=== PATIENT | female | born 1940 | race Caucasian/White ===

== ENCOUNTER 2017-11-22 10:18 | Outpatient (RCR) | payer MEDICARE, OTHER, SELFPAY ==
--- NOTE | 2017-11-22 11:14 | WC ---
free eval completed. 2nd dig lt foot w/ small scab. flaked off with inspection. no underlying wound. encouraged pt to con't to monitor and con't w/ pcp follow ups.
== END 2017-12-04 23:59 ==
LOC: WC 10:18
PROVIDERS: Family Provider Family Medicine; PCP Family Medicine; Visit Provider Nurse Practitioner
DX: Z00.8 Encounter for other general examination (principal)

== ENCOUNTER → 2018-01-31 12:08 | Outpatient (CLI) | payer MEDICARE, OTHER, SELFPAY ==
--- NOTE | 2018-01-30 | BRBX_PTH ---
PATIENT: JEISON VALENZUELA LOC: [facility] U#:[id number] AGE/SX: 85/F ROOM: RE01/31/[address]: Dr. Dov Sheikh MD : 1940 BED: DIS: SPEC #: [id number] RECD: 01/31/18 11:55 STATUS: ABRAN ECHAVARRIA #: [id number] ALISON: 01/30/18 00:[address]: Dov Sheikh DEPT: SURGICAL PATHOLOGY RECD BY: Dov Whitney ENTERED: 01/31/18 12:18 SP TYPE: BREAST BX OTHR DR: Dr. Jaya Blackwell III, MD Tissues: Left breast, NOS Procedures: Surgery Specimen Level IV HEADER OPERATION: US guided left breast biopsy PRE-OP DIAGNOSIS: Abnormal mammogram TISSUE SUBMITTED: Left breast biopsy ISCHEMIC TIME: 1 minute MICROSCOPIC DIAGNOSIS Left breast, ultrasound-guided core biopsy: Fragments of benign breast tissue with extensive dense fibrosis, chronic inflammation and dystrophic calcifications. Negative for atypia or malignancy. NICOLE:hal 02/03/18 COMMENT Correlation with clinical, radiologic findings and appropriate follow up are necessary. MICROSCOPIC DESCRIPTION Slides are reviewed. GROSS DESCRIPTION Received in fixative is one container labeled with the patient's name and designated left breast biopsy. The specimen consists of multiple elongated fragments of alba-yellow fibroadipose tissue that in aggregate measure 1.5 x 1.5 x 0.1 cm. The entire specimen is submitted in one cassette. / NICOLE:hal 01/31/18 TC:5 CPT: 82409
== END ==
PROVIDERS: Family Provider Family Medicine; PCP Family Medicine; Visit Provider Surgery
DX: R92.8 Other abnormal and inconclusive findings on diagnostic imaging of breast (principal)
CPT/HCPCS: 88305

== ENCOUNTER 2018-02-21 09:36 | Outpatient (RCR) | payer MEDICARE, OTHER, SELFPAY ==
[2018-02-21 10:02] VITALS: BP 131/59; PULSE 73; RESP 18; TEMP 36.4; BMI 17.0
--- NOTE | 2018-02-21 11:03 | PCM.WC.HP ---
(1) Decubitus ulcer of foot, stage 3 Status: Acute Current Visit: Yes Qualifiers: Laterality: left Qualified Code(s): L89.893 - Pressure ulcer of other site, stage 3 Code(s): L89.893 - Pressure ulcer of other site, stage 3 (2) CREST syndrome Status: Chronic Current Visit: No Code(s): M34.1 - CR(E)ST syndrome History of Present Illness Date of Service: 02/21/18 History of Wound: Low up left lateral foot. Patient has been babying a left lateral foot for about 3 weeks with antibiotic ointment. Dr. Blackwell her regular doctor and he referred her to the wound center. 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 fib Allergies/Adverse Reactions: Allergies ampicillin Allergy (Verified 08/26/16 12:54) Rash cyclophosphamide [From Cytoxan] Allergy (Verified 04/01/17 19:59) Rash doxycycline Allergy (Verified 04/01/17 19:59) Rash morphine Allergy (Verified 04/01/17 19:59) mental status change sulfamethoxazole [From Bactrim] Allergy (Verified 04/01/17 19:59) Rash trimethoprim [From Bactrim] Allergy (Verified 04/01/17 19:59) Rash Home Medications: Ambulatory Orders Medication Instructions Recorded Aspirin E.C. [Ecotrin] 81 mg PO DAILY@0800 11/05/15 Atorvastatin Calcium [Lipitor] 10 mg PO QHS 11/05/15 Hydrochlorothiazide [Hctz] 12.5 mg PO DAILY 11/05/15 Lisinopril [Zestril] 20 mg PO DAILY 11/05/15 Multivitamins,Therapeutic 1 tablet PO DAILY 11/05/15 [Multivitamin] NIFEdipine [Procardia XL] 90 mg PO DAILY 11/05/15 Omeprazole [Prilosec] 20 mg PO DAILY 11/05/15 Warfarin [Coumadin] 5 mg PO MOWETHFRSA 11/05/15 Vit A/Vit C/Vit E/Zinc/Copper 1 each PO BID 03/09/16 [Preservision Areds Softgel] Warfarin [Coumadin] 2.5 mg PO SUTU 04/01/17 - Family History Maternal No pertinent history Paternal Stroke, No pertinent history Lives: Alone Smoking Status: Never smoker Tobacco Use: Non-smoker Alcohol: None Drugs: None Review of Systems Constitutional: Denies: Chills, Fever Eyes: Denies: Blurred vision, Drainage, Pain HEENT: Denies: Difficulty Hearing, Difficulty Swallowing, Sore Throat, Visual Changes Cardiovascular: Denies: Chest Pain, Palpitations, Syncope Respiratory: Denies: Cough, Shortness of Breath Gastrointestinal: Denies: Abdominal Pain, Nausea, Vomiting Genitourinary: Denies: Dysuria, Frequency Musculoskeletal: Denies: Joint Pain, Muscle pain Skin: Reports: - - Decubitus ulcer left lateral foot. Denies: Jaundice, Rash Neurological: Denies: Balance problems, Change in Speech, Difficulty swallowing, Focal weakness Psychiatric: Denies: Anxiety, Depression Endocrine: Denies: Change in Body Habitus Hematologic/ Lymphatic: Denies: Adenopathy - Physical Exam Vital Signs Temp Pulse Resp BP 97.5 F L 73 18 131/59 H 02/21/18 10:02 02/21/18 10:02 02/21/18 10:02 02/21/18 10:02 General: Oriented x3, Cooperative, Well developed HEENT: Atraumatic, PERRLA Oral: Moist Mucosa Neck: Supple, No JVD Lungs: Clear to auscultation, Normal air movement Cardiovascular: Regular rate, Regular Rhythm Abdomen: Bowel Sounds Present, Soft, Non Tender, No Hepato-splenomegaly Extremities: No clubbing, No edema Skin: Ulcer/ Wound - Ulcer left lateral foot Wound Measurements and Assessment WC - Nurse 1 - General Ulcer Measurement Start: 02/21/18 10:01 Freq: Status: Active Protocol: Activity Type Activity Date Activity User E-Sign Co-Sign Detail Recorded Client Recorded Date Recorded By Document 02/21/18 10:02 [id number] 02/21/18 10:31 02/21/18 10:02 Wound Center Nurse 1 [Ulcer Assessment] #1 Left lateral 5th metatarsal head -Combined with other wound No -Current Size (cm) - Length 0.2 -Current Size (cm) - Width 0.7 -Current Size (cm) - Depth 0.1 -Total Square Cm 0.14 -Date of Last Picture (Recall this 02/21/18 field) -Photo Taken Yes -Epithelialization Small 1-33% -Tunneling No -Undermining/Tunneling No -Circular Undermining No -Classification - Thickness Full Thickness without Exposed Support Structure -Exudate Amt Small (1-33%) -Exudate Type Serosanguineous -Wound Margin Distinct, Outline Attached -Granulation Amt Large (67-100%) -Granulation Quality [place] -Slough/Fibrin Yes -Necrosis Amt Small (1-33%) -Necrotic Tissue Type Adherent Slough -Structure Exposed Fascia Fat Layer Exposed -Texture (Nola-wound Skin Appearance) No Abnormality -Moisture (Nola-wound Skin Appearance No Abnormality ) -Color (Nola-wound Skin Appearance) Erythema -Temperature (Nola-wound Skin No Abnormality Appearance) (Pt Warm) -Tenderness on Palpation (Nola-wound No Skin Appearance) -Ulcer Cleansing Rinsed/ Irrigated with Saline -Foul Odor after Cleansing No -Anesthetic Used 4% Lidocaine Solution [Edema Assessment] -Lower Limb Edema Present Yes -Left Calf (cm) 33.4 -Left Ankle (cm) 21.4 WC - Nurse 2 - General Ulcer CM Notes Start: 02/21/18 10:01 Freq: Status: Active Protocol: Activity Type Activity Date Activity User E-Sign Co-Sign Detail Recorded Client Recorded Date Recorded By Document 02/21/18 10:42 MW [id number] 02/21/18 10:52 MW 02/21/18 10:42 Wound Center Nurse 2 [Procedure/Treatment] #1 Left lateral 5th metatarsal head -Time 10:42 -Correct Patient Yes -Correct Side, Site, Position Yes -Correct Procedure Yes -Procedure Performed Yes -Type of Procedure Debridement -Clinical Debridement Subcutaneous -Post Debridement Size (cm) - Length 0.3 -Post Debridement Size (cm) - Width 0.8 -Post Debridement Size (cm) - Depth 0.2 -Total Square Cm 0.24 -Wound/Ulcer Outcome Not Healed -Ulcer Cleansing Rinsed/ Irrigated with Saline -Foul Odor after Cleansing No -Bioengineered Tissue No -Bleeding Controlled with Pressure -Treatment Response Procedure Tolerated Well [See Physician Procedure note for Specifics] Pain Scale: 0-10 Numeric [Pain] -Is Patient Pain Free? Yes Musculoskeletal: No Tenderness to Palpation of Joints or Extremities Lymphatic: No Cervical, Supraclavicular, or Inguinal Adenopathy Neurological: Cranial nerves II-XII grossly intact, Neuro grossly intact Psych/Mental Status: Normal Affect, Appropriate, Alert and oriented to time, place, person, mood and affect Debridement Note Post-Debridement Measurements/Treatment WC - Nurse 2 - General Ulcer CM Notes Start: 02/21/18 10:01 Freq: Status: Active Protocol: Activity Type Activity Date Activity User E-Sign Co-Sign Detail Recorded Client Recorded Date Recorded By Document 02/21/18 10:42 MW [id number] 02/21/18 10:52 MW 02/21/18 10:42 Wound Center Nurse 2 #1 Left lateral 5th metatarsal head -Time 10:42 -Correct Patient Yes -Correct Side, Site, Position Yes -Correct Procedure Yes -Procedure Performed Yes -Type of Procedure Debridement -Clinical Debridement Subcutaneous -Post Debridement Size (cm) - Length 0.3 -Post Debridement Size (cm) - Width 0.8 -Post Debridement Size (cm) - Depth 0.2 -Total Square Cm 0.24 -Wound/Ulcer Outcome Not Healed -Ulcer Cleansing Rinsed/ Irrigated with Saline -Foul Odor after Cleansing No -Bioengineered Tissue No -Bleeding Controlled with Pressure -Treatment Response Procedure Tolerated Well Pain Scale: 0-10 Numeric Is Patient Pain Free? Yes Wound debrided: Left lateral foot Laterality: Left Wound Grade/Stage: Stage III Anesthesia Used: 5% Lidocaine Gel Depth: Down to and including healthy tissue, in the subcutaneous layer Instrument Used: 3mm curette Severity: Limited To Skin Breakdown Amount of bleeding with debridement: Mild Bleeding Controlled with: Pressure Patient tolerated procedure well Assessment/Plan CBC with differential pre-albumin cultures taken of the ulcer Active Problems Decubitus ulcer of foot, stage 3 (Acute) Assessment: Crest syndrome. Decubitus ulcer left lateral foot. A. fib. Blood thinners long-term Plan: Foot with Hibiclens apply Aquacel silver to the wound base cover moistened cover with Adaptic gauze and tape 3veryday may need a surgical shoe for bulk. Low up in 2 weeks
--- NOTE | 2018-02-21 11:11 | HP.PCM_ITS ---
(1) Decubitus ulcer of foot, stage 3 Status: Acute Current Visit: Yes Qualifiers: Laterality: left Qualified Code(s): L89.893 - Pressure ulcer of other site , stage 3 Code(s): L89.893 - Pressure ulcer of other site, stage 3 (2) CREST syndrome Status: Chronic Current Visit: No Code(s): M34.1 - CR(E)ST syndrome History of Present Illness Date of Service: 02/21/18 History of Wound: Low up left lateral foot. Patient has been babying a left lateral foot for about 3 weeks with antibiotic ointment. Dr. Blackwell her regular doctor and he referred her to the wound center. 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 fib Allergies/Adverse Reactions: Allergies ampicillin Allergy (Verified 08/26/16 12:54) Rash cyclophosphamide [From Cytoxan] Allergy (Verified 04/01/17 19:59) Rash doxycycline Allergy (Verified 04/01/17 19:59) Rash morphine Allergy (Verified 04/01/17 19:59) mental status change sulfamethoxazole [From Bactrim] Allergy (Verified 04/01/17 19:59) Rash trimethoprim [From Bactrim] Allergy (Verified 04/01/17 19:59) Rash Home Medications: Ambulatory Orders Medication Instructions Recorded Aspirin E.C. [Ecotrin] 81 mg PO DAILY@0800 11/05/15 Atorvastatin Calcium [Lipitor] 10 mg PO QHS 11/05/15 Hydrochlorothiazide [Hctz] 12.5 mg PO DAILY 11/05/15 Lisinopril [Zestril] 20 mg PO DAILY 11/05/15 Multivitamins,Therapeutic 1 tablet PO DAILY 11/05/15 [Multivitamin] NIFEdipine [Procardia XL] 90 mg PO DAILY 11/05/15 Omeprazole [Prilosec] 20 mg PO DAILY 11/05/15 Warfarin [Coumadin] 5 mg PO MOWETHFRSA 11/05/15 Vit A/Vit C/Vit E/Zinc/Copper 1 each PO BID 03/09/16 [Preservision Areds Softgel] Warfarin [Coumadin] 2.5 mg PO SUTU 04/01/17 - Family History Maternal No pertinent history Paternal Stroke, No pertinent history Lives: Alone Smoking Status: Never smoker Tobacco Use: Non-smoker Alcohol: None Drugs: None Review of Systems Constitutional: Denies: Chills, Fever Eyes: Denies: Blurred vision, Drainage, Pain HEENT: Denies: Difficulty Hearing, Difficulty Swallowing, Sore Throat, Visual Changes Cardiovascular: Denies: Chest Pain, Palpitations, Syncope Respiratory: Denies: Cough, Shortness of Breath Gastrointestinal: Denies: Abdominal Pain, Nausea, Vomiting Genitourinary: Denies: Dysuria, Frequency Musculoskeletal: Denies: Joint Pain, Muscle pain Skin: Reports: - - Decubitus ulcer left lateral foot. Denies: Jaundice, Rash Neurological: Denies: Balance problems, Change in Speech, Difficulty swallowing , Focal weakness Psychiatric: Denies: Anxiety, Depression Endocrine: Denies: Change in Body Habitus Hematologic/ Lymphatic: Denies: Adenopathy - Physical Exam Vital Signs Temp Pulse Resp BP 97.5 F L 73 18 131/59 H 02/21/18 10:02 02/21/18 10:02 02/21/18 10:02 02/21/18 10:02 General: Oriented x3, Cooperative, Well developed HEENT: Atraumatic, PERRLA Oral: Moist Mucosa Neck: Supple, No JVD Lungs: Clear to auscultation, Normal air movement Cardiovascular: Regular rate, Regular Rhythm Abdomen: Bowel Sounds Present, Soft, Non Tender, No Hepato-splenomegaly Extremities: No clubbing, No edema Skin: Ulcer/ Wound - Ulcer left lateral foot Wound Measurements and Assessment WC - Nurse 1 - General Ulcer Measurement Start: 02/21/18 10:01 Freq: Status: Active Protocol: Activity Type Activity Date Activity User E-Sign Co-Sign Detail Recorded Client Recorded Date Recorded By Document 02/21/18 10:02 [id number] 02/21/18 10:31 02/21/18 10:02 Wound Center Nurse 1 [Ulcer Assessment] #1 Left lateral 5th metatarsal head -Combined with other wound No -Current Size (cm) - Length 0.2 -Current Size (cm) - Width 0.7 -Current Size (cm) - Depth 0.1 -Total Square Cm 0.14 -Date of Last Picture (Recall this 02/21/18 field) -Photo Taken Yes -Epithelialization Small 1-33% -Tunneling No -Undermining/Tunneling No -Circular Undermining No -Classification - Thickness Full Thickness without Exposed Support Structure -Exudate Amt Small (1-33%) -Exudate Type Serosanguineous -Wound Margin Distinct, Outline Attached -Granulation Amt Large (67-100%) -Granulation Quality [place] -Slough/Fibrin Yes -Necrosis Amt Small (1-33%) -Necrotic Tissue Type Adherent Slough -Structure Exposed Fascia Fat Layer Exposed -Texture (Nola-wound Skin Appearance) No Abnormality -Moisture (Nola-wound Skin Appearance No Abnormality ) -Color (Nola-wound Skin Appearance) Erythema -Temperature (Nola-wound Skin No Abnormality Appearance) (Pt Warm) -Tenderness on Palpation (Nola-wound No Skin Appearance) -Ulcer Cleansing Rinsed/ Irrigated with Saline -Foul Odor after Cleansing No -Anesthetic Used 4% Lidocaine Solution [Edema Assessment] -Lower Limb Edema Present Yes -Left Calf (cm) 33.4 -Left Ankle (cm) 21.4 WC - Nurse 2 - General Ulcer CM Notes Start: 02/21/18 10:01 Freq: Status: Active Protocol: Activity Type Activity Date Activity User E-Sign Co-Sign Detail Recorded Client Recorded Date Recorded By Document 02/21/18 10:42 MW [id number] 02/21/18 10:52 MW 02/21/18 10:42 Wound Center Nurse 2 [Procedure/Treatment] #1 Left lateral 5th metatarsal head -Time 10:42 -Correct Patient Yes -Correct Side, Site, Position Yes -Correct Procedure Yes -Procedure Performed Yes -Type of Procedure Debridement -Clinical Debridement Subcutaneous -Post Debridement Size (cm) - Length 0.3 -Post Debridement Size (cm) - Width 0.8 -Post Debridement Size (cm) - Depth 0.2 -Total Square Cm 0.24 -Wound/Ulcer Outcome Not Healed -Ulcer Cleansing Rinsed/ Irrigated with Saline -Foul Odor after Cleansing No -Bioengineered Tissue No -Bleeding Controlled with Pressure -Treatment Response Procedure Tolerated Well [See Physician Procedure note for Specifics] Pain Scale: 0-10 Numeric [Pain] -Is Patient Pain Free? Yes Musculoskeletal: No Tenderness to Palpation of Joints or Extremities Lymphatic: No Cervical, Supraclavicular, or Inguinal Adenopathy Neurological: Cranial nerves II-XII grossly intact, Neuro grossly intact Psych/Mental Status: Normal Affect, Appropriate, Alert and oriented to time, place, person, mood and affect Debridement Note Post-Debridement Measurements/Treatment WC - Nurse 2 - General Ulcer CM Notes Start: 02/21/18 10:01 Freq: Status: Active Protocol: Activity Type Activity Date Activity User E-Sign Co-Sign Detail Recorded Client Recorded Date Recorded By Document 02/21/18 10:42 MW [id number] 02/21/18 10:52 MW 02/21/18 10:42 Wound Center Nurse 2 #1 Left lateral 5th metatarsal head -Time 10:42 -Correct Patient Yes -Correct Side, Site, Position Yes -Correct Procedure Yes -Procedure Performed Yes -Type of Procedure Debridement -Clinical Debridement Subcutaneous -Post Debridement Size (cm) - Length 0.3 -Post Debridement Size (cm) - Width 0.8 -Post Debridement Size (cm) - Depth 0.2 -Total Square Cm 0.24 -Wound/Ulcer Outcome Not Healed -Ulcer Cleansing Rinsed/ Irrigated with Saline -Foul Odor after Cleansing No -Bioengineered Tissue No -Bleeding Controlled with Pressure -Treatment Response Procedure Tolerated Well Pain Scale: 0-10 Numeric Is Patient Pain Free? Yes Wound debrided: Left lateral foot Laterality: Left Wound Grade/Stage: Stage III Anesthesia Used: 5% Lidocaine Gel Depth: Down to and including healthy tissue, in the subcutaneous layer Instrument Used: 3mm curette Severity: Limited To Skin Breakdown Amount of bleeding with debridement: Mild Bleeding Controlled with: Pressure Patient tolerated procedure well Assessment/Plan CBC with differential pre-albumin cultures taken of the ulcer Active Problems Decubitus ulcer of foot, stage 3 (Acute) Assessment: Crest syndrome. Decubitus ulcer left lateral foot. A. fib. Blood thinners long-term Plan: Foot with Hibiclens apply Aquacel silver to the wound base cover moistened cover with Adaptic gauze and tape 3veryday may need a surgical shoe for bulk. Low up in 2 weeks
== END 2018-03-03 23:59 ==
LOC: WC 09:36
PROVIDERS: Family Provider Family Medicine; PCP Family Medicine; Visit Provider Nurse Practitioner
DX: L89.893 Pressure ulcer of other site, stage 3 (principal); M34.1 CR(E)ST syndrome; I10 Essential (primary) hypertension; K52.9 Noninfective gastroenteritis and colitis, unspecified; Z89.511 Acquired absence of right leg below knee; I48.91 Unspecified atrial fibrillation; Z79.899 Other long term (current) drug therapy; Z79.01 Long term (current) use of anticoagulants
CPT/HCPCS: 11042; 87070; 87075; 87077; 87186; 87205; 99203; G0463

== ENCOUNTER → 2018-02-21 11:41 | Outpatient (CLI) | payer MEDICARE, OTHER, SELFPAY ==
[2018-02-21 13:06] LABS: Absolute Neutrophil Count 12.7 X10^3/uL (2.0-7.7); Basophil# 0.04 X10^3/uL; Basophil% 0.3 % (0-1); Eosinophil# 0.24 X10^3/uL; Eosinophils% 1.5 % (0-5); Hematocrit 37.9 % (37-47); Mean Corp Hgb Conc 31.7 g/gl (32-36); Mean Corpuscular Hgb 28.1 pg (27.0-32.0); Mean Corpuscular Volume 88.8 fL (81-99); Mean Platelet Vol. 10.7 fl (6.2-12.0); Monocyte# 1.17 X10^3/uL; Monocyte% 7.5 % (0-10); Neutrophil # 12.67 X10^3/uL (2.7-7.7); Neutrophil % 81.4 % (47-70); POSITIVE COUNT NO; POSITIVE DIFFERENTIAL NO; POSITIVE MORPHOLOGY NO; Platelet Count 721 K/mm3 (150-450); RBC Distribution Width CV 15.4 % (11.6-14.6); RBC Distribution Width SD 49.7 fl (35.1-43.9); Red Blood Count 4.27 M/mm3 (4.2-5.4); White Blood Count 15.6 K/mm3 (4.4-11.0)
[2018-02-21 13:23] LABS: ALB/GLOB Ratio 0.9 RATIO (0.9-2.4); AST(SGOT) 23 U/L (15-37); Alanine Aminotransfer ALT/SGPT 28 U/L (13-56); Albumin, Serum 3.6 g/dL (3.2-5.0); Alkaline Phosphatase 127 U/L (45-117); Anion Gap 8 (5-15); BUN 52 mg/dL (7-18); BUN/Creat Ratio 40.6 RATIO (10-20); Calcium,Total 9.6 mg/dL (8.5-10.1); Chloride 105 mmol/L (98-107); Creatinine, Serum 1.28 mg/dL (0.55-1.02); EST Glomerular Filtration Rate 43 mL/min (>60); Est Glom Filt Rate - Afr Amer 52 mL/min (>60); Globulin 3.9 g/dL (2.2-4.2); Glucose 80 mg/dL (74-106); Potassium 4.7 mmol/L (3.5-5.1); Prealbumin 25.4 mg/dL (20.0-40.0); Protein, Total 7.5 g/dL (6.4-8.2); Sodium Level 139 mmol/L (136-145)
== END ==
PROVIDERS: Family Provider Family Medicine; PCP Family Medicine; Visit Provider Nurse Practitioner
DX: L89.893 Pressure ulcer of other site, stage 3 (principal); L97.529 Non-pressure chronic ulcer of other part of left foot with unspecified severity; E46 Unspecified protein-calorie malnutrition
CPT/HCPCS: 11042; 36415; 80053; 84134; 85025; 87070; 87075; 87077; 87186; 87205; 99203; G0463

== ENCOUNTER → 2018-03-14 11:11 | Outpatient (CLI) | payer MEDICARE, OTHER, SELFPAY ==
[2018-03-14 11:46] LABS: Prothrombin Time (Protime)PT. 50.9 SECONDS (11.7-14.9)
[2018-03-14 12:07] LABS: International Normalized Ratio 5.6
== END ==
PROVIDERS: Family Provider Family Medicine; PCP Family Medicine; Visit Provider Family Medicine
DX: I63.9 Cerebral infarction, unspecified (principal); D47.3 Essential (hemorrhagic) thrombocythemia; Z79.01 Long term (current) use of anticoagulants
CPT/HCPCS: 85610

== ENCOUNTER 2018-03-21 11:00 | Outpatient (RCR) | payer MEDICARE, OTHER, SELFPAY ==
[2018-03-04 01:15] VITALS: PULSE 73; RESP 18; TEMP 36.4
[2018-03-07 10:32] VITALS: BP 162/72; PULSE 82; RESP 16; TEMP 36.4
--- NOTE | 2018-03-11 13:02 | PCM.WC.PN ---
(1) Nonhealing nonsurgical wound Status: Acute Current Visit: No Code(s): T14.8XXA - Other injury of unspecified body region, initial encounter (2) CREST syndrome Status: Chronic Current Visit: No Code(s): M34.1 - CR(E)ST syndrome Type of Wound Date of Service: 03/21/18 Chief Complaint: follow up L foot ulcer on the lateral foot History of Wound: follow up left lateral foot. Patient has been babying a left lateral foot for about 3 weeks with antibiotic ointment. Dr. Blackwell her regular doctor and he referred her to the wound center. Progress of Wound: the ulcer is very superficial now but still increased pain in the area. patient already missing her Great toe from amputation. suggested a post op shoe eith a very fluffy sock to help with the pressure area c/o - Physical Exam Vital Signs Temp Pulse Resp BP 97.5 F L 82 16 162/72 H 03/07/18 10:32 03/07/18 10:32 03/07/18 10:32 03/07/18 10:32 General: Oriented x3, Cooperative, Well developed HEENT: Atraumatic, PERRLA Oral: Moist Mucosa Neck: Supple, No JVD Lungs: Clear to auscultation, Normal air movement Cardiovascular: Regular rate, Regular Rhythm Abdomen: Bowel Sounds Present, Soft, Non Tender, No Hepato-splenomegaly Extremities: No clubbing, No edema, - - L lat foot ulcer Musculoskeletal: No Tenderness to Palpation of Joints or Extremities Lymphatic: No Cervical, Supraclavicular, or Inguinal Adenopathy Neurological: Cranial nerves II-XII grossly intact, Neuro grossly intact Psych/Mental Status: Normal Affect, Appropriate Debridement Note Post-Debridement Measurements/Treatment WC - Nurse 2 - General Ulcer CM Notes Start: 03/07/18 10:32 Freq: Status: Active Protocol: Activity Type Activity Date Activity User E-Sign Co-Sign Detail Recorded Client Recorded Date Recorded By Document 03/07/18 11:28 ESME [id number] 03/07/18 11:29 ESME 03/07/18 11:28 Wound Center Nurse 2 #1 Left lateral 5th metatarsal head -Time 11:28 -Correct Patient Yes -Correct Side, Site, Position Yes -Correct Procedure Yes -Procedure Performed Yes -Type of Procedure Debridement -Clinical Debridement Subcutaneous -Post Debridement Size (cm) - Length 0.2 -Post Debridement Size (cm) - Width 0.7 -Post Debridement Size (cm) - Depth 0.1 -Total Square Cm 0.14 -Wound/Ulcer Outcome Not Healed -Ulcer Cleansing Rinsed/ Irrigated with Saline -Foul Odor after Cleansing No -Bioengineered Tissue No -Topical Lidocaine (%) 4 -Lidocaine (ml) 5 -Bleeding Controlled with NA -Treatment Response Procedure Tolerated Well Pain Scale: 0-10 Numeric Is Patient Pain Free? Yes Wound debrided: L lat foot ulcer Type of Debridement: Excisional debridement Anesthesia Used: 5% Lidocaine Gel Depth: Down to and including healthy tissue, in the subcutaneous layer Percentage of wound debrided: 100 Instrument Used: 5mm curette Tissue Removed: fibrin Severity: Limited To Skin Breakdown Amount of bleeding with debridement: None Patient tolerated procedure well Assessment/Plan Assessment: Crest syndrome. Decubitus ulcer left lateral foot. A. fib. Blood thinners long-term Plan: Foot with Hibiclens apply Aquacel silver to the wound base cover moistened cover with Adaptic gauze and tape everyday may need a surgical shoe for bulk. follow up in 1 weeks
[2018-03-21 13:09] VITALS: BP 143/76; PULSE 72; RESP 18; TEMP 36.9
--- NOTE | 2018-03-24 09:40 | PCM.WC.PN ---
(1) Nonhealing nonsurgical wound Status: Acute Current Visit: Yes Code(s): T14.8XXA - Other injury of unspecified body region, initial encounter (2) CREST syndrome Status: Chronic Current Visit: Yes Code(s): M34.1 - CR(E)ST syndrome Type of Wound Date of Service: 03/24/18 Chief Complaint: follow up L foot ulcer on the lateral foot History of Wound: follow up left lateral foot. Patient has been babying a left lateral foot for about 3 weeks with antibiotic ointment. Dr. Blackwell her regular doctor and he referred her to the wound center. Progress of Wound: the ulcer is epithelialized now but still has pain in the area. Patient already missing her Great toe from amputation > Suggested padding tyrone area with a rabbit ears pad that she can buy OTC and cut to fit over the area when wearing shoes only . suggested a post op shoe eith a very fluffy sock to help with the pressure area c/o. Patient will be d/c from the wound center today - Physical Exam Vital Signs Temp Pulse Resp BP 98.4 F 72 18 143/76 H 03/21/18 13:09 03/21/18 13:09 03/21/18 13:09 03/21/18 13:09 General: Oriented x3, Cooperative, Well developed HEENT: Atraumatic, PERRLA Oral: Moist Mucosa Neck: Supple, No JVD Lungs: Clear to auscultation, Normal air movement Cardiovascular: Regular rate, Regular Rhythm Abdomen: Bowel Sounds Present, Soft, Non Tender, No Hepato-splenomegaly Extremities: No clubbing, No edema Skin: Ulcer/ Wound - L lat little toe and foot Wound Measurements and Assessment WC - Nurse 1 - General Ulcer Measurement Start: 03/07/18 10:32 Freq: Status: Active Protocol: Activity Type Activity Date Activity User E-Sign Co-Sign Detail Recorded Client Recorded Date Recorded By Document 03/21/18 13:09 ESME [id number] 03/21/18 13:26 ESME 03/21/18 13:09 Wound Center Nurse 1 [Ulcer Assessment] #1 Left lateral 5th metatarsal head -Combined with other wound No -Current Size (cm) - Length 0.3 -Current Size (cm) - Width 0.6 -Current Size (cm) - Depth 0.1 -Total Square Cm 0.18 -Date of Last Picture (Recall this 03/21/18 field) -Photo Taken Yes -Epithelialization None Present -Tunneling No -Undermining/Tunneling No -Circular Undermining No -Classification - Thickness Full Thickness without Exposed Support Structure -Exudate Amt None Present (0 %) -Wound Margin Distinct, Outline Attached -Granulation Amt None Present (0 %) -Granulation Quality N/A -Slough/Fibrin Yes -Necrosis Amt None Present (0 %) -Necrotic Tissue Type Eschar -Structure Exposed N/A -Texture (Nola-wound Skin Appearance) Callus -Moisture (Nola-wound Skin Appearance No Abnormality ) -Color (Nola-wound Skin Appearance) No Abnormality -Temperature (Nola-wound Skin No Abnormality Appearance) (Pt Warm) -Tenderness on Palpation (Nola-wound No Skin Appearance) -Ulcer Cleansing Rinsed/ Irrigated with Saline -Foul Odor after Cleansing No -Anesthetic Used 5% Lidocaine Gel WC - Nurse 2 - General Ulcer CM Notes Start: 03/07/18 10:32 Freq: Status: Active Protocol: Activity Type Activity Date Activity User E-Sign Co-Sign Detail Recorded Client Recorded Date Recorded By Document 03/21/18 13:50 DV [id number] 03/21/18 14:06 DV 03/21/18 13:50 Wound Center Nurse 2 [Procedure/Treatment] -Time 13:58 -Correct Patient Yes -Procedure Performed No -Post Debridement Size (cm) - Length 0 -Post Debridement Size (cm) - Width 0 -Post Debridement Size (cm) - Depth 0 -Total Square Cm 0 -Wound/Ulcer Outcome Healed- Epithelialized [See Physician Procedure note for Specifics] Pain Scale: 0-10 Numeric [Pain] -Is Patient Pain Free? Yes Musculoskeletal: No Tenderness to Palpation of Joints or Extremities Lymphatic: No Cervical, Supraclavicular, or Inguinal Adenopathy Neurological: Cranial nerves II-XII grossly intact, Neuro grossly intact Psych/Mental Status: Normal Affect, Appropriate Debridement Note Post-Debridement Measurements/Treatment WC - Nurse 2 - General Ulcer CM Notes Start: 03/07/18 10:32 Freq: Status: Active Protocol: Activity Type Activity Date Activity User E-Sign Co-Sign Detail Recorded Client Recorded Date Recorded By Document 03/07/18 11:28 JS [id number] 03/07/18 11:29 Document 03/21/18 13:50 DV [id number] 03/21/18 14:06 DV 03/07/18 03/21/18 11:28 13:50 Wound Center Nurse 2 #1 Left lateral 5th metatarsal head -Time 11:28 13:58 -Correct Patient Yes Yes -Correct Side, Site, Position Yes -Correct Procedure Yes -Procedure Performed Yes No -Type of Procedure Debridement -Clinical Debridement Subcutaneous -Post Debridement Size (cm) - Length 0.2 0 -Post Debridement Size (cm) - Width 0.7 0 -Post Debridement Size (cm) - Depth 0.1 0 -Total Square Cm 0.14 0 -Wound/Ulcer Outcome Not Healed Healed- Epithelialized -Ulcer Cleansing Rinsed/ Irrigated with Saline -Foul Odor after Cleansing No -Bioengineered Tissue No -Topical Lidocaine (%) 4 -Lidocaine (ml) 5 -Bleeding Controlled with NA -Treatment Response Procedure Tolerated Well Pain Scale: 0-10 Numeric Is Patient Pain Free? Yes Yes No debridement was completed today Assessment/Plan Active Problems Nonhealing nonsurgical wound (Acute) CREST syndrome (Chronic) Assessment: Crest syndrome. Decubitus ulcer left lateral foot. A. fib. Blood thinners long-term Plan: cover area with a protective covering like rabbits ears felt with adhesive on the back when wearing shoes only. Continue tyrone postop shoe as needed. D/C from the wound center. follow up as needed
--- NOTE | 2018-03-24 09:45 | PN.PCM_ITS ---
(1) Nonhealing nonsurgical wound Status: Acute Current Visit: Yes Code(s): T14.8XXA - Other injury of unspecified body region, initial encounter (2) CREST syndrome Status: Chronic Current Visit: Yes Code(s): M34.1 - CR(E)ST syndrome Type of Wound Date of Service: 03/24/18 Chief Complaint: follow up L foot ulcer on the lateral foot History of Wound: follow up left lateral foot. Patient has been babying a left lateral foot for about 3 weeks with antibiotic ointment. Dr. Blackwell her regular doctor and he referred her to the wound center. Progress of Wound: the ulcer is epithelialized now but still has pain in the area. Patient already missing her Great toe from amputation > Suggested padding tyrone area with a rabbit ears pad that she can buy OTC and cut to fit over the area when wearing shoes only . suggested a post op shoe eith a very fluffy sock to help with the pressure area c/o. Patient will be d/c from the wound center today - Physical Exam Vital Signs Temp Pulse Resp BP 98.4 F 72 18 143/76 H 03/21/18 13:09 03/21/18 13:09 03/21/18 13:09 03/21/18 13:09 General: Oriented x3, Cooperative, Well developed HEENT: Atraumatic, PERRLA Oral: Moist Mucosa Neck: Supple, No JVD Lungs: Clear to auscultation, Normal air movement Cardiovascular: Regular rate, Regular Rhythm Abdomen: Bowel Sounds Present, Soft, Non Tender, No Hepato-splenomegaly Extremities: No clubbing, No edema Skin: Ulcer/ Wound - L lat little toe and foot Wound Measurements and Assessment WC - Nurse 1 - General Ulcer Measurement Start: 03/07/18 10:32 Freq: Status: Active Protocol: Activity Type Activity Date Activity User E-Sign Co-Sign Detail Recorded Client Recorded Date Recorded By Document 03/21/18 13:09 ESME [id number] 03/21/18 13:26 ESME 03/21/18 13:09 Wound Center Nurse 1 [Ulcer Assessment] #1 Left lateral 5th metatarsal head -Combined with other wound No -Current Size (cm) - Length 0.3 -Current Size (cm) - Width 0.6 -Current Size (cm) - Depth 0.1 -Total Square Cm 0.18 -Date of Last Picture (Recall this 03/21/18 field) -Photo Taken Yes -Epithelialization None Present -Tunneling No -Undermining/Tunneling No -Circular Undermining No -Classification - Thickness Full Thickness without Exposed Support Structure -Exudate Amt None Present (0 %) -Wound Margin Distinct, Outline Attached -Granulation Amt None Present (0 %) -Granulation Quality N/A -Slough/Fibrin Yes -Necrosis Amt None Present (0 %) -Necrotic Tissue Type Eschar -Structure Exposed N/A -Texture (Nola-wound Skin Appearance) Callus -Moisture (Nola-wound Skin Appearance No Abnormality ) -Color (Nola-wound Skin Appearance) No Abnormality -Temperature (Nola-wound Skin No Abnormality Appearance) (Pt Warm) -Tenderness on Palpation (Nola-wound No Skin Appearance) -Ulcer Cleansing Rinsed/ Irrigated with Saline -Foul Odor after Cleansing No -Anesthetic Used 5% Lidocaine Gel WC - Nurse 2 - General Ulcer CM Notes Start: 03/07/18 10:32 Freq: Status: Active Protocol: Activity Type Activity Date Activity User E-Sign Co-Sign Detail Recorded Client Recorded Date Recorded By Document 03/21/18 13:50 DV [id number] 03/21/18 14:06 DV 03/21/18 13:50 Wound Center Nurse 2 [Procedure/Treatment] -Time 13:58 -Correct Patient Yes -Procedure Performed No -Post Debridement Size (cm) - Length 0 -Post Debridement Size (cm) - Width 0 -Post Debridement Size (cm) - Depth 0 -Total Square Cm 0 -Wound/Ulcer Outcome Healed- Epithelialized [See Physician Procedure note for Specifics] Pain Scale: 0-10 Numeric [Pain] -Is Patient Pain Free? Yes Musculoskeletal: No Tenderness to Palpation of Joints or Extremities Lymphatic: No Cervical, Supraclavicular, or Inguinal Adenopathy Neurological: Cranial nerves II-XII grossly intact, Neuro grossly intact Psych/Mental Status: Normal Affect, Appropriate Debridement Note Post-Debridement Measurements/Treatment WC - Nurse 2 - General Ulcer CM Notes Start: 03/07/18 10:32 Freq: Status: Active Protocol: Activity Type Activity Date Activity User E-Sign Co-Sign Detail Recorded Client Recorded Date Recorded By Document 03/07/18 11:28 JS [id number] 03/07/18 11:29 Document 03/21/18 13:50 DV [id number] 03/21/18 14:06 DV 03/07/18 03/21/18 11:28 13:50 Wound Center Nurse 2 #1 Left lateral 5th metatarsal head -Time 11:28 13:58 -Correct Patient Yes Yes -Correct Side, Site, Position Yes -Correct Procedure Yes -Procedure Performed Yes No -Type of Procedure Debridement -Clinical Debridement Subcutaneous -Post Debridement Size (cm) - Length 0.2 0 -Post Debridement Size (cm) - Width 0.7 0 -Post Debridement Size (cm) - Depth 0.1 0 -Total Square Cm 0.14 0 -Wound/Ulcer Outcome Not Healed Healed- Epithelialized -Ulcer Cleansing Rinsed/ Irrigated with Saline -Foul Odor after Cleansing No -Bioengineered Tissue No -Topical Lidocaine (%) 4 -Lidocaine (ml) 5 -Bleeding Controlled with NA -Treatment Response Procedure Tolerated Well Pain Scale: 0-10 Numeric Is Patient Pain Free? Yes Yes No debridement was completed today Assessment/Plan Active Problems Nonhealing nonsurgical wound (Acute) CREST syndrome (Chronic) Assessment: Crest syndrome. Decubitus ulcer left lateral foot. A. fib. Blood thinners long-term Plan: cover area with a protective covering like rabbits ears felt with adhesive on the back when wearing shoes only. Continue tyrone postop shoe as needed. D/C from the wound center. follow up as needed
== END 2018-04-03 23:59 ==
LOC: WC 11:00
PROVIDERS: Family Provider Family Medicine; PCP Family Medicine; Visit Provider Nurse Practitioner
DX: L89.892 Pressure ulcer of other site, stage 2 (principal); M34.1 CR(E)ST syndrome; I48.91 Unspecified atrial fibrillation
CPT/HCPCS: 11042; 99212; G0463

== ENCOUNTER → 2018-06-30 11:49 | Outpatient (CLI) | payer MEDICARE, OTHER, SELFPAY ==
[2018-06-30 12:07] LABS: International Normalized Ratio 2.2; Prothrombin Time (Protime)PT. 24.7 SECONDS (11.7-14.9)
== END ==
PROVIDERS: Family Provider Family Medicine; PCP Family Medicine; Visit Provider Family Medicine
DX: I63.9 Cerebral infarction, unspecified (principal); D47.3 Essential (hemorrhagic) thrombocythemia; Z79.01 Long term (current) use of anticoagulants
CPT/HCPCS: 85610

== ENCOUNTER 2019-03-31 09:30 | Outpatient (RCR) | payer MEDICARE, OTHER, SELFPAY ==
[2019-03-24 10:29] VITALS: BP 139/61; PULSE 74; RESP 20; TEMP 36.3; BMI 17.4
--- NOTE | 2019-03-24 11:41 | PCM.WC.HP ---
(1) History of gastrointestinal bleeding Status: Chronic Current Visit: No Code(s): Z87.19 - Personal history of other diseases of the digestive system (2) Ulcer of left lower extremity Status: Chronic Current Visit: Yes Qualifiers: Non-pressure ulcer stage: with fat layer exposed Qualified Code(s): L97.922 - Non-pressure chronic ulcer of unspecified part of left lower leg with fat layer exposed Code(s): L97.929 - Non-pressure chronic ulcer of unspecified part of left lower leg with unspecified severity (3) History of TIA (transient ischemic attack) Status: Chronic Current Visit: No Code(s): Z86.73 - Personal history of transient ischemic attack (TIA), and cerebral infarction without residual deficits (4) CAD (coronary artery disease) Status: Chronic Current Visit: No Code(s): I25.10 - Atherosclerotic heart disease of [place] coronary artery without angina pectoris (5) Renal insufficiency Status: Chronic Current Visit: No Code(s): N28.9 - Disorder of kidney and ureter, unspecified (6) PAD (peripheral artery disease) Status: Chronic Current Visit: Yes Code(s): I73.9 - Peripheral vascular disease, unspecified (7) History of CEA (carotid endarterectomy) Status: Chronic Current Visit: No Code(s): Z98.890 - Other specified postprocedural states (8) Leg swelling Status: Chronic Current Visit: Yes Code(s): M79.89 - Other specified soft tissue disorders (9) CREST syndrome Status: Chronic Current Visit: Yes Code(s): M34.1 - CR(E)ST syndrome (10) 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 It is been present for several weeks. The patient is unaware of any inciting events. It appears to have developed spontaneously, without any recent history of trauma. Patient states that it started as a blister. She indicates that her lower extremities have recently been swelling. She sleeps in a recumbent position at night. She is not very active. Her primary care physician has treated her with oral Cipro, which she is currently taking, and the use of bacitracin ointment topically. Patient has previously undergone a right below-knee amputation due to end-stage ischemia in the right lower extremity. She ambulates with the use of a prosthetic limb. She is taking Coumadin, and has done so long-term, presumably due to her severe peripheral arterial occlusive disease. She also suffers from CREST syndrome. Past Medical History Past Medical History: Chronic Problems History of gastrointestinal bleeding (Chronic) Ulcer of left lower extremity (Chronic) History of TIA (transient ischemic attack) (Chronic) CAD (coronary artery disease) (Chronic) Renal insufficiency (Chronic) PAD (peripheral artery disease) (Chronic) History of CEA (carotid endarterectomy) (Chronic) Leg swelling (Chronic) Diarrhea (Chronic) 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) Hypertension (Chronic) Past Medical History: The patient has a history of CREST syndrome. She has a history of hypertension, peripheral arterial occlusive disease, coronary artery disease, transient ischemic attack, and carotid artery stenosis. She indicates that she only has 1 functioning kidney. Her history is negative for myocardial infarction, congestive heart failure, cancer, diabetes mellitus, pulmonary disease, thyroid disease, and hyperlipidemia. Surgical History: - - Patient has a history of right carotid endarterectomy. Right below-knee amputation has been performed in the past. Patient has undergone left great toe amputation. She is a G2, P1 Ab1 (spontaneous) Allergies/Adverse Reactions: Allergies ampicillin Allergy (Verified 03/24/19 10:28) Rash cyclophosphamide [From Cytoxan] Allergy (Verified 03/24/19 10:28) Rash doxycycline Allergy (Verified 03/24/19 10:28) Rash morphine Allergy (Verified 03/24/19 10:28) mental status change sulfamethoxazole [From Bactrim] Allergy (Verified 03/24/19 10:28) Rash trimethoprim [From Bactrim] Allergy (Verified 03/24/19 10:28) Rash Home Medications: Ambulatory Orders Medication Instructions Recorded Aspirin E.C. [Ecotrin] 81 mg PO DAILY@0800 11/05/15 Atorvastatin Calcium [Lipitor] 10 mg PO QHS 11/05/15 Hydrochlorothiazide [Hctz] 12.5 mg PO DAILY 11/05/15 Lisinopril [Zestril] 20 mg PO DAILY 11/05/15 Multivitamins,Therapeutic 1 tablet PO DAILY 11/05/15 [Multivitamin] NIFEdipine [Procardia XL] 90 mg PO DAILY 11/05/15 Omeprazole [Prilosec] 20 mg PO DAILY 11/05/15 Warfarin [Coumadin] 5 mg PO MOWETHFRSA 11/05/15 Vit A/Vit C/Vit E/Zinc/Copper 1 each PO BID 03/09/16 [Preservision Areds Softgel] - Family History Maternal No pertinent history Paternal Stroke, No pertinent history, - - Patient's father suffered from Raynaud's disease Social History: Patient is a . She lives alone. She denies use of alcohol and tobacco products. 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 Smoking Status: Never smoker Review of Systems Constitutional: Denies: Chills, Fever, Weight Change Eyes: Denies: Pain, Vision Change HEENT: Denies: Difficulty Hearing, Difficulty Swallowing, Sinus Congestion Cardiovascular: Denies: Chest Pain, Palpitations Respiratory: Denies: Cough, Shortness of Breath Gastrointestinal: Denies: Diarrhea, Nausea, Vomiting Genitourinary: Denies: Dysuria, Hematuria Endocrine: Denies: Heat/ Cold Intolerance, Polydipsia, Polyuria Hematologic/ Lymphatic: Denies: Easy Bruising, Easy Bleeding - Physical Exam Vital Signs Temp Pulse Resp BP 97.3 F L 74 20 H 139/61 H 03/24/19 10:29 03/24/19 10:29 03/24/19 10:29 03/24/19 10:29 General: Alert, Oriented x3, Cooperative, No apparent distress, Well developed, Well nourished, - - Patient is thin HEENT: Atraumatic, PERRLA, EOMI, Normocephalic Oral: Moist Mucosa, No Gingival or Mucosal Lesions/ Ulcerations Neck: Supple, No JVD, Negative Carotid Bruits, No Nodes, No Nuchal Rigidity, Trachea Midline Lungs: Clear to auscultation, Normal air movement, No rhonchi, No wheeze, No rales Cardiovascular: Regular rate, Regular Rhythm, Normal S1, Normal S2, No murmurs Abdomen: Soft, Non Tender, Non-Distended Extremities: No clubbing, No cyanosis, No Calf Tenderness, - - The right lower extremity prosthesis is noted. There is slight swelling in the left lower extremity. Very small superficial ulceration is noted on the anterolateral aspect of the left calf. It is generally pink and healthy in appearance. There is no sign of infection or cellulitis. Dimensions are documented elsewhere. Sclerodactyly is noted to involve the digits of the hands. The distal right third finger is absent. Skin: No rashes Wound Measurements and Assessment WC - Nurse 1 - General Ulcer Measurement Start: 03/24/19 10:23 Freq: Status: Active Protocol: Activity Type Activity Date Activity User E-Sign Co-Sign Detail Recorded Client Recorded Date Recorded By Document 03/24/19 10:29 AN [id number] 03/24/19 10:51 AN 03/24/19 10:29 Wound Center Nurse 1 [Ulcer Assessment] #2 left lateral aleman -Current Size (cm) - Length 0.3 -Current Size (cm) - Width 0.5 -Current Size (cm) - Depth 0.1 -Total Square Cm 0.15 -Date of Last Picture (Recall this 03/24/19 field) -Photo Taken Yes -Classification - Thickness Full Thickness without Exposed Support Structure -Wound Margin Flat & Intact -Granulation Amt Small (1-33%) -Granulation Quality Red -Slough/Fibrin Yes -Necrosis Amt Large (67-100%) -Necrotic Tissue Type Adherent Slough -Structure Exposed None/Limited to Skin Breakdown -Texture (Nola-wound Skin Appearance) Assessed Localized Edema -Moisture (Nola-wound Skin Appearance Assessed ) -Color (Nola-wound Skin Appearance) Not Assessed Erythema -Temperature (Nola-wound Skin No Abnormality Appearance) (Pt Warm) -Tenderness on Palpation (Nola-wound Yes Skin Appearance) -Ulcer Cleansing Rinsed/ Irrigated with Saline -Foul Odor after Cleansing No -Anesthetic Used 4% Lidocaine Solution [Edema Assessment] -Left Calf (cm) 36 -Left Ankle (cm) 22 WC - Nurse 2 - General Ulcer CM Notes Start: 03/24/19 10:23 Freq: Status: Active Protocol: Activity Type Activity Date Activity User E-Sign Co-Sign Detail Recorded Client Recorded Date Recorded By Document 03/24/19 11:22 DV [id number] 03/24/19 11:34 DV 03/24/19 11:22 Wound Center Nurse 2 [Procedure/Treatment] #2 left lateral aleman -Time 11:32 -Correct Patient Yes -Correct Side, Site, Position Yes -Correct Procedure Yes -Procedure Performed Yes -Type of Procedure Debridement -Clinical Debridement Subcutaneous -Post Debridement Size (cm) - Length 0.2 -Post Debridement Size (cm) - Width 0.2 -Post Debridement Size (cm) - Depth 0.1 -Total Square Cm 0.04 -Wound/Ulcer Outcome Not Healed -Ulcer Cleansing Rinsed/ Irrigated with Saline -Foul Odor after Cleansing No -Bioengineered Tissue No -Bleeding Controlled with Pressure -Offloading No -Treatment Response Procedure Tolerated Well [See Physician Procedure note for Specifics] Pain Scale: 0-10 Numeric [Pain] -Is Patient Pain Free? Yes Neurological: Cranial nerves II-XII grossly intact, Neuro grossly intact Psych/Mental Status: Normal Affect, Appropriate, Alert and oriented to time, place, person, mood and affect Debridement Note Post-Debridement Measurements/Treatment WC - Nurse 2 - General Ulcer CM Notes Start: 03/24/19 10:23 Freq: Status: Active Protocol: Activity Type Activity Date Activity User E-Sign Co-Sign Detail Recorded Client Recorded Date Recorded By Document 03/24/19 11:22 DV [id number] 03/24/19 11:34 DV 03/24/19 11:22 Wound Center Nurse 2 #2 left lateral aleman -Time 11:32 -Correct Patient Yes -Correct Side, Site, Position Yes -Correct Procedure Yes -Procedure Performed Yes -Type of Procedure Debridement -Clinical Debridement Subcutaneous -Post Debridement Size (cm) - Length 0.2 -Post Debridement Size (cm) - Width 0.2 -Post Debridement Size (cm) - Depth 0.1 -Total Square Cm 0.04 -Wound/Ulcer Outcome Not Healed -Ulcer Cleansing Rinsed/ Irrigated with Saline -Foul Odor after Cleansing No -Bioengineered Tissue No -Bleeding Controlled with Pressure -Offloading No -Treatment Response Procedure Tolerated Well Pain Scale: 0-10 Numeric Is Patient Pain Free? Yes Laterality: Left - Anterolateral calf Anesthesia Used: 5% Lidocaine Gel Depth: Down to and including healthy tissue, in the subcutaneous layer Percentage of wound debrided: 100 Instrument Used: 5mm curette Tissue Removed: Bioburden Severity: Fat Layer Exposed Amount of bleeding with debridement: Mild Bleeding Controlled with: Compression and gauze Patient tolerated procedure well Assessment/Plan Active Problems Ulcer of left lower extremity (Chronic) PAD (peripheral artery disease) (Chronic) Leg swelling (Chronic) 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) Assessment: This is a 78-year-old female with multiple medical problems, as detailed above. Among these problems, the patient suffers from symptoms and manifestations of the CREST syndrome. She is under the care of a vascular surgeon, Dr. Mike Coppola. She presents with a small ulceration on the anterolateral aspect of the left calf, presumably the result of a blister which occurred due to swelling of the left lower extremity. She has previously undergone a right below-knee amputation for ischemia. Plan: We are to implement the use of Anna, which will be applied topically every other day. The patient is to be instructed in the appropriate means of application. Routine laboratory studies are to be obtained, including a CBC, comprehensive metabolic profile, and a serum prealbumin. The patient has been advised to optimize her nutritional intake. She has recently undergone a noninvasive lower extremity arterial study at the [facility], and efforts will be made to obtain the results of this study. For now, we are to avoid any form of compression, with the knowledge that the patient suffers from arterial occlusive disease in her left lower extremity. To minimize swelling, she has been advised to elevate her lower extremities as much as possible, to remain active, and to avoid prolonged idle sitting. Patient is to return in 1 week for reassessment. The patient is not a smoker. Influenza vaccine was not administered today. Patient stands 5 feet 8 inches tall. She weighs 115 pounds. Her BMI is 17.4, which places her in an underweight category.
[2019-03-26 12:50] LABS: Hematocrit 34.9 % (37-47); Hemoglobin 11.1 g/dl (12.0-15.0); Mean Corp Hgb Conc 31.8 g/gl (32-36); Mean Corpuscular Hgb 26.7 pg (27.0-32.0); Mean Corpuscular Volume 83.9 fL (81-99); Mean Platelet Vol. 10.7 fl (6.2-12.0); Platelet Count 684 K/mm3 (150-450); RBC Distribution Width CV 15.7 % (11.6-14.6); RBC Distribution Width SD 46.9 fl (35.1-43.9); Red Blood Count 4.16 M/mm3 (4.2-5.4); White Blood Count 15.1 K/mm3 (4.4-11.0)
[2019-03-26 13:03] LABS: Scan Indicated on CBC? Y/N NO
[2019-03-26 13:40] LABS: ALB/GLOB Ratio 0.9 RATIO (0.9-2.4); AST(SGOT) 19 U/L (15-37); Alanine Aminotransfer ALT/SGPT 23 U/L (13-56); Albumin, Serum 3.2 g/dL (3.2-5.0); Alkaline Phosphatase 100 U/L (45-117); Anion Gap 7 (5-15); BUN 47 mg/dL (7-18); BUN/Creat Ratio 33.6 RATIO (10-20); Chloride 109 mmol/L (98-107); EST Glomerular Filtration Rate 39 mL/min (>60); Est Glom Filt Rate - Afr Amer 47 mL/min (>60); Estimated Creatinine Clearance 26.83 ml/min; Globulin 3.7 g/dL (2.2-4.2); Glucose 88 mg/dL (74-106); Potassium 4.1 mmol/L (3.5-5.1); Protein, Total 6.9 g/dL (6.4-8.2); Sodium Level 137 mmol/L (136-145)
[2019-03-31 09:48] VITALS: BP 127/58; PULSE 76; RESP 16; TEMP 36.3; BMI 17.4
--- NOTE | 2019-03-31 10:25 | HP.PCM_ITS ---
(1) History of gastrointestinal bleeding Status: Chronic Current Visit: No Code(s): Z87.19 - Personal history of other diseases of the digestive system (2) Ulcer of left lower extremity Status: Chronic Current Visit: Yes Qualifiers: Non-pressure ulcer stage: with fat layer exposed Qualified Code(s): L97.922 - Non-pressure chronic ulcer of unspecified part of left lower leg with fat layer exposed Code(s): L97.929 - Non-pressure chronic ulcer of unspecified part of left lower leg with unspecified severity (3) History of TIA (transient ischemic attack) Status: Chronic Current Visit: No Code(s): Z86.73 - Personal history of transient ischemic attack (TIA), and cerebral infarction without residual deficits (4) CAD (coronary artery disease) Status: Chronic Current Visit: No Code(s): I25.10 - Atherosclerotic heart disease of [place] coronary artery without angina pectoris (5) Renal insufficiency Status: Chronic Current Visit: No Code(s): N28.9 - Disorder of kidney and ureter, unspecified (6) PAD (peripheral artery disease) Status: Chronic Current Visit: Yes Code(s): I73.9 - Peripheral vascular disease, unspecified (7) History of CEA (carotid endarterectomy) Status: Chronic Current Visit: No Code(s): Z98.890 - Other specified postprocedural states (8) Leg swelling Status: Chronic Current Visit: Yes Code(s): M79.89 - Other specified soft tissue disorders (9) CREST syndrome Status: Chronic Current Visit: Yes Code(s): M34.1 - CR(E)ST syndrome (10) 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 It is been present for several weeks. The patient is unaware of any inciting events. It appears to have developed spontaneously, without any recent history of trauma. Patient states that it started as a blister. She indicates that her lower extremities have recently been swelling. She sleeps in a recumbent position at night. She is not very active. Her primary care physician has treated her with oral Cipro, which she is currently taking, and the use of bacitracin ointment topically. Patient has previously undergone a right below-knee amputation due to end-stage ischemia in the right lower extremity. She ambulates with the use of a prosthetic limb. She is taking Coumadin, and has done so long-term, presumably due to her severe peripheral arterial occlusive disease. She also suffers from CREST syndrome. Past Medical History Past Medical History: Chronic Problems History of gastrointestinal bleeding (Chronic) Ulcer of left lower extremity (Chronic) History of TIA (transient ischemic attack) (Chronic) CAD (coronary artery disease) (Chronic) Renal insufficiency (Chronic) PAD (peripheral artery disease) (Chronic) History of CEA (carotid endarterectomy) (Chronic) Leg swelling (Chronic) Diarrhea (Chronic) 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) Hypertension (Chronic) Surgical History: - - Patient has a history of right carotid endarterectomy. Right below-knee amputation has been performed in the past. Patient has undergone left great toe amputation. She is a G2, P1 Ab1 (spontaneous) Allergies/Adverse Reactions: Allergies ampicillin Allergy (Verified 03/24/19 10:28) Rash cyclophosphamide [From Cytoxan] Allergy (Verified 03/24/19 10:28) Rash doxycycline Allergy (Verified 03/24/19 10:28) Rash morphine Allergy (Verified 03/24/19 10:28) mental status change sulfamethoxazole [From Bactrim] Allergy (Verified 03/24/19 10:28) Rash trimethoprim [From Bactrim] Allergy (Verified 03/24/19 10:28) Rash Home Medications: Ambulatory Orders Medication Instructions Recorded Aspirin E.C. [Ecotrin] 81 mg PO DAILY@0800 11/05/15 Atorvastatin Calcium [Lipitor] 10 mg PO QHS 11/05/15 Hydrochlorothiazide [Hctz] 12.5 mg PO DAILY 11/05/15 Lisinopril [Zestril] 20 mg PO DAILY 11/05/15 Multivitamins,Therapeutic 1 tablet PO DAILY 11/05/15 [Multivitamin] NIFEdipine [Procardia XL] 90 mg PO DAILY 11/05/15 Omeprazole [Prilosec] 20 mg PO DAILY 11/05/15 Warfarin [Coumadin] 5 mg PO MOWETHFRSA 11/05/15 Vit A/Vit C/Vit E/Zinc/Copper 1 each PO BID 03/09/16 [Preservision Areds Softgel] - Family History Maternal No pertinent history Paternal Stroke, No pertinent history, - - Patient's father suffered from Raynaud's disease Smoking Status: Never smoker Review of Systems Constitutional: Denies: Chills, Fever, Weight Change Eyes: Denies: Pain, Vision Change HEENT: Denies: Difficulty Hearing, Difficulty Swallowing, Sinus Congestion Cardiovascular: Denies: Chest Pain, Palpitations Respiratory: Denies: Cough, Shortness of Breath Gastrointestinal: Denies: Diarrhea, Nausea, Vomiting Genitourinary: Denies: Dysuria, Hematuria Endocrine: Denies: Heat/ Cold Intolerance, Polydipsia, Polyuria Hematologic/ Lymphatic: Denies: Easy Bruising, Easy Bleeding - Physical Exam Vital Signs Temp Pulse Resp BP 97.3 F L 76 16 127/58 H 03/31/19 09:48 03/31/19 09:48 03/31/19 09:48 03/31/19 09:48 General: Alert, Oriented x3, Cooperative, No apparent distress, Well developed, Well nourished HEENT: Atraumatic, PERRLA, EOMI, Normocephalic Oral: Moist Mucosa Neck: No JVD Lungs: Normal air movement Abdomen: Non-Distended Extremities: No clubbing, No cyanosis, No edema, No Calf Tenderness, - - Sclerodactyly is noted in the fingers. The ulceration on the left anterolateral calf is now completely healed and epithelialized. A prosthesis is noted on the right lower extremity. Skin: No rashes Wound Measurements and Assessment WC - Nurse 1 - General Ulcer Measurement Start: 03/24/19 10:23 Freq: Status: Active Protocol: Activity Type Activity Date Activity User E-Sign Co-Sign Detail Recorded Client Recorded Date Recorded By Document 03/31/19 09:48 DL [id number] 03/31/19 09:50 DL 03/31/19 09:48 Wound Center Nurse 1 [Ulcer Assessment] #3 left lateral aleman -Current Size (cm) - Length 0.1 -Current Size (cm) - Width 0.1 -Current Size (cm) - Depth 0.1 -Total Square Cm 0.01 -Photo Taken No -Exudate Amt None Present -Wound Margin Flat & Intact -Granulation Amt Large (67-100%) -Granulation Quality [place] -Necrosis Amt None Present (0 %) -Structure Exposed N/A -Texture (Nola-wound Skin Appearance) Scarring -Moisture (Nola-wound Skin Appearance Dry/Scaly ) -Color (Nola-wound Skin Appearance) No Abnormality -Ulcer Cleansing Rinsed/ Irrigated with Saline -Foul Odor after Cleansing No -Anesthetic Used 5% Lidocaine Gel [Edema Assessment] -Left Calf (cm) 35.4 -Left Ankle (cm) 21.1 Neurological: Cranial nerves II-XII grossly intact, Neuro grossly intact Psych/Mental Status: Normal Affect, Appropriate, Alert and oriented to time, place, person, mood and affect Debridement Note Post-Debridement Measurements/Treatment WC - Nurse 2 - General Ulcer CM Notes Start: 03/24/19 10:23 Freq: Status: Active Protocol: Activity Type Activity Date Activity User E-Sign Co-Sign Detail Recorded Client Recorded Date Recorded By Document 03/24/19 11:22 DV [id number] 03/24/19 11:34 DV 03/24/19 11:22 Wound Center Nurse 2 #3 left lateral aleman -Time 11:32 -Correct Patient Yes -Correct Side, Site, Position Yes -Correct Procedure Yes -Procedure Performed Yes -Type of Procedure Debridement -Clinical Debridement Subcutaneous -Post Debridement Size (cm) - Length 0.2 -Post Debridement Size (cm) - Width 0.2 -Post Debridement Size (cm) - Depth 0.1 -Total Square Cm 0.04 -Wound/Ulcer Outcome Not Healed -Ulcer Cleansing Rinsed/ Irrigated with Saline -Foul Odor after Cleansing No -Bioengineered Tissue No -Bleeding Controlled with Pressure -Offloading No -Treatment Response Procedure Tolerated Well Pain Scale: 0-10 Numeric Is Patient Pain Free? Yes No debridement was completed today - The left lower extremity ulceration is completely healed. Assessment/Plan Active Problems Ulcer of left lower extremity (Chronic) PAD (peripheral artery disease) (Chronic) Leg swelling (Chronic) 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) Assessment: This is a 78-year-old female with multiple medical problems, as detailed above. Among these problems, the patient suffers from symptoms and man ifestations of the CREST syndrome. She is under the care of a vascular surgeon, Dr. Mike Coppola. She presented with a small ulceration on the anterolateral aspect of the left calf, presumably the result of a blister which occurred due to swelling of the left lower extremity. She has previously undergone a right below-knee amputation for ischemia. Plan: The left lower extremity ulceration is now completely healed and feel he lies. The patient is to be discharged today. She has been instructed to avoid swelling in the left lower extremity. She is to elevate her left lower extremity is much as possible. She is to avoid prolonged idle sitting. Activity has been encouraged. She is to continue using her graduated compression stocking, which she was previously tolerating well. Routine laboratory studies were obtained, including a CBC, comprehensive metabolic profile, and a serum prealbumin. These results have been reviewed. To minimize swelling, she has been advised to elevate her lower extremities as much as possible, to remain active, and to avoid prolonged idle sitting. Patient is to be discharged. The patient is not a smoker. Influenza vaccine was not administered today. Patient stands 5 feet 8 inches tall. She weighs 115 pounds. Her BMI is 17.4, which places her in an underweight category.
== END 2019-04-03 23:59 ==
LOC: WC 09:30
PROVIDERS: Family Provider Family Medicine; PCP Family Medicine; Visit Provider Surgery
DX: I73.9 Peripheral vascular disease, unspecified (principal); M34.1 CR(E)ST syndrome; I25.10 Atherosclerotic heart disease of native coronary artery without angina pectoris; L97.822 Non-pressure chronic ulcer of other part of left lower leg with fat layer exposed; Z89.511 Acquired absence of right leg below knee; Z86.73 Personal history of transient ischemic attack (TIA), and cerebral infarction without residual deficits; I12.9 Hypertensive chronic kidney disease with stage 1 through stage 4 chronic kidney disease, or unspecified chronic kidney disease; N18.9 Chronic kidney disease, unspecified; R60.0 Localized edema; Z79.899 Other long term (current) drug therapy; Z79.01 Long term (current) use of anticoagulants
CPT/HCPCS: 11042; 36415; 80053; 84134; 85027; 99212; 99213; G0463

== ENCOUNTER → 2019-04-08 | Outpatient (CLI) | payer MEDICARE, OTHER, SELFPAY ==
[2019-03-31 09:48] VITALS: BMI 17.4
[2019-04-08 11:22] LABS: Prothrombin Time (Protime)PT. 22.3 SECONDS (11.7-14.9)
== END | disposition home or self-care (01) ==
LOC: LABSPEC 10:22
PROVIDERS: Family Provider Family Medicine; PCP Family Medicine; Referring Provider Family Medicine; Visit Provider Family Medicine
DX: I70.92 Chronic total occlusion of artery of the extremities (principal)
CPT/HCPCS: 85610

== ENCOUNTER 2019-06-11 12:11 | Inpatient (IN) | payer MEDICARE, OTHER, SELFPAY ==
[2019-06-11] VITALS (7 sets, daily range): BP systolic 145–190; BP diastolic 49–84; PULSE 55–84; RESP 16–18; TEMP 36.4–36.9; O2SAT 97–100; BMI 18.0; BMI 16.2
--- NOTE | 2019-06-11 12:34 | EKG12_ITS ---
Test Reason : WEAKNESS Blood Pressure : / mmHG Vent. Rate : 066 BPM Atrial Rate : 066 BPM P-R Int : 162 ms QRS Dur : 082 ms QT Int : 402 ms P-R-T Axes : 075 017 078 degrees QTc Int : 421 ms Normal sinus rhythm Low voltage QRS Cannot rule out Anteroseptal infarct (cited on or before 22-MAY-2007), age undetermined Abnormal ECG Confirmed by DAPHNIE GARDNER ([id number]), newspaper editor managing ALMA FUENTES ([id number]) on 06/15/2019 1:20:25 PM Referred By: Kalee Alvarez Confirmed By:DAPHNIE GARDNER
--- NOTE | 2019-06-11 12:34 | RAD_ITS ---
STUDY: X-RAY CHEST REASON FOR EXAM: Female, 78 years old. Chest pain and weakness. TECHNIQUE: Single AP portable view of the chest. COMPARISON: None. FINDINGS: EKG electrodes are seen. Surgical clips are seen in the cervical region. There is a small left pleural effusion with underlying infiltration and/or atelectasis. Normal size heart. Normal mediastinum and dinesh. Normal visualized pulmonary arteries. There is atherosclerotic calcification of the aortic arch with tortuosity. Normal visualized thoracic spine. Normal visualized ribs, clavicles, and shoulders. There is no demonstrated abnormality of the visualized soft tissue structures of the upper abdomen. RAD/Chest 1 View (Portable) IMPRESSION: Small left pleural effusion with underlying infiltration and/or atelectasis. Electronically Signed: Cipriano Brandon, at 13:09 EDT , Service support ,
--- NOTE | 2019-06-11 12:44 | CT_ITS ---
STUDY: CT BRAIN WITHOUT CONTRAST REASON FOR EXAM: Female, 78 years old. Left arm weakness. RADIATION DOSAGE (If Supplied By Facility): CTDIvol = ( 44.99 ) mGy, DLP = ( 832.67 ) mGycm TECHNIQUE: Transaxial CT imaging of the brain was performed without administration of intravenous contrast material. Individualized dose optimization techniques were used for this CT. COMPARISON: Comparison is made with prior study dated April 01, 2017. FINDINGS: Normal soft tissue structures. There is hyperostosis frontalis internus. There is mild cerebral atrophy with widening of the extra-axial spaces and ventricular dilatation. Stable encephalomalacia of the left medial occipital lobe including with prior infarction. Normal basal ganglia and thalami. Normal brainstem. Normal cerebellum. There is no intracranial hemorrhage. There are no findings of an acute ischemic infarction. Atherosclerotic calcification of the vertebral arteries and cavernous portions of the internal carotid arteries bilaterally. Normal visualized paranasal sinuses. CT/Brain/Head without Contrast IMPRESSION: Stable encephalomalacia in the medial aspect of the left occipital lobe. Electronically Signed: Cipriano Brandon, at 14:02 EDT , Service support ,
--- NOTE | 2019-06-11 12:45 | ED.VIS.GEN ---
History of Present Illness Chief Complaint: Weakness Onset: Today Current Severity: Mild Narrative: History of right below the knee amputation 2005, history of TIA at that time causing peripheral right eye visual field deficit, history of other nonspecific medical problems, patient reports was in her usual state of health until about an hour or 2 ago when she developed sudden onset of left upper extremity numbness and weakness, this lasted for about 5 minutes resolved during that time she had no trouble with her vision no changes, no headache no other numbness weakness paresthesias no chest pain or abdominal pain she is back to her baseline now reporting that her extremities are all the same motion no numbness weakness or paresthesias, she is had no fever no cough she denies history of [place] PE or DVT indicates she has one kidney because 1 of her [place] kidneys simply atrophied Past Medical History - Allergies and Home Meds Allergies/Adverse Reactions: Allergies ampicillin Allergy (Verified 06/11/19 12:13) Rash cyclophosphamide [From Cytoxan] Allergy (Verified 06/11/19 12:13) Rash doxycycline Allergy (Verified 06/11/19 12:13) Rash morphine Allergy (Verified 06/11/19 12:13) mental status change sulfamethoxazole [From Bactrim] Allergy (Verified 06/11/19 12:13) Rash trimethoprim [From Bactrim] Allergy (Verified 06/11/19 12:13) Rash Primary Care Physician: Jaya Blackwell III, MD [Primary Care Provider] - Past Medical History: - - Right lower extremity amputation prior TIA solitary kidney Surgical History: - - Patient has a history of right carotid endarterectomy. Right below-knee amputation has been performed in the past. Patient has undergone left great toe amputation. She is a G2, P1 Ab1 (spontaneous) Smoking Status: Never smoker - Family History Maternal Family History: Reports: No pertinent history Paternal Family History: Reports: Stroke, No pertinent history, - - Patient's father suffered from Raynaud's disease Review of Systems General: Denies: Chills, Fever, Sweats Eyes: Denies: Visual changes - bilaterally, Diplopia ENT: Denies: Rhinorrhea, Sore throat Cardiovascular: Denies: Chest pain, Palpitations Respiratory: Denies: Dyspnea, Cough, Dyspnea on exertion Gastrointestinal: Denies: Abdominal pain, Nausea, Vomiting, Diarrhea, Melena, Hematochezia Genitourinary: Denies: Dysuria, Hematuria, Frequency Musculoskeletal: Denies: Back pain, Extremity Pain Skin: Denies: Rash, Wounds Neurological: Reports: Weakness, Numbness. Denies: Headache Physical Exam Vital Signs/Narrative: Vital Signs Temp Pulse Resp BP Pulse Ox 06/11/19 12:13 97.8 F 69 17 145/49 H 97 General: Well nourished, Well developed, No Acute Distress Head: Normocephalic, Atraumatic Eyes: Perrl, EOMI ENT: Moist mucous membranes, No rhinorrhea Neck: Supple, Nontender Cardiovascular: Regular rate, Regular rhythm, No murmurs Respiratory: No distress, CTA bilaterally, Chest nontender Abdomen: Soft, Nontender, Nondistended, Normal bowel sounds Back: Nontender, Normal Inspection Extremities: Nontender, No edema Skin: Normal color, No rash Neurological: Alert, Oriented x3, Cranial nerves II-XII grossly intact, Normal Strength, Normal Sensation, - - She has a right lower extremity amputation as above, she has full range of motion of her extremities otherwise her NIH scale is 0 her speech cranial nerves are normal and her visual function is normal with no changes from her chronic state her left upper extremity has full range of motion good pulses good sensation no signs of trauma or vascular problems Psychological: Normal affect, Normal Mood Diagnostic/Tx/Re-eval - Medical Decision Making Given her age and her complaints and all the above CT screening labs Patient screening labs are generally unremarkable, see those reports she has a baseline anemia, the EKG shows a sinus rhythm nothing acute rate 70, head CT per radiology shows extensive encephalomalacia in left no acute abnormality otherwise Patient reports she had a prior TIA in 2005 related to her postop status but never describe a stroke given all the above and her symptoms I spoke with the hospitalist will arrange for admission for further management Admit stable Final impression Stroke versus TIA causing left arm weakness, history of prior stroke, history of right lower extremity below the knee amputation ED Disposition - Plan for ED Patient: Diagnosis: Stroke, Left arm weakness Referrals: Jaya Blackwell III, MD [Primary Care Provider] -
[2019-06-11 13:26] LABS: Absolute Lymphocyte Count 1.57 X10^3/uL (0.83-4.51); Absolute Neutrophil Count 10.7 X10^3/uL (2.0-7.7); Basophil# 0.06 X10^3/uL; Basophil% 0.4 % (0-1); Eosinophil# 0.15 X10^3/uL; Eosinophils% 1.1 % (0-5); Hematocrit 32.4 % (37-47); Hemoglobin 10.6 g/dL (12.0-15.0); Lymphocyte # 1.57 X10^3/ul (4.0); Lymphocyte % 11.5 % (19-41); Mean Corp Hgb Conc 32.7 g/dL (32-36); Mean Corpuscular Hgb 28.1 pg (27.0-32.0); Mean Corpuscular Volume 85.9 fL (81-99); Mean Platelet Vol. 10.8 fl (6.2-12.0); Monocyte# 1.03 X10^3/uL; Monocyte% 7.5 % (0-10); NRBC Flagged by Analyzer 0 % (0-5); Neutrophil # 10.74 X10^3/uL (2.7-7.7); Neutrophil % 78.8 % (47-70); Platelet Count 515 K/mm3 (150-450); RBC Distribution Width CV 16.4 % (11.6-14.6); RBC Distribution Width SD 50.8 fl (35.1-43.9); Red Blood Count 3.77 M/mm3 (4.2-5.4); White Blood Count 13.7 K/mm3 (4.4-11.0)
[2019-06-11 13:42] LABS: AST(SGOT) 22 U/L (15-37); Alanine Aminotransfer ALT/SGPT 26 U/L (13-56); Albumin, Serum 2.9 g/dL (3.2-5.0); Alkaline Phosphatase 109 U/L (45-117); Bilirubin, Direct 0.07 mg/dL (0.00-0.30); Globulin 3.7 g/dL (2.2-4.2); Protein, Total 6.6 g/dL (6.4-8.2)
[2019-06-11 13:52] LABS: Anion Gap 10 (5-15); BUN 48 mg/dL (7-18); BUN/Creat Ratio 36.6 RATIO (10-20); Calcium,Total 8.6 mg/dL (8.5-10.1); Chloride 108 mmol/L (98-107); Creatinine, Serum 1.31 mg/dL (0.55-1.02); EST Glomerular Filtration Rate 42 mL/min (>60); Est Glom Filt Rate - Afr Amer 50 mL/min (>60); Estimated Creatinine Clearance 29.58 ml/min; Glucose 82 mg/dL (74-106); Lipase 167 U/L (73-393); Potassium 4.3 mmol/L (3.5-5.1); Sodium Level 140 mmol/L (136-145)
[2019-06-11 14:21] LABS: Bacteria 0 SEEN /hpf (None Seen); Mucous, Urine 0 SEEN /hpf (<or=2+); Red Blood Cells-Urine 0 SEEN /hpf (0-5); Squamous Epithelial Cells - UA 0 SEEN /hpf (5-10); White Blood Cells 0 SEEN /hpf (0-5)
[2019-06-11 14:33] LABS: Color, Urine Yellow (Yellow); Glucose, Dipstick Normal (Normal); Ketone-Dipstick Negative (Negative); Leukocyte Esterase-Dipstick Negative /ul (Negative); Nitrite-Dipstick Negative (Negative); Occult Blood-Urine Negative /ul (Negative); Protein-Dipstick 100 mg/dl (Negative); Urine Bilirubin Dipstick Negative (Negative); Urine Clarity Clear (Clear); Urine Urobilinogen Normal (Normal)
--- NOTE | 2019-06-11 15:04 | HP.PCM_ITS ---
History of Present Illness Date of Admission: 06/11/19 Chief Complaint: Left upper extremity numbness and tingling. The patient is a 78 year old F with an extensive past medical history as listed which includes a previous stroke. She was admitted through the ED on 06/11/2019 with a complaint of left upper extremity numbness and tingling which started around 10:30 AM this morning. She had no assisted weakness of her left upper extremity. She just had assisted heaviness and also noted that she was having heaviness of her right upper extremity. She did not have any slurred speech and has chronic blurred vision in her right eye from previous stroke. She also did not notice any mouth droop or weakness in any upper extremity or her lower extremity. Review of systems otherwise negative. In the ED, blood pressure was mildly elevated at 152/53 and pulse rate was 55. CBC was remarkable only for mildly elevated white cell count of 13.7 and hemoglobin was 7.6. Chemistry was remarkable for creatinine of 1.[address] of the brain was remarkable for stable encephalomalacia in the medial aspect of the left occipital lobe and was negative for any acute intracranial pathology and chest x-ray was unremarkable. EKG showed no acute ST changes. She has been admitted to be managed for TIA. 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 [Ecotrin] 81 mg PO DAILY@0800 11/05/15 Atorvastatin Calcium [Lipitor] 10 mg PO QHS 11/05/15 Lisinopril [Zestril] 20 mg PO DAILY 11/05/15 Multivitamins,Therapeutic 1 tablet PO DAILY 11/05/15 [Multivitamin] NIFEdipine [Procardia XL] 90 mg PO DAILY 11/05/15 Omeprazole [Prilosec] 20 mg PO DAILY 11/05/15 Warfarin [Coumadin] 5 mg PO MOWEFR 11/05/15 Vit A/Vit C/Vit E/Zinc/Copper 1 each PO BID 03/09/16 [Preservision Areds Softgel] Hydrochlorothiazide 12.5 mg PO DAILY 06/11/19 Hydroxychloroquine [Plaquenil] 200 mg PO DAILYCM 06/11/19 Nitroglycerin [Nitro-Bid] 1 applic TP DAILY 06/11/19 Warfarin Sodium 2.5 mg PO SUTUTHSA 06/11/19 Surgical History: - - Patient has a history of right carotid endarterectomy. Right below-knee amputation has been performed in the past. Patient has undergone left great toe amputation. 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 Lives: With Family Smoking Status: Never smoker Alcohol: None Drugs: None - *Family History Maternal History Items: No pertinent history Paternal History Items: Stroke, No pertinent history, - - Patient's father suffered from Raynaud's disease Review of Systems Constitutional: Denies: Chills, Fever, Malaise, Weakness, Weight Change Eyes: Reports: Blurred vision - chronic in right eye HEENT: Denies: Head Aches, Sinus Congestion, Sinus Drainage Cardiovascular: Denies: Chest Pain, Palpitations Respiratory: Denies: Cough, Shortness of Breath, Shortness of breath at rest, Shortness of breath upon exertion, Sputum production Gastrointestinal: Denies: Abdominal Pain, Nausea, Vomiting Genitourinary: Denies: Dysuria Musculoskeletal: Denies: Joint Pain, Joint Tenderness Skin: Denies: Rash, Wounds Neurological: Reports: Numbness, Tingling. Denies: Focal weakness Psychiatric: Denies: Anxiety, Depression, Homicidal Ideations, Suicidal Ideations Hematologic/ Lymphatic: Denies: Easy Bruising, Easy Bleeding VTE Information - Inpt Only VTE Present on Admission: No VTE Pharm Prophylaxis ordered?: Yes Patient Problems: Active and Suspected Problems Stroke (Acute) Left arm weakness (Acute) - Physical Exam General: Alert, Oriented x3, Cooperative, No apparent distress HEENT: Atraumatic, PERRLA, EOMI, Normocephalic Oral: Moist Mucosa Neck: Supple, No JVD, Negative Carotid Bruits Lungs: Clear to auscultation, Normal air movement, No rhonchi, No wheeze, No rales Cardiovascular: Regular rate, Regular Rhythm, Normal S1, Normal S2, No murmurs Abdomen: Bowel Sounds Present, Soft, Non Tender, Non-Distended, No Hepato- splenomegaly Extremities: No clubbing, No cyanosis, No edema, Capillary Refill Less than 3 Seconds Skin: No rashes, No breakdown Musculoskeletal: No Tenderness to Palpation of Joints or Extremities, - - RLE AKA BKA. Neurological: Cranial nerves II-XII grossly intact, Neuro grossly intact, - - NIHSS-0 Psych/Mental Status: Normal Affect, Appropriate, Alert and oriented to time, place, person, mood and affect Vital Signs Temp Pulse Resp BP Pulse Ox 97.8 F 55 L 16 152/53 H 97 06/11/19 12:13 06/11/19 13:07 06/11/19 13:07 06/11/19 13:07 06/11/19 12:13 Oxygen Delivery Method Room Air Weight: 118 lb 9.739 oz Body Mass Index (BMI) 18.0 Laboratory Tests Past 24 Hrs 06/11/19 06/11/19 06/11/19 13:20 13:20 13:20 WBC 13.7 H RBC 3.77 L Hgb 10.6 L Hct 32.4 L MCV 85.9 MCH 28.1 MCHC 32.7 RDW Std Deviation 50.8 H RDW Coeff of Aba 16.4 H Plt Count 515 H MPV 10.8 Immature Gran % (Auto) 0.700 Neut % (Auto) 78.8 H Lymph % (Auto) 11.5 L [place] % (Auto) 7.5 Eos % (Auto) 1.1 Baso % (Auto) 0.4 Absolute Neuts (auto) 10.7 H Absolute Lymphs (auto) 1.57 Nucleated RBC % 0 Sodium 140 Potassium 4.3 Chloride 108 H Carbon Dioxide 22.0 Anion Gap 10 BUN 48 H Creatinine 1.31 H Estim Creat Clear Calc 29.58 Est GFR (MDRD) Af Amer 50 L Est GFR (MDRD) Non-Af 42 L BUN/Creatinine Ratio 36.6 H Glucose 82 Calcium 8.6 Total Bilirubin 0.20 Direct Bilirubin 0.07 AST 22 ALT 26 Alkaline Phosphatase 109 Troponin I 0.018 Total Protein 6.6 Albumin 2.9 L Globulin 3.7 Lipase 167 Urine Color Urine Clarity Urine pH Ur Specific Fowler Urine Protein Urine Glucose (UA) Urine Ketones Urine Occult Blood Urine Nitrite Urine Bilirubin Urine Urobilinogen Ur Leukocyte Esterase Urine RBC Urine WBC Ur Squamous Epith Cells Urine Bacteria Urine Mucus 06/11/19 14:00 WBC RBC Hgb Hct MCV MCH MCHC RDW Std Deviation RDW Coeff of Aba Plt Count MPV Immature Gran % (Auto) Neut % (Auto) Lymph % (Auto) [place] % (Auto) Eos % (Auto) Baso % (Auto) Absolute Neuts (auto) Absolute Lymphs (auto) Nucleated RBC % Sodium Potassium Chloride Carbon Dioxide Anion Gap BUN Creatinine Estim Creat Clear Calc Est GFR (MDRD) Af Amer Est GFR (MDRD) Non-Af BUN/Creatinine Ratio Glucose Calcium Total Bilirubin Direct Bilirubin AST ALT Alkaline Phosphatase Troponin I Total Protein Albumin Globulin Lipase Urine Color Yellow Urine Clarity Clear Urine pH 6.0 Ur Specific Fowler 1.010 Urine Protein 100 H Urine Glucose (UA) Normal Urine Ketones Negative Urine Occult Blood Negative Urine Nitrite Negative Urine Bilirubin Negative Urine Urobilinogen Normal Ur Leukocyte Esterase Negative Urine RBC 0 SEEN Urine WBC 0 SEEN Ur Squamous Epith Cells 0 SEEN Urine Bacteria 0 SEEN Urine Mucus 0 SEEN Diagnostic Data Chest X-Ray 06/11/19 12:34 IMPRESSION: Small left pleural effusion with underlying infiltration and/or atelectasis. Electronically Signed: Cipriano Brandon, at 13:09 EDT , Service support , Brain CT 06/11/19 12:44 IMPRESSION: Stable encephalomalacia in the medial aspect of the left occipital lobe. Electronically Signed: Cipriano Brandon, at 14:02 EDT , Service support , Assessment/Plan All Active Problems Decubitus ulcer of foot, stage 3 (Acute) Nonhealing nonsurgical wound (Acute) Stroke (Acute) Left arm weakness (Acute) Abdominal pain (Acute) Gastrointestinal bleeding (Acute) Melena (Acute) Ileus (Acute) Ischemic colitis (Acute) 78 y/o female admitted with a complaint of LUE numbness and tingling 1. TIA * Admit to PCU with telemetry * Continue aspirin and statin. * CT of the brain was negative for any acute changes and showed chronic stable occipital encephalomalacia * PT.OT consult * Fall precautions * For MRI of the brain tomorrow. * Has no echo in the records. Will obtain 2D echo. * 2. History of scleroderma and Raynaud's phenomenon: Unaffected pain. Also on Coumadin. 3. Hyperlipidemia: On statin. 4. Hypertension: On lisinopril and nifedipine. 5. GERD: Prilosec 6. CKD 3: Creatinine is 1.31 which is around her baseline. Will monitor. DVT prophylaxis: On Coumadin. Will check INR CODE STATUS: Full code Patient counseled extensively about different types of CODE STATUS including full code, DNR CCA and DNR CCA. Patient elects to be full code. Daughter is POA. Total [id number] time 16 minutes. Code Visit OBSV E&M: 63552 Initial observation care L3
--- NOTE | 2019-06-11 15:09 | NURSING ---
PCU TIA STROKE, LEFT ARM WEAKNESS
--- NOTE | 2019-06-11 15:56 | MRI_ITS ---
STUDY: MRI BRAIN WITHOUT CONTRAST REASON FOR EXAM: Female, 78 years old. Numbness and tingling in left arm today and TECHNIQUE: Standardized multiplanar fat and water weighted pulse sequences were obtained. COMPARISON: CT same day FINDINGS: Normal size of the ventricles and extra-axial spaces for the patient's age. There are a limited number of small white matter hyperintensities, distributed throughout the deep white matter tracts of the cerebral hemispheres, consistent with mild chronic white matter ischemic changes. Bilateral occipital encephalomalacia. Normal bilateral basal ganglia. Normal thalami. There is no extra-axial fluid accumulation. Normal flow voids within the major intracranial circulation suggesting patency by spin echo criteria. Empty sella. Normal tectal plate and pineal gland. Normal midbrain, vani and medulla. Normal cerebellum. Normal basal cisterns. Normal bilateral temporal bones. Normal bilateral internal auditory canals. There are bilateral ocular lens implants with otherwise normal intraorbital contents. Normal visualized paranasal sinuses. Hyperostosis frontalis interna Normal visualized soft tissue structures. Normal visualized upper cervical spine. MRI/Brain without Contrast IMPRESSION: No evidence of acute infarct or hemorrhage. Bilateral occipital encephalomalacia. Electronically Signed: Jonathan Villar MD at 19:55 EDT Tel , Service support ,
--- NOTE | 2019-06-11 15:56 | MRI_ITS ---
STUDY: MRA NECK WITHOUT CONTRAST REASON FOR EXAM: Female, 78 years old. Left-sided numbness and tingling TECHNIQUE: Source images were obtained, MIPs were performed. The study was performed unenhanced. COMPARISON: None. FINDINGS: RIGHT CAROTID ARTERIES: Normal right common carotid artery (CCA). Normal right common carotid bulb. Normal origin of the right internal carotid (ICA) artery without a hemodynamically significant stenosis. Normal visualized cervical portion of the right internal carotid artery. Normal origin of the right external carotid artery (ECA). LEFT CAROTID ARTERIES: Normal left common carotid artery (CCA). Normal left common carotid bulb. Normal origin of the left internal carotid (ICA) artery without a hemodynamically significant stenosis. Normal visualized cervical portion of the left internal carotid artery. Normal origin of the left external carotid artery (ECA). VERTEBRAL ARTERIES: Normal antegrade flow within the bilateral vertebral artery without a hemodynamically significant stenosis. MRI/MRA Neck without Contrast IMPRESSION: Normal bilateral cervical carotid and vertebral arteries. Electronically Signed: Jonathan Villar MD at 20:26 EDT Tel , Service support ,
--- NOTE | 2019-06-11 15:56 | ECHOD_ITS ---
Reason For Study: TIA Procedure This was a 2D Doppler, Color Flow transthoracic echocardiogram. Exam performed portable in patient room. Left Ventricle Normal LV size. The estimated ejection fraction is 55 %. Stage 1 diastolic dysfunction. No regional wall motion abnormalities noted. Right Ventricle Normal size and thickness. Normal systolic function. Atria Normal left atrium. Normal right atrium. Normal atrial septum. Bubble contrast study negative for right to left interatrial shunt. Mitral Valve The mitral valve is structurally normal. No prolapse or stenosis seen. Trivial mitral valve insufficiency. Tricuspid Valve Normal tricuspid valve. Trivial tricuspid valve insufficiency. Right ventricular systolic pressure estimated to be 28 mmHg. Aortic Valve Normal aortic valve. Trisinus/trileaflet aortic valve. Pulmonic Valve Normal pulmonic valve. Great Vessels Normal aortic root. Normal arch. Normal inferior vena cava. Inferior vena cava collapse with sniff. Pericardium/Pleural Moderate pericardial effusion. Circumferential effusion. There are no echocardiographic indications of cardiac tamponade. Small left pleural effusion. Medication Performed a rapid injection of agitated mix of 9 cc saline and 1cc air to assess for atrial septal defect. MMode/2D Measurements & Calculations LVIDd: 4.3 cm IVSd: 1.1 cm Ao root diam: 3.2 cm LVIDs: 3.2 cm LVPWd: 1.0 cm RVDd: 3.2 cm FS: 25.2 % LAV(MOD-bp): 59.8 ml LA A4 area: 19.6 cm2 LA dimension(2D): 3.1 cm LAV(MOD-bp) Indexed: 36.6 ml/m2 LAV(MOD-sp2): 56.5 ml LAV(MOD-sp4): 54.4 ml RA A4 area: 15.8 cm2 Time Measurements MV dec time: 0.25 sec Doppler Measurements & Calculations MV E max bryson: 58.6 cm/sec Lat Peak E' Bryson: 4.4 cm/sec Med Peak E' Bryson: 4.2 cm/sec MV A max bryson: 102.0 cm/sec E/E' lat: 13.2 E/E' med: 14.0 MV E/A: 0.57 Ao V2 max: 119.2 cm/sec LV V1 max: 82.7 cm/sec PA V2 max: 98.6 cm/sec Ao max P.7 mmHg LV V1 max P.7 mmHg TR max bryson: 229.4 cm/sec TR max P.1 mmHg Interpretation Summary The estimated ejection fraction is 55 %. Stage 1 diastolic dysfunction. Bubble contrast study negative for right to left interatrial shunt. Trivial mitral valve insufficiency. Trivial tricuspid valve insufficiency. Right ventricular systolic pressure estimated to be 28 mmHg. Moderate pericardial effusion. Circumferential effusion. There are no echocardiographic indications of cardiac tamponade. Small left pleural effusion. Pt states that she has had known old pericardial effusion as evaluated by echoes with previous strategy specialist Dr Umana. Would recommend obtaining old echo report or film for comparison. There is no comparison study available. Ordering Physician: Kalee Alvarez Referring Physician: RE ARENAS III Performed By: Danae Man, CECY, RVT
--- NOTE | 2019-06-11 15:56 | MRI_ITS ---
STUDY: MRA OF THE HEAD WITHOUT CONTRAST REASON FOR EXAM: Female, 78 years old. Numbness and tingling in the left arm today TECHNIQUE: 3-D [id number] (TOF) imaging was performed with MIPs. The study was performed unenhanced. COMPARISON: MRI same day FINDINGS: Normal bilateral petrous carotid arteries. Normal right cavernous carotid artery with a normal supraclinoid bifurcation. Normal left cavernous carotid artery with a normal supraclinoid bifurcation. Normal right A1 segments of the anterior cerebral artery. There is hypoplastic development of the left A1 segment of the anterior cerebral arteries with an atretic but intact artery. Normal intact anterior communicating artery (ACOM). Normal bilateral A2 segments of the anterior cerebral arteries. Normal right M1 and M2 segments of the middle cerebral arteries, with a normal M1 bifurcation. Normal left M1 and M2 segments of the middle cerebral arteries, with a normal M1 bifurcation. Normal right posterior communicating artery (PCOM). Normal left posterior communicating artery (PCOM). The right vertebral artery terminates as the posterior inferior cerebellar artery. Normal basilar artery with a normal basilar bifurcation. The visualized bilateral superior cerebellar (SCA) arteries are normal. 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 Occlusion of the P3 segment of the right KENNEL SUPERVISOR. This could be chronic given the MRI finding of right occipital encephalomalacia. There is no demonstrated aneurysm of the elim ira of [place]. There is no major vessel occlusion or hemodynamically significant stenosis. There is no demonstrated abnormality of the visualized brain. 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 Occlusion of the P3 segment of the right KENNEL SUPERVISOR. This could be chronic given the MRI finding of right occipital encephalomalacia. No high grade stenoses or occlusions of the middle cerebral arteries. Electronically Signed: Jonathan Villar MD at 20:14 EDT Tel , Service support ,
--- NOTE | 2019-06-11 16:25 | ED.RN ---
THIS RN WENT TO PCU TO INITIATE IV. UNSUCCESSFUL WITH PLACEMENT. SITE HEAD NOTIFIED.
[2019-06-11] MEDS: Atorvastatin Calcium 10 MG Tablet PO (21:28)
[2019-06-11] MEDS: Multivitamin (Healthy Eyes) Capsule 1 CAP PO (21:28)
[2019-06-11] MEDS: Acetaminophen 325 MG Tablet 650 MG PO (21:29)
[2019-06-12] VITALS (11 sets, daily range): BP systolic 149–178; BP diastolic 65–85; PULSE 70–97; RESP 16–18; TEMP 36.7–37; O2SAT 94–98
[2019-06-12 05:51] LABS: Absolute Lymphocyte Count 2.05 X10^3/uL (0.83-4.51); Basophil# 0.06 X10^3/uL; Basophil% 0.5 % (0-1); Eosinophil# 0.24 X10^3/uL; Eosinophils% 1.9 % (0-5); Hematocrit 31.2 % (37-47); Hemoglobin 9.9 g/dL (12.0-15.0); Lymphocyte # 2.05 X10^3/ul (4.0); Lymphocyte % 16.4 % (19-41); Mean Corp Hgb Conc 31.7 g/dL (32-36); Mean Corpuscular Hgb 27.3 pg (27.0-32.0); Mean Corpuscular Volume 86.2 fL (81-99); Mean Platelet Vol. 10.9 fl (6.2-12.0); Monocyte# 1.07 X10^3/uL; Monocyte% 8.5 % (0-10); NRBC Flagged by Analyzer 0 % (0-5); Neutrophil # 9.02 X10^3/uL (2.7-7.7); Platelet Count 513 K/mm3 (150-450); RBC Distribution Width CV 16.7 % (11.6-14.6); RBC Distribution Width SD 51.6 fl (35.1-43.9); Red Blood Count 3.62 M/mm3 (4.2-5.4); White Blood Count 12.5 K/mm3 (4.4-11.0)
[2019-06-12 06:09] LABS: Anion Gap 7 (5-15); BUN 45 mg/dL (7-18); BUN/Creat Ratio 29.2 RATIO (10-20); Calcium,Total 8.6 mg/dL (8.5-10.1); Chloride 113 mmol/L (98-107); Creatinine, Serum 1.54 mg/dL (0.55-1.02); EST Glomerular Filtration Rate 35 mL/min (>60); Est Glom Filt Rate - Afr Amer 42 mL/min (>60); Estimated Creatinine Clearance 22.63 ml/min; Glucose 74 mg/dL (74-106); Potassium 4.4 mmol/L (3.5-5.1); Sodium Level 143 mmol/L (136-145)
[2019-06-12] MEDS: Aspirin E.C. 81 MG Tablet PO (08:36)
[2019-06-12] MEDS: Multivitamins,Therapeutic Tablet 1 TABLET PO (08:36)
[2019-06-12] MEDS: Hydroxychloroquine 200 MG Tablet PO (08:36)
[2019-06-12] MEDS: Pantoprazole Sodium 20 MG Tablet PO (08:37)
[2019-06-12] MEDS: Nitroglycerin Oint 1 INCH PACKET TRANSDERM. (08:37)
[2019-06-12] MEDS: NIFEdipine 90 MG Tablet PO (08:37)
[2019-06-12] MEDS: Multivitamin (Healthy Eyes) Capsule 1 CAP PO ×2 (08:37→22:10)
[2019-06-12] MEDS: hydroCHLOROthiazide 12.5mg 12.5 MG PO (08:37)
[2019-06-12] MEDS: Lisinopril 20 MG Tablet PO (08:37)
--- NOTE | 2019-06-12 11:40 | CASEMGMT ---
Addendum entered by Kwan Peralta 06/12/19 16:24: PT/OT evals completed and RU/further therapy recommended. DENA GAUTAM to room to talk with pt. Pt states she is agreeable to going to SNF or RU and states no preference. Gabi DAVILA, notified. Original Note: RN CM AUTOMATION DEVELOPER CM to room to meet with patient for initial transition planning/care coordination assessment. RN CM introduced self and role at [facility]. Pt voices understanding and consents to assessment at this time. Pt resting in bed in no distress at this time. Pt is A/O at this time and answers all questions appropriately. Care providers, pharmacy, and demographics verified/updated at this time. PCP: Jaya Blackwell Specialists: Dr Williamson--Cardiology [place], Agricultural Economics Teacher--pt does not remember her name. Preferred Pharmacy: [facility] Insurance: [employer] Prescription Benefit: [employer] Living Will/HPOA: is not sure if she has a LW, but does have a HCPOA who is her daughter, Jazzmine. LNOK: 2 daughters. Living Arrangements: Lives alone in one-story home. No steps to enter. Pt states she was independent prior to hospitalization. Transportation: Has many friends that assist with transportation. DME: has the following DME: shower chair, raised toilet seat, cane, walker, rails/grab bars, hand held shower, medical alert button, and prosthetic leg d/t Rt BKA. Has a W/C but does not use. Pt states no need for further DME at this time. HHC/SNF: Has been to [facility] in the past and has had [facility]. has had aides thru [place] in the past that she paid for private pay. She states has been interested getting aides to assist in the home but [facility] has told her recently that they do not have staffing at this time. Pt given list of agencies who provide Private Duty Aides. PT/OT results pending. Discussed discharge plan with pt. Pt states she would like to go home but states she has not been out of bed yet and does not know how well she will do. States she would be agreeable to [facility] if therapy recommends further therapy. Pt states does not have a preference of agency and is agreeable to [facility]. CM to follow for any further discharge planning/needs. Pt voices no further concerns/needs at this time. Advised pt to ask for CM if any further questions/concerns/needs arise. Voices understanding. PLAN: TBD PT/OT evals pending. Juan BAN RN CM
--- NOTE | 2019-06-12 13:32 | PN_ITS ---
<Shayan Gaytan - Last Filed: 06/12/19 13:32> Patient Problems: Active and Suspected Problems Stroke (Acute) Left arm weakness (Acute) Subjective: Pt resting comfortably in bed NAD. Pt feels that her initial symptoms are completely resolved. She experienced transient left sided upper extremity weakness. No numbness/tingling, no speech change, no facial droop, LLE not affected. She had a prior stroke after she had a RLE amputation (2/2 severe PAD) that left her with permanent right eye vision loss. This is unchanged. She has chronic intermittent headaches. She has had right sided carotid endarterectomy. - Physical Exam General: Alert, Oriented x3, Cooperative HEENT: Atraumatic, PERRLA, EOMI, Normocephalic Neck: Supple, No JVD, Negative Carotid Bruits Lungs: Clear to auscultation, Normal air movement Cardiovascular: Regular rate, No murmurs Abdomen: Bowel Sounds Present, Soft, Non Tender Extremities: No edema, Capillary Refill Less than 3 Seconds Skin: No rashes, No breakdown Musculoskeletal: No Tenderness to Palpation of Joints or Extremities, - - RLE amputation Neurological: Cranial nerves II-XII grossly intact Psych/Mental Status: Normal Affect, Appropriate, Alert and oriented to time, place, person, mood and affect Vital Signs Temp Pulse Resp BP Pulse Ox 98.5 F 97 16 161/68 H 97 06/12/19 09:00 06/12/19 09:00 06/12/19 09:00 06/12/19 09:00 06/12/19 09:00 Oxygen Delivery Method Room Air Weight: 106 lb 11.26 oz Body Mass Index (BMI) 16.2 Intake and Output for Last 24 Hours 06/10/19 06/11/19 06/12/19 23:59 23:59 23:59 Intake Total 120 / 120 720 / 720 Output Total 250 / 250 400 / 400 Balance -130 / -130 320 / 320 Laboratory Tests Past 24 Hrs 06/11/19 06/11/19 06/11/19 13:20 13:20 13:20 WBC RBC Hgb Hct MCV MCH MCHC RDW Std Deviation RDW Coeff of Aba Plt Count MPV Immature Gran % (Auto) Neut % (Auto) Lymph % (Auto) [place] % (Auto) Eos % (Auto) Baso % (Auto) Absolute Neuts (auto) Absolute Lymphs (auto) Nucleated RBC % PT 23.0 H INR 2.0 Sodium 140 Potassium 4.3 Chloride 108 H Carbon Dioxide 22.0 Anion Gap 10 BUN 48 H Creatinine 1.31 H Estim Creat Clear Calc 29.58 Est GFR (MDRD) Af Amer 50 L Est GFR (MDRD) Non-Af 42 L BUN/Creatinine Ratio 36.6 H Glucose 82 Calcium 8.6 Total Bilirubin 0.20 Direct Bilirubin 0.07 AST 22 ALT 26 Alkaline Phosphatase 109 Troponin I 0.018 Total Protein 6.6 Albumin 2.9 L Globulin 3.7 Lipase 167 Urine Color Urine Clarity Urine pH Ur Specific [place] Urine Protein Urine Glucose (UA) Urine Ketones Urine Occult Blood Urine Nitrite Urine Bilirubin Urine Urobilinogen Ur Leukocyte Esterase Urine RBC Urine WBC Ur Squamous Epith Cells Urine Bacteria Urine Mucus 06/11/19 06/12/19 06/12/19 14:00 05:28 05:28 WBC 12.5 H RBC 3.62 L Hgb 9.9 L Hct 31.2 L MCV 86.2 MCH 27.3 MCHC 31.7 L RDW Std Deviation 51.6 H RDW Coeff of Aba 16.7 H Plt Count 513 H MPV 10.9 Immature Gran % (Auto) 0.700 Neut % (Auto) 72.0 H Lymph % (Auto) 16.4 L [place] % (Auto) 8.5 Eos % (Auto) 1.9 Baso % (Auto) 0.5 Absolute Neuts (auto) 9.0 H Absolute Lymphs (auto) 2.05 Nucleated RBC % 0 PT INR Sodium 143 Potassium 4.4 Chloride 113 H Carbon Dioxide 23.0 Anion Gap 7 BUN 45 H Creatinine 1.54 H Estim Creat Clear Calc 22.63 Est GFR (MDRD) Af Amer 42 L Est GFR (MDRD) Non-Af 35 L BUN/Creatinine Ratio 29.2 H Glucose 74 Calcium 8.6 Total Bilirubin Direct Bilirubin AST ALT Alkaline Phosphatase Troponin I Total Protein Albumin Globulin Lipase Urine Color Yellow Urine Clarity Clear Urine pH 6.0 Ur Specific [place] 1.010 Urine Protein 100 H Urine Glucose (UA) Normal Urine Ketones Negative Urine Occult Blood Negative Urine Nitrite Negative Urine Bilirubin Negative Urine Urobilinogen Normal Ur Leukocyte Esterase Negative Urine RBC 0 SEEN Urine WBC 0 SEEN Ur Squamous Epith Cells 0 SEEN Urine Bacteria 0 SEEN Urine Mucus 0 SEEN Medical Necessity - Tobacco Use Smoking Status: Never smoker Assessment/Plan All Active Problems Decubitus ulcer of foot, stage 3 (Acute) Nonhealing nonsurgical wound (Acute) Stroke (Acute) Left arm weakness (Acute) Abdominal pain (Acute) Gastrointestinal bleeding (Acute) Melena (Acute) Ileus (Acute) Ischemic colitis (Acute) 1. Left sided transient upper extremity weakness - resolved. concerning for TIA. MRI brain negative for acute stroke. MRA head showing high grade stenosis in the L FUND CONTROLLER, occluded right FUND CONTROLLER. Consult neuro. Echo negative for shunt, + for pericardial effusion that the patient says is not new - obtain records of last echo to verify. -continue asa/statin/warfarin 2. Hx Carotid stenosis - R carotid s/p CEA. + bruit. 3. Hx CVA - after amputations. chronic right eye vision loss 4. Hx PAD, Reynaud's, Scleroderma - on plaquenil 5. HTN - elevated. trend. 6. GERD - ppi 7. CKDIII - stable, Cr bump. DVT ppx: warfarin This patient was seen by Shayan Gaytan PA-C under the supervision of Dr. Navarro. <Markus Navarro - Last Filed: 06/12/19 15:20> Subjective: Patient was admitted with left upper extremity numbness. She also felt heaviness in the right upper extremity. She denies any change in his speech or blurry vision. When I asked that she felt weakness in left upper extremity or dropping objects, she denied - Physical Exam General: Alert, Oriented x3, Cooperative HEENT: Atraumatic, PERRLA, EOMI, Normocephalic Neck: Supple, No JVD, Negative Carotid Bruits Lungs: Clear to auscultation, Normal air movement, No rhonchi, No wheeze, No rales Cardiovascular: Regular rate, Regular Rhythm, Normal S1, Normal S2, No murmurs Abdomen: Bowel Sounds Present, Soft, Non Tender, No Hepato-splenomegaly Extremities: No edema, Capillary Refill Less than 3 Seconds Skin: No rashes, No breakdown Musculoskeletal: No Tenderness to Palpation of Joints or Extremities, - - RLE amputation She had a gangrene probably is secondary to her diabetes and had amputation Neurological: Cranial nerves II-XII grossly intact, Deep Tendon Reflexes 2+/4 and Symmetrical, Neuro grossly intact Psych/Mental Status: Normal Affect, Appropriate Vital Signs Temp Pulse Resp BP Pulse Ox 98.5 F 97 16 161/68 H 97 06/12/19 09:00 06/12/19 09:00 06/12/19 09:00 06/12/19 09:00 06/12/19 09:00 Oxygen Delivery Method Room Air Weight: 106 lb 11.26 oz Body Mass Index (BMI) 16.2 Intake and Output for Last 24 Hours 06/10/19 06/11/19 06/12/19 23:59 23:59 23:59 Intake Total 120 / 120 720 / 720 Output Total 250 / 250 400 / 400 Balance -130 / -130 320 / 320 Laboratory Tests Past 24 Hrs 06/11/19 06/12/19 06/12/19 13:20 05:28 05:28 WBC 12.5 H RBC 3.62 L Hgb 9.9 L Hct 31.2 L MCV 86.2 MCH 27.3 MCHC 31.7 L RDW Std Deviation 51.6 H RDW Coeff of Aba 16.7 H Plt Count 513 H MPV 10.9 Immature Gran % (Auto) 0.700 Neut % (Auto) 72.0 H Lymph % (Auto) 16.4 L [place] % (Auto) 8.5 Eos % (Auto) 1.9 Baso % (Auto) 0.5 Absolute Neuts (auto) 9.0 H Absolute Lymphs (auto) 2.05 Nucleated RBC % 0 PT 23.0 H INR 2.0 Sodium 143 Potassium 4.4 Chloride 113 H Carbon Dioxide 23.0 Anion Gap 7 BUN 45 H Creatinine 1.54 H Estim Creat Clear Calc 22.63 Est GFR (MDRD) Af Amer 42 L Est GFR (MDRD) Non-Af 35 L BUN/Creatinine Ratio 29.2 H Glucose 74 Calcium 8.6 Assessment/Plan This patient was seen in conjunction with Shayan LARKIN. I have independently interviewed and examined the patient and reviewed pertinent history, examination findings, laboratory and plan of management. I have reviewed the note and agree with the documented findings with the few additional points. In brief, patient is admitted for This 78-year-old female with multiple comorbidities admitted with left-sided transient upper extremity numbness and tingling. She has chronic bilateral upper arm weakness. She also has a history of peripheral right eye visual deficit from previous stroke. Patient was admitted for concern of TIA. MRI brain negative for acute district. MRA head shows high-grade stenosis left FUND CONTROLLER, occluded right FUND CONTROLLER. Neurologist has been consulted. Echo reported as no interatrial shunt. Stage I diastolic dysfunction, EF 55%. Moderate pericardial effusion, circumferential in nature. No evidence of cardiac tamponade. Small left pleural effusion she has known or pericardial effusion previous echo with transplant registered nurse Dr. Guadarrama. Fasting lipid profile tomorrow a.m. Patient has history of CVA, carotid stenosis status post right CEA, peripheral arterial disease with Raynaud's phenomena and scleroderma. In the meantime, continue aspirin, statin and warfarin I have discussed my assessment with Shayan LARKIN and orders have been reviewed. Code Visit Inpatient E&M: 37659 Subs Hosp L3
--- NOTE | 2019-06-12 15:00 | CASEMGMT ---
Social Work Met with pt and completed PHQ-9. Pt indicates no issues with mood. Spoke with pt about previous abilities and social activities. She is involved in her sabianism, friends assist with transportation and socialization. She cooks for herself and her daughter helps with laundry - although her dtr has a mental illness that causes some worry for the pt. Pt was not interested in following up with counseling resources in the community. Discussed [facility] as pt indicates she tries to stay busy and likes to read and socialize. Explained the services - pt was interested. Provided information on [facility] for pt to f/u on at discharge. Pt states she has insurance through the [facility] from her late that assists with all bills in the community. No other issues noted or resources needed. ARACELY FloresW
[2019-06-12] MEDS: Acetaminophen 325 MG Tablet 650 MG PO (16:02)
--- NOTE | 2019-06-12 16:32 | PCM.CONS.GEN ---
Reason for Consult Date of Consultation: 06/12/19 Reason for Consultation: TIA History of Present Illness: The patient is a 78 year old F with PMH of HTN, HLD, CKD III, GERD, PAD, CAD, Macular degeneration, HX of stroke in 2005 after RLE amputation, TIA, Carotid stenosis (right carotid CEA) 2005, Raynaud phenomena admitted for left upper arm weakness and numbness that lasted less than [address] showed Stable encephalomalacia in the medial aspect of the left occipital lobe.MRI of brain showed No evidence of acute infarct or hemorrhage.Bilateral occipital encephalomalacia. Echocardiogram showed an ejection fraction of 55%, Bubble contrast study negative for right to left interatrial shunt. MRA of head showed A high-grade stenosis of the P1 segment of the left posterior cerebral artery is noted. Occlusion of the P3 segment of the right LOADER OPERATOR SUPERVISOR. This could be chronic given the MRI finding of right occipital encephalomalacia. No high grade stenoses or occlusions of the middle cerebral arteries. MRA of neck showed Normal bilateral cervical carotid and vertebral arteries. Patient currently on statin, asa and aniti-hypertensives. On admission Blood pressure was 145/49. PT/INR 23.0/2.0 on Coumadin. UA was negative. Symptoms have resolved. Patient lives alone in a one level house, with 1 step to enter and is independent with ADLs and mobility, does not drive. 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 [Ecotrin] 81 mg PO DAILY@0800 11/05/15 Atorvastatin Calcium [Lipitor] 10 mg PO QHS 11/05/15 Lisinopril [Zestril] 20 mg PO DAILY 11/05/15 Multivitamins,Therapeutic 1 tablet PO DAILY 11/05/15 [Multivitamin] NIFEdipine [Procardia XL] 90 mg PO DAILY 11/05/15 Omeprazole [Prilosec] 20 mg PO DAILY 11/05/15 Warfarin [Coumadin] 5 mg PO MOWEFR 11/05/15 Vit A/Vit C/Vit E/Zinc/Copper 1 each PO BID 03/09/16 [Preservision Areds Softgel] Hydrochlorothiazide 12.5 mg PO DAILY 06/11/19 Hydroxychloroquine [Plaquenil] 200 mg PO DAILYCM 06/11/19 Nitroglycerin [Nitro-Bid] 1 applic TP DAILY 06/11/19 Warfarin Sodium 2.5 mg PO SUTUTHSA 06/11/19 Surgical History: - - Patient has a history of right carotid endarterectomy. Right below-knee amputation has been performed in the past. Patient has undergone left great toe amputation. 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 Denies: Double vision HEENT: Denies: Head Aches, Sinus Congestion, Sinus Drainage Cardiovascular: Denies: Chest Pain, Palpitations Respiratory: Denies: Cough, Shortness of breath at rest, Sputum production Gastrointestinal: Denies: Abdominal Pain, Nausea, Vomiting Genitourinary: Denies: Dysuria Musculoskeletal: Denies: Joint Pain, Joint Tenderness Skin: Denies: Rash, Wounds Neurological: Denies: Numbness, Tingling, Focal weakness Psychiatric: Denies: Anxiety, Depression, Homicidal Ideations, Suicidal Ideations Patient Problems: Active and Suspected Problems Stroke (Acute) Left arm weakness (Acute) Subjective: Has occasional chronic headaches, describes as mild ache to frontal area.. Per patient, after stroke in 2006 right eye is blind and is unable to see objects to left side and unable to laterally rotate left eye. Denies new vision changes, CINTRON, dizziness, lightheadedness or new onset of weakness. - Physical Exam General: Alert, Oriented x3, Cooperative HEENT: - - right eye is blind, unable to rotate left eye laterally, left visual field cut deficit -chronic Oral: Moist Mucosa Neck: Supple, No JVD Lungs: Clear to auscultation, Normal air movement Cardiovascular: Regular rate, Regular Rhythm Abdomen: Bowel Sounds Present, Soft, Non Tender Extremities: No clubbing, No cyanosis, No edema Neurological: Cranial nerves II-XII grossly intact, Deep Tendon Reflexes 2+/4 and Symmetrical, Motor Exam 5/5 strength throughout - except RLE prosthetic Psych/Mental Status: Normal Affect, Appropriate, Alert and oriented to time, place, person, mood and affect Vital Signs Temp Pulse Resp BP Pulse Ox 98.1 F 77 18 167/78 H 98 06/12/19 13:00 06/12/19 13:00 06/12/19 13:00 06/12/19 13:00 06/12/19 13:00 Oxygen Delivery Method Room Air Weight: 48.4 kg Body Mass Index (BMI) 16.2 Intake and Output for Last 24 Hours 06/10/19 06/11/19 06/12/19 23:59 23:59 23:59 Intake Total 120 / 120 720 / 720 Output Total 250 / 250 400 / 400 Balance -130 / -130 320 / 320 Laboratory Tests Past 24 Hrs 06/12/19 06/12/19 05:28 05:28 WBC 12.5 H RBC 3.62 L Hgb 9.9 L Hct 31.2 L MCV 86.2 MCH 27.3 MCHC 31.7 L RDW Std Deviation 51.6 H RDW Coeff of Aba 16.7 H Plt Count 513 H MPV 10.9 Immature Gran % (Auto) 0.700 Neut % (Auto) 72.0 H Lymph % (Auto) 16.4 L [place] % (Auto) 8.5 Eos % (Auto) 1.9 Baso % (Auto) 0.5 Absolute Neuts (auto) 9.0 H Absolute Lymphs (auto) 2.05 Nucleated RBC % 0 Sodium 143 Potassium 4.4 Chloride 113 H Carbon Dioxide 23.0 Anion Gap 7 BUN 45 H Creatinine 1.54 H Estim Creat Clear Calc 22.63 Est GFR (MDRD) Af Amer 42 L Est GFR (MDRD) Non-Af 35 L BUN/Creatinine Ratio 29.2 H Glucose 74 Calcium 8.6 Assessment/Plan All Active Problems Decubitus ulcer of foot, stage 3 (Acute) Nonhealing nonsurgical wound (Acute) Stroke (Acute) Left arm weakness (Acute) Abdominal pain (Acute) Gastrointestinal bleeding (Acute) Melena (Acute) Ileus (Acute) Ischemic colitis (Acute) The patient is a 78 year old F with PMH of HTN, HLD, CKD III, GERD, PAD, CAD, Macular degeneration, HX of stroke in 2005 after RLE amputation, TIA, Carotid stenosis (right carotid CEA) 2005, Raynaud phenomena admitted for left upper arm weakness and numbness that lasted less than [address] showed Stable encephalomalacia in the medial aspect of the left occipital lobe.MRI of brain showed No evidence of acute infarct or hemorrhage.Bilateral occipital encephalomalacia. Echocardiogram showed an ejection fraction of 55%, Bubble contrast study negative for right to left interatrial shunt. MRA of head showed A high-grade stenosis of the P1 segment of the left posterior cerebral artery is noted. Occlusion of the P3 segment of the right LOADER OPERATOR SUPERVISOR. This could be chronic given the MRI finding of right occipital encephalomalacia. No high grade stenoses or occlusions of the middle cerebral arteries. MRA of neck showed Normal bilateral cervical carotid and vertebral arteries. Patient currently on statin, asa and aniti-hypertensives. On admission Blood pressure was 145/49. PT/INR 23.0/2.0 on Coumadin. UA was negative. Symptoms have resolved. Patient lives alone in a one level house, with 1 step to enter and is independent with ADLs and mobility, does not drive. Plan Possible low flow phenomena- resolved Blood pressure goal for SBP <120-145 PT/OT as directed O.K to D/C from neurology standpoint Discussed findings with Dr. Johnathan Pena. Thank you for the consult.
[2019-06-12] MEDS: Atorvastatin Calcium 40 MG Tablet PO (22:14)
[2019-06-13] VITALS (17 sets, daily range): BP systolic 141–191; BP diastolic 55–81; PULSE 73–92; RESP 16–18; TEMP 36.6–37.4; O2SAT 93–100
[2019-06-13 07:36] LABS: Cholesterol 99 mg/dL (200); High Density Lipoprotein 38 mg/dL; Triglycerides 116 mg/dL; Very Low Density Lipoprotein 23 mg/dL (5-40)
[2019-06-13] MEDS: Pantoprazole Sodium 20 MG Tablet PO (08:28)
[2019-06-13] MEDS: Hydroxychloroquine 200 MG Tablet PO (08:28)
[2019-06-13] MEDS: Lisinopril 20 MG Tablet PO (08:29)
[2019-06-13] MEDS: Multivitamin (Healthy Eyes) Capsule 1 CAP PO ×2 (08:29→21:07)
[2019-06-13] MEDS: Multivitamins,Therapeutic Tablet 1 TABLET PO (08:30)
[2019-06-13] MEDS: Aspirin E.C. 81 MG Tablet PO (08:30)
[2019-06-13] MEDS: NIFEdipine 90 MG Tablet PO (08:30)
[2019-06-13] MEDS: hydroCHLOROthiazide 12.5mg 12.5 MG PO (08:31)
[2019-06-13] MEDS: Nitroglycerin Oint 1 INCH PACKET TRANSDERM. (08:31)
--- NOTE | 2019-06-13 13:20 | PCM.PROGNOTE ---
<Shayan Gaytan - Last Filed: 06/13/19 13:20> Patient Problems: Active and Suspected Problems Stroke (Acute) Left arm weakness (Acute) Subjective: No new issues. Ambulating with PT and with prosthesis in place. No further weakness in LUE. Agreeable to placement. - Physical Exam General: Alert, Oriented x3, Cooperative HEENT: Atraumatic, PERRLA, EOMI, Normocephalic Neck: Supple, No JVD, Negative Carotid Bruits Lungs: Clear to auscultation, Normal air movement Cardiovascular: Regular rate, No murmurs Abdomen: Bowel Sounds Present, Soft, Non Tender Extremities: No edema, Capillary Refill Less than 3 Seconds Skin: No rashes, No breakdown Musculoskeletal: No Tenderness to Palpation of Joints or Extremities, - - s/p R BKA Neurological: Cranial nerves II-XII grossly intact Psych/Mental Status: Normal Affect, Appropriate, Alert and oriented to time, place, person, mood and affect Vital Signs Temp Pulse Resp BP Pulse Ox 99.3 F H 77 16 190/79 H 97 06/13/19 09:40 06/13/19 09:40 06/13/19 09:40 06/13/19 09:40 06/13/19 09:40 Oxygen Delivery Method Room Air Weight: 106 lb 11.26 oz Body Mass Index (BMI) 16.2 Intake and Output for Last 24 Hours 06/11/19 06/12/19 06/13/19 23:59 23:59 23:59 Intake Total 120 / 120 1400 / 1400 100 / 100 Output Total 250 / 250 400 / 400 Balance -130 / -130 1000 / 1000 100 / 100 Laboratory Tests Past 24 Hrs 06/13/19 06:17 Triglycerides 116 Cholesterol 99 LDL Cholesterol 38 VLDL Cholesterol 23 HDL Cholesterol 38 L Medical Necessity - Tobacco Use Smoking Status: Never smoker Assessment/Plan All Active Problems Decubitus ulcer of foot, stage 3 (Acute) Nonhealing nonsurgical wound (Acute) Stroke (Acute) Left arm weakness (Acute) Abdominal pain (Acute) Gastrointestinal bleeding (Acute) Melena (Acute) Ileus (Acute) Ischemic colitis (Acute) 1. Left sided transient upper extremity weakness - resolved. concerning for TIA. MRI brain negative for acute stroke. MRA head showing high grade stenosis in the L COMMUNITY ENGAGEMENT REPRESENTATIVE, occluded right COMMUNITY ENGAGEMENT REPRESENTATIVE. Consult neuro. Echo negative for shunt, + for pericardial effusion that the patient says is not new - obtain records of last echo to verify. -continue asa/statin/warfarin -Neuro following, clear for DC. -O/p neuro follow up. -Control BP 2. Hx Carotid stenosis - R carotid s/p CEA. + bruit. 3. Hx CVA - occurred after amputations. chronic right eye vision loss 4. Hx PAD, Reynaud's, Scleroderma - on plaquenil. 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 5. HTN - significantly elevated. Continuing home meds, adding hydralazine, defer increasing lisinopril with Cr trending up. 6. GERD - ppi 7. CKDIII - stable, Cr bump. DVT ppx: warfarin DC planning: SNF vs Acute Rehab. Continue PTOT. This patient was seen by Shayan Gaytan PA-C under the supervision of Dr. Navarro. <Markus Navarro - Last Filed: 06/13/19 15:26> Subjective: Patient seen and examined. Patient is being evaluated management by PT. Patient has prosthesis. Spittle course and plan of management discussed with the patient's daughter present in the room. - Physical Exam General: Alert, Oriented x3, Cooperative HEENT: Atraumatic, PERRLA, EOMI, Normocephalic Neck: Supple, No JVD, Negative Carotid Bruits Lungs: Clear to auscultation, Normal air movement, No rhonchi, No wheeze, No rales Cardiovascular: Regular rate, Regular Rhythm, Normal S1, Normal S2, No murmurs Abdomen: Bowel Sounds Present, Soft, Non Tender Extremities: No edema, Capillary Refill Less than 3 Seconds Skin: No rashes, No breakdown Musculoskeletal: No Tenderness to Palpation of Joints or Extremities, Arthritic Changes, - Neurological: Cranial nerves II-XII grossly intact, Deep Tendon Reflexes 2+/4 and Symmetrical, Neuro grossly intact, - - Mild weakness of both upper extremity, 4/5; probably chronic Psych/Mental Status: Normal Affect, Appropriate Vital Signs Temp Pulse Resp BP Pulse Ox 98 F 76 16 141/59 H 100 06/13/19 15:13 06/13/19 15:13 06/13/19 15:13 06/13/19 15:13 06/13/19 15:13 Oxygen Delivery Method Room Air Weight: 106 lb 11.26 oz Body Mass Index (BMI) 16.2 Intake and Output for Last 24 Hours 06/11/19 06/12/19 06/13/19 23:59 23:59 23:59 Intake Total 120 / 120 1400 / 1400 400 / 400 Output Total 250 / 250 400 / 400 Balance -130 / -130 1000 / 1000 400 / 400 Laboratory Tests Past 24 Hrs 06/13/19 06:17 Triglycerides 116 Cholesterol 99 LDL Cholesterol 38 VLDL Cholesterol 23 HDL Cholesterol 38 L Assessment/Plan This patient was seen in conjunction with Shayan LARKIN. I have independently interviewed and examined the patient and reviewed pertinent history, examination findings, laboratory and plan of management. I have reviewed the note and agree with the documented findings with the few additional points. In brief, patient is admitted for This 78-year-old female with multiple comorbidities admitted with left-sided transient upper extremity numbness and tingling. She has chronic bilateral upper arm weakness. She also has a history of peripheral right eye visual deficit from previous stroke. Patient was admitted for concern of TIA. MRI brain negative for acute district. MRA head shows high-grade stenosis left COMMUNITY ENGAGEMENT REPRESENTATIVE, occluded right COMMUNITY ENGAGEMENT REPRESENTATIVE. Neurologist has been consulted. Echo reported as no interatrial shunt. Stage I diastolic dysfunction, EF 55%. Moderate pericardial effusion, circumferential in nature. No evidence of cardiac tamponade. Small left pleural effusion she has known or pericardial effusion previous echo with coal handling supervisor Dr. Guadarrama. Fasting lipid profile shows LDL 38, HDL 38, triglyceride 116, total cholesterol 99. Patient was seen by neurologist and impression is possible low-flow phenomena. It is resolved. Patient has history of CVA in 2005, carotid stenosis status post right CEA 2005, peripheral arterial disease with Raynaud's phenomena and scleroderma and macular degeneration. In the meantime, continue aspirin, statin and warfarin Patient will stay until Saturday for possible SNF placement. I have discussed my assessment with Shayan LARKIN and orders have been reviewed. Code Visit Inpatient E&M: 12128 Subs Hosp L2
[2019-06-13] MEDS: hydrALAZINE 25 MG Tablet PO ×2 (14:59→21:06)
[2019-06-13] MEDS: Atorvastatin Calcium 40 MG Tablet PO (21:07)
[2019-06-13] MEDS: Acetaminophen 325 MG Tablet 650 MG PO (22:07)
[2019-06-14] VITALS (18 sets, daily range): BP systolic 112–167; BP diastolic 55–79; PULSE 72–88; RESP 16–18; TEMP 36.7–36.9; O2SAT 94–98
[2019-06-14] MEDS: hydrALAZINE 20 MG/ML Vial 5 MG IV (00:01)
[2019-06-14] MEDS: 0.9% NaCl Peripheral Flush Adult/Peds IV (00:11)
[2019-06-14] MEDS: hydrALAZINE 25 MG Tablet PO ×2 (05:38→21:00)
[2019-06-14 06:42] LABS: Anion Gap 7 (5-15); BUN 51 mg/dL (7-18); BUN/Creat Ratio 40.5 RATIO (10-20); Calcium,Total 8.5 mg/dL (8.5-10.1); Chloride 110 mmol/L (98-107); Creatinine, Serum 1.26 mg/dL (0.55-1.02); EST Glomerular Filtration Rate 43 mL/min (>60); Est Glom Filt Rate - Afr Amer 53 mL/min (>60); Estimated Creatinine Clearance 27.66 ml/min; Glucose 77 mg/dL (74-106); Potassium 4.2 mmol/L (3.5-5.1); Sodium Level 141 mmol/L (136-145)
[2019-06-14] MEDS: Hydroxychloroquine 200 MG Tablet PO (09:31)
[2019-06-14] MEDS: Aspirin E.C. 81 MG Tablet PO (09:31)
[2019-06-14] MEDS: hydroCHLOROthiazide 12.5mg 12.5 MG PO (09:31)
[2019-06-14] MEDS: Nitroglycerin Oint 1 INCH PACKET TRANSDERM. (09:31)
[2019-06-14] MEDS: Multivitamin (Healthy Eyes) Capsule 1 CAP PO ×2 (09:31→21:01)
[2019-06-14] MEDS: Pantoprazole Sodium 20 MG Tablet PO (09:32)
[2019-06-14] MEDS: Lisinopril 20 MG Tablet PO (09:32)
[2019-06-14] MEDS: NIFEdipine 90 MG Tablet PO (09:32)
[2019-06-14] MEDS: Acetaminophen 325 MG Tablet 650 MG PO (11:34)
[2019-06-14] MEDS: Multivitamins,Therapeutic Tablet 1 TABLET PO (11:34)
--- NOTE | 2019-06-14 14:00 | PN_ITS ---
<Shayan Gaytan - Last Filed: 06/14/19 14:00> Patient Problems: Active and Suspected Problems Stroke (Acute) Left arm weakness (Acute) Subjective: No complaints. Awaiting SNF placement. No new changes in vision, numbness, tingling, weakness. She does complain of left thigh pain, uses aspercreme for this at home, will order lidocaine. - Physical Exam General: Alert, Oriented x3, Cooperative HEENT: Atraumatic, PERRLA, EOMI, Normocephalic Neck: Supple, No JVD, Negative Carotid Bruits Lungs: Clear to auscultation, Normal air movement Cardiovascular: Regular rate, No murmurs Abdomen: Bowel Sounds Present, Soft, Non Tender Extremities: No edema, Capillary Refill Less than 3 Seconds Skin: No rashes, No breakdown Musculoskeletal: No Tenderness to Palpation of Joints or Extremities, - - right BKA Neurological: Cranial nerves II-XII grossly intact Psych/Mental Status: Normal Affect, Appropriate, Alert and oriented to time, place, person, mood and affect Vital Signs Temp Pulse Resp BP Pulse Ox 98.0 F 82 16 112/55 L 97 06/14/19 09:27 06/14/19 11:00 06/14/19 09:27 06/14/19 13:07 06/14/19 09:27 Oxygen Flow Rate (L/min) 1 Oxygen Delivery Method Room Air Weight: 106 lb 11.26 oz Body Mass Index (BMI) 16.2 Intake and Output for Last 24 Hours 06/12/19 06/13/19 06/14/19 23:59 23:59 23:59 Intake Total 1400 / 1400 920 / 920 720 / 720 Output Total 400 / 400 200 / 200 350 / 350 Balance 1000 / 1000 720 / 720 370 / 370 Laboratory Tests Past 24 Hrs 06/14/19 05:35 Sodium 141 Potassium 4.2 Chloride 110 H Carbon Dioxide 24.0 Anion Gap 7 BUN 51 H Creatinine 1.26 H Estim Creat Clear Calc 27.66 Est GFR (MDRD) Af Amer 53 L Est GFR (MDRD) Non-Af 43 L BUN/Creatinine Ratio 40.5 H Glucose 77 Calcium 8.5 Medical Necessity - Tobacco Use Smoking Status: Never smoker Assessment/Plan All Active Problems Decubitus ulcer of foot, stage 3 (Acute) Nonhealing nonsurgical wound (Acute) Stroke (Acute) Left arm weakness (Acute) Abdominal pain (Acute) Gastrointestinal bleeding (Acute) Melena (Acute) Ileus (Acute) Ischemic colitis (Acute) 1. Left sided transient upper extremity weakness - resolved. concerning for TIA. MRI brain negative for acute stroke. MRA head showing high grade stenosis in the L [employer] PRESS OPERATOR, occluded right [employer] PRESS OPERATOR. Consult neuro. Echo negative for shunt, + for pericardial effusion that the patient says is not new - obtain records of last echo to verify. -continue asa/statin/warfarin -Neuro following, clear for DC. -O/p neuro follow up. -Control BP 2. Hx Carotid stenosis - R carotid s/p CEA. + bruit. 3. Hx CVA - occurred after amputations. chronic right eye vision loss 4. Hx PAD, Reynaud's, Scleroderma - on plaquenil. 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 5. HTN - adjusted hydralazine. 6. GERD - ppi 7. CKDIII - stable, Cr bump. DVT ppx: warfarin DC planning: SNF vs Acute Rehab. Continue PTOT. This patient was seen by Shayan Gaytan PA-C under the supervision of Dr. Navarro. <Markus Navarro - Last Filed: 06/14/19 14:23> Subjective: Patient complained of pain over the anterior lateral aspect of left leg, peroneal muscle region. No calf or thigh pain. It is a chronic problem for more than 6 months intermittently on walking. - Physical Exam General: Alert, Oriented x3, Cooperative HEENT: Atraumatic, PERRLA, EOMI, Normocephalic Neck: Supple, No JVD, Negative Carotid Bruits Lungs: Clear to auscultation, Normal air movement, No rhonchi, No wheeze, No rales Cardiovascular: Regular rate, Regular Rhythm, Normal S1, Normal S2, No murmurs Abdomen: Bowel Sounds Present, Soft, Non Tender, Non-Distended Extremities: No edema, Capillary Refill Less than 3 Seconds Skin: No rashes, No breakdown Musculoskeletal: Arthritic Changes, Tenderness - Mild tenderness of left peroneal muscle. No calf or thigh muscle tenderness., - Neurological: Cranial nerves II-XII grossly intact, Deep Tendon Reflexes 2+/4 and Symmetrical, Neuro grossly intact Psych/Mental Status: Normal Affect, Appropriate Vital Signs Temp Pulse Resp BP Pulse Ox 98.0 F 82 16 112/55 L 97 06/14/19 09:27 06/14/19 11:00 06/14/19 09:27 06/14/19 13:07 06/14/19 09:27 Oxygen Flow Rate (L/min) 1 Oxygen Delivery Method Room Air Weight: 106 lb 11.26 oz Body Mass Index (BMI) 16.2 Intake and Output for Last 24 Hours 06/12/19 06/13/19 06/14/19 23:59 23:59 23:59 Intake Total 1400 / 1400 920 / 920 720 / 720 Output Total 400 / 400 200 / 200 350 / 350 Balance 1000 / 1000 720 / 720 370 / 370 Laboratory Tests Past 24 Hrs 06/14/19 05:35 Sodium 141 Potassium 4.2 Chloride 110 H Carbon Dioxide 24.0 Anion Gap 7 BUN 51 H Creatinine 1.26 H Estim Creat Clear Calc 27.66 Est GFR (MDRD) Af Amer 53 L Est GFR (MDRD) Non-Af 43 L BUN/Creatinine Ratio 40.5 H Glucose 77 Calcium 8.5 Assessment/Plan This patient was seen in conjunction with Shayan LARKIN. I have independently interviewed and examined the patient and reviewed pertinent history, examination findings, laboratory and plan of management. I have reviewed the note and agree with the documented findings with the few additional points. In brief, patient is admitted for This 78-year-old female with multiple comorbidities admitted with left-sided transient upper extremity numbness and tingling. She has chronic bilateral upper arm weakness. She also has a history of peripheral right eye visual deficit from previous stroke. Patient was admitted for concern of TIA. MRI brain negative for acute district. 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 Neurologist has been consulted. Echo reported as no interatrial shunt. Stage I diastolic dysfunction, EF 55%. Moderate pericardial effusion, circumferential in nature. No evidence of cardiac tamponade. Small left pleural effusion she has known or pericardial effusion previous echo with angiographer Dr. Guadarrama. Fasting lipid profile shows LDL 38, HDL 38, triglyceride 116, total cholesterol 99. Patient was seen by neurologist and impression is possible low-flow phenomena. It is resolved. Patient has history of CVA in 2005, carotid stenosis status post right CEA 2005, peripheral arterial disease with Raynaud's phenomena and scleroderma and macular degeneration. Patient complain of anterior lateral muscle component of left leg, intermittently sometimes on walking for more than 6 months. With history of peripheral arterial disease, will need CHRISTOPHER/PVR as an outpatient. Patient does not have a history of DVT and tenderness is not along veins. No redness or erythema. The patient is on warfarin and baby aspirin. In the meantime, continue aspirin, statin and warfarin Patient will stay until Saturday for possible SNF placement. I have discussed my assessment with Shayan LARKIN and orders have been reviewed. Code Visit Inpatient E&M: 61918 Subs Hosp L2
[2019-06-14] MEDS: Atorvastatin Calcium 40 MG Tablet PO (21:01)
[2019-06-15] VITALS (9 sets, daily range): BP systolic 128–179; BP diastolic 56–79; PULSE 85–93; RESP 14–16; TEMP 36.7–37.6; O2SAT 94–95
[2019-06-15] MEDS: hydrALAZINE 25 MG Tablet PO ×3 (05:34→13:48)
[2019-06-15 06:55] LABS: International Normalized Ratio 2.4; Prothrombin Time (Protime)PT. 26.3 SECONDS (11.7-14.9)
[2019-06-15] MEDS: Nitroglycerin Oint 1 INCH PACKET TRANSDERM. (09:38)
[2019-06-15] MEDS: NIFEdipine 90 MG Tablet PO (09:39)
[2019-06-15] MEDS: Pantoprazole Sodium 20 MG Tablet PO (09:39)
[2019-06-15] MEDS: Lidocaine 5% Patch 1 PATCH TOPICAL (09:40)
[2019-06-15] MEDS: hydroCHLOROthiazide 12.5mg 12.5 MG PO (09:42)
[2019-06-15] MEDS: Lisinopril 20 MG Tablet PO (09:42)
[2019-06-15] MEDS: Multivitamin (Healthy Eyes) Capsule 1 CAP PO (09:42)
[2019-06-15] MEDS: Hydroxychloroquine 200 MG Tablet PO (09:42)
[2019-06-15] MEDS: Aspirin E.C. 81 MG Tablet PO (09:42)
--- NOTE | 2019-06-15 11:13 | CASEMGMT ---
Social Work Call to [facility] in Re[facility] and explained that pt is ready for d/c today and would be appropriate for RU. [facility] stating she will notify Dr. Kelly who will make decision on admission to . SW will await determination. Plan: Possible in Rehab, pending acceptance [facility]
[2019-06-15] MEDS: Acetaminophen 325 MG Tablet 650 MG PO (11:34)
[2019-06-15] MEDS: Multivitamins,Therapeutic Tablet 1 TABLET PO (11:35)
--- NOTE | 2019-06-15 12:00 | PCM.EXTCARCO ---
- Diet 06/11/19 15:57 Diet: Cardiac/Low Cholesterol Food consistency:: Regular Liquid Consistency:: Regular/Thin - Routine Orders/Code Status Suppository Type: Dulcolax 10mg Suppository Frequency: Daily PRN Routine Lab Work: CBC - 1 week, BMP - 1 week Code Status: Full Code - Therapies Physical Therapy: Eval and Treat Occupational Therapy: Eval and Treat - Problem/Diagnosis (1) TIA (transient ischemic attack) Status: Acute Current Visit: Yes (2) History of TIA (transient ischemic attack) Status: Chronic Current Visit: No (3) CAD (coronary artery disease) Status: Chronic Current Visit: No (4) PAD (peripheral artery disease) Status: Chronic Current Visit: No (5) History of CEA (carotid endarterectomy) Status: Chronic Current Visit: No (6) CREST syndrome Status: Chronic Current Visit: No (7) Hypertension Status: Chronic Current Visit: No - Allergies/Procedures Done in Hospital Allergies/Adverse Reactions: Allergies ampicillin Allergy (Verified 06/11/19 12:13) Rash cyclophosphamide [From Cytoxan] Allergy (Verified 06/11/19 12:13) Rash doxycycline Allergy (Verified 06/11/19 12:13) Rash morphine Allergy (Verified 06/11/19 12:13) mental status change sulfamethoxazole [From Bactrim] Allergy (Verified 06/11/19 12:13) Rash trimethoprim [From Bactrim] Allergy (Verified 06/11/19 12:13) Rash Procedures: 2-D Echocardiogram - Type of Care/Length of Stay Estimated LOS: Convalescent Care Less Than 30 days Type of Care Needed: Skilled Rehab Potential: Fair Prognosis: Fair - Additional Orders/Day of Discharge Day of Discharge: 06/15/19 - Dietary and Speech Recommendations Dietitian Recommendations/Changes: Recommend regular, no added salt diet. - Follow Up Care Primary Care Physician: Jaya Blackwell III, MD [Primary Care Provider] - Please follow up with your Primary Care Physician in: 2 weeks Please Follow Up With: Esteban Pena MD When: 3-4 weeks
--- NOTE | 2019-06-15 12:31 | PHA.DC.MR ---
Pharmacy Service has performed discharge medication reconciliation for this patient upon transfer to [facility]. The patient's discharge medication list was reviewed for discrepancies and discrepancies were resolved. Home Medications Aspirin E.C. [Ecotrin] 81 mg PO DAILY@0800 11/05/15 Atorvastatin Calcium [Lipitor] 10 mg PO QHS 11/05/15 Lisinopril [Zestril] 20 mg PO DAILY 11/05/15 Multivitamins,Therapeutic [Multivitamin] 1 tablet PO DAILY 11/05/15 NIFEdipine [Procardia XL] 90 mg PO DAILY 11/05/15 Omeprazole [Prilosec] 20 mg PO DAILY 11/05/15 Warfarin [Coumadin] 5 mg PO MOWEFR 11/05/15 Vit A/Vit C/Vit E/Zinc/Copper [Preservision Areds Softgel] 1 each PO BID 03/09/16 Hydrochlorothiazide 12.5 mg PO DAILY 06/11/19 Hydroxychloroquine [Plaquenil] 200 mg PO DAILYCM 06/11/19 Nitroglycerin [Nitro-Bid] 1 applic TP DAILY 06/11/19 Warfarin Sodium 2.5 mg PO SUTUTHSA 06/11/19 Acetaminophen [Tylenol Tablet] 650 mg PO Q6H PRN PRN tab 06/15/19 Lidocaine [Lidoderm Patch] 1 patch TOPICAL DAILY patch 06/15/19 Oxycodone [Oxyir] 5 mg PO Q4H PRN PRN 3 Days #18 tab 06/15/19 cycloBENZAPRine HCl [Flexeril] 5 mg PO TID PRN PRN tab 06/15/19 hydrALAZINE [Apresoline] 25 mg PO 4X/DAY tab 06/15/19
--- NOTE | 2019-06-15 12:51 | PCM.PN.NEU ---
Patient Problems: Active and Suspected Problems Stroke (Acute) Left arm weakness (Acute) TIA (transient ischemic attack) (Acute) Subjective: No issues overnight. 78-year-old female with PMH HTN, HLD, history of stroke in 2006 after right BKA, TIA with a history of right eye peripheral visual deficit, carotid stenosis with history of right carotid CEA, PVD, CREST/Raynaud's phenomenon, CAD, CKD, macular degeneration admitted with left arm numbness and heaviness lasting for about 5 minutes. Per patient her symptoms are completely resolved, denies any left lower extremity weakness, falls, lives alone, is cane or walker to ambulate, and does not drive. He is on aspirin and Coumadin at baseline. Patient not sure why she is on Coumadin but per patient she has been on it for many years and probably it was given for Raynaud's phenomenon/PAD. She denies any chronic neck pain or low back pain. 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 - Physical Exam General: Alert HEENT: Normocephalic Neck: Supple Lungs: Normal air movement Cardiovascular: Normal S1, Normal S2 Abdomen: Bowel Sounds Present Extremities: No cyanosis Neurological: - - Conscious, alert, CN II through XII grossly intact except for chronic peripheral vision loss/chronic homonymous hemianopia, power about 5 x 5 both upper extremities and left lower extremity, right BKA, no sensory loss, no cerebellar signs, reflexes + B/L B/S/T/K/A, gait deferred, NIHSS 2 but due to chronic homonymous hemianopia, mRS 2 at baseline Psych/Mental Status: Normal Affect Vital Signs Temp Pulse Resp BP Pulse Ox 99.7 F H 93 14 179/79 H 95 06/15/19 09:32 06/15/19 10:13 06/15/19 09:32 06/15/19 09:32 06/15/19 09:32 Oxygen Flow Rate (L/min) 1 Oxygen Delivery Method Room Air Weight: 48.4 kg Body Mass Index (BMI) 16.2 Intake and Output for Last 24 Hours 06/13/19 06/14/19 06/15/19 23:59 23:59 23:59 Intake Total 920 / 920 1320 / 1320 120 / 120 Output Total 200 / 200 350 / 350 250 / 250 Balance 720 / 720 970 / 970 -130 / -130 Laboratory Tests Past 24 Hrs 06/15/19 06:25 PT 26.3 H INR 2.4 Medical Necessity - Tobacco Use Smoking Status: Never smoker Assessment/Plan All Active Problems Decubitus ulcer of foot, stage 3 (Acute) Nonhealing nonsurgical wound (Acute) Stroke (Acute) Left arm weakness (Acute) TIA (transient ischemic attack) (Acute) Abdominal pain (Acute) Gastrointestinal bleeding (Acute) Melena (Acute) Ileus (Acute) Ischemic colitis (Acute) 78-year-old female with PMH HTN, HLD, history of stroke in 2005 after right BKA, TIA with a history of right eye peripheral visual deficit, carotid stenosis with history of right carotid CEA, PVD, CREST/Raynaud's phenomenon, CAD, CKD, macular degeneration admitted with left arm numbness and heaviness lasting for about 5 minutes. Per patient her symptoms are completely resolved, denies any left lower extremity weakness, falls, lives alone, is cane or walker to ambulate, and does not drive. He is on aspirin and Coumadin at baseline. Patient not sure why she is on Coumadin but per patient she has been on it for many years and probably it was given for Raynaud's phenomenon/PAD. She denies any chronic neck pain or low back pain. 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 Impression Possible TIA History of stroke, carotid stenosis and right CEA Plan ?On aspirin and Coumadin at baseline. Bleeding risk discussed in detail. INR 2.4 ?On statins ?MRI brain reviewed and MRA head/neck reviewed ?TTE?EF 55%, normal left atrial size, PFO negative ?LDL 38, HbA1c?pending ?Stroke risk factors discussed in detail and stroke education provided ?Goal blood pressure less than 130/80 mmHg and goal HbA1c less than 7% ?PT/OT ?GI/DVT prophylaxis ?Fall precautions ?Further medical management per hospitalist team ?Follow-up with neurology as outpatient in 3 to 4 weeks ?Please call with questions if any ?Thank you for allowing us to participate in patient's care and management This note has been generated using [employer] dictation software. It may contain incorrect words, spellings and punctuation's that was not noted in the review of the note prior to signing.
--- NOTE | 2019-06-15 12:53 | DCINST_ITS ---
- Discharge Diagnoses Current Active Problems: Current Active and Chronic Problems Stroke (Acute) Left arm weakness (Acute) TIA (transient ischemic attack) (Acute) You will use the following diet at home:: Cardiac Your food should be the consistency of: Regular Your liquids should be the consistency of: Regular/Thin Discharge Activity: Return to Normal Activity Weight Bearing Status: Weight bearing as tolerated Additional Instructions: Further care as directed by Acute Rehab. Will need INR monitored. Allergies/Adverse Reactions: Allergies ampicillin Allergy (Verified 06/11/19 12:13) Rash cyclophosphamide [From Cytoxan] Allergy (Verified 06/11/19 12:13) Rash doxycycline Allergy (Verified 06/11/19 12:13) Rash morphine Allergy (Verified 06/11/19 12:13) mental status change sulfamethoxazole [From Bactrim] Allergy (Verified 06/11/19 12:13) Rash trimethoprim [From Bactrim] Allergy (Verified 06/11/19 12:13) Rash Medications to take at Discharge Aspirin E.C. [Ecotrin] 81 mg PO DAILY@0800 11/05/15 Atorvastatin Calcium [Lipitor] 10 mg PO QHS 11/05/15 Lisinopril [Zestril] 20 mg PO DAILY 11/05/15 Multivitamins,Therapeutic [Multivitamin] 1 tablet PO DAILY 11/05/15 NIFEdipine [Procardia XL] 90 mg PO DAILY 11/05/15 Omeprazole [Prilosec] 20 mg PO DAILY 11/05/15 Warfarin [Coumadin] 5 mg PO MOWEFR 11/05/15 Vit A/Vit C/Vit E/Zinc/Copper [Preservision Areds Softgel] 1 each PO BID 03/09/16 Hydrochlorothiazide 12.5 mg PO DAILY 06/11/19 Hydroxychloroquine [Plaquenil] 200 mg PO DAILYCM 06/11/19 Nitroglycerin [Nitro-Bid] 1 applic TP DAILY 06/11/19 Warfarin Sodium 2.5 mg PO SUTUTHSA 06/11/19 Acetaminophen [Tylenol Tablet] 650 mg PO Q6H PRN PRN tab 06/15/19 Lidocaine [Lidoderm Patch] 1 patch TOPICAL DAILY patch 06/15/19 Oxycodone [Oxyir] 5 mg PO Q4H PRN PRN 3 Days #18 tab 06/15/19 cycloBENZAPRine HCl [Flexeril] 5 mg PO TID PRN PRN tab 06/15/19 hydrALAZINE [Apresoline] 25 mg PO 4X/DAY tab 06/15/19 The following prescriptions were given: Oxycodone [Oxyir] 5 mg PO Q4H PRN PRN 3 Days #18 tab PRN Reason: Moderate Pain (pain scale 4-5) Prescription Printed Primary Care Physician: Jaya Blackwell III, MD [Primary Care Provider] - Please follow up with your Primary Care Physician in: 2 weeks Test Results: Test results from this visit will be discussed in further detail at your follow- up appointment, if applicable. Please Follow Up With: Esteban Pena MD When: 3-4 weeks Proposed Discharge Date: 06/15/19
--- NOTE | 2019-06-15 13:07 | CASEMGMT ---
Social Work SW spoke with [facility] in [facility] and she states they can accept pt today. SW met with pt and three family members and they are agreeable to d/c to [facility] today. Rehab program explained to pt and family. Nursing notified and will arrange d/c time. Plan: Inpatient Rehab today [facility]
[2019-06-15 14:17] LABS: Hemoglobin A1c 4.5 % (4.2-6.3)
--- NOTE | 2019-06-15 15:07 | DS.PCM_ITS ---
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 Hx carotid stenosis s/p R CEA Severe PAD, reynauds, Scleroderma with resultant right BKA HTN GERD CKDIII - Secondary Discharge Diagnosis Chronic Problems History of gastrointestinal bleeding (Chronic) Ulcer of left lower extremity (Chronic) History of TIA (transient ischemic attack) (Chronic) CAD (coronary artery disease) (Chronic) Renal insufficiency (Chronic) PAD (peripheral artery disease) (Chronic) History of CEA (carotid endarterectomy) (Chronic) Leg swelling (Chronic) Diarrhea (Chronic) 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 CT/Brain/Head without Contrast IMPRESSION: Stable encephalomalacia in the medial aspect of the left occipital lobe. MRI/Brain without Contrast IMPRESSION: No evidence of acute infarct or hemorrhage. Bilateral occipital encephalomalacia. Echo: Interpretation Summary The estimated ejection fraction is 55 %. Stage 1 diastolic dysfunction. Bubble contrast study negative for right to left interatrial shunt. Trivial mitral valve insufficiency. Trivial tricuspid valve insufficiency. Right ventricular systolic pressure estimated to be 28 mmHg. Moderate pericardial effusion. Circumferential effusion. There are no echocardiographic indications of cardiac tamponade. Small left pleural effusion. Pt states that she has had known old pericardial effusion as evaluated by echoes with previous early morning babysitter Dr Umana. Would recommend obtaining old echo report or film for comparison. There is no comparison study available. 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 Occlusion of the P3 segment of the right DIRECTOR OF ASSESSING. This could be chronic given the MRI finding of right occipital encephalomalacia. No high grade stenoses or occlusions of the middle cerebral arteries. MRI/MRA Neck without Contrast IMPRESSION: Normal bilateral cervical carotid and vertebral arteries. Consults: Leticia - neuro Operations: None Procedures: 2-D Echocardiogram Summary of Care Provided: Hospital Course: The patient is a 78 year old F with past medical history of severe PAD, Raynaud's disease, scleroderma, prior stroke with chronic right eye vision loss, who presented to the emergency room with complaints of sudden left arm weakness, numbness, tingling that began the morning of presentation. Her symptoms completely resolved. In the emergency room she had a CT of the brain which demonstrated stable encephalomalacia from prior stroke. She was admitted for stroke work-up. She is placed on telemetry in the PCU. She had no events on the monitor. She underwent an MRI of the brain which was negative for acute stroke. She had an MRA of the head and neck. The MRA of the head demonstrated stenosis of the left DIRECTOR OF ASSESSING, occlusion of the right DIRECTOR OF ASSESSING unclear if this is chronic. Neurology was consulted. Echo was obtained with results as above. She is already on aspirin, statin, Coumadin. No changes to her medications were made at this time. She did not have any recurrence of her symptoms throughout her stay. It was recommended that with ongoing debility she should have acute rehab at our rehab unit. She was discharged in stable condition. She was felt to have had a TIA. She will need to follow-up with her PCP in 1 to 2 weeks, follow-up with neurology in 3 to 4 weeks. This patient was seen by Shayan Gaytan PA-C under the supervision of Doctor Perkins. [] - Physical Exam General: Alert, Oriented x3, Cooperative HEENT: Atraumatic, PERRLA, EOMI, Normocephalic Neck: Supple, No JVD, Negative Carotid Bruits Lungs: Clear to auscultation, Normal air movement Cardiovascular: Regular rate, No murmurs Abdomen: Bowel Sounds Present, Soft, Non Tender Extremities: No edema, Capillary Refill Less than 3 Seconds Skin: No rashes, No breakdown Musculoskeletal: No Tenderness to Palpation of Joints or Extremities, - - Right BKA Neurological: Cranial nerves II-XII grossly intact Psych/Mental Status: Normal Affect, Appropriate, Alert and oriented to time, place, person, mood and affect Vital Signs Temp Pulse Resp BP Pulse Ox 98.6 F 86 16 128/58 H 95 06/15/19 13:46 06/15/19 13:48 06/15/19 13:46 06/15/19 13:46 06/15/19 13:46 Oxygen Flow Rate (L/min) 1 Oxygen Delivery Method Room Air Weight: 106 lb 11.26 oz Body Mass Index (BMI) 16.2 Intake and Output for Last 24 Hours 06/13/19 06/14/19 06/15/19 23:59 23:59 23:59 Intake Total 920 / 920 1320 / 1320 120 / 120 Output Total 200 / 200 350 / 350 250 / 250 Balance 720 / 720 970 / 970 -130 / -130 Laboratory Tests Past 24 Hrs 06/15/19 06/15/19 05:28 06:25 PT 26.3 H INR 2.4 Hemoglobin A1c 4.5 Discharge Diet: Low fat/ Low Cholesterol, 2000 mg Sodium Diet Discharge Activity: Return to Normal Activity Weight Bearing Status: Weight bearing as tolerated Home Medications: Medications to take at Discharge Aspirin E.C. [Ecotrin] 81 mg PO DAILY@0800 11/05/15 Atorvastatin Calcium [Lipitor] 10 mg PO QHS 11/05/15 Lisinopril [Zestril] 20 mg PO DAILY 11/05/15 Multivitamins,Therapeutic [Multivitamin] 1 tablet PO DAILY 11/05/15 NIFEdipine [Procardia XL] 90 mg PO DAILY 11/05/15 Omeprazole [Prilosec] 20 mg PO DAILY 11/05/15 Warfarin [Coumadin] 5 mg PO MOWEFR 11/05/15 Vit A/Vit C/Vit E/Zinc/Copper [Preservision Areds Softgel] 1 each PO BID 03/09/16 Hydrochlorothiazide 12.5 mg PO DAILY 06/11/19 Hydroxychloroquine [Plaquenil] 200 mg PO DAILYCM 06/11/19 Nitroglycerin [Nitro-Bid] 1 applic TP DAILY 06/11/19 Warfarin Sodium 2.5 mg PO SUTUTHSA 06/11/19 Acetaminophen [Tylenol Tablet] 650 mg PO Q6H PRN PRN tab 06/15/19 Lidocaine [Lidoderm Patch] 1 patch TOPICAL DAILY patch 06/15/19 Oxycodone [Oxyir] 5 mg PO Q4H PRN PRN 3 Days #18 tab 06/15/19 cycloBENZAPRine HCl [Flexeril] 5 mg PO TID PRN PRN tab 06/15/19 hydrALAZINE [Apresoline] 25 mg PO 4X/DAY tab 06/15/19 Following Prescrptions Were Given to Patient: Oxycodone [Oxyir] 5 mg PO Q4H PRN PRN 3 Days #18 tab PRN Reason: Moderate Pain (pain scale 4-5) Prescription Printed Primary Care Physician: Jaya Blackwell III, MD [Primary Care Provider] - Please follow up with your Primary Care Physician in: 2 weeks Please Follow Up With: Esteban Pena MD When: 3-4 weeks Disposition: Inpt Rehab Unit/Facility Minutes spent on discharge:: 35 Patient Condition:: Stable Medical Necessity - Tobacco Use Smoking Status: Never smoker Meaningful Use Info Meaningful Use Diagnoses (Choose all that apply): None applicable <Brian Perkins - Last Filed: 06/15/19 15:27> Discharge Date and Diagnosis - Secondary Discharge Diagnosis Chronic Problems History of gastrointestinal bleeding (Chronic) Ulcer of left lower extremity (Chronic) History of TIA (transient ischemic attack) (Chronic) CAD (coronary artery disease) (Chronic) Renal insufficiency (Chronic) PAD (peripheral artery disease) (Chronic) History of CEA (carotid endarterectomy) (Chronic) Leg swelling (Chronic) Diarrhea (Chronic) 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 I have independently interviewed and examined the patient and reviewed pertinent historical, laboratory, and other data. Please refer to Shayan Gaytan PA-C note for details of this patient's presentation, findings, and recommendations. I have reviewed Shayan Gaytan PA-C note and concur with documented findings. In brief, patient is a 78-year-old lady with multiple comorbidities admitted with left upper extremity weakness and numbness. Admitted to a monitored bed where acute CVA was ruled out. A presumptive diagnosis of transient ischemic attack was made. Patient was also found to be severely deconditioned requested for PT OT recommended for patient to be discharged to acute rehab to continue with therapy Hospital course as documented above by Shayan Gaytan - Physical Exam Vital Signs Temp Pulse Resp BP Pulse Ox 98.6 F 86 16 128/58 H 95 06/15/19 13:46 06/15/19 13:48 06/15/19 13:46 06/15/19 13:46 06/15/19 13:46 Oxygen Flow Rate (L/min) 1 Oxygen Delivery Method Room Air Weight: 48.4 kg Body Mass Index (BMI) 16.2 Intake and Output for Last 24 Hours 06/13/19 06/14/19 06/15/19 23:59 23:59 23:59 Intake Total 920 / 920 1320 / 1320 120 / 120 Output Total 200 / 200 350 / 350 250 / 250 Balance 720 / 720 970 / 970 -130 / -130 Laboratory Tests Past 24 Hrs 06/15/19 06/15/19 05:28 06:25 PT 26.3 H INR 2.4 Hemoglobin A1c 4.5 Code Visit Inpatient E&M: 52597 Disch Hosp
== END 2019-06-15 14:51 | DRG 69 ==
LOC: ED 12:51 → PCU 15:24
PROVIDERS: Internal Medicine; Physician Assistant; Psychiatry & Neurology Neurology; Admitting Provider Student in an Organized Health Care Education/Training Program; Emergency Provider Emergency Medicine; Family Provider Family Medicine; PCP Family Medicine; Referring Provider Student in an Organized Health Care Education/Training Program; Visit Provider Internal Medicine
DX: G45.9 Transient cerebral ischemic attack, unspecified (principal); I12.9 Hypertensive chronic kidney disease with stage 1 through stage 4 chronic kidney disease, or unspecified chronic kidney disease; N18.3 Chronic kidney disease, stage 3 (moderate); E78.5 Hyperlipidemia, unspecified; Z79.01 Long term (current) use of anticoagulants; Z89.511 Acquired absence of right leg below knee; I69.398 Other sequelae of cerebral infarction; H53.8 Other visual disturbances; K21.9 Gastro-esophageal reflux disease without esophagitis; I66.22 Occlusion and stenosis of left posterior cerebral artery; I66.21 Occlusion and stenosis of right posterior cerebral artery; M34.1 CR(E)ST syndrome; G93.89 Other specified disorders of brain
CPT/HCPCS: 36415; 70450; 70544; 70547; 70551; 71045; 80048; 80061; 80076; 81001; 83036; 83690; 84484; 85025; 85610; 93005; 93306; 97110; 97116; 97163; 97166; 97530; 97535; 99285; A4216

== ENCOUNTER 2019-06-15 14:55 | Inpatient (IN) | payer MEDICARE, OTHER, SELFPAY ==
[2019-06-11 16:13] VITALS: BMI 16.2
[2019-06-15 15:30] VITALS: BP 124/57; PULSE 88; RESP 18; TEMP 36.6; O2SAT 95; BMI 16.0
[2019-06-15 18:13] VITALS: BP 139/59; PULSE 88
[2019-06-15] MEDS: hydrALAZINE 25 MG Tablet PO ×2 (18:13→20:47)
[2019-06-15 19:23] VITALS: BP 135/59; PULSE 88; RESP 18; TEMP 36.6; O2SAT 96
[2019-06-15] MEDS: Atorvastatin Calcium 10 MG Tablet PO (20:46)
[2019-06-15 20:47] VITALS: PULSE 88
[2019-06-15] MEDS: Multivitamin (Healthy Eyes) Capsule 1 CAP PO (20:47)
[2019-06-15 22:00] VITALS: PULSE 88; RESP 18; O2SAT 96
[2019-06-16] VITALS (9 sets, daily range): BP systolic 121–146; BP diastolic 54–68; PULSE 66–88; RESP 16–17; TEMP 36.8–36.9; O2SAT 90–97
[2019-06-16 06:10] LABS: Absolute Lymphocyte Count 2.17 X10^3/uL (0.83-4.51); Absolute Neutrophil Count 14.1 X10^3/uL (2.0-7.7); Basophil# 0.07 X10^3/uL; Basophil% 0.4 % (0-1); Eosinophil# 0.08 X10^3/uL; Eosinophils% 0.4 % (0-5); Hematocrit 29.8 % (37-47); Hemoglobin 9.6 g/dL (12.0-15.0); Lymphocyte # 2.17 X10^3/ul (4.0); Lymphocyte % 11.6 % (19-41); Mean Corp Hgb Conc 32.2 g/dL (32-36); Mean Corpuscular Hgb 27.8 pg (27.0-32.0); Mean Corpuscular Volume 86.4 fL (81-99); Mean Platelet Vol. 10.8 fl (6.2-12.0); Monocyte# 2.11 X10^3/uL; Monocyte% 11.3 % (0-10); NRBC Flagged by Analyzer 0 % (0-5); Neutrophil # 14.11 X10^3/uL (2.7-7.7); Neutrophil % 75.5 % (47-70); POSITIVE DIFFERENTIAL YES; Platelet Count 509 K/mm3 (150-450); RBC Distribution Width CV 16.2 % (11.6-14.6); RBC Distribution Width SD 50.8 fl (35.1-43.9); Red Blood Count 3.45 M/mm3 (4.2-5.4); White Blood Count 18.7 K/mm3 (4.4-11.0)
[2019-06-16 06:18] LABS: Differential Indicated SCAN CRITERIA MET
[2019-06-16 06:19] LABS: International Normalized Ratio 2.6; Prothrombin Time (Protime)PT. 28.2 SECONDS (11.7-14.9)
[2019-06-16 06:33] LABS: Anion Gap 8 (5-15); BUN 47 mg/dL (7-18); BUN/Creat Ratio 33.3 RATIO (10-20); Calcium,Total 8.1 mg/dL (8.5-10.1); Chloride 107 mmol/L (98-107); Cholesterol 80 mg/dL (200); Creatinine, Serum 1.41 mg/dL (0.55-1.02); EST Glomerular Filtration Rate 38 mL/min (>60); Est Glom Filt Rate - Afr Amer 46 mL/min (>60); Estimated Creatinine Clearance 24.41 ml/min; Glucose 79 mg/dL (74-106); High Density Lipoprotein 43 mg/dL; Potassium 4.1 mmol/L (3.5-5.1); Sodium Level 137 mmol/L (136-145); Triglycerides 68 mg/dL; Very Low Density Lipoprotein 14 mg/dL (5-40)
[2019-06-16] MEDS: Acetaminophen 325 MG Tablet 650 MG PO (06:40)
[2019-06-16] MEDS: Multivitamins,Therapeutic Tablet 1 TABLET PO (08:46)
[2019-06-16] MEDS: Hydroxychloroquine 200 MG Tablet PO (08:46)
[2019-06-16] MEDS: Aspirin E.C. 81 MG Tablet PO (08:46)
[2019-06-16] MEDS: Pantoprazole Sodium 20 MG Tablet PO (08:47)
[2019-06-16] MEDS: Multivitamin (Healthy Eyes) Capsule 1 CAP PO ×2 (08:49→20:42)
[2019-06-16] MEDS: Nitroglycerin Oint 1 INCH PACKET TRANSDERM. (09:03)
[2019-06-16] MEDS: hydroCHLOROthiazide 12.5mg 12.5 MG PO (09:04)
[2019-06-16] MEDS: Lidocaine 5% Patch 1 PATCH TOPICAL (09:16)
[2019-06-16] MEDS: NIFEdipine 90 MG Tablet PO (09:28)
[2019-06-16] MEDS: hydrALAZINE 25 MG Tablet PO ×4 (09:28→20:42)
[2019-06-16] MEDS: Lisinopril 20 MG Tablet PO (09:28)
--- NOTE | 2019-06-16 13:06 | PCM.PROGNOTE ---
<Shayan Gaytan - Last Filed: 06/16/19 13:06> Subjective: Pt DCd from PCU yesterday to rehab unit. She was treated for TIA. She has prior stroke with ongoing right sided vision loss. This time she presented with sudden left arm weakness which completely recovered. She is frail, and has a prior right BKA and prosthesis. She has just completed physical therapy for the day and is tired. Otherwise she is feeling well with no complaints. - Physical Exam General: Alert, Oriented x3, Cooperative HEENT: Atraumatic, PERRLA, EOMI, Normocephalic Neck: Supple, No JVD, Negative Carotid Bruits Lungs: Clear to auscultation, Normal air movement Cardiovascular: Regular rate, No murmurs Abdomen: Bowel Sounds Present, Soft, Non Tender Extremities: No edema, Capillary Refill Less than 3 Seconds Skin: No rashes, No breakdown Musculoskeletal: No Tenderness to Palpation of Joints or Extremities, - - right bka Neurological: Cranial nerves II-XII grossly intact Psych/Mental Status: Normal Affect, Appropriate, Alert and oriented to time, place, person, mood and affect Vital Signs Temp Pulse Resp BP Pulse Ox 98.4 F 88 17 146/68 H 96 06/16/19 08:50 06/16/19 09:28 06/16/19 08:50 06/16/19 09:03 06/16/19 08:50 Oxygen Delivery Method Room Air Weight: 105 lb 6.095 oz Body Mass Index (BMI) 16.0 Intake and Output for Last 24 Hours 06/14/19 06/15/19 06/16/19 23:59 23:59 23:59 Output Total 200 / 200 700 / 700 Balance -200 / -200 -700 / -700 Laboratory Tests Past 24 Hrs 06/16/19 06/16/19 06/16/19 05:54 05:54 05:54 WBC 18.7 H RBC 3.45 L Hgb 9.6 L Hct 29.8 L MCV 86.4 MCH 27.8 MCHC 32.2 RDW Std Deviation 50.8 H RDW Coeff of Aba 16.2 H Plt Count 509 H MPV 10.8 Immature Gran % (Auto) 0.800 Neut % (Auto) 75.5 H Lymph % (Auto) 11.[address] [place] % (Auto) 11.3 H Eos % (Auto) 0.4 Baso % (Auto) 0.4 Absolute Neuts (auto) 14.1 H Absolute Lymphs (auto) 2.17 Nucleated RBC % 0 Diff Path Review May foll PT 28.2 H INR 2.6 Sodium 137 Potassium 4.1 Chloride 107 Carbon Dioxide 22.0 Anion Gap 8 BUN 47 H Creatinine 1.41 H Estim Creat Clear Calc 24.41 Est GFR (MDRD) Af Amer 46 L Est GFR (MDRD) Non-Af 38 L BUN/Creatinine Ratio 33.3 H Glucose 79 Calcium 8.1 L Triglycerides 68 Cholesterol 80 LDL Cholesterol 23 VLDL Cholesterol 14 HDL Cholesterol 43 Medical Necessity - Tobacco Use Smoking Status: Never smoker Tobacco Use: Non-smoker Assessment/Plan All Active Problems Decubitus ulcer of foot, stage 3 (Acute) Nonhealing nonsurgical wound (Acute) Stroke (Acute) Left arm weakness (Acute) TIA (transient ischemic attack) (Acute) Abdominal pain (Acute) Gastrointestinal bleeding (Acute) Melena (Acute) Ileus (Acute) Ischemic colitis (Acute) 1. 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 Had high grade stenosis of the L TECH [employer] TE[employer]ER and occluded R TECH ED/[employer] TE[employer]ER. 2. Hx Carotid stenosis - R carotid s/p CEA. + bruit right side. 3. Hx PAD, Reynaud's, Scleroderma - on plaquenil. 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 This is likely the reason she is on warfarin. 4. HTN - hydralazine recently adjusted, appears to be working well. 5. GERD - ppi 6. CKDIII - stable, Cr bump. 7. Fluctuant leukocytosis - she is chronically elevated. She is somewhat high today, however she has no symptoms of any acute infectious process. She has no SOB/cough/fever/chills/dysuria/or abdominal complaints. Will repeat in 3 days. DVT ppx: warfarin Thank you for the opportunity to participate in the care of this patient. This patient was seen by Shayan Gaytan PA-C under the supervision of Dr. Perkins <Brian Perkins - Last Filed: 06/16/19 15:13> - Physical Exam Vital Signs Temp Pulse Resp BP Pulse Ox 98.4 F 88 17 146/68 H 96 06/16/19 08:50 06/16/19 09:28 06/16/19 08:50 06/16/19 09:03 06/16/19 08:50 Oxygen Delivery Method Room Air Weight: 47.8 kg Body Mass Index (BMI) 16.0 Intake and Output for Last 24 Hours 06/14/19 06/15/19 06/16/19 23:59 23:59 23:59 Output Total 200 / 200 700 / 700 Balance -200 / -200 -700 / -700 Laboratory Tests Past 24 Hrs 06/16/19 06/16/19 06/16/19 05:54 05:54 05:54 WBC 18.7 H RBC 3.45 L Hgb 9.6 L Hct 29.8 L MCV 86.4 MCH 27.8 MCHC 32.2 RDW Std Deviation 50.8 H RDW Coeff of Aba 16.2 H Plt Count 509 H MPV 10.8 Immature Gran % (Auto) 0.800 Neut % (Auto) 75.5 H Lymph % (Auto) 11.[address] [place] % (Auto) 11.3 H Eos % (Auto) 0.4 Baso % (Auto) 0.4 Absolute Neuts (auto) 14.1 H Absolute Lymphs (auto) 2.17 Nucleated RBC % 0 [address] Path Review March foll PT 28.2 H INR 2.6 Sodium 137 Potassium 4.1 Chloride 107 Carbon Dioxide 22.0 Anion Gap 8 BUN 47 H Creatinine 1.41 H Estim Creat Clear Calc 24.41 Est GFR (MDRD) Af Amer 46 L Est GFR (MDRD) Non-Af 38 L BUN/Creatinine Ratio 33.3 H Glucose 79 Calcium 8.1 L Triglycerides 68 Cholesterol 80 LDL Cholesterol 23 VLDL Cholesterol 14 HDL Cholesterol 43 Assessment/Plan This patient was seen in conjunction with Shayan Gaytan PA-C . I have independently interviewed and examined the patient and reviewed pertinent historical, laboratory, and other data. Please refer to Shayan Gaytan PA-C note for details of this patient's presentation, findings, and recommendations. I have reviewed Shayan Gaytan PA-C note and concur with documented findings. In brief, patient is-year-old lady transferred from the progressive care unit to the inpatient rehab unit following hospitalization for progressive generalized weakness as well as TIA. Physical Examination: GENERAL: cooperative HEENT: Atraumatic; moist oral mucosa EYES; Anicteric, Normal Conjunctiva NECK; supple, normal thyroid, . RESPIRATORY: Diminished to auscultation CARDIOVASCULAR: Regular S1 S2, GI: soft, non-tender, : No Renal angle tenderness; EXTREMITIES: Right BKA with subsequent prosthesis NEURO: Awake; no lateralizing signs. SKIN: No Rash PSYCH; Normal affect Assessment: 1. Transient ischemic attack 2. Previous CVA with right visual loss 3. Carotid artery stenosis status post right carotid endarterectomy 4. Crest syndrome (Raynaud's disease with scleroderma)patient is on Plaquenil 5. GERD 6. Essential hypertension 7. Peripheral arterial disease 8. Chronic kidney disease stage III Recommendations: 1. I have discussed the results of my overview and impressions with the patient 2. Options for management were reviewed n Code Visit Inpatient E&M: 69727 Subs Hosp L2
--- NOTE | 2019-06-16 14:40 | PCM.RU.PYE ---
Admission Information Status Changes from Prescreening?: No changes Identified Actual Problem List:: Mobility Impaired, Self Care Deficit Potential Problem List:: DVT, Bleeding, Infection, UTI, Aspiration, Falls, Skin Integrity, Depression Risk of Complications DVT: LMWH, CAROLE Hose, Sequential Compression Device Bleeding: Monitor Lab Values, Nursing to Teach Precautions for anti-coagulation therapy., Wound, if applicable, to be assessed every shift., Stroke patients assessed for lethargy or change in status. Infection: Clinical Staff to Monitor for S/S of infection:, S/S of infection include fever, redness, warmth, etc. Urinary Tract Infection: Monitor for frequency, burning, discomfort, or incontinence., Nursing will obtain urine sample for urinalysis and C&S when ordered. Aspiration: Clinical staff will monitor for coughing, drooling, congestion., Speech will evaluate swallowing and dsyphasia., Nursing will monitor patient swallowing during meals. Falls: Patient will be evaluated for Fall Precautions, Patient will be placed on Fall Precautions as indicated per protocol. Skin Breakdown: Nursing will assess skin daily using assessment tool., Nursing will place on Skin Breakdown Precautions as indicated. Pain: Clinical staff will assess patient's pain level per protocol., Medications will be given, if needed, and the pain level reassessed., Other methods: Massage, distraction, decrease stimulus, etc. used PRN. Goals Patient will remain: free from falls, or injury at time of discharge. Patient will perform bed mobility at: MOD I level of assist. Patient will complete transfers from bed to chair at: MOD I level of assist. Patient will ambulate: 100 feet, with MOD I assist, with LRD Patient will complete upper body dressing at: MOD I level of assist. Patient will complete lower body dressing at: MOD I level of assist. Patient will complete toileting at: MOD I level of assist. Patient will perform bathing at: MOD I level of assist. Patient will complete grooming at: MOD I level of assist. Patient will complete home management skills at: MOD I level of assist. Patient will achieve: 12 stairs, at MOD I assist Patient will have pain level of: of 3 or less Patient's skin will: remain intact, free from infection. Patient will receive: adequate nutrition. Discharge Planning Pt Prognosis for Sig. Practical Improv. w/in Reasonable Time: Good Estimated Length of stay (days): 16 Anticipated D/C Destination: Home Was Preadmission Assessment Accurate?: Yes
--- NOTE | 2019-06-16 14:43 | HP.PCM.COS_ITS ---
History of Present Illness Date of Admission: 06/15/19 The patient is a 78 year old F with PMH of HTN, HLD, CKD III, GERD, PAD, CAD, Macular degeneration, HX of stroke in 2005 after RLE amputation, TIA, Carotid stenosis (right carotid CEA) 2005, Raynaud phenomena, admitted to [facility] on 06/15/2019 for debility, with a goal of returning home at or near her level of indepency. On 06/11/2019, patient was admitted for left upper arm weakness and numbness that lasted less than [address] showed Stable encephalomalacia in the medial aspect of the left occipital lobe.MRI of brain showed No evidence of acute infarct or hemorrhage.Bilateral occipital encephalomalacia. Echocardiogram showed an ejection fraction of 55%, Bubble contrast study negative for right to left interatrial shunt. MRA of head showed A high-grade stenosis of the P1 segment of the left posterior cerebral artery is noted. Occlusion of the P3 segment of the right STOCK MIXER. This could be chronic given the MRI finding of right occipital encephalomalacia. No high grade stenoses or occlusions of the middle cerebral arteries. MRA of neck showed Normal bilateral cervical carotid and vertebral arteries. Patient currently on statin, asa and anti-hypertensives. On admission Blood pressure was 145/49. PT/INR 23.0/2.0 on Coumadin. UA was negative. Symptoms have resolved. HGBA1c 4.5%, LDL 23. Patient lives alone in a one level house, with 1 step to enter and is independent with ADLs and mobility, does not drive. 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 [Ecotrin] 81 mg PO DAILY@0800 11/05/15 Atorvastatin Calcium [Lipitor] 10 mg PO QHS 11/05/15 Lisinopril [Zestril] 20 mg PO DAILY 11/05/15 Multivitamins,Therapeutic 1 tablet PO DAILY 11/05/15 [Multivitamin] NIFEdipine [Procardia XL] 90 mg PO DAILY 11/05/15 Omeprazole [Prilosec] 20 mg PO DAILY 11/05/15 Warfarin [Coumadin] 5 mg PO MOWEFR 11/05/15 Vit A/Vit C/Vit E/Zinc/Copper 1 each PO BID 03/09/16 [Preservision Areds Softgel] Hydrochlorothiazide 12.5 mg PO DAILY 06/11/19 Hydroxychloroquine [Plaquenil] 200 mg PO DAILYCM 06/11/19 Nitroglycerin [Nitro-Bid] 1 applic TP DAILY 06/11/19 Warfarin Sodium 2.5 mg PO SUTUTHSA 06/11/19 Acetaminophen [Tylenol Tablet] 650 mg PO Q6H PRN PRN tab 06/15/19 Lidocaine [Lidoderm Patch] 1 patch TOPICAL DAILY 06/15/19 Tizanidine HCl [Zanaflex] 2 mg PO Q8H PRN 06/15/19 hydrALAZINE [Apresoline] 25 mg PO 4X/DAY 06/15/19 Surgical History: cataract, - - Right carotid endarterectomy. Right BKA, left great toe amputation. 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 HEENT: Denies: Head Aches, Sinus Congestion, Sinus Drainage Cardiovascular: Denies: Chest Pain, Chest Pressure, Chest Tightness, Palpitati ons Respiratory: Denies: Cough, Shortness of breath at rest, Sputum production Gastrointestinal: Denies: Abdominal Pain, Nausea, Vomiting Genitourinary: Denies: Dysuria Musculoskeletal: Denies: Joint Pain, Joint Tenderness Skin: Denies: Rash, Wounds Neurological: Denies: Numbness, Tingling, Focal weakness Psychiatric: Denies: Anxiety, Depression, Homicidal Ideations, Suicidal Ideations Hematologic/ Lymphatic: Denies: Easy Bruising, Easy Bleeding VTE Information - Inpt Only VTE Present on Admission: No VTE Mechan Device Prophylaxis: None VTE Pharm Prophylaxis ordered?: Yes Subjective: Per nursing no issues overnight. Per patient, tolerating therapies well and denies CINTRON, new onset of weakness, N/T or blurred/double vision, dizziness or lightheadedness. Denies further questions or concerns. - Physical Exam General: Alert, Oriented x3, Cooperative HEENT: PERRLA, - - Left eye does not rotate laterally and is medially rotated in- not knew per patient. Left hemianopia. Oral: Moist Mucosa Neck: Supple, No JVD Lungs: Clear to auscultation, Normal air movement Cardiovascular: Regular rate, Regular Rhythm Abdomen: Bowel Sounds Present, Soft, Non Tender Extremities: No clubbing, No cyanosis, No edema Skin: Ulcer/ Wound - Stage I to right leg anterior stump Neurological: Cranial nerves II-XII grossly intact, Deep Tendon Reflexes 2+/4 and Symmetrical, Motor Exam 5/5 strength throughout - Except below the knee d/t Right BKA Psych/Mental Status: Normal Affect, Appropriate, Alert and oriented to time, place, person, mood and affect Vital Signs Temp Pulse Resp BP Pulse Ox 98.4 F 88 17 146/68 H 96 06/16/19 08:50 06/16/19 09:28 06/16/19 08:50 06/16/19 09:03 06/16/19 08:50 Oxygen Delivery Method Room Air Weight: 47.8 kg Body Mass Index (BMI) 16.0 Intake and Output for Last 24 Hours 06/14/19 06/15/19 06/16/19 23:59 23:59 23:59 Output Total 200 / 200 700 / 700 Balance -200 / -200 -700 / -700 Laboratory Tests Past 24 Hrs 08/13/19 08/13/19 08/13/19 05:54 05:54 05:54 WBC 18.7 H RBC 3.45 L Hgb 9.6 L Hct 29.8 L MCV 86.4 MCH 27.8 MCHC 32.2 RDW Std Deviation 50.8 H RDW Coeff of Aba 16.2 H Plt Count 509 H MPV 10.8 Immature Gran % (Auto) 0.800 Neut % (Auto) 75.5 H Lymph % (Auto) 11.6 L Cla[place]orne % (Auto) 11.3 H Eos % (Auto) 0.4 Baso % (Auto) 0.4 Absolute Neuts (auto) 14.1 H Absolute Lymphs (auto) 2.17 Nucleated RBC % 0 Diff Path Review March foll PT 28.2 H INR 2.6 Sodium 137 Potassium 4.1 Chloride 107 Carbon Dioxide 22.0 Anion Gap 8 BUN 47 H Creatinine 1.41 H Estim Creat Clear Calc 24.41 Est GFR (MDRD) Af Amer 46 L Est GFR (MDRD) Non-Af 38 L BUN/Creatinine Ratio 33.3 H Glucose 79 Calcium 8.1 L Triglycerides 68 Cholesterol 80 LDL Cholesterol 23 VLDL Cholesterol 14 HDL Cholesterol 43 Assessment/Plan All Active Problems Decubitus ulcer of foot, stage 3 (Acute) Nonhealing nonsurgical wound (Acute) Stroke (Acute) Left arm weakness (Acute) TIA (transient ischemic attack) (Acute) Abdominal pain (Acute) Gastrointestinal bleeding (Acute) Melena (Acute) Ileus (Acute) Ischemic colitis (Acute) The patient is a 78 year old F with PMH of HTN, HLD, CKD III, GERD, PAD, CAD, Macular degeneration, HX of stroke in 2005 after RLE amputation, TIA, Carotid stenosis (right carotid CEA) 2005, Raynaud phenomena, admitted to [facility] on 06/15/2019 for debility, with a goal of returning home at or near her level of independency. On 06/11/2019, patient was admitted for left upper arm weakness and numbness that lasted less than [address] showed Stable enc ephalomalacia in the medial aspect of the left occipital lobe.MRI of brain showed No evidence of acute infarct or hemorrhage.Bilateral occipital encephalomalacia. Echocardiogram showed an ejection fraction of 55%, Bubble contrast study negative for right to left interatrial shunt. MRA of head showed A high-grade stenosis of the P1 segment of the left posterior cerebral artery is noted. Occlusion of the P3 segment of the right STOCK MIXER. This could be chronic given the MRI finding of right occipital encephalomalacia. No high grade stenoses or occlusions of the middle cerebral arteries. MRA of neck showed Normal bilateral cervical carotid and vertebral arteries. Patient currently on statin, asa and anti-hypertensives. On admission Blood pressure was 145/49. PT/INR 23.0/2.0 on Coumadin. UA was negative. Symptoms have resolved. HGBA1c 4.5%, LDL 23. Patient lives alone in a one level house, with 1 step to enter and is independent with ADLs and mobility, does not drive. Plan - PT for mobility - OT for ADLs - Analagesic as needed - HTN on hydrazalazine, hctz, zestril, procardia XL Hold if SBP <100 BP goal < 130/80 - HLD on liptor LDL 23 - GERD on protonix - CKD III - PAD s/p Right BKA: on plaquenil, nitrobid, possibly why on coumadin started after per patient. - Raynaud on procardia XL - Stage I pressure injury to right lower anterior stump- wound consult and [employer] notified - GI/DVT prophylaxis on protonix/coumadin - HX of stroke, TIA and right CEA on statin, antihypertensives, ASA - Medical management per hospitalist- consult - FAll precautions - Bowel protocol - F/U with PCP and Neurology
--- NOTE | 2019-06-16 15:00 | NURSING ---
Shayan Gaytan aware of labs, patient asymptomatic for any signs or symptoms of infection. New order to recheck CBC Saturday.
[2019-06-16 15:42] LABS: Pathologist Review Reviewed
--- NOTE | 2019-06-16 18:36 | NURSING ---
wound photo right stump
[2019-06-16] MEDS: Atorvastatin Calcium 10 MG Tablet PO (20:42)
[2019-06-17] VITALS (7 sets, daily range): BP systolic 110–144; BP diastolic 49–65; PULSE 80–84; RESP 16; TEMP 36.9; O2SAT 95–96; BMI 16.0
--- NOTE | 2019-06-17 02:04 | NURSING ---
Reviewed and agree with [employer] documentation and FIMs charting.
[2019-06-17] MEDS: Hydroxychloroquine 200 MG Tablet PO (08:33)
[2019-06-17] MEDS: Multivitamins,Therapeutic Tablet 1 TABLET PO (08:33)
[2019-06-17] MEDS: Aspirin E.C. 81 MG Tablet PO (08:33)
[2019-06-17] MEDS: NIFEdipine 90 MG Tablet PO (08:33)
[2019-06-17] MEDS: Multivitamin (Healthy Eyes) Capsule 1 CAP PO ×2 (08:33→20:34)
[2019-06-17] MEDS: Nitroglycerin Oint 1 INCH PACKET TRANSDERM. (08:34)
[2019-06-17] MEDS: hydrALAZINE 25 MG Tablet PO ×4 (08:34→20:33)
[2019-06-17] MEDS: Pantoprazole Sodium 20 MG Tablet PO (08:34)
[2019-06-17] MEDS: Lisinopril 20 MG Tablet PO (08:34)
[2019-06-17] MEDS: hydroCHLOROthiazide 12.5mg 12.5 MG PO (08:34)
[2019-06-17] MEDS: Lidocaine 5% Patch 1 PATCH TOPICAL (08:35)
--- NOTE | 2019-06-17 11:15 | PN.NEURO_ITS ---
Subjective: Per nursing, no issues overnight. WBC 18.7, no other symptoms, felt to be baseline per hospitalist, repeat CBC with diff on 06/19/19. Patient denies new onset of CINTRON, blurred/double vision, weakness, dizziness/lightheadedness or N/T. Per patient, tolerating therapies. - Physical Exam General: Alert, Oriented x3, Cooperative, - - can be forgetful at times HEENT: PERRLA, - - right and left hemianopia,Left eye does not rotate laterally and is medially rotated in-chronic Oral: Moist Mucosa Neck: Supple, No JVD Lungs: Clear to auscultation, Normal air movement Cardiovascular: Regular rate, Regular Rhythm Abdomen: Bowel Sounds Present, Soft, Non Tender Extremities: No clubbing, No cyanosis, No edema Skin: Ulcer/ Wound - Stage I to right leg anterior stump Neurological: Cranial nerves II-XII grossly intact, Deep Tendon Reflexes 2+/4 and Symmetrical, Motor Exam 5/5 strength throughout - Except below the knee d/t Right BKA Psych/Mental Status: Normal Affect, Appropriate, Alert and oriented to time, place, person, mood and affect - can be forgetful at times, redirects easily, coooperative and pleasant Vital Signs Temp Pulse Resp BP Pulse Ox 98.4 F 80 16 144/63 H 95 06/17/19 07:51 06/17/19 08:34 06/17/19 07:51 06/17/19 08:34 06/17/19 07:51 Oxygen Delivery Method Room Air Weight: 46.9 kg Body Mass Index (BMI) 16.0 Intake and Output for Last 24 Hours 06/15/19 06/16/19 06/17/19 23:59 23:59 23:59 Intake Total 240 / 240 180 / 180 Output Total 200 / 200 700 / 700 Balance -200 / -200 -460 / -460 180 / 180 Laboratory Tests Past 24 Hrs 06/16/19 05:54 Diff Path Review Reviewed Medical Necessity - Tobacco Use Smoking Status: Never smoker Tobacco Use: Non-smoker Assessment/Plan All Active Problems Decubitus ulcer of foot, stage 3 (Acute) Nonhealing nonsurgical wound (Acute) Stroke (Acute) Left arm weakness (Acute) TIA (transient ischemic attack) (Acute) Abdominal pain (Acute) Gastrointestinal bleeding (Acute) Melena (Acute) Ileus (Acute) Ischemic colitis (Acute) The patient is a 78 year old F with PMH of HTN, HLD, CKD III, GERD, PAD, CAD, Macular degeneration, HX of stroke in 2005 after RLE amputation, TIA, Carotid stenosis (right carotid CEA) 2005, Raynaud phenomena, admitted to [facility] on 06/15/2019 for debility, with a goal of returning home at or near her level of independency. On 06/11/2019, patient was admitted for left upper arm weakness and numbness that lasted less than [address] showed Stable en cephalomalacia in the medial aspect of the left occipital lobe.MRI of brain showed No evidence of acute infarct or hemorrhage.Bilateral occipital encephalomalacia. Echocardiogram showed an ejection fraction of 55%, Bubble contrast study negative for right to left interatrial shunt. MRA of head showed A high-grade stenosis of the P1 segment of the left posterior cerebral artery is noted. Occlusion of the P3 segment of the right [employer]ERSON[employer]. This could be chronic given the MRI finding of right occipital encephalomalacia. No high grade stenoses or occlusions of the middle cerebral arteries. MRA of neck showed Normal bilateral cervical carotid and vertebral arteries. Patient currently on statin, asa and anti-hypertensives. On admission Blood pressure was 145/49. PT/INR 23.0/2.0 on Coumadin. UA was negative. Symptoms have resolved. HGBA1c 4.5%, LDL 23. Patient lives alone in a one level house, with 1 step to enter and is independent with ADLs and mobility, does not drive. Plan - PT for mobility - OT for ADLs - Analgesic as needed - HTN on hydrazalazine, hctz, zestril, procardia XL Hold if SBP <100 BP goal < 130/80 - HLD on liptor LDL 23 - GERD on protonix - CKD III - PAD s/p Right BKA: on plaquenil, nitrobid, possibly why on coumadin started after per patient. - Raynaud on procardia XL - Stage I pressure injury to right lower anterior stump- wound consult and [employer] notified - GI/DVT prophylaxis on protonix/coumadin - HX of stroke, TIA and right CEA on statin, antihypertensives, ASA - Medical management per hospitalist- consult - FAll precautions - Bowel protocol - F/U with PCP and Neurology
--- NOTE | 2019-06-17 14:47 | PCM.PN.HOSP ---
Subjective: In brief, patient is-year-old lady transferred from the progressive care unit to the inpatient rehab unit following hospitalization for progressive generalized weakness as well as TIA. Objective: GENERAL: cooperative HEENT: Atraumatic; moist oral mucosa EYES; Anicteric, Normal Conjunctiva NECK; supple, normal thyroid, . RESPIRATORY: Diminished to auscultation CARDIOVASCULAR: Regular S1 S2, GI: soft, non-tender, : No Renal angle tenderness; EXTREMITIES: Right BKA with subsequent prosthesis NEURO: Awake; no lateralizing signs. SKIN: No Rash PSYCH; Normal affect Vitals/I&O's: Vital Signs Temp Pulse Resp BP Pulse Ox 98.4 F 84 16 110/49 L 96 06/17/19 07:51 06/17/19 14:27 06/17/19 07:51 06/17/19 14:27 06/17/19 08:00 Oxygen Delivery Method Room Air Weight: 46.9 kg Body Mass Index (BMI) 16.0 Intake and Output for Last 24 Hours 06/15/19 06/16/19 06/17/19 23:59 23:59 23:59 Intake Total 240 / 240 180 / 180 Output Total 200 / 200 700 / 700 Balance -200 / -200 -460 / -460 180 / 180 Laboratory Results 06/16/19 05:54: Diff Path Review Reviewed Current Medications Acetaminophen (Tylenol) 650 mg PO Q6H PRN PRN PRN Reason: PAIN Last Admin: 06/16/19 06:40 Dose: 650 mg Documented by: Aspirin (Ecotrin) 81 mg PO DAILY@0800 [facility] Last Admin: 06/17/19 08:33 Dose: 81 mg Documented by: Atorvastatin Calcium (Lipitor) 10 mg PO QHS [facility] Last Admin: 06/16/19 20:42 Dose: 10 mg Documented by: Bisacodyl (Dulcolax) 10 mg RECTAL .PRN X 1 PRN PRN Reason: Constipation Hydralazine HCl (Apresoline) 25 mg PO 4X/DAY [facility] Last Admin: 06/17/19 14:27 Dose: 25 mg Documented by: Hydrochlorothiazide () 12.5 mg PO DAILY [facility] Last Admin: 06/17/19 08:34 Dose: 12.5 mg Documented by: Hydroxychloroquine Sulfate (Plaquenil) 200 mg PO DAILYCM [facility] Last Admin: 06/17/19 08:33 Dose: 200 mg Documented by: Lidocaine (Lidoderm Patch) 1 patch TOPICAL DAILY [facility]; Protocol Last Admin: 06/17/19 08:35 Dose: 1 patch Documented by: Lisinopril (Zestril) 20 mg PO DAILY [facility] Last Admin: 06/17/19 08:34 Dose: 20 mg Documented by: Magnesium Hydroxide (Milk Of Magnesia) 30 ml PO .PRN X 1 PRN PRN Reason: Constipation Multivitamins (Multivitamin) 1 tablet PO DAILYCM [facility] Last Admin: 06/17/19 08:33 Dose: 1 tablet Documented by: Multivitamins/Minerals (Healthy Eyes) 1 capsule PO BID [facility] Last Admin: 06/17/19 08:33 Dose: 1 capsule Documented by: Nifedipine (Procardia Xl) 90 mg PO DAILY [facility] Last Admin: 06/17/19 08:33 Dose: 90 mg Documented by: Nitroglycerin (Nitrobid) 1 inch TRANSDERM. DAILY [facility] Last Admin: 06/17/19 08:34 Dose: 1 inch Documented by: Nutritional Formula (Lactose Free) (Ensure Clear) 120 ml PO 4X/DAY [facility] Last Admin: 06/17/19 14:25 Dose: Not Given Documented by: Pantoprazole Sodium (Protonix) 20 mg PO DAILY [facility] Last Admin: 06/17/19 08:34 Dose: 20 mg Documented by: Senna/Docusate Sodium (Senokot-S, Nola-Colace) 2 tablet PO BID PRN PRN Reason: Constipation Tizanidine HCl (Zanaflex) 2 mg PO Q8H PRN PRN Reason: SPASMS Warfarin Sodium (Coumadin (Pbkc)) 5 mg PO MoWeFr@1700 [facility] Last Admin: 06/15/19 18:12 Dose: 5 mg Documented by: Warfarin Sodium (Coumadin (Pbkc)) 2.5 mg PO SuTuThSa@1700 [facility] Last Admin: 06/16/19 18:38 Dose: 2.5 mg Documented by: Medical Necessity - Tobacco Use Smoking Status: Never smoker Tobacco Use: Non-smoker Assessment/Plan All Active Problems Decubitus ulcer of foot, stage 3 (Acute) Nonhealing nonsurgical wound (Acute) Stroke (Acute) Left arm weakness (Acute) TIA (transient ischemic attack) (Acute) Abdominal pain (Acute) Gastrointestinal bleeding (Acute) Melena (Acute) Ileus (Acute) Ischemic colitis (Acute) In brief, patient is-year-old lady transferred from the progressive care unit to the inpatient rehab unit following hospitalization for progressive generalized weakness as well as TIA. 1. Physical debility patient has been admitted to the inpatient rehab unit where she is currently undergoing therapy 2. Previous CVA with right visual loss in the recent admission for TIA patient is on antiplatelet therapy with aspirin 3. Crest syndrome (Raynaud's disease with scleroderma)patient is on Plaquenil 4. Hypertension-blood pressure controlled, home medications continued with dose adjustment as needed 5. GERD: Patient is on PPI 6. Peripheral arterial disease with previous right BKA 7. Chronic kidney disease stage III next 8. Carotid artery stenosis status post right carotid endarterectomy 9. Systemic use of anticoagulation as a result of patient significant vasculopathy.. INR is therapeutic 10. DVT prophylaxis patient is on Coumadin with therapeutic INR no need for further measures Active Medications Acetaminophen (Tylenol) 650 mg PO Q6H PRN PRN PRN Reason: PAIN Last Admin: 06/16/19 06:40 Dose: 650 mg Documented by: Aspirin (Ecotrin) 81 mg PO DAILY@0800 [facility] Last Admin: 06/17/19 08:33 Dose: 81 mg Documented by: Atorvastatin Calcium (Lipitor) 10 mg PO QHS [facility] Last Admin: 06/16/19 20:42 Dose: 10 mg Documented by: Bisacodyl (Dulcolax) 10 mg RECTAL .PRN X 1 PRN PRN Reason: Constipation Hydralazine HCl (Apresoline) 25 mg PO 4X/DAY [facility] Last Admin: 06/17/19 14:27 Dose: 25 mg Documented by: Hydrochlorothiazide () 12.5 mg PO DAILY [facility] Last Admin: 06/17/19 08:34 Dose: 12.5 mg Documented by: [facility] Admin: 06/17/19 08:33 Dose: 200 mg Documented by: Lidocaine (Lidoderm Patch) 1 patch TOPICAL DAILY [facility]; Protocol Last Admin: 06/17/19 08:35 Dose: 1 patch Documented by: Lisinopril (Zestril) 20 mg PO DAILY [facility] Last Admin: 06/17/19 08:34 Dose: 20 mg Documented by: Magnesium Hydroxide (Milk Of Magnesia) 30 ml PO .PRN X 1 PRN PRN Reason: Constipation Multivitamins (Multivitamin) 1 tablet PO DAILYCM [facility] Last Admin: 06/17/19 08:33 Dose: 1 tablet Documented by: Multivitamins/Minerals (Healthy Eyes) 1 capsule PO BID [facility] Last Admin: 06/17/19 08:33 Dose: 1 capsule Documented by: Nifedipine (Procardia Xl) 90 mg PO DAILY [facility] Last Admin: 06/17/19 08:33 Dose: 90 mg Documented by: Nitroglycerin (Nitrobid) 1 inch TRANSDERM. DAILY [facility] Last Admin: 06/17/19 08:34 Dose: 1 inch Documented by: Nutritional Formula (Lactose Free) (Ensure Clear) 120 ml PO 4X/DAY [facility] Last Admin: 06/17/19 14:25 Dose: Not Given Documented by: Pantoprazole Sodium (Protonix) 20 mg PO DAILY [facility] Last Admin: 06/17/19 08:34 Dose: 20 mg Documented by: Senna/Docusate Sodium (Senokot-S, Nola-Colace) 2 tablet PO BID PRN PRN Reason: Constipation Tizanidine HCl (Zanaflex) 2 mg PO Q8H PRN PRN Reason: SPASMS Warfarin Sodium (Coumadin (Pbkc)) 5 mg PO MoWeFr@1700 [facility] Last Admin: 06/15/19 18:12 Dose: 5 mg Documented by: Warfarin Sodium (Coumadin (Pbkc)) 2.5 mg PO SuTuThSa@1700 [facility] Last Admin: 06/16/19 18:38 Dose: 2.5 mg Documented by: Code Visit Inpatient E&M: [id number] [facility] Hosp L2
[2019-06-17] MEDS: Acetaminophen 325 MG Tablet 650 MG PO ×2 (15:17→21:29)
--- NOTE | 2019-06-17 15:23 | NURSING ---
Pt currently has prosthesis in place. DENA Tang states she looked at the stump and there is no further redness noted. DENA Childs had assessed yesterday for this nurse and states that the area was blanching. DUNCAN & Toddjermaine virocyt is coming to assess prosthesis tomorrow. will monitor.
[2019-06-17] MEDS: Atorvastatin Calcium 10 MG Tablet PO (20:34)
[2019-06-18] VITALS (8 sets, daily range): BP systolic 114–142; BP diastolic 51–72; PULSE 81–89; RESP 18; TEMP 36.7–36.8; O2SAT 96–97; BMI 16.0
--- NOTE | 2019-06-18 01:53 | NURSING ---
Reviewed and agree with [employer] documentation and [employer]IMs charting.
[2019-06-18] MEDS: Aspirin E.C. 81 MG Tablet PO (09:13)
[2019-06-18] MEDS: Hydroxychloroquine 200 MG Tablet PO (09:13)
[2019-06-18] MEDS: Multivitamins,Therapeutic Tablet 1 TABLET PO (09:13)
[2019-06-18] MEDS: hydrALAZINE 25 MG Tablet PO ×4 (09:17→22:00)
[2019-06-18] MEDS: Nitroglycerin Oint 1 INCH PACKET TRANSDERM. (09:18)
[2019-06-18] MEDS: Multivitamin (Healthy Eyes) Capsule 1 CAP PO ×2 (09:18→22:00)
[2019-06-18] MEDS: Lidocaine 5% Patch 1 PATCH TOPICAL (09:18)
[2019-06-18] MEDS: hydroCHLOROthiazide 12.5mg 12.5 MG PO (09:18)
[2019-06-18] MEDS: Lisinopril 20 MG Tablet PO (09:19)
[2019-06-18] MEDS: NIFEdipine 90 MG Tablet PO (09:19)
[2019-06-18] MEDS: Pantoprazole Sodium 20 MG Tablet PO (09:19)
--- NOTE | 2019-06-18 10:22 | PCM.PN.NEU ---
Subjective: Per nursing, no issues overnight. [employer] here today and took prosthetic and will return around noon. Patient tolerating therapies, denies futher questions or concerns. - Physical Exam General: Alert, Oriented x3, Cooperative HEENT: PERRLA, - - right and left hemianopia, Left eye does not rotate laterally and is medially rotated in-chronic Oral: Moist Mucosa Neck: Supple, No JVD Lungs: Clear to auscultation, Normal air movement Cardiovascular: Regular rate, Regular Rhythm Abdomen: Bowel Sounds Present, Soft, Non Tender Extremities: No clubbing, No cyanosis, No edema Skin: Ulcer/ Wound - Stage I to right leg anterior stump Neurological: Cranial nerves II-XII grossly intact - except right and left hemianopia, Left eye does not rotate laterally and is medially rotated in-chronic, Deep Tendon Reflexes 2+/4 and Symmetrical, Motor Exam 5/5 strength throughout - Unable to assess right achiles and patellar d/t right BKA Psych/Mental Status: Normal Affect, Appropriate, Alert and oriented to time, place, person, mood and affect Vital Signs Temp Pulse Resp BP Pulse Ox 98.1 F 82 18 142/72 H 97 06/18/19 09:14 06/18/19 09:18 06/18/19 09:14 06/18/19 09:18 06/18/19 09:14 Oxygen Delivery Method Room Air Weight: 46.9 kg Body Mass Index (BMI) 16.0 Intake and Output for Last 24 Hours 06/16/19 06/17/19 06/18/19 23:59 23:59 23:59 Intake Total 240 / 240 180 / 180 Output Total 700 / 700 Balance -460 / -460 180 / 180 Medical Necessity - Tobacco Use Smoking Status: Never smoker Tobacco Use: Non-smoker Assessment/Plan All Active Problems Decubitus ulcer of foot, stage 3 (Acute) Nonhealing nonsurgical wound (Acute) Stroke (Acute) Left arm weakness (Acute) TIA (transient ischemic attack) (Acute) Abdominal pain (Acute) Gastrointestinal bleeding (Acute) Melena (Acute) Ileus (Acute) Ischemic colitis (Acute) The patient is a 78 year old F with PMH of HTN, HLD, CKD III, GERD, PAD, CAD, Macular degeneration, HX of stroke in 2005 after RLE amputation, TIA, Carotid stenosis (right carotid CEA) 2005, Raynaud phenomena, admitted to [facility] on 06/15/2019 for debility, with a goal of returning home at or near her level of independency. On 06/11/2019, patient was admitted for left upper arm weakness and numbness that lasted less than [address] showed Stable encephalomalacia in the medial aspect of the left occipital lobe.MRI of brain showed No evidence of acute infarct or hemorrhage.Bilateral occipital encephalomalacia. Echocardiogram showed an ejection fraction of 55%, Bubble contrast study negative for right to left interatrial shunt. MRA of head showed A high-grade stenosis of the P1 segment of the left posterior cerebral artery is noted. Occlusion of the P3 segment of the right FILAMENT TESTER. This could be chronic given the MRI finding of right occipital encephalomalacia. No high grade stenoses or occlusions of the middle cerebral arteries. MRA of neck showed Normal bilateral cervical carotid and vertebral arteries. Patient currently on statin, asa and anti-hypertensives. On admission Blood pressure was 145/49. PT/INR 23.0/2.0 on Coumadin. UA was negative. Symptoms have resolved. HGBA1c 4.5%, LDL 23. Patient lives alone in a one level house, with 1 step to enter and is independent with ADLs and mobility, does not drive. Plan - PT for mobility - OT for ADLs - Analgesic as needed - HTN on hydrazalazine, hctz, zestril, procardia XL Hold if SBP <100 BP goal < 130/80 - HLD on liptor LDL 23 - GERD on protonix - CKD III - PAD s/p Right BKA: on plaquenil, nitrobid, possibly why on coumadin started after per patient. - Raynaud on procardia XL - Stage I pressure injury to right lower anterior stump- wound consult and [employer] notified - GI/DVT prophylaxis on protonix/coumadin - HX of stroke, TIA and right CEA on statin, antihypertensives, ASA - Medical management per hospitalist- consult - FAll precautions - Bowel protocol - F/U with PCP and Neurology
[2019-06-18] MEDS: Acetaminophen 325 MG Tablet 650 MG PO ×2 (13:35→22:00)
[2019-06-18] MEDS: Atorvastatin Calcium 10 MG Tablet PO (22:00)
[2019-06-19] VITALS (8 sets, daily range): BP systolic 107–142; BP diastolic 51–76; PULSE 82–89; RESP 15–18; TEMP 36.6–36.8; O2SAT 96–97; BMI 16.0
--- NOTE | 2019-06-19 02:00 | NURSING ---
REVIEWED AND AGREE WITH DATA SECURITY COORDINATOR'S FIM AND HANDOFF CHARTING.
[2019-06-19 05:52] LABS: Absolute Neutrophil Count 12.5 X10^3/uL (2.0-7.7); Basophil# 0.06 X10^3/uL; Basophil% 0.4 % (0-1); Eosinophil# 0.26 X10^3/uL; Eosinophils% 1.6 % (0-5); Hematocrit 28.6 % (37-47); Hemoglobin 9.5 g/dL (12.0-15.0); Lymphocyte % 10.8 % (19-41); Mean Corp Hgb Conc 33.2 g/dL (32-36); Mean Corpuscular Hgb 28.2 pg (27.0-32.0); Mean Corpuscular Volume 84.9 fL (81-99); Mean Platelet Vol. 10.8 fl (6.2-12.0); Monocyte# 1.87 X10^3/uL; Monocyte% 11.2 % (0-10); NRBC Flagged by Analyzer 0 % (0-5); Neutrophil # 12.51 X10^3/uL (2.7-7.7); Neutrophil % 75.2 % (47-70); POSITIVE DIFFERENTIAL YES; Platelet Count 625 K/mm3 (150-450); RBC Distribution Width CV 15.8 % (11.6-14.6); RBC Distribution Width SD 48.3 fl (35.1-43.9); Red Blood Count 3.37 M/mm3 (4.2-5.4); White Blood Count 16.6 K/mm3 (4.4-11.0)
[2019-06-19 05:59] LABS: Differential Indicated SCAN CRITERIA MET; International Normalized Ratio 2.9; Prothrombin Time (Protime)PT. 30.3 SECONDS (11.7-14.9)
[2019-06-19 06:09] LABS: Anion Gap 9 (5-15); BUN 78 mg/dL (7-18); BUN/Creat Ratio 50.6 RATIO (10-20); Calcium,Total 8.2 mg/dL (8.5-10.1); Chloride 108 mmol/L (98-107); Creatinine, Serum 1.54 mg/dL (0.55-1.02); EST Glomerular Filtration Rate 35 mL/min (>60); Est Glom Filt Rate - Afr Amer 42 mL/min (>60); Estimated Creatinine Clearance 21.93 ml/min; Glucose 84 mg/dL (74-106); Potassium 3.8 mmol/L (3.5-5.1); Sodium Level 138 mmol/L (136-145)
[2019-06-19] MEDS: Aspirin E.C. 81 MG Tablet PO (08:47)
[2019-06-19] MEDS: Hydroxychloroquine 200 MG Tablet PO (08:47)
[2019-06-19] MEDS: Multivitamins,Therapeutic Tablet 1 TABLET PO (08:47)
[2019-06-19] MEDS: NIFEdipine 90 MG Tablet PO (09:32)
[2019-06-19] MEDS: Lisinopril 20 MG Tablet PO (09:32)
[2019-06-19] MEDS: Multivitamin (Healthy Eyes) Capsule 1 CAP PO ×2 (09:32→20:46)
[2019-06-19] MEDS: Pantoprazole Sodium 20 MG Tablet PO (09:32)
[2019-06-19] MEDS: Acetaminophen 325 MG Tablet 650 MG PO ×2 (09:33→20:52)
[2019-06-19] MEDS: hydrALAZINE 25 MG Tablet PO ×4 (09:33→20:46)
[2019-06-19] MEDS: hydroCHLOROthiazide 12.5mg 12.5 MG PO (09:33)
[2019-06-19] MEDS: Nitroglycerin Oint 1 INCH PACKET TRANSDERM. (09:34)
[2019-06-19] MEDS: Lidocaine 5% Patch 1 PATCH TOPICAL (09:35)
--- NOTE | 2019-06-19 10:32 | PN_ITS ---
Subjective: She has seen states she is happy with the progress of the inpatient rehab unit. Per nursing staff she had a relatively uneventful night. Objective: GENERAL: cooperative HEENT: Atraumatic; moist oral mucosa EYES; Anicteric, Normal Conjunctiva NECK; supple, normal thyroid, . RESPIRATORY: Diminished to auscultation CARDIOVASCULAR: Regular S1 S2, GI: soft, non-tender, : No Renal angle tenderness; EXTREMITIES: Right BKA with subsequent prosthesis NEURO: Awake; no lateralizing signs. SKIN: No Rash PSYCH; Normal affect Vitals/I&O's: Vital Signs Temp Pulse Resp BP Pulse Ox 98.3 F 82 16 142/76 H 96 06/19/19 08:56 06/19/19 09:34 06/19/19 08:56 06/19/19 09:34 06/19/19 08:56 Oxygen Delivery Method Room Air Weight: 46.9 kg Body Mass Index (BMI) 16.0 Intake and Output for Last 24 Hours 06/17/19 06/18/19 06/19/19 23:59 23:59 23:59 Intake Total 180 / 180 240 / 240 Balance 180 / 180 240 / 240 Laboratory Results 06/19/19 05:35: WBC 16.6 H, RBC 3.37 L, Hgb 9.5 L, Hct 28.6 L, MCV 84.9, MCH 28.2, MCHC 33.2, RDW Std Deviation 48.3 H, RDW Coeff of Aba 15.8 H, Plt Count 625 H, MPV 10.8, Immature Gran % (Auto) 0.800, Neut % (Auto) 75.2 H, Lymph % (Auto) 10.8 L, [place] % (Auto) 11.2 H, Eos % (Auto) 1.6, Baso % (Auto) 0.4, Absolute Neuts (auto) 12.5 H, Absolute Lymphs (auto) 1.80, Nucleated RBC % 0 06/19/19 05:35: Sodium 138, Potassium 3.8, Chloride 108 H, Carbon Dioxide 21.0, Anion Gap 9, BUN 78 H, Creatinine 1.54 H, Estim Creat Clear Calc 21.93, Est GFR (MDRD) Af Amer 42 L, Est GFR (MDRD) Non-Af 35 L, BUN/Creatinine Ratio 50.6 H, Glucose 84, Calcium 8.2 L 06/19/19 05:35: PT 30.3 H, INR 2.9 Current Medications Acetaminophen (Tylenol) 650 mg PO Q6H PRN PRN PRN Reason: PAIN Last Admin: 06/19/19 09:33 Dose: 650 mg Documented by: Aspirin (Ecotrin) 81 mg PO DAILY@0800 ON LICENSE OF [facility] Last Admin: 06/19/19 08:47 Dose: 81 mg Documented by: Atorvastatin Calcium (Lipitor) 10 mg PO QHS ON LICENSE OF [facility] Last Admin: 06/18/19 22:00 Dose: 10 mg Documented by: Bisacodyl (Dulcolax) 10 mg RECTAL .PRN X 1 PRN PRN Reason: Constipation Hydralazine HCl (Apresoline) 25 mg PO 4X/DAY ON LICENSE OF [facility] Last Admin: 06/19/19 09:33 Dose: 25 mg Documented by: Hydrochlorothiazide () 12.5 mg PO DAILY ON LICENSE OF [facility] Last Admin: 06/19/19 09:33 Dose: 12.5 mg Documented by: [facility]xychloroquine [facility]) [facility] Last Admin: 06/19/19 08:47 Dose: 200 mg Documented by: Lidocaine (Lidoderm Patch) 1 patch TOPICAL DAILY ON LICENSE OF [facility]; Protocol Last Admin: 06/19/19 09:35 Dose: 1 patch Documented by: Lisinopril (Zestril) 20 mg PO DAILY ON LICENSE OF [facility] Last Admin: 06/19/19 09:32 Dose: 20 mg Documented by: Magnesium Hydroxide (Milk Of Magnesia) 30 ml PO .PRN X 1 PRN PRN Reason: Constipation Menthol (Bengay Vanishing Scent) 1 applic TOPICAL 4X/DAY PRN PRN PRN Reason: PAIN Multivit[facility]amin) [facility] Last Admin: 06/19/19 08:47 Dose: 1 tablet Documented by: Multivitamins/Minerals (Healthy Eyes) 1 capsule PO BID ON LICENSE OF [facility] Last Admin: 06/19/19 09:32 Dose: 1 capsule Documented by: Nifedipine (Procardia Xl) 90 mg PO DAILY ON LICENSE OF [facility] Last Admin: 06/19/19 09:32 Dose: 90 mg Documented by: Nitroglycerin (Nitrobid) 1 inch TRANSDERM. DAILY ON LICENSE OF [facility] Last Admin: 06/19/19 09:34 Dose: 1 inch Documented by: Nutritional Formula (Lactose Free) (Ensure Clear) 120 ml PO 4X/DAY ON LICENSE OF [facility] Last Admin: 06/19/19 09:36 Dose: Not Given Documented by: Pantoprazole Sodium (Protonix) 20 mg PO DAILY ON LICENSE OF [facility] Last Admin: 06/19/19 09:32 Dose: 20 mg Documented by: Senna/Docusate Sodium (Senokot-S, Nola-Colace) 2 tablet PO BID PRN PRN Reason: Constipation Tizanidine HCl (Zanaflex) 2 mg PO Q8H PRN PRN Reason: SPASMS Warfarin Sodium (Coumadin (Pbkc)) 5 mg PO MoWeFr@1700 ON LICENSE OF [facility] Last Admin: 06/17/19 16:46 Dose: 5 mg Documented by: Warfarin Sodium (Coumadin (Pbkc)) 2.5 mg PO SuTuThSa@1700 ON LICENSE OF [facility] Last Admin: 06/18/19 17:00 Dose: 2.5 mg Documented by: Medical Necessity - Tobacco Use Smoking Status: Never smoker Tobacco Use: Non-smoker Assessment/Plan All Active Problems Decubitus ulcer of foot, stage 3 (Acute) Nonhealing nonsurgical wound (Acute) Stroke (Acute) Left arm weakness (Acute) TIA (transient ischemic attack) (Acute) Abdominal pain (Acute) Gastrointestinal bleeding (Acute) Melena (Acute) Ileus (Acute) Ischemic colitis (Acute) In brief, patient is-year-old lady transferred from the progressive care unit to the inpatient rehab unit following hospitalization for progressive generalized weakness as well as TIA. 1. Physical debility patient has been admitted to the inpatient rehab unit where she is currently undergoing therapy. Rehab proceeding as expected. 2. Previous CVA with right visual loss in the recent admission for TIA patient is on antiplatelet therapy with aspirin 3. Crest syndrome (Raynaud's disease with scleroderma)patient is on Plaquenil 4. Hypertension-blood pressure controlled, home medications continued with dose adjustment as needed 5. GERD: Patient is on PPI 6. Peripheral arterial disease with previous right BKA 7. Chronic kidney disease stage III next 8. Carotid artery stenosis status post right carotid endarterectomy 9. Systemic use of anticoagulation as a result of patient significant vasculopathy.. INR is therapeutic with INR on 06/19/2019 2.9. 10. DVT prophylaxis patient is on Coumadin with therapeutic INR no need for further measures Code Visit Inpatient E&M: 98548 Subs Hosp L2
--- NOTE | 2019-06-19 12:50 | NURSING ---
Dr Perkins aware of pt's lab results
--- NOTE | 2019-06-19 13:09 | PN.NEURO_ITS ---
Subjective: Per nursing, no issues overnight. Per patient, continues to tolerate therapies well. [employer] returned prosthetic device. Continue to monitor for skin breakdown. WBC decreased to 16.6 from 18.7, patient remains asymptomatic. Denies further questions or concerns. - Physical Exam General: Alert, Oriented x3, Cooperative HEENT: PERRLA, - - right and left hemianopia, Left eye does not rotate laterally and is medially rotated in-chronic Oral: Moist Mucosa Neck: Supple, No JVD Lungs: Clear to auscultation, Normal air movement Cardiovascular: Regular rate, Regular Rhythm, No Ectopic Activity Abdomen: Bowel Sounds Present, Soft, Non Tender Extremities: No clubbing, No cyanosis, No edema Skin: Ulcer/ Wound - Stage I to right leg anterior stump Neurological: Cranial nerves II-XII grossly intact - except right and left hemianopia, Left eye does not rotate laterally and is medially rotated in- chronic, Deep Tendon Reflexes 2+/4 and Symmetrical, Motor Exam 5/5 strength throughout Psych/Mental Status: Normal Affect, Appropriate, Alert and oriented to time, place, person, mood and affect Vital Signs Temp Pulse Resp BP Pulse Ox 98.3 F 82 16 142/76 H 96 06/19/19 08:56 06/19/19 09:34 06/19/19 08:56 06/19/19 09:34 06/19/19 08:56 Oxygen Delivery Method Room Air Weight: 46.9 kg Body Mass Index (BMI) 16.0 Intake and Output for Last 24 Hours 06/17/19 06/18/19 06/19/19 23:59 23:59 23:59 Intake Total 180 / 180 480 / 480 Balance 180 / 180 480 / 480 Laboratory Tests Past 24 Hrs 06/19/19 06/19/19 06/19/19 05:35 05:35 05:35 WBC 16.6 H RBC 3.37 L Hgb 9.5 L Hct 28.6 L MCV 84.9 MCH 28.2 MCHC 33.2 RDW Std Deviation 48.3 H RDW Coeff of Aba 15.8 H Plt Count 625 H MPV 10.8 Immature Gran % (Auto) 0.800 Neut % (Auto) 75.2 H Lymph % (Auto) 10.8 L [place] % (Auto) 11.2 H Eos % (Auto) 1.6 Baso % (Auto) 0.4 Absolute Neuts (auto) 12.5 H Absolute Lymphs (auto) 1.80 Nucleated RBC % 0 PT 30.3 H INR 2.9 Sodium 138 Potassium 3.8 Chloride 108 H Carbon Dioxide 21.0 Anion Gap 9 BUN 78 H Creatinine 1.54 H Estim Creat Clear Calc 21.93 Est GFR (MDRD) Af Amer 42 L Est GFR (MDRD) Non-Af 35 L BUN/Creatinine Ratio 50.6 H Glucose 84 Calcium 8.2 L Medical Necessity - Tobacco Use Smoking Status: Never smoker Tobacco Use: Non-smoker Assessment/Plan All Active Problems Decubitus ulcer of foot, stage 3 (Acute) Nonhealing nonsurgical wound (Acute) Stroke (Acute) Left arm weakness (Acute) TIA (transient ischemic attack) (Acute) Abdominal pain (Acute) Gastrointestinal bleeding (Acute) Melena (Acute) Ileus (Acute) Ischemic colitis (Acute) The patient is a 78 year old F with PMH of HTN, HLD, CKD III, GERD, PAD, CAD, Macular degeneration, HX of stroke in 2005 after RLE amputation, TIA, Carotid stenosis (right carotid CEA) 2005, Raynaud phenomena, admitted to [facility] on 06/15/2019 for debility, with a goal of returning home at or near her level of independency. On 06/11/2019, patient was admitted for left upper arm weakness and numbness that lasted less than [address] showed Stable encephalomalacia in the medial aspect of the left occipital lobe.MRI of brain showed No evidence of acute infarct or hemorrhage.Bilateral occipital encephalomalacia. Echocardiogram showed an ejection fraction of 55%, Bubble contrast study negative for right to left interatrial shunt. MRA of head showed A high-grade stenosis of the P1 segment of the left posterior cerebral artery is noted. Occlusion of the P3 segment of the right PASSENGER SCREENER. This could be chronic given the MRI finding of right occipital encephalomalacia. No high grade stenoses or occlusions of the middle cerebral arteries. MRA of neck showed Normal bilateral cervical carotid and vertebral arteries. Patient currently on statin, asa and anti-hypertensives. On admission Blood pressure was 145/49. PT/INR 23.0/2.0 on Coumadin. UA was negative. Symptoms have resolved. HGBA1c 4.5%, LDL 23. Patient lives alone in a one level house, with 1 step to enter and is independent with ADLs and mobility, does not drive. Plan - PT for mobility - OT for ADLs - Analgesic as needed - HTN on hydrazalazine, hctz, zestril, procardia XL Hold if SBP <100 BP goal < 130/80 - HLD on liptor LDL 23 - GERD on protonix - CKD III - PAD s/p Right BKA: on plaquenil, nitrobid, possibly why on coumadin started after per patient. - Raynaud on procardia XL - Stage I pressure injury to right lower anterior stump- wound consult and [employer] - GI/DVT prophylaxis on protonix/coumadin - HX of stroke, TIA and right CEA on statin, antihypertensives, ASA - Leukocytosis- WBC decreased to 16.6, felt to be baseline, asymptomatic- continue to monitor. - Medical management per hospitalist- consult - FAll precautions - Bowel protocol - F/U with PCP and Neurology
[2019-06-19] MEDS: Atorvastatin Calcium 10 MG Tablet PO (20:46)
[2019-06-20] VITALS (8 sets, daily range): BP systolic 98–134; BP diastolic 40–64; PULSE 78–87; RESP 15–16; TEMP 36.8; O2SAT 96–97; BMI 16.0
[2019-06-20] MEDS: Aspirin E.C. 81 MG Tablet PO (07:51)
[2019-06-20] MEDS: Multivitamin (Healthy Eyes) Capsule 1 CAP PO ×2 (07:51→21:50)
[2019-06-20] MEDS: hydroCHLOROthiazide 12.5mg 12.5 MG PO (07:51)
[2019-06-20] MEDS: Lisinopril 20 MG Tablet PO (07:51)
[2019-06-20] MEDS: Multivitamins,Therapeutic Tablet 1 TABLET PO (07:51)
[2019-06-20] MEDS: Hydroxychloroquine 200 MG Tablet PO (07:51)
[2019-06-20] MEDS: Pantoprazole Sodium 20 MG Tablet PO (07:52)
[2019-06-20] MEDS: NIFEdipine 90 MG Tablet PO (07:52)
[2019-06-20] MEDS: Lidocaine 5% Patch 1 PATCH TOPICAL (07:53)
[2019-06-20] MEDS: Nitroglycerin Oint 1 INCH PACKET TRANSDERM. (07:54)
[2019-06-20] MEDS: hydrALAZINE 25 MG Tablet PO ×3 (08:05→21:50)
[2019-06-20] MEDS: Acetaminophen 325 MG Tablet 650 MG PO ×2 (08:06→20:17)
[2019-06-20] MEDS: Atorvastatin Calcium 10 MG Tablet PO (21:51)
[2019-06-21] VITALS (8 sets, daily range): BP systolic 105–146; BP diastolic 41–77; PULSE 70–86; RESP 16–18; TEMP 36.7–37; O2SAT 94–95; BMI 16.0
[2019-06-21] MEDS: Hydroxychloroquine 200 MG Tablet PO (07:41)
[2019-06-21] MEDS: Pantoprazole Sodium 20 MG Tablet PO (07:41)
[2019-06-21] MEDS: Aspirin E.C. 81 MG Tablet PO (07:41)
[2019-06-21] MEDS: Multivitamin (Healthy Eyes) Capsule 1 CAP PO ×2 (07:41→21:33)
[2019-06-21] MEDS: Multivitamins,Therapeutic Tablet 1 TABLET PO (07:41)
[2019-06-21 08:10] LABS: Prothrombin Time (Protime)PT. 35.8 SECONDS (11.7-14.9)
[2019-06-21 08:32] LABS: International Normalized Ratio 3.6
--- NOTE | 2019-06-21 09:17 | PCM.PN.HOSP ---
Subjective: Patient INR 3.6 this a.m. plan is to hold Coumadin for a day and resume on 06/22/2019 with repeat INR ordered for the same day Objective: GENERAL: cooperative HEENT: Atraumatic; moist oral mucosa EYES; Anicteric, Normal Conjunctiva NECK; supple, normal thyroid, . RESPIRATORY: Diminished to auscultation CARDIOVASCULAR: Regular S1 S2, GI: soft, non-tender, : No Renal angle tenderness; EXTREMITIES: Right BKA with subsequent prosthesis NEURO: Awake; no lateralizing signs. SKIN: No Rash PSYCH; Normal affect Vitals/I&O's: Vital Signs Temp Pulse Resp BP Pulse Ox 98.0 F 82 16 146/77 H 95 06/21/19 07:00 06/21/19 07:00 06/21/19 07:00 06/21/19 07:00 06/21/19 07:00 Oxygen Delivery Method Room Air Weight: 46.9 kg Body Mass Index (BMI) 16.0 Intake and Output for Last 24 Hours 06/19/19 06/20/19 06/21/19 23:59 23:59 23:59 Intake Total 480 / 480 720 / 720 Balance 480 / 480 720 / 720 Laboratory Results 06/21/19 07:32: PT 35.8 H, INR 3.6 H* Current Medications Acetaminophen (Tylenol) 650 mg PO Q6H PRN PRN PRN Reason: PAIN Last Admin: 06/20/19 20:17 Dose: 650 mg Documented by: Aspirin (Ecotrin) 81 mg PO DAILY@0800 [facility] Last Admin: 06/21/19 07:41 Dose: 81 mg Documented by: Atorvastatin Calcium (Lipitor) 10 mg PO QHS [facility] Last Admin: 06/20/19 21:51 Dose: 10 mg Documented by: Bisacodyl (Dulcolax) 10 mg RECTAL .PRN X 1 PRN PRN Reason: Constipation Hydralazine HCl (Apresoline) 25 mg PO 4X/DAY [facility] Last Admin: 06/20/19 21:50 Dose: 25 mg Documented by: Hydrochlorothiazide () 12.5 mg PO DAILY [facility] Last Admin: 06/20/19 07:51 Dose: 12.5 mg Documented by: [facility]lor[facility]ine [facility]) [facility] Last Admin: 06/21/19 07:41 Dose: 200 mg Documented by: Lidocaine (Lidoderm Patch) 1 patch TOPICAL DAILY [facility]; Protocol Last Admin: 06/20/19 07:53 Dose: 1 patch Documented by: Lisinopril (Zestril) 20 mg PO DAILY [facility] Last Admin: 06/20/19 07:51 Dose: 20 mg Documented by: Magnesium Hydroxide (Milk Of Magnesia) 30 ml PO .PRN X 1 PRN PRN Reason: Constipation Menthol (Bengay Vanishing Scent) 1 applic TOPICAL 4X/DAY PRN PRN PRN Reason: PAIN Multivit[facility] ([facility]amin) [facility] Last Admin: 06/21/19 07:41 Dose: 1 tablet Documented by: Multivitamins/Minerals (Healthy Eyes) 1 capsule PO BID [facility] Last Admin: 06/21/19 07:41 Dose: 1 capsule Documented by: Nifedipine (Procardia Xl) 90 mg PO DAILY [facility] Last Admin: 06/20/19 07:52 Dose: 90 mg Documented by: Nitroglycerin (Nitrobid) 1 inch TRANSDERM. DAILY [facility] Last Admin: 06/20/19 07:54 Dose: 1 inch Documented by: Nutritional Formula (Lactose Free) (Ensure Clear) 120 ml PO 4X/DAY [facility] Last Admin: 06/21/19 07:42 Dose: Not Given Documented by: Pantoprazole Sodium (Protonix) 20 mg PO DAILY [facility] Last Admin: 06/21/19 07:41 Dose: 20 mg Documented by: Senna/Docusate Sodium (Senokot-S, Nola-Colace) 2 tablet PO BID PRN PRN Reason: Constipation Tizanidine HCl (Zanaflex) 2 mg PO Q8H PRN PRN Reason: SPASMS Warfarin Sodium (Coumadin (Pbkc)) 5 mg PO MoWeFr@1700 [facility] Last Admin: 06/19/19 17:35 Dose: 5 mg Documented by: Warfarin Sodium (Coumadin (Pbkc)) 2.5 mg PO SuTuThSa@1700 [facility] Last Admin: 06/20/19 17:17 Dose: 2.5 mg Documented by: Medical Necessity - Tobacco Use Smoking Status: Never smoker Tobacco Use: Non-smoker Assessment/Plan All Active Problems Decubitus ulcer of foot, stage 3 (Acute) Nonhealing nonsurgical wound (Acute) Stroke (Acute) Left arm weakness (Acute) TIA (transient ischemic attack) (Acute) Abdominal pain (Acute) Gastrointestinal bleeding (Acute) Melena (Acute) Ileus (Acute) Ischemic colitis (Acute) In brief, patient is-year-old lady transferred from the progressive care unit to the inpatient rehab unit following hospitalization for progressive generalized weakness as well as TIA. 1. Physical debility patient has been admitted to the inpatient rehab unit where she is currently undergoing therapy. Rehab proceeding as expected. 2. Previous CVA with right visual loss in the recent admission for TIA patient is on antiplatelet therapy with aspirin 3. Crest syndrome (Raynaud's disease with scleroderma)patient is on Plaquenil 4. Hypertension-blood pressure controlled, home medications continued with dose adjustment as needed 5. GERD: Patient is on PPI 6. Peripheral arterial disease with previous right BKA 7. Chronic kidney disease stage III next 8. Carotid artery stenosis status post right carotid endarterectomy 9. Systemic use of anticoagulation as a result of patient significant vasculopathy.. INR is therapeutic with INR on 06/19/2019 2.9. 06/21/2019: INR 3.6 Coumadin held for a day repeat INR ordered for 06/22/2019 10. DVT prophylaxis patient is on Coumadin with therapeutic INR no need for further measures Code Visit Inpatient E&M: 39247 Subs Hosp L2
[2019-06-21] MEDS: Lidocaine 5% Patch 1 PATCH TOPICAL (09:45)
[2019-06-21] MEDS: hydrALAZINE 25 MG Tablet PO ×4 (09:46→21:33)
[2019-06-21] MEDS: Lisinopril 20 MG Tablet PO (09:46)
[2019-06-21] MEDS: hydroCHLOROthiazide 12.5mg 12.5 MG PO (09:46)
[2019-06-21] MEDS: NIFEdipine 90 MG Tablet PO (09:46)
[2019-06-21] MEDS: Nitroglycerin Oint 1 INCH PACKET TRANSDERM. (09:47)
[2019-06-21] MEDS: Atorvastatin Calcium 10 MG Tablet PO (21:33)
--- NOTE | 2019-06-21 23:00 | NURSING ---
PT REQUESTING TYLENOL TO HELP HER SLEEP AND FOR HER GENERALIZED CINTRON. PT DENIES ANY OTHER NEW SYMPTOMS. SPEECH IS CLEAR AND APPROPRIATE. PT C/O LIGHT FROM HALLWAY KEEPING PREVENTING HER FROM SLEEPING. DOOR CLOSED MOST OF THE WAY FOR PT, CURTAIN PULLED.
[2019-06-21] MEDS: Acetaminophen 325 MG Tablet 650 MG PO (23:09)
[2019-06-22] VITALS (8 sets, daily range): BP systolic 104–155; BP diastolic 54–66; PULSE 77–90; RESP 16–17; TEMP 36.8–36.9; O2SAT 94–99; BMI 16.0
[2019-06-22 05:46] LABS: International Normalized Ratio 3.1; Prothrombin Time (Protime)PT. 32.4 SECONDS (11.7-14.9)
[2019-06-22] MEDS: Hydroxychloroquine 200 MG Tablet PO (08:04)
[2019-06-22] MEDS: Multivitamin (Healthy Eyes) Capsule 1 CAP PO ×2 (08:04→20:09)
[2019-06-22] MEDS: Aspirin E.C. 81 MG Tablet PO (08:04)
[2019-06-22] MEDS: Pantoprazole Sodium 20 MG Tablet PO (08:04)
[2019-06-22] MEDS: NIFEdipine 90 MG Tablet PO (08:04)
[2019-06-22] MEDS: Nitroglycerin Oint 1 INCH PACKET TRANSDERM. (08:43)
[2019-06-22] MEDS: Lidocaine 5% Patch 1 PATCH TOPICAL (08:43)
[2019-06-22] MEDS: Lisinopril 20 MG Tablet PO (09:03)
[2019-06-22] MEDS: Multivitamins,Therapeutic Tablet 1 TABLET PO (09:03)
[2019-06-22] MEDS: hydroCHLOROthiazide 12.5mg 12.5 MG PO (09:03)
[2019-06-22] MEDS: hydrALAZINE 25 MG Tablet PO ×4 (09:04→20:09)
--- NOTE | 2019-06-22 09:23 | PN.NEURO_ITS ---
Subjective: Staffed team meeting today. Further details from PT/OT/ST notes. All questions were answered. INR yesterday 3.6 and Coumadin was held, today 3.1 will continue to hold as directed by hospitalist. WBC remains elevated 17.4 and PLT 908. Per PCP office, does have elevation in these areas at times, but were not sure why. Patient asymptomatic. Facility Maintenance Helper consulted. Nursing left a message for Dr. Mike Coppola vascular surgeon about why patient is on Coumadin and if needs to be continued. - Physical Exam General: Alert, Oriented x3, Cooperative HEENT: PERRLA, - - right and left hemianopia, Left eye does not rotate laterally and is medially rotated in-chronic Oral: Moist Mucosa Neck: Supple, No JVD Lungs: Clear to auscultation, Normal air movement Cardiovascular: Regular rate, Regular Rhythm Abdomen: Bowel Sounds Present, Soft, Non Tender Extremities: No clubbing, No cyanosis, No edema Skin: Ulcer/ Wound - Stage I to right leg anterior stump- improved Neurological: Cranial nerves II-XII grossly intact - except left eye does not rotate laterally and is medially rotated in-chronic,, Deep Tendon Reflexes 2+/4 and Symmetrical, Motor Exam 5/5 strength throughout Psych/Mental Status: Normal Affect, Appropriate, Alert and oriented to time, pl barry, person, mood and affect Vital Signs Temp Pulse Resp BP Pulse Ox 98.4 F 77 16 104/61 94 06/22/19 07:12 06/22/19 09:04 06/22/19 07:12 06/22/19 08:43 06/22/19 07:12 Oxygen Delivery Method Room Air Weight: 46.9 kg Body Mass Index (BMI) 16.0 Intake and Output for Last 24 Hours 06/20/19 06/21/19 06/22/19 23:59 23:59 23:59 Intake Total 720 / 720 600 / 600 240 / 240 Balance 720 / 720 600 / 600 240 / 240 Laboratory Tests Past 24 Hrs 06/22/19 05:15 PT 32.4 H INR 3.1 Medical Necessity - Tobacco Use Smoking Status: Never smoker Tobacco Use: Non-smoker Assessment/Plan All Active Problems Decubitus ulcer of foot, stage 3 (Acute) Nonhealing nonsurgical wound (Acute) Stroke (Acute) Left arm weakness (Acute) TIA (transient ischemic attack) (Acute) Abdominal pain (Acute) Gastrointestinal bleeding (Acute) Melena (Acute) Ileus (Acute) Ischemic colitis (Acute) The patient is a 78 year old F with PMH of HTN, HLD, CKD III, GERD, PAD, CAD, Macular degeneration, HX of stroke in 2005 after RLE amputation, TIA, Carotid stenosis (right carotid CEA) 2005, Raynaud phenomena, admitted to [facility] on 06/15/2019 for debility, with a goal of returning home at or near her level of independency. On 06/11/2019, patient was admitted for left upper arm weakness and numbness that lasted less than [address] showed Stable encephalomalacia in the medial aspect of the left occipital lobe.MRI of brain showed No evidence of acute infarct or hemorrhage.Bilateral occipital encephalomalacia. Echocardiogram showed an ejection fraction of 55%, Bubble contrast study negative for right to left interatrial shunt. MRA of head showed A high-grade stenosis of the P1 segment of the left posterior cerebral artery is noted. Occlusion of the P3 segment of the right DIRECTOR ZONE. This could be chronic given the MRI finding of right occipital encephalomalacia. No high grade stenoses or occlusions of the middle cerebral arteries. MRA of neck showed Normal bilateral cervical carotid and vertebral arteries. Patient currently on statin, asa and anti-hypertensives. On admission Blood pressure was 145/49. PT/INR 23.0/2.0 on Coumadin. UA was negative. Symptoms have resolved. HGBA1c 4.5%, LDL 23. Patient lives alone in a one level house, with 1 step to enter and is independent with ADLs and mobility, does not drive. Plan - PT for mobility - OT for ADLs - Analgesic as needed - HTN on hydrazalazine, hctz, zestril, procardia XL Hold if SBP <100 BP goal < 130/80 - HLD on liptor LDL 23 - GERD on protonix - CKD III - PAD s/p Right BKA: on plaquenil, nitrobid, possibly why on coumadin started after per patient- called Dr. Mike Coppola vascular surgeon left message in regards why patient is on coumadin and if needed. - Raynaud on procardia XL - Stage I pressure injury to right lower anterior stump- wound consult and [employer] - GI/DVT prophylaxis on protonix/coumadin - HX of stroke, TIA and right CEA on statin, antihypertensives, ASA - Leukocytosis and thrombocytopenia, felt to be baseline, asymptomatic- consult hematology - Medical management per hospitalist- consult - Fall precautions - Bowel protocol - F/U with PCP and Neurology
--- NOTE | 2019-06-22 10:30 | NURSING ---
Mariann PLASTIC DOLLS MOLD FILLER aware of elevated platelet count and new order for hematology consult and Dr. Ortiz office made aware.
[2019-06-22 10:34] LABS: Absolute Lymphocyte Count 1.83 X10^3/uL (0.83-4.51); Absolute Neutrophil Count 13.4 X10^3/uL (2.0-7.7); Basophil% 0.6 % (0-1); Eosinophil# 0.23 X10^3/uL; Eosinophils% 1.3 % (0-5); Hematocrit 32.1 % (37-47); Hemoglobin 10.4 g/dL (12.0-15.0); Lymphocyte # 1.83 X10^3/ul (4.0); Lymphocyte % 10.5 % (19-41); Mean Corp Hgb Conc 32.4 g/dL (32-36); Mean Corpuscular Hgb 27.4 pg (27.0-32.0); Mean Corpuscular Volume 84.5 fL (81-99); Mean Platelet Vol. 10.6 fl (6.2-12.0); Monocyte# 1.63 X10^3/uL; Monocyte% 9.4 % (0-10); NRBC Flagged by Analyzer 0 % (0-5); Neutrophil # 13.44 X10^3/uL (2.7-7.7); Neutrophil % 77.4 % (47-70); POSITIVE COUNT YES; POSITIVE DIFFERENTIAL YES; RBC Distribution Width CV 15.9 % (11.6-14.6); RBC Distribution Width SD 47.9 fl (35.1-43.9); White Blood Count 17.4 K/mm3 (4.4-11.0)
--- NOTE | 2019-06-22 10:36 | CASEMGMT ---
Team meeting held today with pt and daughter in law present. Pt is progressing with therapy. Ambulating 80 ft with wheeled walker and CGA. Upper body care at Set up level and lower body care and grooming at CGA for balance and safety. Pt is also receiving ST for higher level cognitive functioning and visual issues. 15 days in inpatient rehab have been approved with projected d/c of 06/30/19. Pt is understanding and agreeable to this and plans to return home alone at d/c. After team meeting pt daughter in law met with SW. Expressing concerns that pt is not doing as well at home as pt is indicating. Concerns that she does burn food on the stove as she cannot see the stove well and not eating well. Per nursing, referral made to cheese pancake roller for consultation. Pt dgt and daughter in law live in [place] and visit weekly and call pt daily. Pt step daughter lives 2 blocks away and assists pt with laundry and checks on pt with some regularity. Pt has local friend who assist with errands and groceries. Dgt in law and pt confirm pt has been able to administer medications without difficulty. Family has talked to pt previously about assisted living but pt has not been open to this. Pt also previously has had private duty aids to assist with homemaking services but she is no longer receiving this. Pt does have a medical alert. SW discussed with dgt in law options of [facility] and possible home health services at time of discharge including a SW referral to check on pt in her home environment. Dgt in law agreeable to this. Will broach topic of home health and CCN with pt closer to discharge. Continue with treatment at this time and will follow for d/c planning. MILLER Ledezma
[2019-06-22 10:49] LABS: Differential Indicated SCAN CRITERIA MET; Platelet Count 908 K/mm3 (150-450)
[2019-06-22 12:36] LABS: Pathologist Review Reviewed
--- NOTE | 2019-06-22 16:30 | NURSING ---
Dr. Brock aware of INR and new order received for 2.5mg today x 1.
[2019-06-22] MEDS: Atorvastatin Calcium 10 MG Tablet PO (20:10)
[2019-06-22] MEDS: Acetaminophen 325 MG Tablet 650 MG PO (20:16)
[2019-06-23] VITALS (9 sets, daily range): BP systolic 121–134; BP diastolic 45–66; PULSE 80–87; RESP 16; TEMP 36.4–36.8; O2SAT 95; BMI 16.0
[2019-06-23 06:04] LABS: International Normalized Ratio 2.8; Prothrombin Time (Protime)PT. 29.2 SECONDS (11.7-14.9)
[2019-06-23] MEDS: NIFEdipine 90 MG Tablet PO (08:08)
[2019-06-23] MEDS: Lisinopril 20 MG Tablet PO (08:08)
[2019-06-23] MEDS: Pantoprazole Sodium 20 MG Tablet PO (08:08)
[2019-06-23] MEDS: hydroCHLOROthiazide 12.5mg 12.5 MG PO (08:08)
[2019-06-23] MEDS: hydrALAZINE 25 MG Tablet PO ×4 (08:08→20:32)
[2019-06-23] MEDS: Multivitamins,Therapeutic Tablet 1 TABLET PO (08:09)
[2019-06-23] MEDS: Aspirin E.C. 81 MG Tablet PO (08:09)
[2019-06-23] MEDS: Nitroglycerin Oint 1 INCH PACKET TRANSDERM. (08:09)
[2019-06-23] MEDS: Hydroxychloroquine 200 MG Tablet PO (08:09)
[2019-06-23] MEDS: Lidocaine 5% Patch 1 PATCH TOPICAL (08:10)
[2019-06-23] MEDS: Multivitamin (Healthy Eyes) Capsule 1 CAP PO ×2 (08:11→20:31)
--- NOTE | 2019-06-23 10:55 | PCM.PN.NEU ---
Subjective: Per nursing, no issues overnight. I spoke with Myah MENDOZA from Dr. Coppola's office, per Dr. Coppola continue Coumadin and ASA for PAD. Patient continues to tolerate therapies and denies further questions or concerns. - Physical Exam General: Alert, Oriented x3, Cooperative HEENT: PERRLA, - - right and left hemianopia, Left eye does not rotate laterally and is medially rotated in-chronic Oral: Moist Mucosa Neck: Supple, No JVD Lungs: Clear to auscultation, Normal air movement Cardiovascular: Regular rate, Regular Rhythm Abdomen: Bowel Sounds Present, Soft, Non Tender Extremities: No clubbing, No cyanosis, No edema Skin: Ulcer/ Wound - Stage I to right leg anterior stump- improved Neurological: Cranial nerves II-XII grossly intact - except right and left hemianopia, Left eye does not rotate laterally and is medially rotated in-chronic, Deep Tendon Reflexes 2+/4 and Symmetrical, Motor Exam 5/5 strength throughout Psych/Mental Status: Normal Affect, Appropriate, Alert and oriented to time, place, person, mood and affect Vital Signs Temp Pulse Resp BP Pulse Ox 97.5 F L 80 16 125/45 H 95 06/23/19 07:26 06/23/19 08:09 06/23/19 07:26 06/23/19 08:09 06/23/19 07:26 Oxygen Delivery Method Room Air Weight: 50.3 kg Body Mass Index (BMI) 16.0 Intake and Output for Last 24 Hours 06/21/19 06/22/19 06/23/19 23:59 23:59 23:59 Intake Total 600 / 600 480 / 480 Balance 600 / 600 480 / 480 Laboratory Tests Past 24 Hrs 06/22/19 06/23/19 08:40 05:15 Differential Comment COMMENT Diff Path Review Reviewed PT 29.2 H INR 2.8 Medical Necessity - Tobacco Use Smoking Status: Never smoker Tobacco Use: Non-smoker Assessment/Plan All Active Problems Decubitus ulcer of foot, stage 3 (Acute) Nonhealing nonsurgical wound (Acute) Stroke (Acute) Left arm weakness (Acute) TIA (transient ischemic attack) (Acute) Abdominal pain (Acute) Gastrointestinal bleeding (Acute) Melena (Acute) Ileus (Acute) Ischemic colitis (Acute) The patient is a 78 year old F with PMH of HTN, HLD, CKD III, GERD, PAD, CAD, Macular degeneration, HX of stroke in 2006 after RLE amputation, TIA, Carotid stenosis (right carotid CEA) 2005, Raynaud phenomena, admitted to [facility] on 06/15/2019 for debility, with a goal of returning home at or near her level of independency. On 06/11/2019, patient was admitted for left upper arm weakness and numbness that lasted less than [address] showed Stable encephalomalacia in the medial aspect of the left occipital lobe.MRI of brain showed No evidence of acute infarct or hemorrhage.Bilateral occipital encephalomalacia. Echocardiogram showed an ejection fraction of 55%, Bubble contrast study negative for right to left interatrial shunt. MRA of head showed A high-grade stenosis of the P1 segment of the left posterior cerebral artery is noted. 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 This could be chronic given the MRI finding of right occipital encephalomalacia. No high grade stenoses or occlusions of the middle cerebral arteries. MRA of neck showed Normal bilateral cervical carotid and vertebral arteries. Patient currently on statin, asa and anti-hypertensives. On admission Blood pressure was 145/49. PT/INR 23.0/2.0 on Coumadin. UA was negative. Symptoms have resolved. HGBA1c 4.5%, LDL 23. Patient lives alone in a one level house, with 1 step to enter and is independent with ADLs and mobility, does not drive. Plan - PT for mobility - OT for ADLs - Analgesic as needed - HTN on hydrazalazine, hctz, zestril, procardia XL Hold if SBP <100 BP goal < 130/80 - HLD on liptor LDL 23 - GERD on protonix - CKD III - PAD s/p Right BKA: on plaquenil, nitrobid, per Dr. Coppola vascular surgeon - coumadin and ASA for PAD. - Raynaud on procardia XL - Stage I pressure injury to right lower anterior stump- wound consult and [employer] - GI/DVT prophylaxis on protonix/coumadin - HX of stroke, TIA and right CEA on statin, antihypertensives, ASA - Leukocytosis and thrombocytopenia, felt to be baseline, asymptomatic- consult hematology - Medical management per hospitalist- consult - Fall precautions - Bowel protocol - F/U with PCP and Neurology
--- NOTE | 2019-06-23 12:58 | CON.PCM_ITS ---
- Problem List (1) Thrombocytosis Status: Chronic Subjective Chief Complaint: Thrombocytosis History of Present Illness: The patient is a 78-year-old female with a past medical history significant for scleroderma (crest syndrome as well as peripheral vascular disease with previous stroke. Patient recently admitted to the acute care setting for transient episode of left arm numbness that came on after she was cleaning the bathroom. Symptoms spontaneously resolved. At the time she was on aspirin. She's been on Coumadin for at least 10-12 years for her history of significant peripheral vascular disease. She is noted to have significant thrombocytosis. Past Medical History: Chronic Problems History of gastrointestinal bleeding (Chronic) Ulcer of left lower extremity (Chronic) History of TIA (transient ischemic attack) (Chronic) CAD (coronary artery disease) (Chronic) Renal insufficiency (Chronic) PAD (peripheral artery disease) (Chronic) History of CEA (carotid endarterectomy) (Chronic) Leg swelling (Chronic) Thrombocytosis (Chronic) Diarrhea (Chronic) 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) Hypertension (Chronic) Past Medical/Surgical History: Past Medical History - Most Recent Inpatient Visit Past Medical History Start: 06/15/19 15:30 Text: Status: Complete Freq: ONCE Protocol: Document 06/15/19 15:30 KK (Rec: 06/15/19 16:51 [facility] [id number]) BMI Required to complete PMH What is Patient's BMI 16.0 Past Medical History Unable History Recalled No Query Text:Pt Unable/Family Not Present Neurologic Medical History Hx Stroke/TIA Yes: mini stroke 2006 during surgery of RBKA Hx Dementia/Alzheimer's No Hx Parkinson's Disease No Hx Seizures No Hx Multiple Sclerosis No Hx Migraines No Cardiac Medical History VTE Present on Admission No Hx of Deep Vein Thrombosis/VTE/PE No Hx Hypertension Yes Hx Chest Pain/Angina No Hx Heart Attack No Hx Cardiac Surgery/Stents/Etc. No Hx Heart Failure No Hx Pacemaker/AICD No Hx Irregular Heartbeat and/or Afib Yes: palp Dr. Guadarrama Hx Anticoagulant Therapy Yes: Coumadin/ASA Query Text:(Coumadin, Aspirin, Plavix, Xarelto, etc.) Hx Pain in Legs when Walking/Leg Cramps No: RBKA Respiratory Medical History Hx COPD No Hx Emphysema No Hx Smoking No Smoking Status Never smoker Tobacco Use Non-smoker Hx Tobacco Use in last 12 months No Hx of Pipe Smoking No Hx Sleep Apnea No CPAP No BIPAP No Do you snore loudly (louder than talking No or can be heard through closed doors)? Do you often feel tired/ fatigued/ No sleepy during daytime? Has anyone observed you stop breathing No during sleep? STOP Results Negative GI Medical History Hx Ulcer No Hx Hepatitis No Hx Cirrhosis No Hx GI Bleed Yes Hx Unplanned Weight Loss No Genitourinary Medical History Indwelling Catheter in Place on Arrival/ No Admission Hx Renal Disease No: Stent in kidney Hx Dialysis No Musculoskeletal History Hx Arthritis No Hx Rheumatoid Arthritis No Endocrine Medical History Hx Diabetes No Hx Thyroid Disease No Hematologic Medical History Hx of Blood Transfusion No Hx of Transfusion in last 3 Months No Ever experience any problems with No transfusion(s)? Hx of Preganancy in last 3 Months N/A Nurse Filling Out Transfusion & KBIRD Questions: Date: 06/15/19 Time: 16:51 Psycho/Social Medical History Hx Depression No Hx Anxiety No Hx Behavior Disorder No Hx Alcohol Use No Hx Substance Use No Other Medical History Hx Blood Disorders No Hx Anemia No Hx Cancer No Hx Drug Resistant Organism No Wound/Pressure Injury Present on Arrival No /Admission Query Text:If yes, chart assessment in Shift/Clinical Findings Central Line/PICC/VAD Present on Arrival No /Admission Antibiotics within last 7 days? No Methicillin Resistant Staphylococcus aureus Screening Active MRSA No Risk for Readmission Number of Risk Factors 1 At Risk for Readmission Patient is Not at Risk Patient is eligible for Call Back N Maternal Family History: No pertinent history Paternal Family History: Stroke, - - Patient's father suffered from Raynaud's disease - Social History Lives: Alone Smoking Status: Never smoker Tobacco Use: Non-smoker Alcohol: None Drugs: None Allergies/Adverse Reactions: Allergy/AdvReac Type Severity Reaction Status Date / Time ampicillin Allergy Rash Verified 06/11/19 12:13 cyclophosphamide Allergy Rash Verified 06/11/19 12:13 [From Cytoxan] doxycycline Allergy Rash Verified 06/11/19 12:13 morphine Allergy mental Verified 06/11/19 12:13 status change sulfamethoxazole Allergy Rash Verified 06/11/19 12:13 [From Bactrim] trimethoprim [From Bactrim] Allergy Rash Verified 06/11/19 12:13 Review of Systems Constitutional:: Reports: Fatigue Vital Signs Height 1.73 m Weight: 50.3 kg Weight in Pounds 110.9 lbs Pulse Ox 95 Temperature 97.5 F Pulse Rate 80 Respiratory Rate 16 Blood Pressure 125/45 Blood Pressure Position Semi-Fowlers - Physical Exam General: Alert, Oriented x3 Neck:: Supple Cardiac:: Regular rhythm Lungs: Clear to auscultation Abdomen:: Soft, Non-tender Extremities:: - - Right BKA. Laboratory Data: Laboratory Tests 06/23/19 Range/Units 05:15 PT 29.2 H (11.7-14.9) SECONDS INR 2.8 Assessment and Plan 1) Thrombocytosis. Assessment: -Review of her outside medical record indicates 12 year history of thrombocytosis. -Multiple arterial ischemic events in the setting of scleroderma and peripheral vascular disease. -No prior work up for potential myeloproliferative disorder. Plan: -Molecular study for JAK2 V617F and exon mutation analysis. -Calreticulin mutation analysis. -Continue ASA and Coumadin. -May need plt aggregation study to assess if 81 mg ASA adequate, but will decide based on above. -Further recs pending results. -OV with me week after next. Medications: Prescriptions This Visit Medication Instructions Recorded Lidocaine [Lidoderm Patch] 1 patch TOPICAL DAILY 06/15/19 Tizanidine HCl [Zanaflex] 2 mg PO Q8H PRN 06/15/19 hydrALAZINE [Apresoline] 25 mg PO 4X/DAY 06/15/19 Primary Care Provider: Jaya Blackwell III, MD Referring Provider:
--- NOTE | 2019-06-23 15:49 | NURSING ---
Dr Brock paged in regards to pt pt/inr results.
[2019-06-23] MEDS: Acetaminophen 325 MG Tablet 650 MG PO (20:30)
[2019-06-23] MEDS: Atorvastatin Calcium 10 MG Tablet PO (20:31)
[2019-06-24] VITALS (8 sets, daily range): BP systolic 118–137; BP diastolic 56–67; PULSE 77–85; RESP 16–17; TEMP 36.4–36.7; O2SAT 96–97; BMI 16.0
[2019-06-24] MEDS: Hydroxychloroquine 200 MG Tablet PO (07:44)
[2019-06-24] MEDS: Aspirin E.C. 81 MG Tablet PO (07:44)
[2019-06-24] MEDS: hydroCHLOROthiazide 12.5mg 12.5 MG PO (07:44)
[2019-06-24] MEDS: Multivitamins,Therapeutic Tablet 1 TABLET PO (07:44)
[2019-06-24] MEDS: Lidocaine 5% Patch 1 PATCH TOPICAL (08:23)
[2019-06-24] MEDS: NIFEdipine 90 MG Tablet PO (08:58)
[2019-06-24] MEDS: Lisinopril 20 MG Tablet PO (08:58)
[2019-06-24] MEDS: Pantoprazole Sodium 20 MG Tablet PO (08:58)
[2019-06-24] MEDS: Multivitamin (Healthy Eyes) Capsule 1 CAP PO ×2 (08:58→19:55)
--- NOTE | 2019-06-24 09:10 | PN.NEURO_ITS ---
Subjective: Per nursing no issues overnight. Dr. Ortiz was consulted and saw patient on 06/23/2019, which labs and records pending. Patient continues to tolerate therapies well, denies further questions or concerns. - Physical Exam General: Alert, Oriented x3, Cooperative HEENT: PERRLA, - - right and left hemianopia, Left eye does not rotate laterally and is medially rotated in-chronic Oral: Moist Mucosa Neck: Supple, No JVD Lungs: Clear to auscultation, Normal air movement Cardiovascular: Regular rate, Regular Rhythm Abdomen: Bowel Sounds Present, Soft, Non Tender Extremities: No clubbing, No cyanosis, No edema Skin: Ulcer/ Wound - Stage I to right leg anterior stump- healed Neurological: Cranial nerves II-XII grossly intact - except right and left hemianopia, Left eye does not rotate laterally and is medially rotated in- chronic, Deep Tendon Reflexes 2+/4 and Symmetrical, Motor Exam 5/5 strength throughout Psych/Mental Status: Normal Affect, Appropriate, Alert and oriented to time, place, person, mood and affect Vital Signs Temp Pulse Resp BP Pulse Ox 97.6 F L 85 17 137/67 H 97 06/24/19 07:14 06/24/19 07:14 06/24/19 07:14 06/24/19 07:14 06/24/19 07:14 Oxygen Delivery Method Room Air Weight: 51.4 kg Body Mass Index (BMI) 16.0 Intake and Output for Last 24 Hours 06/22/19 06/23/19 06/24/19 23:59 23:59 23:59 Intake Total 480 / 480 240 / 240 180 / 180 Balance 480 / 480 240 / 240 180 / 180 Laboratory Tests Past 24 Hrs 06/23/19 06/23/19 13:35 13:35 Miscellaneous Test Pending Pending Medical Necessity - Tobacco Use Smoking Status: Never smoker Tobacco Use: Non-smoker Assessment/Plan All Active Problems Decubitus ulcer of foot, stage 3 (Acute) Nonhealing nonsurgical wound (Acute) Stroke (Acute) Left arm weakness (Acute) TIA (transient ischemic attack) (Acute) Abdominal pain (Acute) Gastrointestinal bleeding (Acute) Melena (Acute) Ileus (Acute) Ischemic colitis (Acute) The patient is a 78 year old F with PMH of HTN, HLD, CKD III, GERD, PAD, CAD, Macular degeneration, HX of stroke in 2006 after RLE amputation, TIA, Carotid stenosis (right carotid CEA) 2006, Raynaud phenomena, admitted to [facility] on 06/15/2019 for debility, with a goal of returning home at or near her level of independency. On 06/11/2019, patient was admitted for left upper arm weakness and numbness that lasted less than [address] showed Stable encephalomalacia in the medial aspect of the left occipital lobe.MRI of brain showed No evidence of acute infarct or hemorrhage.Bilateral occipital encephalomalacia. Echocardiogram showed an ejection fraction of 55%, Bubble contrast study negative for right to left interatrial shunt. MRA of head showed A high-grade stenosis of the P1 segment of the left posterior cerebral artery is noted. 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 This could be chronic given the MRI finding of right occipital encephalomalacia. No high grade stenoses or occlusions of the middle cerebral arteries. MRA of neck showed Normal bilateral cervical carotid and vertebral arteries. Patient currently on statin, asa and anti-hypertensives. On admission Blood pressure was 145/49. PT/INR 23.0/2.0 on Coumadin. UA was negative. Symptoms have resolved. HGBA1c 4.5%, LDL 23. Patient lives alone in a one level house, with 1 step to enter and is independent with ADLs and mobility, does not drive. Plan - PT for mobility - OT for ADLs - Analgesic as needed - HTN on hydrazalazine, hctz, zestril, procardia XL Hold if SBP <100 BP goal < 130/80 - HLD on liptor LDL 23 - GERD on protonix - CKD III - PAD s/p Right BKA: on plaquenil, nitrobid, per Dr. Coppola vascular surgeon - coumadin and ASA for PAD. - Raynaud on procardia XL - Stage I pressure injury to right lower anterior stump- wound consult and [employer] - healed - GI/DVT prophylaxis on protonix/coumadin - HX of stroke, TIA and right CEA on statin, antihypertensives, ASA - Leukocytosis and thrombocytopenia, felt to be baseline, asymptomatic- consult hematology- Dr. Ortiz following - Medical management per hospitalist- consult - Fall precautions - Bowel protocol - F/U with PCP and Neurology
[2019-06-24] MEDS: hydrALAZINE 25 MG Tablet PO ×4 (09:21→19:54)
[2019-06-24] MEDS: Nitroglycerin Oint 1 INCH PACKET TRANSDERM. (09:22)
[2019-06-24] MEDS: Acetaminophen 325 MG Tablet 650 MG PO (19:34)
[2019-06-24] MEDS: tiZANidine HCl 2 MG Tablet PO (19:46)
[2019-06-24] MEDS: Atorvastatin Calcium 10 MG Tablet PO (19:54)
[2019-06-25] VITALS (7 sets, daily range): BP systolic 125–140; BP diastolic 53–62; PULSE 79–85; RESP 16; TEMP 36.4–36.6; O2SAT 97; BMI 16.0
--- NOTE | 2019-06-25 08:27 | PCM.PN.NEU ---
Subjective: Per patient, continues to tolerate therapies well, denies further questions or concerns. - Physical Exam General: Alert, Oriented x3, Cooperative HEENT: PERRLA - right and left hemianopia, Left eye does not rotate laterally and is medially rotated in-chronic Oral: Moist Mucosa Neck: Supple, No JVD Lungs: Clear to auscultation, Normal air movement Cardiovascular: Regular rate, Regular Rhythm Abdomen: Bowel Sounds Present, Soft, Non Tender Extremities: No clubbing, No cyanosis, No edema Neurological: Cranial nerves II-XII grossly intact - except right and left hemianopia, Left eye does not rotate laterally and is medially rotated in-chronic, Deep Tendon Reflexes 2+/4 and Symmetrical, Motor Exam 5/5 strength throughout Psych/Mental Status: Normal Affect, Appropriate, Alert and oriented to time, place, person, mood and affect Vital Signs Temp Pulse Resp BP Pulse Ox 98.0 F 80 16 130/56 H 96 06/24/19 19:30 06/24/19 21:38 06/24/19 21:38 06/24/19 19:54 06/24/19 19:30 Oxygen Delivery Method Room Air Weight: 51.4 kg Body Mass Index (BMI) 16.0 Intake and Output for Last 24 Hours 06/23/19 06/24/19 06/25/19 23:59 23:59 23:59 Intake Total 240 / 240 540 / 540 Balance 240 / 240 540 / 540 Medical Necessity - Tobacco Use Smoking Status: Never smoker Tobacco Use: Non-smoker Assessment/Plan All Active Problems Decubitus ulcer of foot, stage 3 (Acute) Nonhealing nonsurgical wound (Acute) Stroke (Acute) Left arm weakness (Acute) TIA (transient ischemic attack) (Acute) Abdominal pain (Acute) Gastrointestinal bleeding (Acute) Melena (Acute) Ileus (Acute) Ischemic colitis (Acute) The patient is a 78 year old F with PMH of HTN, HLD, CKD III, GERD, PAD, CAD, Macular degeneration, HX of stroke in 2005 after RLE amputation, TIA, Carotid stenosis (right carotid CEA) 2005, Raynaud phenomena, admitted to [facility] on 06/15/2019 for debility, with a goal of returning home at or near her level of independency. On 06/11/2019, patient was admitted for left upper arm weakness and numbness that lasted less than [address] showed Stable encephalomalacia in the medial aspect of the left occipital lobe.MRI of brain showed No evidence of acute infarct or hemorrhage.Bilateral occipital encephalomalacia. Echocardiogram showed an ejection fraction of 55%, Bubble contrast study negative for right to left interatrial shunt. MRA of head showed A high-grade stenosis of the P1 segment of the left posterior cerebral artery is noted. 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 This could be chronic given the MRI finding of right occipital encephalomalacia. No high grade stenoses or occlusions of the middle cerebral arteries. MRA of neck showed Normal bilateral cervical carotid and vertebral arteries. Patient currently on statin, asa and anti-hypertensives. On admission Blood pressure was 145/49. PT/INR 23.0/2.0 on Coumadin. UA was negative. Symptoms have resolved. HGBA1c 4.5%, LDL 23. Patient lives alone in a one level house, with 1 step to enter and is independent with ADLs and mobility, does not drive. Plan - PT for mobility - OT for ADLs - Analgesic as needed - HTN on hydrazalazine, hctz, zestril, procardia XL Hold if SBP <100 BP goal < 130/80 - HLD on liptor LDL 23 - GERD on protonix - CKD III - PAD s/p Right BKA: on plaquenil, nitrobid, per Dr. Coppola vascular surgeon - coumadin and ASA for PAD. - Raynaud on procardia XL - Stage I pressure injury to right lower anterior stump- wound consult and [employer] - healed - GI/DVT prophylaxis on protonix/coumadin - HX of stroke, TIA and right CEA on statin, antihypertensives, ASA - Leukocytosis and thrombocytopenia, asymptomatic- consult hematology- Dr. Ortiz following - Medical management per hospitalist- consult - Fall precautions - Bowel protocol - F/U with PCP and Neurology
[2019-06-25] MEDS: Lidocaine 5% Patch 1 PATCH TOPICAL (09:05)
[2019-06-25] MEDS: Aspirin E.C. 81 MG Tablet PO (09:05)
[2019-06-25] MEDS: Hydroxychloroquine 200 MG Tablet PO (09:06)
[2019-06-25] MEDS: Lisinopril 20 MG Tablet PO (09:06)
[2019-06-25] MEDS: hydrALAZINE 25 MG Tablet PO ×4 (09:06→19:56)
[2019-06-25] MEDS: Multivitamins,Therapeutic Tablet 1 TABLET PO (09:06)
[2019-06-25] MEDS: Multivitamin (Healthy Eyes) Capsule 1 CAP PO ×2 (09:06→19:55)
[2019-06-25] MEDS: Nitroglycerin Oint 1 INCH PACKET TRANSDERM. (09:06)
[2019-06-25] MEDS: NIFEdipine 90 MG Tablet PO (09:08)
[2019-06-25] MEDS: hydroCHLOROthiazide 12.5mg 12.5 MG PO (09:08)
[2019-06-25] MEDS: Pantoprazole Sodium 20 MG Tablet PO (09:08)
[2019-06-25] MEDS: Acetaminophen 325 MG Tablet 650 MG PO ×2 (09:13→19:54)
[2019-06-25] MEDS: Atorvastatin Calcium 10 MG Tablet PO (19:56)
[2019-06-26] VITALS (8 sets, daily range): BP systolic 122–132; BP diastolic 54–76; PULSE 77–81; RESP 16–18; TEMP 36.8; O2SAT 96–98; BMI 16.0
[2019-06-26] MEDS: Multivitamin (Healthy Eyes) Capsule 1 CAP PO ×2 (07:59→21:18)
[2019-06-26] MEDS: Hydroxychloroquine 200 MG Tablet PO (07:59)
[2019-06-26] MEDS: hydrALAZINE 25 MG Tablet PO ×4 (07:59→21:11)
[2019-06-26] MEDS: Lisinopril 20 MG Tablet PO (07:59)
[2019-06-26] MEDS: Pantoprazole Sodium 20 MG Tablet PO (07:59)
[2019-06-26] MEDS: NIFEdipine 90 MG Tablet PO (07:59)
[2019-06-26] MEDS: hydroCHLOROthiazide 12.5mg 12.5 MG PO (07:59)
[2019-06-26] MEDS: Multivitamins,Therapeutic Tablet 1 TABLET PO (08:00)
[2019-06-26] MEDS: Aspirin E.C. 81 MG Tablet PO (08:00)
--- NOTE | 2019-06-26 08:19 | PN.NEURO_ITS ---
Subjective: Per nursing, no issues overnight. Per patient, continues to tolerate therapies well and denies further questions or concerns. - Physical Exam General: Alert, Oriented x3, Cooperative HEENT: PERRLA, - - right and left hemianopia, Left eye does not rotate laterally and is medially rotated in-chronic Oral: Moist Mucosa Neck: Supple, No JVD Lungs: Clear to auscultation, Normal air movement Cardiovascular: Regular rate, Regular Rhythm Abdomen: Bowel Sounds Present, Soft, Non Tender Extremities: No clubbing, No cyanosis, No edema Neurological: Cranial nerves II-XII grossly intact, Deep Tendon Reflexes 2+/4 and Symmetrical, Motor Exam 5/5 strength throughout - Except below the knee d/t Right BKA Psych/Mental Status: Normal Affect, Appropriate, Alert and oriented to time, place, person, mood and affect Vital Signs Temp Pulse Resp BP Pulse Ox 98.3 F 81 16 128/63 H 96 06/26/19 08:12 06/26/19 08:12 06/26/19 08:12 06/26/19 08:12 06/26/19 08:12 Oxygen Delivery Method Room Air Weight: 51.4 kg Body Mass Index (BMI) 16.0 Intake and Output for Last 24 Hours 06/24/19 06/25/19 06/26/19 23:59 23:59 23:59 Intake Total 540 / 540 720 / 720 180 / 180 Balance 540 / 540 720 / 720 180 / 180 Medical Necessity - Tobacco Use Smoking Status: Never smoker Tobacco Use: Non-smoker Assessment/Plan All Active Problems Decubitus ulcer of foot, stage 3 (Acute) Nonhealing nonsurgical wound (Acute) Stroke (Acute) Left arm weakness (Acute) TIA (transient ischemic attack) (Acute) Abdominal pain (Acute) Gastrointestinal bleeding (Acute) Melena (Acute) Ileus (Acute) Ischemic colitis (Acute) The patient is a 78 year old F with PMH of HTN, HLD, CKD III, GERD, PAD, CAD, Macular degeneration, HX of stroke in 2005 after RLE amputation, TIA, Carotid stenosis (right carotid CEA) 2005, Raynaud phenomena, admitted to [facility] on 06/15/2019 for debility, with a goal of returning home at or near her level of independency. On 06/11/2019, patient was admitted for left upper arm weakness and numbness that lasted less than [address] showed Stable encephalomalacia in the medial aspect of the left occipital lobe.MRI of brain showed No evidence of acute infarct or hemorrhage.Bilateral occipital encephalomalacia. Echocardiogram showed an ejection fraction of 55%, Bubble contrast study negative for right to left interatrial shunt. MRA of head showed A high-grade stenosis of the P1 segment of the left posterior cerebral artery is noted. 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 This could be chronic give n the MRI finding of right occipital encephalomalacia. No high grade stenoses or occlusions of the middle cerebral arteries. MRA of neck showed Normal bilateral cervical carotid and vertebral arteries. Patient currently on statin, asa and anti-hypertensives. On admission Blood pressure was 145/49. PT/INR 23.0/2.0 on Coumadin. UA was negative. Symptoms have resolved. HGBA1c 4.5%, LDL 23. Patient lives alone in a one level house, with 1 step to enter and is independent with ADLs and mobility, does not drive. Plan - PT for mobility - OT for ADLs - Analgesic as needed - HTN on hydrazalazine, hctz, zestril, procardia XL Hold if SBP <100 BP goal < 130/80 - HLD on liptor LDL 23 - GERD on protonix - CKD III - PAD s/p Right BKA: on plaquenil, nitrobid, per Dr. Coppola vascular surgeon - coumadin and ASA for PAD. - Raynaud on procardia XL - Stage I pressure injury to right lower anterior stump- wound consult and [employer] - healed - GI/DVT prophylaxis on protonix/coumadin - HX of stroke, TIA and right CEA on statin, antihypertensives, ASA - Leukocytosis and thrombocytopenia, asymptomatic- consult hematology- Dr. Ortiz following - Medical management per hospitalist- consult - Fall precautions - Bowel protocol - F/U with PCP and Neurology
[2019-06-26] MEDS: Lidocaine 5% Patch 1 PATCH TOPICAL (08:48)
[2019-06-26] MEDS: Nitroglycerin Oint 1 INCH PACKET TRANSDERM. (08:49)
[2019-06-26] MEDS: Acetaminophen 325 MG Tablet 650 MG PO ×2 (09:21→21:11)
--- NOTE | 2019-06-26 12:29 | CASEMGMT ---
Social Work Spoke with patient about discharge plans. Patient feels comfortable returning home. Agreeable to [facility] PT/OT/SW. Provided list of [facility] agencies - pt used [facility] in the past. Referred to both, but cannot accept due to staffing. Pt chose [facility] - referral made. Can accept. Will Team Saturday and DC 06/30. Plan: DC home with [facility] PT/OT/SW. No DME needs. Hilary Morgan, IMPLEMENT MECHANIC DOCUMENT CONTROLLER
[2019-06-26] MEDS: Atorvastatin Calcium 10 MG Tablet PO (21:11)
[2019-06-27] VITALS (7 sets, daily range): BP systolic 138–157; BP diastolic 59–76; PULSE 75–91; RESP 16–18; TEMP 36.6–36.8; O2SAT 96–98; BMI 16.0
[2019-06-27] MEDS: hydrALAZINE 25 MG Tablet PO ×4 (08:04→19:45)
[2019-06-27] MEDS: Multivitamins,Therapeutic Tablet 1 TABLET PO (08:04)
[2019-06-27] MEDS: Multivitamin (Healthy Eyes) Capsule 1 CAP PO ×2 (08:05→19:46)
[2019-06-27] MEDS: Aspirin E.C. 81 MG Tablet PO (08:05)
[2019-06-27] MEDS: Hydroxychloroquine 200 MG Tablet PO (08:05)
[2019-06-27] MEDS: hydroCHLOROthiazide 12.5mg 12.5 MG PO (08:06)
[2019-06-27] MEDS: Lidocaine 5% Patch 1 PATCH TOPICAL (08:06)
[2019-06-27] MEDS: Lisinopril 20 MG Tablet PO (08:08)
[2019-06-27] MEDS: NIFEdipine 90 MG Tablet PO (10:27)
[2019-06-27] MEDS: Pantoprazole Sodium 20 MG Tablet PO (10:28)
[2019-06-27] MEDS: Nitroglycerin Oint 1 INCH PACKET TRANSDERM. (10:28)
[2019-06-27] MEDS: Atorvastatin Calcium 10 MG Tablet PO (19:46)
[2019-06-27] MEDS: Acetaminophen 325 MG Tablet 650 MG PO (19:51)
[2019-06-28] VITALS (8 sets, daily range): BP systolic 127–162; BP diastolic 57–74; PULSE 70–82; RESP 16; TEMP 36.6–36.7; O2SAT 96–97; BMI 16.0
[2019-06-28] MEDS: NIFEdipine 90 MG Tablet PO (09:50)
[2019-06-28] MEDS: Lisinopril 20 MG Tablet PO (09:51)
[2019-06-28] MEDS: Hydroxychloroquine 200 MG Tablet PO (09:51)
[2019-06-28] MEDS: Multivitamin (Healthy Eyes) Capsule 1 CAP PO ×2 (09:51→20:01)
[2019-06-28] MEDS: Pantoprazole Sodium 20 MG Tablet PO (09:51)
[2019-06-28] MEDS: Aspirin E.C. 81 MG Tablet PO (09:51)
[2019-06-28] MEDS: Multivitamins,Therapeutic Tablet 1 TABLET PO (09:51)
[2019-06-28] MEDS: hydroCHLOROthiazide 12.5mg 12.5 MG PO (09:51)
[2019-06-28] MEDS: hydrALAZINE 25 MG Tablet PO ×4 (09:51→20:02)
[2019-06-28] MEDS: Lidocaine 5% Patch 1 PATCH TOPICAL (09:53)
[2019-06-28] MEDS: Nitroglycerin Oint 1 INCH PACKET TRANSDERM. (10:02)
--- NOTE | 2019-06-28 19:37 | PCM.PROGNOTE ---
Subjective: Patient was seen and examined today, she voices no complaints at this examiner, patient will have an INR drawn tomorrow morning. According to nursing staff, there is a possibility patient will be discharged this week from the rehab unit. - Physical Exam General: Alert, Oriented x3, Cooperative, No apparent distress, Well developed HEENT: Atraumatic, PERRLA, EOMI, Normocephalic Oral: Moist Mucosa Neck: Supple, Trachea Midline, Thyroid Normal Size and Texture Lungs: Clear to auscultation, Normal air movement, No rhonchi, No wheeze, No rales Cardiovascular: Regular rate, Regular Rhythm, Normal S1, Normal S2, No murmurs, No Ectopic Activity, PMI Normal, No rub noted, No Gallop Abdomen: Bowel Sounds Present, Soft, Non Tender, Non-Distended Extremities: - - Right below the knee amputation is noted-chronic Skin: No rashes, No breakdown Musculoskeletal: No Tenderness to Palpation of Joints or Extremities Neurological: Cranial nerves II-XII grossly intact Psych/Mental Status: Normal Affect, Appropriate Vital Signs Temp Pulse Resp BP Pulse Ox 97.9 F 74 16 127/57 H 96 06/28/19 18:50 06/28/19 18:50 06/28/19 18:50 06/28/19 18:50 06/28/19 18:50 Oxygen Delivery Method Room Air Weight: 51.4 kg Body Mass Index (BMI) 16.0 Intake and Output for Last 24 Hours 06/26/19 06/27/19 06/28/19 23:59 23:59 23:59 Intake Total 540 / 540 700 / 700 240 / 240 Balance 540 / 540 700 / 700 240 / 240 Medical Necessity - Tobacco Use Smoking Status: Never smoker Tobacco Use: Non-smoker Assessment/Plan All Active Problems Decubitus ulcer of foot, stage 3 (Resolved) Nonhealing nonsurgical wound (Resolved) Stroke (Acute) Left arm weakness (Acute) TIA (transient ischemic attack) (Acute) Abdominal pain (Resolved) Gastrointestinal bleeding (Resolved) Melena (Resolved) Ileus (Resolved) Ischemic colitis (Resolved) #1 TIA-continue PT and OT #2 thrombocytosis-etiology unclear, she is undergoing a work-up for myeloproliferative disease, she will need follow-up with oncology as an outpatient #3 peripheral vascular disease #4 hypertension #5 GERD #6 chronic kidney disease stage III #7 chronic coagulopathy secondary to warfarin usage #8 coronary artery disease Code Visit Inpatient E&M: 73321 Subs Hosp L2
[2019-06-28] MEDS: Atorvastatin Calcium 10 MG Tablet PO (20:02)
[2019-06-28] MEDS: Acetaminophen 325 MG Tablet 650 MG PO (20:03)
[2019-06-29] VITALS (7 sets, daily range): BP systolic 127–138; BP diastolic 58–72; PULSE 71–79; RESP 17–18; TEMP 36.6–36.7; O2SAT 97; BMI 16.0
[2019-06-29 05:37] LABS: International Normalized Ratio 2.7; Prothrombin Time (Protime)PT. 29.1 SECONDS (11.7-14.9)
[2019-06-29] MEDS: Lisinopril 20 MG Tablet PO (08:26)
[2019-06-29] MEDS: Hydroxychloroquine 200 MG Tablet PO (08:26)
[2019-06-29] MEDS: Aspirin E.C. 81 MG Tablet PO (08:26)
[2019-06-29] MEDS: NIFEdipine 90 MG Tablet PO (08:26)
[2019-06-29] MEDS: Multivitamin (Healthy Eyes) Capsule 1 CAP PO ×2 (08:26→20:33)
[2019-06-29] MEDS: Multivitamins,Therapeutic Tablet 1 TABLET PO (08:26)
[2019-06-29] MEDS: hydroCHLOROthiazide 12.5mg 12.5 MG PO (08:26)
[2019-06-29] MEDS: Pantoprazole Sodium 20 MG Tablet PO (08:26)
[2019-06-29] MEDS: Nitroglycerin Oint 1 INCH PACKET TRANSDERM. (08:29)
[2019-06-29] MEDS: hydrALAZINE 25 MG Tablet PO ×4 (08:29→20:34)
[2019-06-29] MEDS: Lidocaine 5% Patch 1 PATCH TOPICAL (08:35)
--- NOTE | 2019-06-29 08:59 | PCM.PN.NEU ---
Subjective: Staffed team meeting today. Further details from PT/OT/ST per their notes. All questions were answered. Patient will be d/c home on 06/30/19 with [facility] Home health PT/OT/SW/Nursing. - Physical Exam General: Alert, Oriented x3, Cooperative HEENT: PERRLA - except right and left hemianopia, Left eye does not rotate laterally and is medially rotated in-chronic Oral: Moist Mucosa Neck: Supple, No JVD Lungs: Clear to auscultation, Normal air movement Cardiovascular: Regular rate, Regular Rhythm Abdomen: Bowel Sounds Present, Soft, Non Tender Extremities: No clubbing, No cyanosis, No edema Neurological: Cranial nerves II-XII grossly intact - except right and left hemianopia, Left eye does not rotate laterally and is medially rotated in-chronic, Deep Tendon Reflexes 2+/4 and Symmetrical, Motor Exam 5/5 strength throughout - Except below the knee d/t Right BKA Psych/Mental Status: Normal Affect, Appropriate, Alert and oriented to time, place, person, mood and affect Vital Signs Temp Pulse Resp BP Pulse Ox 98.0 F 79 17 136/72 H 97 06/29/19 07:00 06/29/19 08:29 06/29/19 07:00 06/29/19 08:29 06/29/19 07:00 Oxygen Delivery Method Room Air Weight: 51.4 kg Body Mass Index (BMI) 16.0 Intake and Output for Last 24 Hours 06/27/19 06/28/19 06/29/19 23:59 23:59 23:59 Intake Total 700 / 700 240 / 240 Balance 700 / 700 240 / 240 Laboratory Tests Past 24 Hrs 06/29/19 05:15 PT 29.1 H INR 2.7 Medical Necessity - Tobacco Use Smoking Status: Never smoker Tobacco Use: Non-smoker Assessment/Plan All Active Problems Decubitus ulcer of foot, stage 3 (Resolved) Nonhealing nonsurgical wound (Resolved) Stroke (Acute) Left arm weakness (Acute) TIA (transient ischemic attack) (Acute) Abdominal pain (Resolved) Gastrointestinal bleeding (Resolved) Melena (Resolved) Ileus (Resolved) Ischemic colitis (Resolved) The patient is a 78 year old F with PMH of HTN, HLD, CKD III, GERD, PAD, CAD, Macular degeneration, HX of stroke in 2005 after RLE amputation, TIA, Carotid stenosis (right carotid CEA) 2005, Raynaud phenomena, admitted to [facility] on 06/15/2019 for debility, with a goal of returning home at or near her level of independency. On 06/11/2019, patient was admitted for left upper arm weakness and numbness that lasted less than [address] showed Stable encephalomalacia in the medial aspect of the left occipital lobe.MRI of brain showed No evidence of acute infarct or hemorrhage.Bilateral occipital encephalomalacia. Echocardiogram showed an ejection fraction of 55%, Bubble contrast study negative for right to left interatrial shunt. MRA of head showed A high-grade stenosis of the P1 segment of the left posterior cerebral artery is noted. 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 This could be chronic given the MRI finding of right occipital encephalomalacia. No high grade stenoses or occlusions of the middle cerebral arteries. MRA of neck showed Normal bilateral cervical carotid and vertebral arteries. Patient currently on statin, asa and anti-hypertensives. On admission Blood pressure was 145/49. PT/INR 23.0/2.0 on Coumadin. UA was negative. Symptoms have resolved. HGBA1c 4.5%, LDL 23. Patient lives alone in a one level house, with 1 step to enter and is independent with ADLs and mobility, does not drive. Plan - PT for mobility - OT for ADLs - Analgesic as needed - HTN on hydrazalazine, hctz, zestril, procardia XL Hold if SBP <100 BP goal < 130/80 - HLD on liptor LDL 23 - GERD on protonix - CKD III - PAD s/p Right BKA: on plaquenil, nitrobid, per Dr. Coppola vascular surgeon - coumadin and ASA for PAD. - Raynaud on procardia XL - Stage I pressure injury to right lower anterior stump- wound consult and [employer] - healed - GI/DVT prophylaxis on protonix/coumadin - HX of stroke, TIA and right CEA on statin, antihypertensives, ASA - Leukocytosis and thrombocytopenia, asymptomatic- consult hematology- Dr. Ortiz following - Medical management per hospitalist- consult - Fall precautions - Bowel protocol - F/U with PCP, Ophthalmology, Neurology, Hematology, Vascular Surgeon
--- NOTE | 2019-06-29 10:41 | PCM.DC ---
- Discharge Diagnoses Current Active Problems: Current Active and Chronic Problems Thrombocytosis (Chronic) Reason(s) for Visit for Discharge Instructions: Debility You will use the following diet at home:: Other - Low sodium diet, 2 grams Your food should be the consistency of: Regular Your liquids should be the consistency of: Regular/Thin Discharge Activity: Return to Normal Activity, May Not Drive, May Shower, Use Walker Weight Bearing Status: Weight bearing as tolerated Call your doctor if you observe: Fever of 101 or Higher, Coldness, Increased Pain, Numbness or Tingling, Change in Color, Inability to urinate, Inability to have a bowel movement, Shortness of breath, Dizziness, Fainting spells, Swelling in the ankles, Chest pain, Prolonged hiccoughing, Increased palpitations (irregular heartbeat), Calf discomfort, Uncontrolled pain Additional Instructions: [facility] home health nurse will obtain PT/INR labs and results will be sent Dr. Jaya Blackwell III to follow. Allergies/Adverse Reactions: Allergies ampicillin Allergy (Verified 06/11/19 12:13) Rash cyclophosphamide [From Cytoxan] Allergy (Verified 06/11/19 12:13) Rash doxycycline Allergy (Verified 06/11/19 12:13) Rash morphine Allergy (Verified 06/11/19 12:13) mental status change sulfamethoxazole [From Bactrim] Allergy (Verified 06/11/19 12:13) Rash trimethoprim [From Bactrim] Allergy (Verified 06/11/19 12:13) Rash Medications to take at Discharge Omeprazole [Prilosec] 20 mg PO DAILY 11/05/15 Vit A/Vit C/Vit E/Zinc/Copper [Preservision Areds Softgel] 1 each PO BID 03/09/16 Acetaminophen [Tylenol Tablet] 650 mg PO Q6H PRN PRN tab 06/29/19 Aspirin E.C. [Ecotrin] 81 mg PO DAILY@0800 tab 06/29/19 Atorvastatin Calcium [Lipitor] 10 mg PO QHS tab 06/29/19 Hydroxychloroquine [Plaquenil] 200 mg PO DAILYCM tab 06/29/19 Lisinopril [Zestril] 20 mg PO DAILY tab 06/29/19 Multivitamins,Therapeutic [Multivitamin] 1 tab PO DAILYCM tab 06/29/19 NIFEdipine [Procardia XL] 90 mg PO DAILY tab 06/29/19 Nitroglycerin Oint [Nitrobid] 1 inch TRANSDERM. DAILY #1 tube 06/29/19 Warfarin [Coumadin] 2.5 mg PO SuTuThSa@1700 tab 06/29/19 Warfarin [Coumadin] 5 mg PO MoWeFr@1700 tab 06/29/19 hydrALAZINE [Apresoline] 25 mg PO 4X/DAY #120 tab 06/29/19 hydroCHLOROthiazide [Hydrochlorothiazide] 12.5 mg PO DAILY cap 06/29/19 The following prescriptions were given: hydrALAZINE [Apresoline] 25 mg PO 4X/DAY #120 tab Transmission Status: Received by [facility] Nitroglycerin Oint [Nitrobid] 1 inch TRANSDERM. DAILY #1 tube Transmission Status: Received by [facility] Orders to be completed after discharge: Prothrombin Time w/INR Time Frame: 07/02/19, Facility: [facility], Location: Home Health Lab Prothrombin Time w/INR Time Frame: 07/04/19, Facility: [facility], Location: Home Health Lab Prothrombin Time w/INR Time Frame: 07/07/19, Facility: [facility], Location: Home Health Lab Prothrombin Time w/INR Time Frame: 07/10/19, Facility: [facility], Location: Home Health Lab Prothrombin Time w/INR Time Frame: 07/12/19, Facility: [facility], Location: Home Health Lab Primary Care Physician: Jaya Blackwell III, MD [Primary Care Provider] - Please follow up with your Primary Care Physician in: 07/13/2019 Test Results: Test results from this visit will be discussed in further detail at your follow-up appointment, if applicable. Please Follow Up With: Dr. Ferraro (Opthalmology) - [phone] When: 07/15/2019 Please Follow Up With: Dr. Coppola (Vascular surgeon) - [phone] When: Keep scheduled appt in October 2019 Please Follow Up With: Dr. Ortiz (Insurance Representative) - [phone] When: 1-2 weeks Please Follow Up With: [facility] - [phone] When: 4 weeks Please Follow Up With: [facility] - physical/Occupational/Nursing/Social work Proposed Discharge Date: 06/30/19
--- NOTE | 2019-06-29 11:56 | CASEMGMT ---
Social Work IDT met with patient for Team Meeting. Discussed patient doing well in therapy and ready to DC home 06/30. Left message with daughter recapping Team meeting, per her request and patient permission. Pt needing PT/INRs at home - will receive SN with [facility]. Plan: DC home with [facility] PT/OT/SN/SW. No DME needs. Hilary Morgan, PLANT OPERATIONS COORDINATOR INSOLE CHANNELER
[2019-06-29] MEDS: Atorvastatin Calcium 10 MG Tablet PO (20:33)
[2019-06-30 07:35] VITALS: BP 151/71; PULSE 77
[2019-06-30] MEDS: Multivitamins,Therapeutic Tablet 1 TABLET PO (07:35)
[2019-06-30] MEDS: Hydroxychloroquine 200 MG Tablet PO (07:35)
[2019-06-30] MEDS: hydrALAZINE 25 MG Tablet PO (07:35)
[2019-06-30] MEDS: Multivitamin (Healthy Eyes) Capsule 1 CAP PO (07:36)
[2019-06-30] MEDS: Aspirin E.C. 81 MG Tablet PO (07:36)
[2019-06-30 07:59] VITALS: BP 151/70; PULSE 83
[2019-06-30] MEDS: Nitroglycerin Oint 1 INCH PACKET TRANSDERM. (07:59)
[2019-06-30 09:00] VITALS: BP 151/70; PULSE 83; RESP 16; TEMP 36.5; O2SAT 92
[2019-06-30] MEDS: Lisinopril 20 MG Tablet PO (10:00)
[2019-06-30] MEDS: Pantoprazole Sodium 20 MG Tablet PO (10:00)
[2019-06-30] MEDS: NIFEdipine 90 MG Tablet PO (10:01)
[2019-06-30] MEDS: hydroCHLOROthiazide 12.5mg 12.5 MG PO (10:01)
[2019-06-30 10:30] VITALS: BMI 16.0
--- NOTE | 2019-06-30 10:58 | DS.PCM_ITS ---
Rehab Discharge Summary DATE OF ADMISSION: 06/15/19 DATE OF DISCHARGE: 06/30/19 - Rehab Diagnosis Debility Subjective: Per nursing, no issues overnight. Patient denies further questions or concerns and will be discharged home today. - Physical Exam General: Alert, Oriented x3, Cooperative HEENT: PERRLA - right and left hemianopia, Left eye does not rotate laterally and is medially rotated in-chronic Oral: Moist Mucosa Neck: Supple, No JVD Lungs: Clear to auscultation, Normal air movement Cardiovascular: Regular rate, Regular Rhythm Abdomen: Bowel Sounds Present, Soft, Non Tender Extremities: No clubbing, No cyanosis, No edema Neurological: Cranial nerves II-XII grossly intact - except right and left hemianopia, Left eye does not rotate laterally and is medially rotated in- chronic, Deep Tendon Reflexes 2+/4 and Symmetrical, Motor Exam 5/5 strength throughout - Except below the knee d/t Right BKA Psych/Mental Status: Normal Affect, Appropriate, Alert and oriented to time, place, person, mood and affect Vital Signs Temp Pulse Resp BP Pulse Ox 97.8 F 83 18 151/70 H 97 06/29/19 19:25 06/30/19 07:59 06/29/19 22:00 06/30/19 07:59 06/29/19 22:00 Oxygen Delivery Method Room Air Weight: 51.4 kg Body Mass Index (BMI) 16.0 Intake and Output for Last 24 Hours 06/28/19 06/29/19 06/30/19 23:59 23:59 23:59 Intake Total 240 / 240 Balance 240 / 240 Laboratory Tests Past 24 Hrs 06/23/19 13:35 Miscellaneous Test Discharge Diet: - - 2 Gram sodium diet Discharge Activity: Return to Normal Activity, May Not Drive, May Shower, Use Walker Weight Bearing Status: Weight bearing as tolerated Call your doctor if you observe: Fever of 101 or Higher, Coldness, Increased Pain, Numbness or Tingling, Change in Color, Inability to urinate, Inability to have a bowel movement, Shortness of breath, Dizziness, Fainting spells, Swelling in the ankles, Chest pain, Prolonged hiccoughing, Increased palpitations (irregular heartbeat), Calf discomfort, Uncontrolled pain Home Medications: Medications to take at Discharge Omeprazole [Prilosec] 20 mg PO DAILY 11/05/15 Vit A/Vit C/Vit E/Zinc/Copper [Preservision Areds Softgel] 1 each PO BID 03/09/16 Acetaminophen [Tylenol Tablet] 650 mg PO Q6H PRN PRN tab 06/29/19 Aspirin E.C. [Ecotrin] 81 mg PO DAILY@0800 tab 06/29/19 Atorvastatin Calcium [Lipitor] 10 mg PO QHS tab 06/29/19 Hydroxychloroquine [Plaquenil] 200 mg PO DAILYCM tab 06/29/19 Lisinopril [Zestril] 20 mg PO DAILY tab 06/29/19 Multivitamins,Therapeutic [Multivitamin] 1 tab PO DAILYCM tab 06/29/19 NIFEdipine [Procardia XL] 90 mg PO DAILY tab 06/29/19 Nitroglycerin Oint [Nitrobid] 1 inch TRANSDERM. DAILY #1 tube 06/29/19 Warfarin [Coumadin] 2.5 mg PO SuTuThSa@1700 tab 06/29/19 Warfarin [Coumadin] 5 mg PO MoWeFr@1700 tab 06/29/19 hydrALAZINE [Apresoline] 25 mg PO 4X/DAY #120 tab 06/29/19 hydroCHLOROthiazide [Hydrochlorothiazide] 12.5 mg PO DAILY cap 06/29/19 Following Prescrptions Were Given to Patient: hydrALAZINE [Apresoline] 25 mg PO 4X/DAY #120 tab Transmission Status: Received by [facility] Nitroglycerin Oint [Nitrobid] 1 inch TRANSDERM. DAILY #1 tube Transmission Status: Received by [facility] Other Amb Orders: Prothrombin Time w/INR Time Frame: 07/02/19, Facility: [facility], Location: Home Health Lab Prothrombin Time w/INR Time Frame: 07/04/19, Facility: [facility], Location: Home Health Lab Prothrombin Time w/INR Time Frame: 07/07/19, Facility: [facility], Location: Home Health Lab Prothrombin Time w/INR Time Frame: 07/10/19, Facility: [facility], Location: Home Health Lab Prothrombin Time w/INR Time Frame: 07/12/19, Facility: [facility], Location: Home Health Lab Primary Care Physician: Jaya Blackwell III, MD [Primary Care Provider] - Please follow up with your Primary Care Physician in: 07/13/2019 Please Follow Up With: Dr. Ferraro (Opthalmology) - [phone] When: 07/15/2019 Please Follow Up With: Dr. Coppola (Vascular surgeon) - [phone] When: Keep scheduled appt in October 2019 Please Follow Up With: Dr. Ortiz (Humanities And Languages Professor) - [phone] When: 1-2 weeks Please Follow Up With: [facility] - [phone] When: 4 weeks Please Follow Up With: [facility] - physi tena/Occupational/Nursing/Social work Disposition: Home with Home Health Patient Condition:: Stable Rehab Course The patient is a 78 year old F with PMH of HTN, HLD, CKD III, GERD, PAD, CAD, Macular degeneration, HX of stroke in 2005 after RLE amputation, TIA, Carotid stenosis (right carotid CEA) 2005, Raynaud phenomena, admitted to [facility] on 06/15/2019 for debility, with a goal of returning home at or near her level of independency. On 06/11/2019, patient was admitted for left upper arm weakness and numbness that lasted less than [address] showed Stable encephalomalacia in the medial aspect of the left occipital lobe.MRI of brain showed No evidence of acute infarct or hemorrhage.Bilateral occipital encephalomalacia. Echocardiogram showed an ejection fraction of 55%, Bubble contrast study negative for right to left interatrial shunt. MRA of head showed A high-grade stenosis of the P1 segment of the left posterior cerebral artery is noted. Occlusion of the P3 segment of the right MORTGAGE CONSULTANT. This could be chronic given the MRI finding of right occipital encephalomalacia. No high grade stenoses or occlusions of the middle cerebral arteries. MRA of neck showed Normal bilateral cervical carotid and vertebral arteries. Patient currently on statin, asa and anti-hypertensives. On admission Blood pressure was 145/49. PT/INR 23.0/2.0 on Coumadin. UA was negative. Symptoms have resolved. HGBA1c 4.5%, LDL 23. Patient lives alone in a one level house, with 1 step to enter and is independent with ADLs and mobility, does not drive. During [facility] course on admission patient had Stage I pressure injury to right lower anterior stump- wound consult and Bensatas adjust prosthetic, area healed. Leukocytosis and thrombocytopenia noted, patient asymptomatic- consult hematology- Dr. Ortiz following and pending labs. Patient is on coumadin and ASA for PAD/PVD per Dr. Coppola vascular surgeon to be continued. Patient will be discharged home with Home health PT/OT/Nursing/SW, PT/INR labs will obtained and PCP Dr. Jaya Blackwell III will be sent labs to follow/manage. Patient to F/U with PCP, Ophthalmology, Neurology, Hematology, Vascular Surgeon Meaningful Use Info Meaningful Use Diagnoses (Choose all that apply): None applicable
[2019-06-30 11:15] VITALS: BP 151/70; PULSE 83; RESP 16; TEMP 36.5; O2SAT 92
--- NOTE | 2019-06-30 11:15 | NURSING ---
Discharge instructions given to Daughter in law and patient and verbalized understanding. Demonstration by patient has been done to applying nitro patch. Daughter in law aware of ST recommendation to help patient with her medication schedule at home.
== END 2019-06-30 11:15 | disposition home health service (06) | DRG 948 ==
PROVIDERS: Internal Medicine; Internal Medicine Hematology & Oncology; Nurse Practitioner Family; Physician Assistant; Admitting Provider Psychiatry & Neurology Neurology; Family Provider Family Medicine; PCP Family Medicine; Visit Provider Internal Medicine
DX: R53.81 Other malaise (principal); I69.398 Other sequelae of cerebral infarction; I12.9 Hypertensive chronic kidney disease with stage 1 through stage 4 chronic kidney disease, or unspecified chronic kidney disease; K21.9 Gastro-esophageal reflux disease without esophagitis; N18.3 Chronic kidney disease, stage 3 (moderate); M34.1 CR(E)ST syndrome; E78.5 Hyperlipidemia, unspecified; I25.10 Atherosclerotic heart disease of native coronary artery without angina pectoris; H35.30 Unspecified macular degeneration; L89.891 Pressure ulcer of other site, stage 1; Z89.511 Acquired absence of right leg below knee; T87.89 Other complications of amputation stump; Y83.5 Amputation of limb(s) as the cause of abnormal reaction of the patient, or of later complication, without mention of misadventure at the time of the procedure; H53.47 Heteronymous bilateral field defects; D47.3 Essential (hemorrhagic) thrombocythemia
CPT/HCPCS: 36415; 80048; 80061; 85025; 85610; 92507; 92523; 97110; 97116; 97162; 97166; 97530; 97535; 97537; 97802

== ENCOUNTER 2019-09-11 04:19 | Inpatient (IN) | payer MEDICARE, OTHER, SELFPAY ==
[2019-09-11] VITALS (8 sets, daily range): BP systolic 141–198; BP diastolic 58–87; PULSE 70–94; RESP 14–18; TEMP 36.8–37.7; O2SAT 93–99; BMI 17.7; BMI 16.9
--- NOTE | 2019-09-11 04:55 | ED.DCSUM_ITS ---
History of Present Illness Chief Complaint: Lower Extremity Injury Narrative: Patient is an 79-year-old female who presents with left leg pain. She has a history of some chronic pain in her left leg. She reports a history of arthritis as well as peripheral arterial disease. She has had a right below the knee amputation related to peripheral arterial disease and scleroderma. Unfortunately she is a poor historian. She is unable to clarify how long this is been worse stating that she has had pain for years. She did have an outpatient x-ray of her knee yesterday afternoon. She only takes Tylenol for pain. Initially she reported that this was mostly at her knee but then stated that it radiates up towards her hip and also has pain in her foot and toes sometimes. She denies any numbness or tingling or weakness. Past Medical History - Allergies and Home Meds Allergies/Adverse Reactions: Allergies ampicillin Allergy (Verified 09/11/19 04:24) Rash cyclophosphamide [From Cytoxan] Allergy (Verified 09/11/19 04:24) Rash doxycycline Allergy (Verified 09/11/19 04:24) Rash morphine Allergy (Verified 09/11/19 04:24) mental status change sulfamethoxazole [From Bactrim] Allergy (Verified 09/11/19 04:24) Rash trimethoprim [From Bactrim] Allergy (Verified 09/11/19 04:24) Rash Primary Care Physician: Jaya Blackwell III, MD [Primary Care Provider] - Past Medical History: - - Peripheral arterial disease, arthritis, scleroderma, hyperlipidemia, chronic kidney disease, coronary artery disease, TIA, carotid stenosis Surgical History: cataract, - - Right carotid endarterectomy. Right BKA, left great toe amputation. Back surgery, patient can not remember what type Smoking Status: Never smoker - Family History Paternal Family History: Reports: Stroke, - - Patient's father suffered from Raynaud's disease Maternal Family History: Reports: No pertinent history Review of Systems All systems negative except as indicated General: Denies: Fever Cardiovascular: Denies: Chest pain Respiratory: Denies: Dyspnea Gastrointestinal: Denies: Nausea, Vomiting Musculoskeletal: Reports: Extremity Pain Physical Exam Vital Signs/Narrative: Vital Signs Temp Pulse Resp BP Pulse Ox 09/11/19 04:19 98.2 F 92 16 184/75 H 96 Inital Vital Signs reviewed: Yes General: Well nourished, Well developed, No Acute Distress Eyes: Perrl, EOMI ENT: Moist mucous membranes Neck: Supple Cardiovascular: Regular rate, Regular rhythm Respiratory: No distress, CTA bilaterally Abdomen: Soft, Nontender Extremities: - - Sclerosis of the skin of the distal left lower extremity the foot is warm and capillary refill is less than 2 seconds I am unable to palpate dorsalis pedis or posterior tibial pulses however there is a Doppler signal for the dorsalis pedis pulse I was unable to locate a dopplerable dorsalis pedis pulse patient has diffuse tenderness on palpation of the extremity but I do not appreciate edema or soft tissue swelling no erythema no appreciable effusion of the knee knee is not hot to the touch Skin: Normal color Neurological: Alert Psychological: - - Anxious Diagnostic/Tx/Re-eval Laboratory Results 09/11/19 09/11/19 09/11/19 05:20 05:20 05:20 WBC 13.7 H RBC 3.08 L Hgb 9.1 L Hct 28.4 L MCV 92.2 MCH 29.5 MCHC 32.0 RDW Std Deviation 61.6 H RDW Coeff of Aba 18.5 H Plt Count 429 MPV 10.6 Immature Gran % (Auto) 0.800 Neut % (Auto) 73.5 H Lymph % (Auto) 14.[address] [place] % (Auto) 9.1 Eos % (Auto) 1.4 Baso % (Auto) 0.4 Absolute Neuts (auto) 10.1 H Absolute Lymphs (auto) 2.02 Nucleated RBC % 0 PT 29.6 H INR 2.8 Sodium 140 Potassium 4.6 Chloride 109 H Carbon Dioxide 22.0 Anion Gap 9 BUN 56 H Creatinine 1.40 H Estim Creat Clear Calc 26.76 Est GFR (MDRD) Af Amer 47 L Est GFR (MDRD) Non-Af 38 L BUN/Creatinine Ratio 40.0 H Glucose 84 Lactic Acid Calcium 8.7 Total Creatine Kinase 46 09/11/19 05:20 WBC RBC Hgb Hct MCV MCH MCHC RDW Std Deviation RDW Coeff of Aba Plt Count MPV Immature Gran % (Auto) Neut % (Auto) Lymph % (Auto) [place] % (Auto) Eos % (Auto) Baso % (Auto) Absolute Neuts (auto) Absolute Lymphs (auto) Nucleated RBC % PT INR Sodium Potassium Chloride Carbon Dioxide Anion Gap BUN Creatinine Estim Creat Clear Calc Est GFR (MDRD) Af Amer Est GFR (MDRD) Non-Af BUN/Creatinine Ratio Glucose Lactic Acid 1.2 Calcium Total Creatine Kinase - Medical Decision Making Labs are notable for white count of 13.7 which is actually improved from prior labs. She also has chronic anemia with hemoglobin of 9. Her creatinine is consistent with her chronic kidney disease. Lactic acid and CPK are normal. At this point she does not appear to have any acute life or limb threatening pathology. There is no evidence of ischemia of the limb. Her foot is warm with brisk capillary refill and she has normal lactic acid and CPK as well as a dopplerable posterior tibial pulse. She does not appear to have any acute joint pathology. Her pain is not isolated to the knee she has no effusion or soft tissue swelling. She was advised to follow-up as an outpatient with her primary care physician. She was given a prescription for tramadol for pain control and was discharged home. ED Disposition - Plan for ED Patient: Disposition: Home or Assisted Living Diagnosis: Left leg pain Instructions: Myalgias, ED Chronic Pain Prescriptions: traMADol [Ultram] 50 mg PO Q6H PRN 3 Days #12 tab PRN Reason: Pain Prescription Printed Referrals: Jaya Blackwell III, MD [Primary Care Provider] -
[2019-09-11 05:29] LABS: Absolute Lymphocyte Count 2.02 X10^3/uL (0.83-4.51); Absolute Neutrophil Count 10.1 X10^3/uL (2.0-7.7); Basophil# 0.05 X10^3/uL; Basophil% 0.4 % (0-1); Eosinophil# 0.19 X10^3/uL; Eosinophils% 1.4 % (0-5); Hematocrit 28.4 % (37-47); Hemoglobin 9.1 g/dL (12.0-15.0); Lymphocyte # 2.02 X10^3/ul (4.0); Lymphocyte % 14.8 % (19-41); Mean Corpuscular Hgb 29.5 pg (27.0-32.0); Mean Corpuscular Volume 92.2 fL (81-99); Mean Platelet Vol. 10.6 fl (6.2-12.0); Monocyte# 1.24 X10^3/uL; Monocyte% 9.1 % (0-10); NRBC Flagged by Analyzer 0 % (0-5); Neutrophil # 10.05 X10^3/uL (2.7-7.7); Neutrophil % 73.5 % (47-70); Platelet Count 429 K/mm3 (150-450); RBC Distribution Width CV 18.5 % (11.6-14.6); RBC Distribution Width SD 61.6 fl (35.1-43.9); Red Blood Count 3.08 M/mm3 (4.2-5.4); White Blood Count 13.7 K/mm3 (4.4-11.0)
[2019-09-11] MEDS: Morphine 2 MG/ML Syringe IV (05:30)
[2019-09-11] MEDS: Ondansetron 4 MG/2 ML Vial IV (05:30)
[2019-09-11 05:38] LABS: International Normalized Ratio 2.8; Prothrombin Time (Protime)PT. 29.6 SECONDS (11.7-14.9)
[2019-09-11 05:45] LABS: Anion Gap 9 (5-15); BUN 56 mg/dL (7-18); CPK Total, Creatine Kinase 46 U/L (26-192); Calcium,Total 8.7 mg/dL (8.5-10.1); Chloride 109 mmol/L (98-107); EST Glomerular Filtration Rate 38 mL/min (>60); Est Glom Filt Rate - Afr Amer 47 mL/min (>60); Estimated Creatinine Clearance 26.76 ml/min; Glucose 84 mg/dL (74-106); Potassium 4.6 mmol/L (3.5-5.1); Sodium Level 140 mmol/L (136-145)
[2019-09-11 05:57] LABS: Lactic Acid 1.2 mmol/L (0.4-2.0)
--- NOTE | 2019-09-11 06:28 | ED.RN ---
PER PT SHE REQUESTED HER DAUGHTER BE CALLED FOR A RIDE. RAI,PT'S DAUGHTER,STATED SHE WOULD SEND SOMEONE TO COME AND PICK HER UP. PT UPDATED.
[2019-09-11] MEDS: traMADol 50 MG Tablet PO (08:51)
--- NOTE | 2019-09-11 08:53 | ED.RN ---
pt daughter in law present. pt reported pain remains 08/13. concerned lives alone and may not be able to get around alone. given pain med. to talk with SW when the get here
--- NOTE | 2019-09-11 09:46 | ED.RN ---
AMBULATED PT. CAUGHT PT 2 TIMES WITH UNSTEADY GAIT AND ALMOST FALL. PT REPORTS PAIN REMAINS SEVERE /. DAUGHTER AND PT AGREE NOT ABLE TO CARE FOR ELF AT HOME AND NEEDS MORE ASSISTANCE ANS STRENGTHENING. REMAINS AGREEABLE TO TALK WITH SW
--- NOTE | 2019-09-11 10:22 | CM.ED ---
Addendum entered by Jenny Mcgovern 09/11/19 10:27: After completing a further chart review. Patient was not on the Transitional Care Unit but on the Inpatient Rehab Unit in June. Original Note: Social Work Referral: SNF Placement Informant: Dr. Marinelli Met with patient and patient [id number], La in room. Patient stating to be in a lot of pain. Per nursing staff when attempting to ambulate patient patient was unsteady and presented with weakness. Patient stating to live alone and to use a walker to ambulate. Patient stating to have had a stay on the Transitional Care Unit in June but no other recent skilled stays. Patient wanting to transition to a detention setting for more therapy. Patient stating to have been doing well at home but that yesterday was a bad day. Patient wanting to explore options of skilled services. Updated Dr. Marinelli on patient request and noting that patient insurance is Medicare. Dr. Marinelli is planning to contact the hospitalist to discuss options of admission to hospital setting due to weakness. Updated patient and patient family. Patient family does live out of town and is unable to assist patient on a daily basis. Rayne JESSICA, MARY
--- NOTE | 2019-09-11 10:32 | NURSING ---
MED SURG OBS SEMENTI INTRACTABLE LEG PAIN, UNABLE TO AMBULATE
--- NOTE | 2019-09-11 11:23 | NURSING ---
had xray at [facility] last night of left knee- unsure of result.
[2019-09-11] MEDS: oxyCODONE 5 MG Tablet PO (12:14)
--- NOTE | 2019-09-11 13:00 | CASEMGMT ---
Social Work Note SW met with pt and pt's CHLOE Tovar. SW introduced self and role at [facility]. Pt is alert and orientated x3 and gave permission for this worker to speak to her in front of her guest. SW asked pt about discharge plans and going to SNF and pt states well I don't know. La states that pt was at TCU before and did really well there. Pt states that if she has to go to SNF she would like TCU. SW explained Medicare guidelines and that it depends if physician feels pt needs to stay in hospital that long. Pt states understanding and is agreeable to this worker putting pt's name on TCU list. SW placed a call to referral line and provided referral for TCU. Plan: TBD. TCU vs Home Dorita Arias MSW, BOTTOM STAINER
[2019-09-11] MEDS: Acetaminophen 325 MG Tablet 650 MG PO (16:16)
--- NOTE | 2019-09-11 17:35 | PCM.HP.STD ---
Problem List (1) Scleroderma Status: Chronic (2) Left leg pain Status: Acute (3) CAD (coronary artery disease) Status: Chronic (4) CREST syndrome Status: Chronic (5) Diarrhea Status: Chronic Qualifiers: Diarrhea type: unspecified type Qualified Code(s): R19.7 - Diarrhea, unspecified Comment: resolves with immodium (6) History of CEA (carotid endarterectomy) Status: Chronic Comment: right (7) Hypertension Status: Chronic (8) PAD (peripheral artery disease) Status: Chronic (9) Status post below knee amputation of right lower extremity Status: Chronic (10) Thrombocytosis Status: Chronic (11) Chronic renal failure, stage 3 (moderate) Status: Chronic (12) Chronic anticoagulation Status: Chronic Comment: With warfarin (13) Anemia of chronic disease Status: Chronic History of Present Illness Date of Admission: 09/11/19 Chief Complaint: severe left leg pain with inability to walk. 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 She was unable to ambulate. She c/o pain from the Left groin to the toes. The pain seems to be circumferential. She denied any pain in the buttocks or low back. she denied any recent falls or injuries. She lives by herself. She told me that she was at the grocery store and was walking a lot and then the left started to hurt much worse than usual. She stated she had an XRAY of her knee yesterday at the [facility] but does not know the results. Vital signs at presentation to the emergency room were temperature 97.7, pulse rate 83, blood pressure 151/70, respiratory rate of 16 and she was 92% saturated on room air. The white blood cell count was elevated at 13.7 with 73.5% neutrophils. Hemoglobin was 9.1 with normochromic normocytic indices. Platelets were 429,000. INR is 2.8. BUN was increased at 56 with a creatinine of 1.4 and a BUN/creatinine ratio of 40. No xrays were done. She received 2 mg of IV MS in the ED and tells me that this did not help. She had Oxy IR 5 mg and this also did not help. She as admitted to a med surg floor with a diagnosis of intractable LLE pain and inability to ambulate. Past Medical History Past Medical History (Chronic Problems): Chronic Problems Scleroderma (Chronic) Chronic renal failure, stage 3 (moderate) (Chronic) Chronic anticoagulation (Chronic) With warfarin Anemia of chronic disease (Chronic) CAD (coronary artery disease) (Chronic) PAD (peripheral artery disease) (Chronic) History of CEA (carotid endarterectomy) (Chronic) right Thrombocytosis (Chronic) Diarrhea (Chronic) resolves with immodium 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) Hypertension (Chronic) Allergies ampicillin Allergy (Verified 09/11/19 04:24) Rash cyclophosphamide [From Cytoxan] Allergy (Verified 09/11/19 04:24) Rash doxycycline Allergy (Verified 09/11/19 04:24) Rash morphine Allergy (Verified 09/11/19 04:24) mental status change sulfamethoxazole [From Bactrim] Allergy (Verified 09/11/19 04:24) Rash trimethoprim [From Bactrim] Allergy (Verified 09/11/19 04:24) Rash Home Medications: Ambulatory Orders Medication Instructions Recorded Omeprazole [Prilosec] 20 mg PO DAILY 11/05/15 Vit A/Vit C/Vit E/Zinc/Copper 1 each PO BID 03/09/16 [Preservision Areds Softgel] Aspirin E.C. [Ecotrin] 81 mg PO DAILY@0800 tab 06/29/19 Atorvastatin Calcium [Lipitor] 10 mg PO QHS tab 06/29/19 Hydroxychloroquine [Plaquenil] 200 mg PO DAILYCM tab 06/29/19 Multivitamins,Therapeutic 1 tab PO DAILYCM tab 06/29/19 [Multivitamin] NIFEdipine [Procardia XL] 90 mg PO DAILY tab 06/29/19 Warfarin [Coumadin] 2.5 mg PO SuTuThSa@1700 tab 06/29/19 Warfarin [Coumadin] 5 mg PO MoWeFr@1700 tab 06/29/19 hydroCHLOROthiazide 12.5 mg PO DAILY cap 06/29/19 [Hydrochlorothiazide] Acetaminophen [Tylenol] 1,000 mg PO Q6H PRN PRN 09/11/19 Hydroxychloroquine Sulfate 200 mg PO SUSA 09/11/19 [Plaquenil] Hydroxyurea 500 mg PO UD 09/11/19 Lisinopril [Zestril] 10 mg PO DAILY 09/11/19 Surgical History: cataract, - - Right carotid endarterectomy. Right BKA, left great toe amputation. Back surgery, patient can not remember what type. Psychiatric History: No pertinent psych hx LEASE BUYER History: No pertinent LEASE BUYER history Lives: Alone Smoking Status: Never smoker Tobacco Use: Non-smoker Alcohol: None Drugs: None - *Family History Maternal History Items: No pertinent history Paternal History Items: Stroke, - - Patient's father suffered from Raynaud's disease Review of Systems Constitutional: Denies: Anorexia, Chills, Fever, Weakness Eyes: Reports: Blurred vision - in the right eye since a CVA HEENT: Denies: Difficulty Hearing, Difficulty Swallowing, Head Aches, Sore Throat Cardiovascular: Reports: Edema - distal LLE. Denies: Chest Pain, Light Headedness, Palpitations Respiratory: Denies: Cough, Shortness of Breath, Shortness of breath at rest, Shortness of breath upon exertion, Sputum production Gastrointestinal: Reports: Diarrhea - intermittent.....resolves after Immodium. Denies: Abdominal Pain, Nausea, Vomiting Genitourinary: Denies: Dysuria Musculoskeletal: Reports: Joint Tenderness - left knee, Leg Pain - left leg from the toes to the groin. Denies: Joint Pain Skin: Denies: Jaundice, Lesions, Rash, Wounds Neurological: Denies: Change in Speech, Slurred speech, Confusion, Focal weakness, Numbness, Tingling, Seizures Psychiatric: Denies: Anxiety, Depression, Homicidal Ideations, Suicidal Ideations Hematologic/ Lymphatic: Denies: Easy Bruising, Easy Bleeding, Hx of blood clot VTE Information - Inpt Only VTE Present on Admission: No VTE Mechan Device Prophylaxis: None - she has severe PVD Reason prophylaxis not ordered:: Treatment Not Indicated - she is therapeutic on Warfarin Patient Problems: Active and Suspected Problems Left leg pain (Acute) - Physical Exam Vitals/I&O's: Vital Signs Temp Pulse Resp BP Pulse Ox 99.2 F H 86 18 198/71 H 94 09/11/19 11:17 09/11/19 11:17 09/11/19 11:17 09/11/19 11:17 09/11/19 11:17 Oxygen Delivery Method Room Air Weight: 111 lb 5.335 oz Body Mass Index (BMI) 16.9 General: Alert, Oriented x3, Cooperative, - - appear somewhat cachectic, ribs showing and lose skin HEENT: Atraumatic, PERRLA, EOMI, Normocephalic Oral: No Gingival or Mucosal Lesions/ Ulcerations, Dry Mucosa Neck: Supple, No JVD, Negative Carotid Bruits, No Nodes, Trachea Midline, - - There is a cicatrix over the right neck secondary to prior carotid endarterectomy. Carotids have brisk upstroke and good pulse volume bilaterally. No carotid bruits. Lungs: Clear to auscultation, Normal air movement Cardiovascular: Regular rate, Regular Rhythm, Normal S1, Normal S2, No murmurs, - - widely split S1 no MM Abdomen: Bowel Sounds Present, Soft, Non Tender, Non-Distended Extremities: Capillary Refill Less than 3 Seconds, Edema - of the left ankle at the sock line, - - I could not palpate DP or PT pulses on the left, no popliteal pulse onthe left. the femoral pulse is 1-2 + and there is a bruit on the left. there has been amputation of the L great toe and the other toes on the left are ruborus. she has paion with elevation of the LLE to 20 degrees. She has pain with palpation of the left knee.....there is some swelling in the bursa but no significant joint effusion. There are no open wounds and ther is no erythema. No significant increase in temperature from the R leg to the left. 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 the tip of the middle finger of the right hand is gone....she had dry gangrene and it broke off Skin: No rashes, No breakdown Musculoskeletal: No Tenderness to Palpation of Joints or Extremities Neurological: Cranial nerves II-XII grossly intact Psych/Mental Status: Normal Affect, Appropriate Laboratory Results 09/11/19 05:20: WBC 13.7 H, RBC 3.08 L, Hgb 9.1 L, Hct 28.4 L, MCV 92.2, MCH 29.5, MCHC 32.0, RDW Std Deviation 61.6 H, RDW Coeff of Aba 18.5 H, Plt Count 429, MPV 10.6, Immature Gran % (Auto) 0.800, Neut % (Auto) 73.5 H, Lymph % (Auto) 14.8 L, [place] % (Auto) 9.1, Eos % (Auto) 1.4, Baso % (Auto) 0.4, Absolute Neuts (auto) 10.1 H, Absolute Lymphs (auto) 2.02, Nucleated RBC % 0 09/11/19 05:20: PT 29.6 H, INR 2.8 09/11/19 05:20: Sodium 140, Potassium 4.6, Chloride 109 H, Carbon Dioxide 22.0, Anion Gap 9, BUN 56 H, Creatinine 1.40 H, Estim Creat Clear Calc 26.76, Est GFR (MDRD) Af Amer 47 L, Est GFR (MDRD) Non-Af 38 L, BUN/Creatinine Ratio 40.0 H, Glucose 84, Calcium 8.7, Total Creatine Kinase 46 09/11/19 05:20: Lactic Acid 1.2 Current Medications Acetaminophen (Tylenol) 650 mg PO Q6H PRN PRN PRN Reason: Pain Score 1-1010 Last Admin: 09/11/19 16:16 Dose: 650 mg Documented by: Aspirin (Ecotrin) 81 mg PO DAILY@0800 [facility] Atorvastatin Calcium (Lipitor) 10 mg PO QHS [facility] Hydrochlorothiazide () 12.5 mg PO DAILY [facility] Hydroxychloroquine Sulfate (Plaquenil) [facility] Sodium Chloride () 250 mls @ 15 mls/hr IV .[id number] PRN PRN Reason: Saline Flush Lisinopril (Zestril) 10 mg PO DAILY [facility] Nifedipine (Procardia Xl) 90 mg PO DAILY [facility] Ondansetron HCl (Zofran) 4 mg IV Q8H PRN PRN PRN Reason: NAUSEA/VOMITING Pantoprazole Sodium (Protonix) 20 mg PO DAILY [facility] Sodium Chloride () 10 - 40 ml IV UD PRN PRN Reason: SALINE FLUSH Warfarin Sodium (Coumadin (Pbkc)) 2.5 mg PO SuTuThSa@1700 [facility] Warfarin Sodium (Coumadin (Pbkc)) 5 mg PO MoWeFr@1700 [facility] Last Admin: 09/11/19 16:19 Dose: 5 mg Documented by: Assessment/Plan All Active Problems Left leg pain (Acute) Abdominal pain (Resolved) Decubitus ulcer of foot, stage 3 (Resolved) History of gastrointestinal bleeding (Resolved) Ileus (Resolved) Ischemic colitis (Resolved) Left arm weakness (Resolved) Nonhealing nonsurgical wound (Resolved) TIA (transient ischemic attack) (Resolved) Ulcer of left lower extremity (Resolved) Impressions 1. Intractable pain in the LLE with inability to ambulate. she normally ambulates with a RLE prosthesis and uses a walker when she does not have the prosthesis on. She has a known hx of PAD and I suspect the pain may be due to ischemia. will hydrate to improve the IV volume. start Pletal. Arterial duplex of the LE's. Also get a hip XRAY of the left and an XRAY of the left knee. Place the bed in a vascular position. 2. Scleroderma/Raynaud's disease/CREST 3. CRF stage III 4. 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 Chronic anticoagulation with warfarin-INR is therapeutic 6. Anemia of chronic autoimmune disease 7. Raynaud's disease 8. Thrombocytosis 9. Peripheral arterial disease 10. Hypertension 11. 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 Status post right BKA for ischemia She is not a good historian. difficult to ascertain whether the pain is in the hip and radiates down the leg to the knee and beyond? or if it is primarily in the L knee? or is it due to PAD? I do not feel she has critical ischemia at this time and I can find the DP and the PT with a doppler today. Consult vascular surgery and ortho to weigh in. D/W Dr. Blackwell. Pt has been seen at [facility] by vascular surgeon Mike Coppola in the past and she is complicated with multiple medical co-morbidities. May need to consider transfer to a higher level of care. Await the consult by Dr. Edwards.......if she does not feel the pain is related to L hip or L knee then will call [facility] and try and arrange transfer. Code Visit Inpatient E&M: [id number] Subs Hosp L2
--- NOTE | 2019-09-11 18:28 | ART_ITS ---
Reason For Study: PAIN Procedure A bilateral lower extremity continuous wave Doppler with analog waveform analysis,segmental pressures,and ankle brachial indexes without exercise. Left Segmental Pressures Left brachial= 140mmHg. Left posterior tibial artery = NCmmHg. Left dorsalis pedis artery = 142mmHg. Left digit = 26 mmHg. Left 2nd toe was used for doppler d/t great toe amputation. The left posterior tibial artery waveforms are biphasic. The left dorsalis pedis waveforms are monophasic. Right Segmental Pressures Right brachial= 145mmHg. Right thigh = 148mmHg. Indices The right resting ankle brachial index is 1.02. The left ankle brachial index by the dorsalis pedis is .98. The left ankle brachial index by the posterior tibial artery is NC. The left digital- brachial index is .18. Interpretation Summary History of right lower extremity amputation Non-calculable left PT ankle-brachial index with systolic pressure greater than 254 suggesting medial calcification. Left DP ankle-brachial index 0.98 Left PT doppler waveform is biphasic and DP is only monophasic suggesting a more significant level of occlusive disease. Mild to moderate disease of the left posterior tibial and severe stenosis left tibialis anterior. Abnormal digital brachial index consistent with severe disease. Ordering Physician: Nika Brock Referring Physician: RE BLACKWELL Performed By: Danae Man, GIACOMOCS, RVT
--- NOTE | 2019-09-11 19:11 | RAD_ITS ---
STUDY: X-RAY - PELVIS AND LEFT HIP REASON FOR EXAM: Female, 79 years old. Pain TECHNIQUE: 3 views of the pelvis and hip. COMPARISON: None. FINDINGS: There is a moderate amount of colonic stool. Normal visualized soft tissue structures. Normal bilateral iliac wings, sacroiliac joints and visualized sacrum. Normal bilateral superior and inferior pubic rami. Normal pubic symphysis. Normal bilateral ischial tuberosities. There are moderately severe degenerative changes of the left hip with joint space narrowing. RAD/HIP, UNI W/ Pelvis 2-3 Views IMPRESSION: Moderately severe degenerative changes of the left hip with joint space narrowing. The bony pelvis appears intact with no evidence of fracture or lytic or blastic osseous process. There is a moderate colonic stool burden. Electronically Signed: Pawel Claudio MD at 19:47 EST , Service support ,
--- NOTE | 2019-09-11 19:11 | RAD_ITS ---
STUDY: X-RAY - LEFT KNEE REASON FOR EXAM: Female, 79 years old. Pain TECHNIQUE: 2 view(s) of the knee. COMPARISON: None. FINDINGS: Normal visualized distal femur. Normal visualized proximal tibia and fibula. Normal proximal tibiofibular articulation. Normal medial femorotibial compartment. There are degenerative changes of the lateral knee compartment with joint space narrowing. Normal patellofemoral articulation. Arterial calcifications are noted. RAD/Knee 1 or 2 Views IMPRESSION: Degenerative changes of the lateral knee compartment with joint space narrowing. Electronically Signed: Pawel Claudio MD at 19:48 EST , Service support ,
[2019-09-11] MEDS: Lactated Ringers 1,000 ML 100 ML IV (19:50)
[2019-09-11] MEDS: hydrALAZINE 20 MG/ML Vial 5 MG IV (21:48)
[2019-09-11] MEDS: fentaNYL 100 MCG/2 ML Ampul 25 MCG IV (22:32)
[2019-09-11] MEDS: Atorvastatin Calcium 10 MG Tablet PO (22:38)
[2019-09-11] MEDS: Acetaminophen 500 MG Tablet 1000 MG PO (22:41)
[2019-09-11 23:33] LABS: Mucous, Urine 0 SEEN /hpf (<or=2+); Squamous Epithelial Cells - UA 0 SEEN /hpf (5-10)
[2019-09-11 23:42] LABS: Color, Urine Yellow (Yellow); Glucose, Dipstick Normal (Normal); Ketone-Dipstick Negative (Negative); Leukocyte Esterase-Dipstick 100 /ul (Negative); Nitrite-Dipstick Negative (Negative); Occult Blood-Urine 10 /ul (Negative); Protein-Dipstick 500 mg/dl (Negative); Specific Gravity, Urine 1.015 (1.002-1.030); Urine Bilirubin Dipstick Negative (Negative); Urine Clarity Sl. Cloudy (Clear); Urine Urobilinogen Normal (Normal)
[2019-09-11 23:52] LABS: Bacteria 3+ /hpf (None Seen); White Blood Cells 50-100 SEEN /hpf (0-5)
[2019-09-11 23:53] LABS: Red Blood Cells-Urine 0-5 SEEN /hpf (0-5)
[2019-09-12] VITALS (13 sets, daily range): BP systolic 115–164; BP diastolic 47–84; PULSE 80–91; RESP 16–20; TEMP 37–37.1; O2SAT 92–95
[2019-09-12 00:13] LABS: Urine Sodium 46 mmol/L (Not Establ.)
[2019-09-12] MEDS: fentaNYL 100 MCG/2 ML Ampul 25 MCG IV ×4 (02:50→22:14)
[2019-09-12] MEDS: 0.9% Saline Lock 10 ML Syringe IV ×6 (02:53→22:14)
[2019-09-12] MEDS: hydrALAZINE 20 MG/ML Vial 5 MG IV (03:47)
[2019-09-12] MEDS: Lactated Ringers 1,000 ML 100 ML IV (05:14)
[2019-09-12] MEDS: Acetaminophen 500 MG Tablet 1000 MG PO ×3 (05:19→21:12)
[2019-09-12 07:20] LABS: Absolute Lymphocyte Count 1.05 X10^3/uL (0.83-4.51); Absolute Neutrophil Count 12.6 X10^3/uL (2.0-7.7); Basophil# 0.06 X10^3/uL; Basophil% 0.4 % (0-1); Eosinophil# 0.03 X10^3/uL; Eosinophils% 0.2 % (0-5); Hematocrit 28.2 % (37-47); Hemoglobin 8.9 g/dL (12.0-15.0); Lymphocyte # 1.05 X10^3/ul (4.0); Lymphocyte % 6.9 % (19-41); Mean Corp Hgb Conc 31.6 g/dL (32-36); Mean Corpuscular Hgb 29.3 pg (27.0-32.0); Mean Corpuscular Volume 92.8 fL (81-99); Mean Platelet Vol. 10.9 fl (6.2-12.0); Monocyte# 1.27 X10^3/uL; Monocyte% 8.4 % (0-10); NRBC Flagged by Analyzer 0 % (0-5); Neutrophil # 12.58 X10^3/uL (2.7-7.7); Platelet Count 441 K/mm3 (150-450); RBC Distribution Width CV 18.3 % (11.6-14.6); RBC Distribution Width SD 61.7 fl (35.1-43.9); Red Blood Count 3.04 M/mm3 (4.2-5.4); White Blood Count 15.2 K/mm3 (4.4-11.0)
--- NOTE | 2019-09-12 07:39 | PCM.PROGNOTE ---
Patient Problems: Active and Suspected Problems Left leg pain (Acute) Subjective: Day #1 ceftriaxone All events of the past 24 hours of been reviewed. T-max is 99.9. Vital signs are stable. She is 94% saturated on a 1 L nasal cannula All lab was personally reviewed. White blood cell count today is 15.2 with a left shift. Hemoglobin is 8.9 following hydration. Platelets are 441,000. The creatinine is 1.27, down from 1.4 at admission. BUN is 51, down from 56 at admission. BUN/creatinine ratio is still 40. Magnesium is low at 1.3 and the phosphorus is within normal limits. Calcium corrected for hypoalbuminemia is within normal limits. LDL is 28 and the HDL is 45. Complete urine analysis showed 50-100 WBCs per high-power field with no squamous epithelial cells. There was 3+ bacteria. FeNa is 0.6 consistent with pre-renal azotemia. Urine culture is pending. Blood cultures are pending. Arterial duplex of the lower extremities is ordered for today.....however it will not be done until Saturday. The pain is less today. I am able to to0uch the thigh, calf, knee without her wincing. No CP and no SOB - Physical Exam Vitals/I&O's: Vital Signs Temp Pulse Resp BP Pulse Ox 98.6 F 90 16 143/54 H 94 09/12/19 02:20 09/12/19 05:17 09/12/19 02:20 09/12/19 05:17 09/12/19 05:17 Oxygen Flow Rate (L/min) 1 Oxygen Delivery Method Nasal Cannula Weight: 111 lb 5.335 oz Body Mass Index (BMI) 16.9 Intake and Output for Last 24 Hours 09/10/19 09/11/19 09/12/19 23:59 23:59 23:59 Intake Total 350 / 750 1440.00 / 1440.00 Output Total 600 / 700 300 / 300 Balance -250 / 50 1140.00 / 1140.00 General: Alert, Oriented x3, Cooperative, No apparent distress Oral: Dry Mucosa Neck: Supple, No JVD Lungs: Clear to auscultation Cardiovascular: Regular rate, Regular Rhythm, Normal S1, Normal S2, No Gallop Abdomen: Bowel Sounds Present, Soft, Non Tender, Non-Distended Extremities: No clubbing, No cyanosis, Edema - pitting of the LLE, pretibial and the ankle. the toes are more ruborous today and there is now mottling of the plantar surface of the Left foot at the metatarsal phalangeal joints. the foot is warm but not erythematous. The left knee has no significant effusion and there is no erythema or increased warmth to touch. Skin: No rashes, No breakdown Neurological: Cranial nerves II-XII grossly intact, Neuro grossly intact Psych/Mental Status: Normal Affect, Appropriate Laboratory Results 09/11/19 23:24: Urine Color Yellow, Urine Clarity Sl. Cloudy, Urine pH 6.0, Ur Specific [place] 1.015, Urine Protein 500 H, Urine Glucose (UA) Normal, Urine Ketones Negative, Urine Occult Blood 10 H, Urine Nitrite Negative, Urine Bilirubin Negative, Urine Urobilinogen Normal, Ur Leukocyte Esterase 100 H, Urine RBC 0-5 SEEN, Urine WBC 50-100 SEEN, Ur Squamous Epith Cells 0 SEEN, Urine Bacteria 3+, Urine Mucus 0 SEEN 09/11/19 23:24: Urine Creatinine 61.80 09/11/19 23:24: Ur Random Sodium 46 09/12/19 06:27: WBC 15.2 H, RBC 3.04 L, Hgb 8.9 L, Hct 28.2 L, MCV 92.8, MCH 29.3, MCHC 31.6 L, RDW Std Deviation 61.7 H, RDW Coeff of Aba 18.3 H, Plt Count 441, MPV 10.9, Immature Gran % (Auto) 1.100 H, Neut % (Auto) 83.0 H, Lymph % (Auto) 6.9 L, [place] % (Auto) 8.4, Eos % (Auto) 0.2, Baso % (Auto) 0.4, Absolute Neuts (auto) 12.6 H, Absolute Lymphs (auto) 1.05, Nucleated RBC % 0 09/12/19 06:27: Sodium Pending, Potassium Pending, Chloride Pending, Carbon Dioxide Pending, Anion Gap Pending, BUN Pending, Creatinine Pending, Est GFR (MDRD) Af Amer Pending, Est GFR (MDRD) Non-Af Pending, BUN/Creatinine Ratio Pending, Glucose Pending, Calcium Pending, Phosphorus Pending, Magnesium Pending, Total Bilirubin Pending, AST Pending, ALT Pending, Alkaline Phosphatase Pending, Total Protein Pending, Albumin Pending, Triglycerides Pending, Cholesterol Pending, LDL Cholesterol Pending, VLDL Cholesterol Pending, HDL Cholesterol Pending Current Medications Acetaminophen (Tylenol) 1,000 mg PO Q8 [facility] Last Admin: 09/12/19 05:19 Dose: 1,000 mg Documented by: Aspirin (Ecotrin) 81 mg PO DAILY@0800 [facility] Atorvastatin Calcium (Lipitor) 10 mg PO QHS [facility] Last Admin: 09/11/19 22:38 Dose: 10 mg Documented by: Cilostazol (Pletal) 100 mg PO BIDAC [facility] Fentanyl Citrate (Sublimaze (100mcg Ampule)) 25 mcg IV Q4H PRN PRN Reason: severe >5 pain Last Admin: 09/12/19 02:50 Dose: 25 mcg Documented by: Hydrochlorothiazide () 12.5 mg PO DAILY [facility] Hydroxychloroquine S[facility]ate ([facility]aqu[facility]il) [facility] Sodium Chloride () 250 mls @ 15 mls/hr IV .[id number] PRN PRN Reason: Saline Flush Lactated Ringer's () 1,000 mls @ 100 mls/hr IV .Q10H [facility] Stop: 09/12/19 14:29 Last Admin: 09/12/19 05:14 Dose: 100 mls/hr Documented by: Lisinopril (Zestril) 10 mg PO DAILY [facility] Nifedipine (Procardia Xl) 90 mg PO DAILY [facility] Pantoprazole Sodium (Protonix) 20 mg PO DAILY [facility] Prochlorperazine Edisylate (Compazine Iv) 5 mg IV Q6H PRN PRN PRN Reason: NAUSEA/VOMITING Sodium Chloride () 10 - 40 ml IV UD PRN PRN Reason: SALINE FLUSH Last Admin: 09/12/19 02:53 Dose: 10 ml Documented by: Warfarin Sodium (Coumadin (Pbkc)) 2.5 mg PO SuTuThSa@1700 [facility] Warfarin Sodium (Coumadin (Pbkc)) 5 mg PO MoWeFr@1700 [facility] Last Admin: 09/11/19 16:19 Dose: 5 mg Documented by: Medical Necessity - Tobacco Use Smoking Status: Never smoker Tobacco Use: Non-smoker Assessment/Plan All Active Problems Left leg pain (Acute) Abdominal pain (Resolved) Decubitus ulcer of foot, stage 3 (Resolved) History of gastrointestinal bleeding (Resolved) Ileus (Resolved) Ischemic colitis (Resolved) Left arm weakness (Resolved) Nonhealing nonsurgical wound (Resolved) TIA (transient ischemic attack) (Resolved) Ulcer of left lower extremity (Resolved) Impressions 1. Intractable pain in the LLE with inability to ambulate. she normally ambulates with a RLE prosthesis and uses a walker when she does not have the prosthesis on. She has a known hx of PAD and I suspect the pain may be due to ischemia. will hydrate to improve the IV volume. start Pletal. Arterial duplex of the LE's. Also get a hip XRAY of the left and an XRAY of the left knee. Place the bed in a vascular position. 2. Scleroderma/Raynaud's disease/CREST 3. CRF stage III 4. 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 Chronic anticoagulation with warfarin-INR is therapeutic 6. Anemia of chronic autoimmune disease 7. Raynaud's disease 8. Thrombocytosis 9. Peripheral arterial disease 10. Hypertension 11. 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 Status post right BKA for ischemia She is not a good historian. difficult to ascertain whether the pain is in the hip and radiates down the leg to the knee and beyond? or if it is primarily in the L knee? or is it due to PAD? I do not feel she has critical ischemia at this time and I can find the DP and the PT with a doppler today. Consult vascular surgery and ortho to weigh in. D/W Dr. Blackwell. Pt has been seen at [facility] by vascular surgeon Mike Coppola in the past and she is complicated with multiple medical co-morbidities. May need to consider transfer to a higher level of care. Await the consult by Dr. Edwards.......if she does not feel the pain is related to L hip or L knee then will call [facility] and try and arrange transfer. Code Visit Inpatient E&M: [id number] Subs Hosp L2
[2019-09-12 07:41] LABS: ALB/GLOB Ratio 0.7 RATIO (0.9-2.4); AST(SGOT) 19 U/L (15-37); Alanine Aminotransfer ALT/SGPT 18 U/L (13-56); Albumin, Serum 2.3 g/dL (3.2-5.0); Alkaline Phosphatase 96 U/L (45-117); Anion Gap 8 (5-15); BUN 51 mg/dL (7-18); BUN/Creat Ratio 40.2 RATIO (10-20); Calcium,Total 8.4 mg/dL (8.5-10.1); Chloride 108 mmol/L (98-107); Cholesterol 84 mg/dL (200); Creatinine, Serum 1.27 mg/dL (0.55-1.02); EST Glomerular Filtration Rate 43 mL/min (>60); Est Glom Filt Rate - Afr Amer 52 mL/min (>60); Estimated Creatinine Clearance 28.17 ml/min; Globulin 3.3 g/dL (2.2-4.2); Glucose 89 mg/dL (74-106); High Density Lipoprotein 45 mg/dL; Magnesium 1.3 mg/dL (1.6-2.6); Phosphorus 2.8 mg/dL (2.5-4.9); Potassium 4.4 mmol/L (3.5-5.1); Protein, Total 5.6 g/dL (6.4-8.2); Sodium Level 138 mmol/L (136-145); Triglycerides 54 mg/dL; Very Low Density Lipoprotein 11 mg/dL (5-40)
[2019-09-12 08:41] LABS: International Normalized Ratio 2.6; Prothrombin Time (Protime)PT. 28.1 SECONDS (11.7-14.9)
[2019-09-12] MEDS: NIFEdipine 90 MG Tablet PO (09:11)
[2019-09-12] MEDS: Aspirin E.C. 81 MG Tablet PO (09:13)
[2019-09-12] MEDS: Pantoprazole Sodium 20 MG Tablet PO (09:14)
[2019-09-12] MEDS: Lisinopril 10 MG Tablet PO (09:14)
[2019-09-12] MEDS: Hydroxychloroquine 200 MG Tablet PO (09:15)
[2019-09-12] MEDS: Cilostazol 50 MG Tablet 100 MG PO ×2 (09:16→15:37)
[2019-09-12] MEDS: Ceftriaxone 1 GM/50 ML BAG IV (09:36)
[2019-09-12] MEDS: Magnesium Sulfate 4gm/100mL 4 GM/100 ML IV.SOLN. IV (11:16)
--- NOTE | 2019-09-12 11:30 | PN_ITS ---
Progress Note Cortext from Dr Brock re: consult for Saturday I did contact Dr Brock re: this pt and I have done some chart review from [facility]. It appears that the patient sees Dr Mike Coppola for her vascular surgery and seems complex from a systemic dz process with recent [facility] cardiology, vascular surgery, rheumatology, primary care, primary care/ortho evaluations with recommendations for nephrology consultation. Dr Brock concurs that she has concerns re: critical ischemia to the pts left leg. I am not communication equipment mechanic today and not available for consults and after our discussion we agreed that likely tertiary referral to Dr Coppola or one of his partners would be appropriate. Referral rather than local consultation will be pursued. Angel STROKE Vital Signs/Narrative: Vital Signs Temp Pulse Resp BP Pulse Ox 09/12/19 09:09 98.6 F 90 20 H 156/84 H 95
--- NOTE | 2019-09-12 12:06 | NURSING ---
Dr. Brock is aware that Art Studies can not be performed today per [facility] Interior Design Instructor and will have to wait until Saturday. No New orders.
[2019-09-12] MEDS: Magnesium Oxide 400 MG Tablet PO (15:37)
[2019-09-12] MEDS: Multivitamin (Healthy Eyes) Capsule 1 CAP PO (18:28)
--- NOTE | 2019-09-12 19:06 | NURSING ---
Only voided 200cc since noon today. just up to [facility] and voided that 200cc. Bladder scanned afterwards and obtained 131cc. IVF running at 100ml/hr. Dr. Brock aware of all the above. No new orders.
[2019-09-12] MEDS: Atorvastatin Calcium 10 MG Tablet PO (21:12)
[2019-09-13] VITALS (10 sets, daily range): BP systolic 111–138; BP diastolic 41–55; PULSE 76–87; RESP 16–18; TEMP 36.6–37.1; O2SAT 93–95
[2019-09-13] MEDS: Acetaminophen 500 MG Tablet 1000 MG PO ×3 (06:09→22:05)
--- NOTE | 2019-09-13 07:20 | CON.PCM_ITS ---
Reason for Consult Date of Consultation: 09/13/19 History of Present Illness: The patient is a 79 year old F with left lower external chronic leg pain. See chart for further details patient has been evaluated by multiple physicians for her vascular issues. She has had a BKA in her right lower external he did do the fact that her toes turn black and she is also left lost her left great toe to the same vascular issues and is been seen to the [facility] in the past for this. Patient denies any form of trauma any falls or any other issues relating to the lower extremity. Patient really localizes the pain to her quad and little bit in the calf down to the foot. No specific calf swelling no calf pain denies chest pain shortness of breath fever chills or other constitutional symptoms exam. [] Past Medical History Past Medical History (Chronic Problems): Chronic Problems Scleroderma (Chronic) Chronic renal failure, stage 3 (moderate) (Chronic) Chronic anticoagulation (Chronic) With warfarin Anemia of chronic disease (Chronic) CAD (coronary artery disease) (Chronic) PAD (peripheral artery disease) (Chronic) History of CEA (carotid endarterectomy) (Chronic) right Thrombocytosis (Chronic) Diarrhea (Chronic) resolves with immodium 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) Hypertension (Chronic) Allergies ampicillin Allergy (Verified 09/11/19 04:24) Rash cyclophosphamide [From Cytoxan] Allergy (Verified 09/11/19 04:24) Rash doxycycline Allergy (Verified 09/11/19 04:24) Rash morphine Allergy (Verified 09/11/19 04:24) mental status change sulfamethoxazole [From Bactrim] Allergy (Verified 09/11/19 04:24) Rash trimethoprim [From Bactrim] Allergy (Verified 09/11/19 04:24) Rash Home Medications: Ambulatory Orders Medication Instructions Recorded Omeprazole [Prilosec] 20 mg PO DAILY 11/05/15 Vit A/Vit C/Vit E/Zinc/Copper 1 each PO BID 03/09/16 [Preservision Areds Softgel] Aspirin E.C. [Ecotrin] 81 mg PO DAILY@0800 tab 06/29/19 Atorvastatin Calcium [Lipitor] 10 mg PO QHS tab 06/29/19 Hydroxychloroquine [Plaquenil] 200 mg PO DAILYCM tab 06/29/19 Multivitamins,Therapeutic 1 tab PO DAILYCM tab 06/29/19 [Multivitamin] NIFEdipine [Procardia XL] 90 mg PO DAILY tab 06/29/19 Warfarin [Coumadin] 2.5 mg PO SuTuThSa@1700 tab 06/29/19 Warfarin [Coumadin] 5 mg PO MoWeFr@1700 tab 06/29/19 hydroCHLOROthiazide 12.5 mg PO DAILY cap 06/29/19 [Hydrochlorothiazide] Acetaminophen [Tylenol] 1,000 mg PO Q6H PRN PRN 09/11/19 Hydroxychloroquine Sulfate 200 mg PO SUSA 09/11/19 [Plaquenil] Hydroxyurea 500 mg PO UD 09/11/19 Lisinopril [Zestril] 10 mg PO DAILY 09/11/19 Surgical History: cataract, - - Right carotid endarterectomy. Right BKA, left great toe amputation. Back surgery, patient can not remember what type. Psychiatric History: No pertinent psych hx [employer] History: No pertinent [employer] history Lives: Alone Smoking Status: Never smoker Tobacco Use: Non-smoker Alcohol: None Drugs: None - *Family History Maternal History Items: No pertinent history Paternal History Items: Stroke, - - Patient's father suffered from Raynaud's disease Review of Systems Constitutional: Denies: Chills, Fever, Weight Change HEENT: Denies: Head Aches, Sinus Congestion, Sinus Drainage Cardiovascular: Denies: Chest Pain, Palpitations Respiratory: Denies: Cough, Shortness of breath at rest, Sputum production Gastrointestinal: Denies: Abdominal Pain, Nausea, Vomiting Genitourinary: Denies: Dysuria Musculoskeletal: Reports: Leg Pain. Denies: Joint Pain, Joint Tenderness Skin: Denies: Rash, Wounds Neurological: Denies: Numbness, Tingling, Focal weakness Psychiatric: Denies: Anxiety, Depression, Homicidal Ideations, Suicidal Ideations Hematologic/ Lymphatic: Denies: Easy Bruising, Easy Bleeding Patient Problems: Active and Suspected Problems Left leg pain (Acute) - Physical Exam Vitals/I&O's: Vital Signs Temp Pulse Resp BP Pulse Ox 98.8 F 87 16 138/50 H 94 09/13/19 02:35 09/13/19 04:00 09/13/19 02:35 09/13/19 02:35 09/13/19 02:35 Oxygen Flow Rate (L/min) 1 Oxygen Delivery Method Room Air Weight: 111 lb 5.335 oz Body Mass Index (BMI) 16.9 Intake and Output for Last 24 Hours 09/11/19 09/12/19 09/13/19 23:59 23:59 23:59 Intake Total 350 / 750 2997.50 / 3197.50 450 / 450 Output Total 600 / 700 700 / 700 500 / 500 Balance -250 / 50 2297.50 / 2497.50 -50 / -50 General: Alert, Oriented x3, Cooperative HEENT: Atraumatic, PERRLA, EOMI, Normocephalic Neck: Supple, No JVD, Negative Carotid Bruits Lungs: Clear to auscultation, Normal air movement Cardiovascular: Regular rate, No murmurs Abdomen: Bowel Sounds Present, Soft, Non Tender Extremities: No edema, Capillary Refill Less than 3 Seconds Skin: No rashes, No breakdown Musculoskeletal: No Tenderness to Palpation of Joints or Extremities - Negative Homans, no calf swelling, no knee swelling, no erythema of her left knee. Active range of motion passive range of motion intact to the ankle, loss of great toe no signs of infection at foot, compartment soft sensation grossly intact Neurological: Cranial nerves II-XII grossly intact Psych/Mental Status: Normal Affect, Appropriate Microbiology Past 72 Hours 09/11/19 23:24 Urine Catheter - Catheter Urine Culture - Preliminary GNR lactose skiver blockers Laboratory Results 09/12/19 06:27: WBC 15.2 H, RBC 3.04 L, Hgb 8.9 L, Hct 28.2 L, MCV 92.8, MCH 29.3, MCHC 31.6 L, RDW Std Deviation 61.7 H, RDW Coeff of Aba 18.3 H, Plt Count 441, MPV 10.9, Immature Gran % (Auto) 1.100 H, Neut % (Auto) 83.0 H, Lymph % (Auto) 6.9 L, Garvin % (Auto) 8.4, Eos % (Auto) 0.2, Baso % (Auto) 0.4, Absolute Neuts (auto) 12.6 H, Absolute Lymphs (auto) 1.05, Nucleated RBC % 0 09/12/19 06:27: Sodium 138, Potassium 4.4, Chloride 108 H, Carbon Dioxide 22.0, Anion Gap 8, BUN 51 H, Creatinine 1.27 H, Estim Creat Clear Calc 28.17, Est GFR (MDRD) Af Amer 52 L, Est GFR (MDRD) Non-Af 43 L, BUN/Creatinine Ratio 40.2 H, Glucose 89, Calcium 8.4 L, Phosphorus 2.8, Magnesium 1.3 L, Total Bilirubin 0.30, AST 19, ALT 18, Alkaline Phosphatase 96, Total Protein 5.6 L, Albumin 2.3 L, Globulin 3.3, Albumin/Globulin Ratio 0.7 L, Triglycerides 54, Cholesterol 84, LDL Cholesterol 28, VLDL Cholesterol 11, HDL Cholesterol 45 09/12/19 08:17: PT 28.1 H, INR 2.6 Current Medications Acetaminophen (Tylenol) 1,000 mg PO Q8 [facility] Last Admin: 09/13/19 06:09 Dose: 1,000 mg Documented by: Aspirin (Ecotrin) 81 mg PO DAILY@0800 [facility] Last Admin: 09/12/19 09:13 Dose: 81 mg Documented by: Atorvastatin Calcium (Lipitor) 10 mg PO QHS [facility] Last Admin: 09/12/19 21:12 Dose: 10 mg Documented by: Cilostazol (Pletal) 100 mg PO BIDAC [facility] Last Admin: 09/12/19 15:37 Dose: 100 mg Documented by: Fentanyl Citrate (Sublimaze (100mcg Ampule)) 25 mcg IV Q4H PRN PRN Reason: severe >5 pain Last Admin: 09/12/19 22:14 Dose: 25 mcg Documented by: Hydroxychloroquine [facility]) [facility] Admin: 09/12/19 09:15 Dose: 200 mg Documented by: Sodium Chloride () 250 mls @ 15 mls/hr IV .[id number] PRN PRN Reason: Saline Flush Last Infusion: 09/12/19 15:54 Dose: 0 mls/hr Documented by: Ceftriaxone Sodium (Rocephin) 1 gm in 50 mls @ 100 mls/hr IV Q24 [facility] Last Infusion: 09/12/19 10:10 Dose: Infused Documented by: Lisinopril (Zestril) 10 mg PO DAILY [facility] Last Admin: 09/12/19 09:14 Dose: 10 mg Documented by: Magnesium Oxide (Mag-Ox 400) [facility] Last Admin: 09/12/19 15:37 Dose: 400 mg Documented by: Multivitamins (Multivitamin) [facility] Multivitamins/Minerals (Healthy Eyes) 1 capsule PO BIDCM [facility] Last Admin: 09/12/19 18:28 Dose: 1 capsule Documented by: Nifedipine (Procardia Xl) 90 mg PO DAILY [facility] Last Admin: 09/12/19 09:11 Dose: 90 mg Documented by: Pantoprazole Sodium (Protonix) 20 mg PO DAILY [facility] Last Admin: 09/12/19 09:14 Dose: 20 mg Documented by: Prochlorperazine Edisylate (Compazine Iv) 5 mg IV Q6H PRN PRN PRN Reason: NAUSEA/VOMITING Sodium Chloride () 10 - 40 ml IV UD PRN PRN Reason: SALINE FLUSH Last Admin: 09/12/19 22:14 Dose: 10 ml Documented by: Warfarin Sodium (Coumadin (Pbkc)) 2.5 mg PO SuTuThSa@1700 [facility] Last Admin: 09/12/19 18:28 Dose: 2.5 mg Documented by: Warfarin Sodium (Coumadin (Pbkc)) 5 mg PO MoWeFr@1700 [facility] Last Admin: 09/11/19 16:19 Dose: 5 mg Documented by: Assessment/Plan All Active Problems Left leg pain (Acute) Abdominal pain (Resolved) Decubitus ulcer of foot, stage 3 (Resolved) History of gastrointestinal bleeding (Resolved) Ileus (Resolved) Ischemic colitis (Resolved) Left arm weakness (Resolved) Nonhealing nonsurgical wound (Resolved) TIA (transient ischemic attack) (Resolved) Ulcer of left lower extremity (Resolved) xrays reviewed of hips and knee showing degenerative oa of bilateral hips and left lateral knee, vasc clips severe oa left knee and hip Patient has lost her left great toe as well as her right lower extremity secondary to vascular insufficiency. Patient denies any trauma to the left lower extremity most likely this is due to her vascular problems which is chronic in nature and patient states that this is consistent with how she feels the pain in her right lower extremity in the past. She is also had extensive work-up see chart for further details. At this point nothing orthopedic should be done to this patient as any patient is not a good candidate for any type of orthopedic intervention ie) arthroplasty No obvious septic joint or trauma to lower extremity concerning for any kind of surgical intervention at this time next We will follow peripherally most likely needs vascular follow-up This note was generated with [employer] software. It may contain incorrect words, spelling, and punctuation that were not noted in checking the note before signing.
[2019-09-13] MEDS: Cilostazol 50 MG Tablet 100 MG PO ×2 (07:50→17:14)
[2019-09-13] MEDS: Lisinopril 10 MG Tablet PO (07:50)
[2019-09-13] MEDS: Magnesium Oxide 400 MG Tablet PO ×2 (07:51→17:16)
[2019-09-13] MEDS: Multivitamin (Healthy Eyes) Capsule 1 CAP PO ×2 (07:51→17:14)
[2019-09-13] MEDS: Aspirin E.C. 81 MG Tablet PO (07:51)
[2019-09-13] MEDS: NIFEdipine 90 MG Tablet PO (07:52)
[2019-09-13] MEDS: Hydroxychloroquine 200 MG Tablet PO (07:52)
[2019-09-13] MEDS: Pantoprazole Sodium 20 MG Tablet PO (07:52)
[2019-09-13] MEDS: Multivitamins,Therapeutic Tablet 1 TABLET PO (07:53)
[2019-09-13] MEDS: 0.9% Saline Lock 10 ML Syringe IV ×3 (09:44→20:29)
[2019-09-13] MEDS: Ceftriaxone 1 GM/50 ML BAG IV (09:44)
[2019-09-13] MEDS: fentaNYL 100 MCG/2 ML Ampul 25 MCG IV ×3 (10:45→20:29)
--- NOTE | 2019-09-13 17:07 | PN_ITS ---
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 She consistently mentions left knee pain but is not a good historian and it is difficult to tell what the pain is coming from. She has severe degenerative joint disease of the left hip and left knee. Has been unable to ambulate. Seen by Dr. Edwards who feels she is not a surgical candidate for left hip or left knee replacement secondary to age and comorbidities. I do not feel that she has critical ischemia in the Left leg because I can doppler the pulses and the foot is warm. She follows molly Coppola vascular surgeon who comes to [place] for office hours. She is also being treated for a UTI secondary to Klebsiella pneumoniae. All events of the past 24 hours have been reviewed. She is afebrile. Vital signs are stable. All lab was personally reviewed. She has a leukocytosis but this is chronic with her. INR was 2.6 yesterday. She would not stand or walk with PT today due to pain. When I asked her where the pain was worst she told me my knee. She does not have much pain sitting in the chair. She does not appear to be in severe pain any time I have seen her. - Physical Exam Vitals/I&O's: Vital Signs Temp Pulse Resp BP Pulse Ox 97.9 F 81 18 111/45 L 93 09/13/19 14:45 09/13/19 16:12 09/13/19 14:45 09/13/19 14:45 09/13/19 14:45 Oxygen Flow Rate (L/min) 2 Oxygen Delivery Method Nasal Cannula Weight: 111 lb 5.335 oz Body Mass Index (BMI) 16.9 Intake and Output for Last 24 Hours 09/11/19 09/12/19 09/13/19 23:59 23:59 23:59 Intake Total 350 / 750 2997.50 / 3197.50 1009.75 / 1009.75 Output Total 600 / 700 700 / 700 500 / 500 Balance -250 / 50 2297.50 / 2497.50 509.75 / 509.75 General: Alert, Cooperative, No apparent distress Oral: Moist Mucosa Neck: Supple, No JVD, Trachea Midline Lungs: Clear to auscultation Cardiovascular: Regular rate, Regular Rhythm, Normal S1, Normal S2, No Gallop Abdomen: Bowel Sounds Present, Soft, Non Tender, Non-Distended Extremities: - - I can doppler the L DP and PT but can not palpate. The toes are less red today and the mottling on the lantar surface of the foot at the MTP joints is almost gone. The foot is warm. She had no pain with compression of the calf and no pain with compression of the thigh. Shehas pain when I bend the knee Skin: No rashes, No breakdown Microbiology Past 72 Hours 09/13/19 12:00 Stool Stool Occult Blood (KRYSTAL) - Final 09/11/19 23:24 Urine Catheter - Catheter Urine Culture - Final Klebsiella pneumoniae sp pneum Current Medications Acetaminophen (Tylenol) 1,000 mg PO Q8 [facility] Last Admin: 09/13/19 14:45 Dose: 1,000 mg Documented by: Aspirin (Ecotrin) 81 mg PO DAILY@0800 [facility] Last Admin: 09/13/19 07:51 Dose: 81 mg Documented by: Atorvastatin Calcium (Lipitor) 10 mg PO QHS [facility] Last Admin: 09/12/19 21:12 Dose: 10 mg Documented by: Cefadroxil (Duricef) 500 mg PO BID [facility] Cilostazol (Pletal) 100 mg PO BIDAC [facility] Last Admin: 09/13/19 07:50 Dose: 100 mg Documented by: Fentanyl Citrate (Sublimaze (100mcg Ampule)) 25 mcg IV Q4H PRN PRN Reason: severe >5 pain Last Admin: 09/13/19 14:45 Dose: 25 mcg Documented by: Hydroxychloroquine Sulfate (Plaquenil) 200 mg PO DAILYCM [facility] Last Admin: 09/13/19 07:52 Dose: 200 mg Documented by: Sodium Chloride () 250 mls @ 15 mls/hr IV .[id number] PRN PRN Reason: Saline Flush Last Infusion: 09/13/19 14:13 Dose: 0 mls/hr Documented by: Lisinopril (Zestril) 10 mg PO DAILY [facility] Last Admin: 09/13/19 07:50 Dose: 10 mg Documented by: Magnesium [facility] (Mag-Ox 400) [facility] Last Admin: 09/13/19 07:51 Dose: 400 mg Documented by: Multivitamins (Multivitamin) [facility] Last Admin: 09/13/19 07:53 Dose: 1 tablet Documented by: Multivitamins/Minerals (Healthy Eyes) [facility] capsule [facility] Last Admin: 09/13/19 07:51 Dose: 1 capsule Documented by: Nifedipine (Procardia Xl) 90 mg PO DAILY [facility] Last Admin: 09/13/19 07:52 Dose: 90 mg Documented by: Pantoprazole Sodium (Protonix) 20 mg PO DAILY [facility] Last Admin: 09/13/19 07:52 Dose: 20 mg Documented by: Prochlorperazine Edisylate (Compazine Iv) 5 mg IV Q6H PRN PRN PRN Reason: NAUSEA/VOMITING Sodium Chloride () 10 - 40 ml IV UD PRN PRN Reason: SALINE FLUSH Last Admin: 09/13/19 10:45 Dose: 10 ml Documented by: Warfarin Sodium (Coumadin (Pbkc)) 2.5 mg PO SuTuThSa@1700 [facility] Last Admin: 09/12/19 18:28 Dose: 2.5 mg Documented by: Warfarin Sodium (Coumadin (Pbkc)) 5 mg PO MoWeFr@1700 [facility] Last Admin: 09/11/19 16:19 Dose: 5 mg Documented by: Medical Necessity - Tobacco Use Smoking Status: Never smoker Tobacco Use: Non-smoker Assessment/Plan All Active Problems Left leg pain (Acute) Abdominal pain (Resolved) Decubitus ulcer of foot, stage 3 (Resolved) History of gastrointestinal bleeding (Resolved) Ileus (Resolved) Ischemic colitis (Resolved) Left arm weakness (Resolved) Nonhealing nonsurgical wound (Resolved) TIA (transient ischemic attack) (Resolved) Ulcer of left lower extremity (Resolved) Impressions 1. Intractable pain in the LLE with inability to ambulate. She normally ambulates with a RLE prosthesis and uses a walker when she does not have the prosthesis on. She has a known hx of PAD, She follows with Dr. Mike Coppola from [facility] for vascular surgery. After seeing her for a few days it is more clear to me that the pain is primarily in the knee joint. She has pain when I attempt to bend her knee. The left foot is warm and the toes appear less ruborous and there is barely any mottling on the bottom of her foot. She has no pain with palpation of the calf or the thigh. She is difficult to evaluate because she is a poor historian and can not tel exactly where the pain is with any consistency. I reviewed Dr. Edwards's note. No back pain and I do not think this is radicular. Sheis anticoagulated so I do not want to inject the knee today so will try EMLA followed by Zostrix TID. Continue Tylenol 1 g p.o. every 8 hours. Start tramadol 50 mg p.o. every 6 hours as needed pain up to 4. 2. Scleroderma/Raynaud's disease/CREST 3. CRF stage III 4. 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 Chronic anticoagulation with warfarin-INR is therapeutic 6. Anemia of chronic autoimmune disease 7. Raynaud's disease 8. Thrombocytosis 9. Peripheral arterial disease 10. Hypertension 11. 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 Status post right BKA for ischemia Recheck the CBC, BMP and the PT in the AM. Code Visit Inpatient E&M: 75673 Subs Hosp L2
[2019-09-13] MEDS: Atorvastatin Calcium 10 MG Tablet PO (22:05)
[2019-09-13] MEDS: traMADol 50 MG Tablet PO (22:06)
[2019-09-13] MEDS: Lidocaine/Prilocaine HCl 5 GM Tube 1 GM TOPICAL (22:09)
[2019-09-13] MEDS: Capsaicin 0.025% 1 APPLIC Tube TOPICAL (22:55)
[2019-09-13] MEDS: Cefadroxil 500 MG CAPSULE PO (22:58)
[2019-09-14] VITALS (10 sets, daily range): BP systolic 119–170; BP diastolic 49–78; PULSE 76–89; RESP 16–18; TEMP 36.6–37.2; O2SAT 91–96
[2019-09-14] MEDS: traMADol 50 MG Tablet PO ×2 (04:11→19:56)
[2019-09-14 05:59] LABS: Hematocrit 24.5 % (37-47); Hemoglobin 7.8 g/dL (12.0-15.0); Mean Corp Hgb Conc 31.8 g/dL (32-36); Mean Corpuscular Hgb 29.2 pg (27.0-32.0); Mean Corpuscular Volume 91.8 fL (81-99); Mean Platelet Vol. 10.7 fl (6.2-12.0); Platelet Count 453 K/mm3 (150-450); RBC Distribution Width CV 17.7 % (11.6-14.6); RBC Distribution Width SD 59.4 fl (35.1-43.9); Red Blood Count 2.67 M/mm3 (4.2-5.4); White Blood Count 13.4 K/mm3 (4.4-11.0)
[2019-09-14] MEDS: Lidocaine/Prilocaine HCl 5 GM Tube 1 GM TOPICAL ×3 (06:00→21:09)
[2019-09-14 06:04] LABS: Anion Gap 8 (5-15); BUN 65 mg/dL (7-18); BUN/Creat Ratio 39.6 RATIO (10-20); Chloride 106 mmol/L (98-107); Creatinine, Serum 1.64 mg/dL (0.55-1.02); EST Glomerular Filtration Rate 32 mL/min (>60); Est Glom Filt Rate - Afr Amer 39 mL/min (>60); Estimated Creatinine Clearance 21.81 ml/min; Glucose 82 mg/dL (74-106); International Normalized Ratio 2.8; Potassium 3.9 mmol/L (3.5-5.1); Prothrombin Time (Protime)PT. 29.5 SECONDS (11.7-14.9); Sodium Level 137 mmol/L (136-145)
[2019-09-14] MEDS: Acetaminophen 500 MG Tablet 1000 MG PO ×2 (06:40→21:08)
[2019-09-14] MEDS: Cilostazol 50 MG Tablet 100 MG PO ×2 (06:44→16:10)
[2019-09-14] MEDS: Capsaicin 0.025% 1 APPLIC Tube TOPICAL ×3 (07:44→21:37)
[2019-09-14] MEDS: Aspirin E.C. 81 MG Tablet PO (08:14)
[2019-09-14] MEDS: NIFEdipine 90 MG Tablet PO (08:14)
[2019-09-14] MEDS: Pantoprazole Sodium 20 MG Tablet PO (08:14)
[2019-09-14] MEDS: Lisinopril 10 MG Tablet PO (08:14)
[2019-09-14] MEDS: Cefadroxil 500 MG CAPSULE PO ×2 (08:15→21:08)
[2019-09-14] MEDS: Hydroxychloroquine 200 MG Tablet PO (08:15)
[2019-09-14] MEDS: Multivitamins,Therapeutic Tablet 1 TABLET PO (08:16)
[2019-09-14] MEDS: Multivitamin (Healthy Eyes) Capsule 1 CAP PO ×2 (08:16→16:10)
[2019-09-14] MEDS: Magnesium Oxide 400 MG Tablet PO ×2 (08:16→16:10)
--- NOTE | 2019-09-14 10:07 | PN_ITS ---
Patient Problems: Active and Suspected Problems Left leg pain (Acute) Subjective: Chief complaint: Follow-up after admission for intractable left knee/left lower extremity pain/difficulty ambulating as well as Klebsiella pneumonia acute cystitis. Patient seen and examined. No acute events overnight. She still having left knee pain but not at rest, it is only with ambulation. She denies any other complaints. Blood pressure slightly elevated, other vital signs are stable. - Physical Exam Vitals/I&O's: Vital Signs Temp Pulse Resp BP Pulse Ox 98.3 F 85 16 170/67 H 94 09/14/19 08:29 09/14/19 08:40 09/14/19 08:29 09/14/19 08:29 09/14/19 08:40 Oxygen Flow Rate (L/min) 2 Oxygen Delivery Method Room Air Weight: 111 lb 5.335 oz Body Mass Index (BMI) 16.9 Intake and Output for Last 24 Hours 09/12/19 09/13/19 09/14/19 23:59 23:59 23:59 Intake Total 2997.50 / 3197.50 1909.75 / 2259.75 750 / 750 Output Total 700 / 700 1050 / 1350 650 / 650 Balance 2297.50 / 2497.50 859.75 / 909.75 100 / 100 General: Alert, Oriented x3, Cooperative, No apparent distress HEENT: Atraumatic, PERRLA, EOMI, Normocephalic Oral: Moist Mucosa, No Gingival or Mucosal Lesions/ Ulcerations Neck: Supple, No JVD, Negative Carotid Bruits, Trachea Midline, Thyroid Normal Size and Texture Lungs: Clear to auscultation, Normal air movement, No rhonchi, No wheeze, No rales, Diminished Cardiovascular: Regular rate, Regular Rhythm, Normal S1, Normal S2, PMI Normal Abdomen: Bowel Sounds Present, Soft, Non Tender, Non-Distended, No Hepato- splenomegaly Extremities: No clubbing, No cyanosis, No edema, - - Status below right knee amputation. Left leg is warm to palpation, no evidence of acute ischemia. Skin: No rashes, No breakdown Lymphatic: No Cervical, Supraclavicular, or Inguinal Adenopathy Neurological: Cranial nerves II-XII grossly intact, Motor Exam 5/5 strength throughout, - Psych/Mental Status: Normal Affect, Appropriate, Alert and oriented to time, place, person, mood and affect Microbiology Past 72 Hours 09/11/19 18:10 Blood Culture (Wb) - Right Hand Blood Culture - Preliminary No growth in 48 hours. 09/11/19 18:05 Blood Culture (Wb) - Left Hand Blood Culture - Preliminary No growth in 48 hours. 09/13/19 12:00 Stool Stool Occult Blood (KRYSTAL) - Final 09/11/19 23:24 Urine Catheter - Catheter Urine Culture - Final Klebsiella pneumoniae sp pneum Laboratory Results 09/14/19 05:22: WBC 13.4 H, RBC 2.67 L, Hgb 7.8 L, Hct 24.5 L, MCV 91.8, MCH 29.2, MCHC 31.8 L, RDW Std Deviation 59.4 H, RDW Coeff of Aba 17.7 H, Plt Count 453 H, MPV 10.7 09/14/19 05:22: PT 29.5 H, INR 2.8 09/14/19 05:22: Sodium 137, Potassium 3.9, Chloride 106, Carbon Dioxide 23.0, Anion Gap 8, BUN 65 H, Creatinine 1.64 H, Estim Creat Clear Calc 21.81, Est GFR (MDRD) Af Amer 39 L, Est GFR (MDRD) Non-Af 32 L, BUN/Creatinine Ratio 39.6 H, Glucose 82, Calcium 8.0 L Clinical Impression(s) from Imaging Studies Hip/Pelvis X-Ray 09/11/19 19:11 IMPRESSION: Moderately severe degenerative changes of the left hip with joint space narrowing. The bony pelvis appears intact with no evidence of fracture or lytic or blastic osseous process. There is a moderate colonic stool burden. Electronically Signed: Pawel Claudio MD at 19:47 EST , Service support , Knee X-Ray 09/11/19 19:11 IMPRESSION: Degenerative changes of the lateral knee compartment with joint space narrowing. Electronically Signed: Pawel Claudio MD at 19:48 EST , Service support , Current Medications Acetaminophen (Tylenol) 1,000 mg PO Q8 ROSS Last Admin: 09/14/19 06:40 Dose: 1,000 mg Documented by: Aspirin (Ecotrin) 81 mg PO DAILY@0800 [facility] Last Admin: 09/14/19 08:14 Dose: 81 mg Documented by: Atorvastatin Calcium (Lipitor) 10 mg PO QHS [facility] Last Admin: 09/13/19 22:05 Dose: 10 mg Documented by: Capsaicin (Zostrix) 1 applic TOPICAL TID [facility]; Protocol Last Admin: 09/14/19 07:44 Dose: 1 applic Documented by: Cefadroxil (Duricef) 500 mg PO BID [facility] Last Admin: 09/14/19 08:15 Dose: 500 mg Documented by: Cilostazol (Pletal) 100 mg PO BIDAC [facility] Last Admin: 09/14/19 06:44 Dose: 100 mg Documented by: Fentanyl Citrate (Sublimaze (100mcg Ampule)) 25 mcg IV Q4H PRN PRN Reason: severe >5 pain Last Admin: 09/13/19 20:29 Dose: 25 mcg Documented by: Hydroxychloroquine [facility] ([facility]enil) [facility] Last Admin: 09/14/19 08:15 Dose: 200 mg Documented by: Sodium Chloride () 250 mls @ 15 mls/hr IV .[id number] PRN PRN Reason: Saline Flush Last Infusion: 09/13/19 14:13 Dose: 0 mls/hr Documented by: Lidocaine/Prilocaine (Emla Cream W/Tegaderm) 1 gm TOPICAL TID [facility]; Protocol Last Admin: 09/14/19 06:00 Dose: 1 gm Documented by: Lisinopril (Zestril) 10 mg PO DAILY [facility] Last Admin: 09/14/19 08:14 Dose: 10 mg Documented by: Magnesium Oxide (Mag-Ox 400) [facility] Last Admin: 09/14/19 08:16 Dose: 400 mg Documented by: Multivitamins (Multivitamin) [facility] Last Admin: 09/14/19 08:16 Dose: 1 tablet Documented by: Multivitamins/Minerals (Healthy Eyes) [facility] Last Admin: 09/14/19 08:16 Dose: 1 capsule Documented by: Nifedipine (Procardia Xl) 90 mg PO DAILY [facility] Last Admin: 09/14/19 08:14 Dose: 90 mg Documented by: Pantoprazole Sodium (Protonix) 20 mg PO DAILY [facility] Last Admin: 09/14/19 08:14 Dose: 20 mg Documented by: Prochlorperazine Edisylate (Compazine Iv) 5 mg IV Q6H PRN PRN PRN Reason: NAUSEA/VOMITING Sodium Chloride () 10 - 40 ml IV UD PRN PRN Reason: SALINE FLUSH Last Admin: 09/13/19 20:29 Dose: 10 ml Documented by: Tramadol HCl (Ultram) 50 mg PO Q6H PRN PRN PRN Reason: pain 4 or greater Last Admin: 09/14/19 04:11 Dose: 50 mg Documented by: Warfarin Sodium (Coumadin (Pbkc)) 2.5 mg PO SuTuThSa@1700 [facility] Last Admin: 09/13/19 17:14 Dose: 2.5 mg Documented by: Warfarin Sodium (Coumadin (Pbkc)) 5 mg PO MoWeFr@1700 [facility] Last Admin: 09/11/19 16:19 Dose: 5 mg Documented by: Medical Necessity - Tobacco Use Smoking Status: Never smoker Tobacco Use: Non-smoker Assessment/Plan All Active Problems Left leg pain (Acute) This is an 79 years old female patient presented to the emergency room because of left leg pain and she was admitted for evaluation and found to have Klebsiella pneumonia acute cystitis.. #1 intractable left knee/left leg pain/difficulty ambulating: X-ray of the left hip and pelvis showed moderately severe degenerative changes of the left hip, no acute fractures. X-ray of the left knee revealed degenerative changes of the lateral left knee compartment with normal joint space, no acute fractures. Patient does have a history of peripheral vascular disease but there is no evidence of acute ischemia. Patient does have pain only upon ambulation and this make acute ischemia is unlikely. Left leg is warm. Orthopedic surgery consulted and stated that this patient is not a candidate for knee replacement. Arterial Doppler of the left lower extremity ordered and to be done today. She is on IV fentanyl PRN for pain as well as tramadol. Her blood pressure slightly elevated, other vital signs are stable. Awaiting results of the left lower extremity Doppler, patient will need placement to senior care facility. Recommend follow-up with vascular surgery as outpatient unless the arterial Doppler of the leg reveals acute findings. #2 Klebsiella pneumonia acute cystitis: She is on oral Duricef, was on IV Rocephin. Urine culture reviewed. She has been afebrile, white blood cell count is trending down. #3 chronic anemia: Due to anemia of chronic disease, baseline hemoglobin has been around 8 to 10 g/dL. Today's hemoglobin is 7.8 g/dL. No evidence of active bleeding. Stool is negative for occult blood. Plan to repeat H&H this afternoon, transfuse if hemoglobin kept trending down. #4 scleroderma/crest syndrome: Stable, continue Plaquenil. #5 history of stroke: On lifelong Coumadin, INR is therapeutic. She is on aspirin and statin as well. #6 stage III chronic kidney disease: Baseline creatinine has been around 1.3 to 1.5 mg/dL. Today's creatinine is 1.64, close to baseline. #7 status post right below-knee amputation: This was done long time in the past for acute ischemia. #8 hypertension: Blood pressure stable, continue current medications. #9 DVT prophylaxis: On Coumadin, INR is therapeutic. This note was generated with [employer] dictation software. It may contain incorrect words, spelling, and punctuation that were not noted in checking the note before signing. Code Visit OBSV E&M: 24811 Subsequent observation care L2
--- NOTE | 2019-09-14 11:35 | CASEMGMT ---
Social Work Note LOLA placed a call to Vero with TCU who confirms she will have a bed for pt tomorrow. LOLA met with pt. SW updated pt that TCU is able to accept pt tomorrow. Pt states understanding. Plan: TCU tomorrow Dorita Arias STAFF MIDWIFE, FORK TRUCK OPERATOR
[2019-09-14 14:10] LABS: Hematocrit 27.7 % (37-47); Hemoglobin 8.9 g/dL (12.0-15.0)
[2019-09-14] MEDS: Atorvastatin Calcium 10 MG Tablet PO (21:08)
[2019-09-14] MEDS: 0.9% Saline Lock 10 ML Syringe IV (21:37)
[2019-09-15] MEDS: 0.9% Saline Lock 10 ML Syringe IV ×2 (00:02→06:56)
[2019-09-15] MEDS: fentaNYL 100 MCG/2 ML Ampul 25 MCG IV (00:02)
[2019-09-15 02:29] VITALS: BP 147/49; PULSE 82; RESP 18; TEMP 36.6; O2SAT 93
[2019-09-15 05:48] LABS: Absolute Lymphocyte Count 1.68 X10^3/uL (0.83-4.51); Absolute Neutrophil Count 8.6 X10^3/uL (2.0-7.7); Basophil# 0.06 X10^3/uL; Basophil% 0.5 % (0-1); Eosinophil# 0.27 X10^3/uL; Eosinophils% 2.3 % (0-5); Hematocrit 23.4 % (37-47); Hemoglobin 7.7 g/dL (12.0-15.0); Lymphocyte # 1.68 X10^3/ul (4.0); Lymphocyte % 14.2 % (19-41); Mean Corp Hgb Conc 32.9 g/dL (32-36); Mean Corpuscular Hgb 29.8 pg (27.0-32.0); Mean Corpuscular Volume 90.7 fL (81-99); Mean Platelet Vol. 10.5 fl (6.2-12.0); Monocyte# 1.14 X10^3/uL; Monocyte% 9.7 % (0-10); NRBC Flagged by Analyzer 0 % (0-5); Neutrophil # 8.59 X10^3/uL (2.7-7.7); Neutrophil % 72.7 % (47-70); Platelet Count 464 K/mm3 (150-450); RBC Distribution Width CV 17.3 % (11.6-14.6); RBC Distribution Width SD 56.9 fl (35.1-43.9); Red Blood Count 2.58 M/mm3 (4.2-5.4); White Blood Count 11.8 K/mm3 (4.4-11.0)
[2019-09-15 05:56] LABS: International Normalized Ratio 2.7; Prothrombin Time (Protime)PT. 29.1 SECONDS (11.7-14.9)
[2019-09-15] MEDS: Acetaminophen 500 MG Tablet 1000 MG PO (06:29)
[2019-09-15] MEDS: Cilostazol 50 MG Tablet 100 MG PO (06:29)
[2019-09-15] MEDS: Lidocaine/Prilocaine HCl 5 GM Tube 1 GM TOPICAL (06:32)
[2019-09-15] MEDS: Capsaicin 0.025% 1 APPLIC Tube TOPICAL (06:57)
--- NOTE | 2019-09-15 09:09 | PCM.TXEXTCAR ---
- Diet 09/11/19 11:21 Diet: Regular Diet Food consistency:: Regular Liquid Consistency:: Regular/Thin Diet Comments: Vitmain K restricted - Wound(s) right middle finger Wound Type: ulcer - Suggestions for Active Care Change Position every (hours): 3 Hours to sit in a chair: 2 Times a day to sit in chair: 3 - Therapies Weight Bearing: Weight bearing as tolerated Physical Therapy: Eval and Treat Occupational Therapy: Eval and Treat - Allergies/Procedures Done in Hospital Allergies/Adverse Reactions: Allergies ampicillin Allergy (Verified 09/11/19 04:24) Rash cyclophosphamide [From Cytoxan] Allergy (Verified 09/11/19 04:24) Rash doxycycline Allergy (Verified 09/11/19 04:24) Rash morphine Allergy (Verified 09/11/19 04:24) mental status change sulfamethoxazole [From Bactrim] Allergy (Verified 09/11/19 04:24) Rash trimethoprim [From Bactrim] Allergy (Verified 09/11/19 04:24) Rash - Type of Care/Length of Stay Estimated LOS: Convalescent Care Less Than 30 days Type of Care Needed: Skilled Rehab Potential: Fair Prognosis: Fair - Additional Orders/Day of Discharge H&P will serve as current which was dated: 09/11/19 Day of Discharge: 09/15/19 - Dietary and Speech Recommendations Dietitian Recommendations/Changes: Rec diet change to Cardiac / low sodium - consistent Vit K intake. Will offer magic cup w/ meals for increased nutrition if consumed - Follow Up Care Primary Care Physician: Jaya Blackwell III, MD [Primary Care Provider] - Please follow up with your Primary Care Physician in: 1 week. Please Follow Up With: Mike Coppola MD When: 2-3 weeks.
--- NOTE | 2019-09-15 09:25 | CASEMGMT ---
Social Work Note Pt is discharging to TCU today. SW placed a call to Vero with TCU and updated her that pt will be discharged to TCU today. SW placed transfer to extended care facility, signed medication list and any scripts in SNF folder and copy on pt's chart. Plan: TCU today Dorita Arias MSW, TEST ENGINE EVALUATOR
[2019-09-15 09:36] VITALS: BP 165/69; PULSE 85; RESP 18; TEMP 36.8; O2SAT 96
[2019-09-15] MEDS: Cefadroxil 500 MG CAPSULE PO (09:38)
[2019-09-15] MEDS: Magnesium Oxide 400 MG Tablet PO (09:39)
[2019-09-15] MEDS: Multivitamin (Healthy Eyes) Capsule 1 CAP PO (09:39)
[2019-09-15] MEDS: Aspirin E.C. 81 MG Tablet PO (09:39)
[2019-09-15] MEDS: Lisinopril 10 MG Tablet PO (09:39)
[2019-09-15] MEDS: Multivitamins,Therapeutic Tablet 1 TABLET PO (09:40)
[2019-09-15] MEDS: NIFEdipine 90 MG Tablet PO (09:40)
[2019-09-15] MEDS: Pantoprazole Sodium 20 MG Tablet PO (09:40)
[2019-09-15] MEDS: Hydroxychloroquine 200 MG Tablet PO (09:40)
--- NOTE | 2019-09-15 10:40 | NURSING ---
Call placed to tcu report given to Zuleika Simeon
--- NOTE | 2019-09-15 11:36 | PCM.DC.SUM ---
Discharge Date and Diagnosis Date of Admission: 09/11/19 Date of Discharge: 09/15/19 - Primary Discharge Diagnosis #1 intractable left knee/left leg pain attributed to osteoarthritis and weightbearing to the left lower extremity, acute ischemia ruled out. #2 Klebsiella pneumoniae acute cystitis. #3 chronic anemia. 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 The bony pelvis appears intact with no evidence of fracture or lytic or blastic osseous process. There is a moderate colonic stool burden. Electronically Signed: Pawel Claudio MD at 19:47 EST , Service support , Knee X-Ray 09/11/19 19:11 IMPRESSION: Degenerative changes of the lateral knee compartment with joint space narrowing. Electronically Signed: Pawel Claudio MD at 19:48 EST , Service support , Dr. Edwards, orthopedic surgery. Operations: None Procedures: None Summary of Care Provided: Patient seen and examined on the day of discharge and appeared to be stable to be discharged to TCU. Her left knee and left leg pain is getting better and actually she has no pain at rest. Her vital signs are stable. This is an 79 years old female patient presented to the emergency room because of left leg pain and she was admitted for evaluation and found to have Klebsiella pneumonia acute cystitis.. #1 intractable left knee/left leg pain/difficulty ambulating: She underwent extensive work-up because there was a concern that she may have acute limb ischemia. X-ray of the left hip and pelvis showed moderately severe degenerative changes of the left hip, no acute fractures. X-ray of the left knee revealed degenerative changes of the lateral left knee compartment with normal joint space, no acute fractures. Orthopedic surgery consulted and recommended that this patient is not a candidate for knee replacement. Patient does have a history of peripheral vascular disease but there is no evidence of acute ischemia. Her left leg was warm on palpation and her peripheral pulses was palpable but weak. Arterial Doppler of the left lower extremity performed and revealed non-calculable left PT ankle-brachial index, and left PT Doppler waveforms is biphasic and DP is only monophasic suggesting significant level of occlusive disease, abnormal digital brachial index consistent with severe disease. Patient does have a history of chronic peripheral vascular disease and she has been following up with vascular surgery as outpatient. Acute ischemia ruled out. Recommended to follow-up with vascular surgery as outpatient. #2 Klebsiella pneumoniae acute cystitis: Treated with IV Zosyn and then transitioned to oral Duricef. She was discharged on oral Duricef to complete total of 5 days of treatment. #3 chronic anemia: Due to anemia of chronic disease, baseline hemoglobin has been around 8 to 10 g/dL. During this admission, hemoglobin came down to 7.7 grams per deciliter. There was no evidence of active bleeding. Stool is negative for occult blood. No blood transfusion given. #4 scleroderma/crest syndrome: Stable, continue Plaquenil. #5 history of stroke: On lifelong Coumadin, INR is therapeutic. Discharge INR was 2.7. #6 stage III chronic kidney disease: Baseline creatinine has been around 1.3 to 1.5 mg/dL. Discharge creatinine is 1.64, close to baseline. #7 status post right below-knee amputation. Patient discharged to TCU in a stable medical condition, discharged on tramadol as needed for pain, discharged on cefadroxil 500 mg p.o. twice daily for 3 days more to complete total 5 days of treatment for acute cystitis, continued on her previous home medications including Coumadin without any changes, recommended follow-up with her vascular surgeon in 2 to 3 weeks, follow-up with PCP in 1 week. This note was generated with [employer]ation software. It may contain incorrect words, spelling, and punctuation that were not noted in checking the note before signing. - Physical Exam Vitals/I&O's: Vital Signs Temp Pulse Resp BP Pulse Ox 98.3 F 85 18 165/69 H 96 09/15/19 09:36 09/15/19 09:36 09/15/19 09:36 09/15/19 09:36 09/15/19 09:36 Oxygen Flow Rate (L/min) 2 Oxygen Delivery Method Room Air Weight: 111 lb 5.335 oz Body Mass Index (BMI) 16.9 Intake and Output for Last 24 Hours 09/13/19 09/14/19 09/15/19 23:59 23:59 23:59 Intake Total 1909.75 / 2259.75 1390 / 1540 350 / 350 Output Total 1050 / 1350 750 / 950 600 / 600 Balance 859.75 / 909.75 640 / 590 -250 / -250 General: Alert, Oriented x3, Cooperative, No apparent distress HEENT: Atraumatic, PERRLA, EOMI, Normocephalic Oral: Moist Mucosa, No Gingival or Mucosal Lesions/ Ulcerations Neck: Supple, No JVD, Negative Carotid Bruits, Trachea Midline, Thyroid Normal Size and Texture Lungs: Clear to auscultation, No rhonchi, No wheeze, No rales, Diminished Cardiovascular: Regular rate, Regular Rhythm, Normal S1, Normal S2, PMI Normal Abdomen: Bowel Sounds Present, Soft, Non Tender, Non-Distended, No Hepato-splenomegaly Extremities: No clubbing, No cyanosis, No edema, - - Status post below right knee amputation. Skin: No rashes, No breakdown Lymphatic: No Cervical, Supraclavicular, or Inguinal Adenopathy Neurological: Cranial nerves II-XII grossly intact, Neuro grossly intact Psych/Mental Status: Normal Affect, Appropriate Microbiology Past 72 Hours 09/11/19 18:10 Blood Culture (Wb) - Right Hand Blood Culture - Preliminary No growth in 48 hours. 09/11/19 18:05 Blood Culture (Wb) - Left Hand Blood Culture - Preliminary No growth in 48 hours. 09/13/19 12:00 Stool Stool Occult Blood (KRYSTAL) - Final 09/11/19 23:24 Urine Catheter - Catheter Urine Culture - Final Klebsiella pneumoniae sp pneum Laboratory Results 09/14/19 13:30: Hgb 8.9 L, Hct 27.7 L 09/15/19 05:28: WBC 11.8 H, RBC 2.58 L, Hgb 7.7 L, Hct 23.4 L, MCV 90.7, MCH 29.8, MCHC 32.9, RDW Std Deviation 56.9 H, RDW Coeff of Aba 17.3 H, Plt Count 464 H, MPV 10.5, Immature Gran % (Auto) 0.600, Neut % (Auto) 72.7 H, Lymph % (Auto) 14.2 L, [place] % (Auto) 9.7, Eos % (Auto) 2.3, Baso % (Auto) 0.5, Absolute Neuts (auto) 8.6 H, Absolute Lymphs (auto) 1.68, Nucleated RBC % 0 09/15/19 05:28: PT 29.1 H, INR 2.7 Home Medications: Medications to take at Discharge Omeprazole [Prilosec] 20 mg PO DAILY 11/05/15 Vit A/Vit C/Vit E/Zinc/Copper [Preservision Areds Softgel] 1 each PO BID 03/09/16 Acetaminophen [Tylenol] 1,000 mg PO Q6H PRN PRN 09/11/19 Hydroxychloroquine Sulfate [Plaquenil] 200 mg PO SUSA 09/11/19 Hydroxyurea 500 mg PO UD 09/11/19 Lisinopril [Zestril] 10 mg PO DAILY 09/11/19 Aspirin E.C. [Ecotrin] 81 mg PO DAILY@0800 09/15/19 Atorvastatin Calcium [Lipitor] 10 mg PO QHS 09/15/19 Cefadroxil [Duricef] 500 mg PO BID 09/15/19 Hydroxychloroquine [Plaquenil] 200 mg PO DAILYCM 09/15/19 Multivitamins,Therapeutic [Multivitamin] 1 tab PO DAILYCM 09/15/19 NIFEdipine [Procardia XL] 90 mg PO DAILY 09/15/19 Warfarin [Coumadin] 2.5 mg PO SuTuThSa@1700 09/15/19 Warfarin [Coumadin] 5 mg PO MoWeFr@1700 09/15/19 hydroCHLOROthiazide [Hydrochlorothiazide] 12.5 mg PO DAILY 09/15/19 traMADol [Ultram] 50 mg PO Q6H PRN PRN #30 tab 09/15/19 Following Prescrptions Were Given to Patient: traMADol [Ultram] 50 mg PO Q6H PRN PRN #30 tab PRN Reason: pain 4 or greater Prescription Printed Primary Care Physician: Jaya Blackwell III, MD [Primary Care Provider] - Please follow up with your Primary Care Physician in: 1 week. Please Follow Up With: Mike Coppola MD When: 2-3 weeks. Patient Instructions: ED Chronic Pain, Myalgias Disposition: Care Home facility Minutes spent on discharge:: 33 Patient Condition:: Stable Medical Necessity - Tobacco Use Smoking Status: Never smoker Tobacco Use: Non-smoker Meaningful Use Info Meaningful Use Diagnoses (Choose all that apply): None applicable Code Visit Inpatient E&M: 18758 Disch Hosp
== END 2019-09-15 10:45 | disposition skilled nursing facility (03) | DRG 554 ==
LOC: ED 06:10 → MS3 11:21
PROVIDERS: Admitting Provider Internal Medicine; Emergency Provider Emergency Medicine; Family Provider Family Medicine; PCP Family Medicine; Referring Provider Internal Medicine; Visit Provider Hospitalist
DX: M17.12 Unilateral primary osteoarthritis, left knee (principal); N30.00 Acute cystitis without hematuria; N18.3 Chronic kidney disease, stage 3 (moderate); M34.1 CR(E)ST syndrome; I73.00 Raynaud's syndrome without gangrene; I12.9 Hypertensive chronic kidney disease with stage 1 through stage 4 chronic kidney disease, or unspecified chronic kidney disease; B96.1 Klebsiella pneumoniae [K. pneumoniae] as the cause of diseases classified elsewhere; D63.8 Anemia in other chronic diseases classified elsewhere; M16.12 Unilateral primary osteoarthritis, left hip; I73.9 Peripheral vascular disease, unspecified; I25.10 Atherosclerotic heart disease of native coronary artery without angina pectoris; Z89.511 Acquired absence of right leg below knee; Z89.412 Acquired absence of left great toe; Z79.01 Long term (current) use of anticoagulants
CPT/HCPCS: 36415; 73502; 73560; 80048; 80053; 80061; 81001; 82274; 82550; 82570; 83605; 83735; 84100; 84300; 85014; 85018; 85025; 85027; 85610; 87040; 87077; 87086; 87088; 87186; 93923; 97110; 97116; 97162; 97165; 97530; 97535; 99285; J7050; J7120; A4216; J2405

== ENCOUNTER 2019-09-15 11:00 | Inpatient (IN) | payer MEDICARE, OTHER, SELFPAY ==
[2019-09-11 11:17] VITALS: BMI 16.9
[2019-09-15 11:23] VITALS: BMI 16.5
[2019-09-15 11:37] VITALS: BMI 16.6
[2019-09-15 12:02] VITALS: BP 135/51; PULSE 80; RESP 16; TEMP 36.4; O2SAT 92
[2019-09-15 15:30] VITALS: BP 103/40; PULSE 78; RESP 16; TEMP 36.6; O2SAT 93
[2019-09-15 16:24] VITALS: BP 119/42
[2019-09-15] MEDS: Cefadroxil 500 MG CAPSULE PO (16:58)
[2019-09-15] MEDS: Multivitamin (Healthy Eyes) Capsule 1 CAP PO (16:58)
--- NOTE | 2019-09-15 21:06 | HP.PCM_ITS ---
Problem List (1) Debility Status: Acute (2) UTI due to Klebsiella species Status: Acute (3) Osteoarthritis of left knee Status: Chronic (4) Osteoarthritis of left hip Status: Chronic (5) Peripheral arterial occlusive disease Status: Chronic (6) Constipation Status: Chronic (7) Hyperlipidemia Status: Chronic (8) Chronic kidney disease Status: Chronic (9) Transient ischemic attack Status: Chronic (10) Carotid artery stenosis Status: Chronic (11) CREST (calcinosis, Raynaud's phenomenon, esophageal dysfunction, sclerodactyly, telangiectasia) Status: Chronic (12) GERD (gastroesophageal reflux disease) Status: Chronic (13) Scleroderma Status: Chronic (14) CAD (coronary artery disease) Status: Chronic (15) Hypertension Status: Chronic History of Present Illness Date of Admission: 09/15/19 Chief Complaint: Here for rehabilitation, strengthening, prior to discharge home alone. The patient is a 79 year old Female with below past medical history presented to [facility] Emergency Department 09/11/2019 with left leg pain. 09/11/2019 X-ray left knee showed arthritis. 09/11/2019 X-ray pelvis, left hip showed severe left hip arthritis, moderate constipation. 09/11/2019 CHRISTOPHER Doppler showed mild to severe PAOD left lower extremity. Chronic left leg pain. History of osteoarthritis, PAOD, Scleroderma. She takes Tylenol for pain at home. WBC 13.7, Hemoglobin 9. Lactic acid, CPK okay. Tramadol 50MG x 2 doses given, unable to walk. 09/11/2019 Admit to Hospital. Left lower extremity NOT ischemic. Morphine 4MG IV, Oxycodone 5MG NOT helpful for left leg pain. IV fluids, Pletal started for PAOD. 09/12/2019 Temperature 99.9, urine culture, blood culture sent. 09/12/2019 Dr. Blackwell recommended transfer to [facility] for critical ischemia left lower extremity. 09/13/2019 Dr. Edwards recommended vascular evaluation, not a good candidate for orthopedic intervention due to PAOD. Patient has seen Dr. Mike Coppola in the past. Acute ischemia of left lower extremity ruled out. K. Pneumoniae urinary tract infection treated with Zosyn IV, transitioned to Duricef. Hemoglobin 7.7, but stable, no transfusion necessary. Lifetime coumadin for stroke prevention. 09/15/2019 Admit to TCU with debility, here for rehabilitation, strengthening, prior to discharge home alone. Past Medical History Past Medical History (Chronic Problems): Chronic Problems Osteoarthritis of left knee (Chronic) Osteoarthritis of left hip (Chronic) Peripheral arterial occlusive disease (Chronic) Constipation (Chronic) Hyperlipidemia (Chronic) Chronic kidney disease (Chronic) Transient ischemic attack (Chronic) Carotid artery stenosis (Chronic) CREST (calcinosis, Raynaud's phenomenon, esophageal dysfunction, sclerodactyly, telangiectasia) (Chronic) GERD (gastroesophageal reflux disease) (Chronic) Scleroderma (Chronic) Chronic renal failure, stage 3 (moderate) (Chronic) Chronic anticoagulation (Chronic) With warfarin Anemia of chronic disease (Chronic) CAD (coronary artery disease) (Chronic) PAD (peripheral artery disease) (Chronic) History of CEA (carotid endarterectomy) (Chronic) right Thrombocytosis (Chronic) Diarrhea (Chronic) resolves with immodium 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) Hypertension (Chronic) Allergies ampicillin Allergy (Verified 09/11/19 04:24) Rash cyclophosphamide [From Cytoxan] Allergy (Verified 09/11/19 04:24) Rash doxycycline Allergy (Verified 09/11/19 04:24) Rash morphine Allergy (Verified 09/11/19 04:24) mental status change sulfamethoxazole [From Bactrim] Allergy (Verified 09/11/19 04:24) Rash trimethoprim [From Bactrim] Allergy (Verified 09/11/19 04:24) Rash Home Medications: Ambulatory Orders Medication Instructions Recorded Omeprazole [Prilosec] 20 mg PO DAILY 11/05/15 Vit A/Vit C/Vit E/Zinc/Copper 1 each PO BID 03/09/16 [Preservision Areds Softgel] Acetaminophen [Tylenol] 1,000 mg PO Q6H PRN PRN 09/11/19 Hydroxychloroquine Sulfate 200 mg PO SUSA 09/11/19 [Plaquenil] Hydroxyurea 500 mg PO UD 09/11/19 Lisinopril [Zestril] 10 mg PO DAILY 09/11/19 Aspirin E.C. [Ecotrin] 81 mg PO DAILY@0800 09/15/19 Atorvastatin Calcium [Lipitor] 10 mg PO QHS 09/15/19 Cefadroxil [Duricef] 500 mg PO BID 09/15/19 Hydroxychloroquine [Plaquenil] 200 mg PO DAILYCM 09/15/19 Multivitamins,Therapeutic 1 tab PO DAILYCM 09/15/19 [Multivitamin] NIFEdipine [Procardia XL] 90 mg PO DAILY 09/15/19 Warfarin [Coumadin] 2.5 mg PO SuTuThSa@1700 09/15/19 Warfarin [Coumadin] 5 mg PO MoWeFr@1700 09/15/19 hydroCHLOROthiazide 12.5 mg PO DAILY 09/15/19 [Hydrochlorothiazide] traMADol [Ultram] 50 mg PO Q6H PRN PRN #30 tab 09/15/19 Surgical History: cataract, - - Right carotid endarterectomy. Right BKA, left great toe amputation. Back surgery, patient can not remember what type. 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 Lives: Alone Smoking Status: Never smoker Tobacco Use: Non-smoker Alcohol: None Drugs: None - *Family History Paternal History Items: Stroke, - - Patient's father suffered from Raynaud's disease Maternal History Items: No pertinent history Review of Systems Constitutional: Denies: Chills, Fever, Weight Change HEENT: Denies: Head Aches, Sinus Congestion, Sinus Drainage Cardiovascular: Denies: Chest Pain, Palpitations Respiratory: Denies: Cough, Shortness of breath at rest, Sputum production Gastrointestinal: Denies: Abdominal Pain, Nausea, Vomiting Genitourinary: Denies: Dysuria Musculoskeletal: Denies: Joint Pain, Joint Tenderness Skin: Denies: Rash, Wounds Neurological: Denies: Numbness, Tingling, Focal weakness Psychiatric: Denies: Anxiety, Depression, Homicidal Ideations, Suicidal Ideations Hematologic/ Lymphatic: Denies: Easy Bruising, Easy Bleeding VTE Information - Inpt Only VTE Present on Admission: No VTE Mechan Device Prophylaxis: Knee High CAROLE Hose VTE Pharm Prophylaxis ordered?: No Reason prophylaxis not ordered:: Treatment Not Indicated Patient Problems: Active and Suspected Problems Debility (Acute) UTI due to Klebsiella species (Acute) - Physical Exam Vitals/I&O's: Vital Signs Temp Pulse Resp BP Pulse Ox 98 F 78 16 119/42 L 93 09/15/19 15:30 09/15/19 15:30 09/15/19 15:30 09/15/19 16:24 09/15/19 15:30 Oxygen Delivery Method Room Air Weight: 49.48 kg Body Mass Index (BMI) 16.5 Intake and Output for Last 24 Hours 09/13/19 09/14/19 09/15/19 23:59 23:59 23:59 Intake Total 600 / 600 Balance 600 / 600 General: Alert, Oriented x3, Cooperative HEENT: Atraumatic, PERRLA, EOMI, Normocephalic Neck: Supple, No JVD, Negative Carotid Bruits Lungs: Clear to auscultation, Normal air movement Cardiovascular: Regular rate, No murmurs Abdomen: Bowel Sounds Present, Soft, Non Tender Extremities: No edema, Capillary Refill Less than 3 Seconds, - - Right below the knee amputation. Skin: No rashes, No breakdown Musculoskeletal: No Tenderness to Palpation of Joints or Extremities Neurological: Cranial nerves II-XII grossly intact Psych/Mental Status: Normal Affect, Appropriate Current Medications Acetaminophen (Tylenol) 1,000 mg PO Q6H PRN PRN PRN Reason: Pain Score 1-10/10 Aspirin (Ecotrin) 81 mg PO DAILY@0800 [facility] Atorvastatin Calcium (Lipitor) 10 mg PO QHS [facility] Cefadroxil (Duricef) 500 mg PO BID [facility] Stop: 09/18/19 18:01 Last Admin: 09/15/19 16:58 Dose: 500 mg Documented by: Hydrochlorothiazide () 12.5 mg PO DAILY [facility] Hydroxychloroquine Sulfate (Plaquenil) 200 mg PO DAILYCM [facility] Hydroxychloroquine Sulfate (Plaquenil) 200 mg PO SuSa@2200 [facility] Hydroxyurea (Hydrea) 500 mg PO QODAY [facility] Lisinopril (Zestril) 10 mg PO DAILY [facility] Multivitamins ([facility]itamin) [facility] Multivitamins/Minerals (Healthy Eyes) [facility] Last Admin: 09/15/19 16:58 Dose: 1 capsule Documented by: Nifedipine (Procardia Xl) 90 mg PO DAILY [facility] Pantoprazole Sodium (Protonix) 20 mg PO DAILY [facility] Senna/Docusate Sodium (Senokot-S, Nola-Colace) 1 tablet PO BID [facility] Last Admin: 09/15/19 16:59 Dose: Not Given Documented by: Tramadol HCl (Ultram) 50 mg PO Q6H PRN PRN PRN Reason: pain 4 or greater Tuberculin PPD (Tubersol, Aplisol, Ppd) 5 tu ID X1 ONE Stop: 09/16/19 10:01 Tuberculin PPD (Tubersol, Aplisol, Ppd) 5 tu ID X1 ONE Stop: 09/23/19 10:01 Warfarin Sodium (Coumadin (Pbkc)) 2.5 mg PO SuTuThSa@1700 [facility] Last Admin: 09/15/19 16:58 Dose: 2.5 mg Documented by: Warfarin Sodium (Coumadin (Pbkc)) 5 mg PO MoWeFr@1700 [facility] Assessment/Plan All Active Problems Debility (Acute) UTI due to Klebsiella species (Acute) Left leg pain (Acute) 79 year old female with below past medical history significant for peripheral arterial occlusive disease, hospitalized for severe left leg pain, critical ischemia ruled out, complicated by Klebsiella Pneumoniae urinary tract infection, acute on chronic anemia, admitted to TCU with debility, here for reha bilitation, strengthening, prior to discharge home alone. * Debility - PT/OT. * Pain - Tylenol 1000MG Q6H pain (1-3), Tramadol 50mG Q6H PRN pain (4-10) * Bowel - Miralax 17GM daily, Senna/colace 1 tablet BID, Dulcolax 10MG daily PRN. * Adult immunization - Administer Prevnar 13, Pneumovax 23, Fluzone as needed. * DVT prophylaxis - Not necessary, already anticoagulated. * TIA - Aspirin 81MG daily. * Hyperlipidemia - Atorvastatin 10MG QHS, resident most likely cannot tolerate high intensity statin. * K. Pneumoniae UTI - Duricef 500MG BID thru 09/18/2019. * Hypertension - Lisinopril 10MG daily, HCTZ 12.5MG daily, Nifedipine 90MG daily. * Scleroderma - Plaquenil 200MG daily, 400MG 2 days/week, Hydroxyurea 500MG every other day. * Macular Degeneration - Healthy Eye 1 tablet BID. * Nutrition - MVI daily. * Raynaud's syndrome - Nifedipine 90MG daily. * GERD - Pantoprazole 20MG daily. * Stroke/PAOD - Warfarin 2.5MG 4 days/week, 5MG 3 days/week, follow INR. * Advance Care Planning - I discussed the differences between Full Code, DNRCC- A, DNRCC with resident and answered her questions, she decided on DNRCC-A, discussion took 16 minutes.
[2019-09-15] MEDS: Atorvastatin Calcium 10 MG Tablet PO (21:44)
[2019-09-16] MEDS: traMADol 50 MG Tablet PO ×2 (00:51→09:02)
[2019-09-16 05:49] LABS: Absolute Lymphocyte Count 1.48 X10^3/uL (0.83-4.51); Basophil# 0.04 X10^3/uL; Basophil% 0.3 % (0-1); Eosinophil# 0.27 X10^3/uL; Hemoglobin 8.7 g/dL (12.0-15.0); Lymphocyte # 1.48 X10^3/ul (4.0); Lymphocyte % 11.2 % (19-41); Mean Corp Hgb Conc 33.5 g/dL (32-36); Mean Corpuscular Hgb 30.4 pg (27.0-32.0); Mean Corpuscular Volume 90.9 fL (81-99); Mean Platelet Vol. 10.3 fl (6.2-12.0); Monocyte# 1.29 X10^3/uL; Monocyte% 9.8 % (0-10); NRBC Flagged by Analyzer 0 % (0-5); Neutrophil # 10.02 X10^3/uL (2.7-7.7); Neutrophil % 75.9 % (47-70); Platelet Count 541 K/mm3 (150-450); RBC Distribution Width CV 17.2 % (11.6-14.6); RBC Distribution Width SD 57.1 fl (35.1-43.9); Red Blood Count 2.86 M/mm3 (4.2-5.4); White Blood Count 13.2 K/mm3 (4.4-11.0)
[2019-09-16 06:11] LABS: Anion Gap 8 (5-15); BUN 59 mg/dL (7-18); BUN/Creat Ratio 44.4 RATIO (10-20); Calcium,Total 8.3 mg/dL (8.5-10.1); Chloride 109 mmol/L (98-107); Creatinine, Serum 1.33 mg/dL (0.55-1.02); EST Glomerular Filtration Rate 41 mL/min (>60); Est Glom Filt Rate - Afr Amer 49 mL/min (>60); Estimated Creatinine Clearance 26.35 ml/min; Glucose 74 mg/dL (74-106); Potassium 4.2 mmol/L (3.5-5.1); Sodium Level 138 mmol/L (136-145)
[2019-09-16] MEDS: Cefadroxil 500 MG CAPSULE PO ×2 (06:14→17:07)
[2019-09-16] MEDS: NIFEdipine 90 MG Tablet PO (06:15)
[2019-09-16] MEDS: Pantoprazole Sodium 20 MG Tablet PO (06:15)
[2019-09-16] MEDS: Lisinopril 10 MG Tablet PO (06:15)
[2019-09-16] MEDS: hydroCHLOROthiazide 12.5mg 12.5 MG PO (06:15)
[2019-09-16] MEDS: Aspirin E.C. 81 MG Tablet PO (08:34)
[2019-09-16] MEDS: Hydroxychloroquine 200 MG Tablet PO (08:34)
[2019-09-16] MEDS: Multivitamin (Healthy Eyes) Capsule 1 CAP PO ×2 (08:34→17:07)
[2019-09-16] MEDS: Multivitamins,Therapeutic Tablet 1 TABLET PO (08:34)
[2019-09-16] MEDS: Tuberculin,Purif.prot.deriv. 50 TU/ML Vial 5 ML ID (09:53)
--- NOTE | 2019-09-16 10:04 | NURSING ---
NEW MEPILEX APPLIED TO PT BOTTOM DUE TO OTHER ONE GOT WET WHEN PT TOOK SHOWER.
--- NOTE | 2019-09-16 14:08 | PHA.CONS_ITS ---
<Amina Quiroz - Last Filed: 09/16/19 14:08> Progress Note - Pharmacy Subjective: TCU Admission Objective: Allergies ampicillin Allergy (Verified 09/11/19 04:24) Rash cyclophosphamide [From Cytoxan] Allergy (Verified 09/11/19 04:24) Rash doxycycline Allergy (Verified 09/11/19 04:24) Rash morphine Allergy (Verified 09/11/19 04:24) mental status change sulfamethoxazole [From Bactrim] Allergy (Verified 09/11/19 04:24) Rash trimethoprim [From Bactrim] Allergy (Verified 09/11/19 04:24) Rash Current Medications Generic Name Dose Route Start Last Admin Trade Name Freq PRN Reason Stop Dose Admin Acetaminophen 1,000 mg 09/15/19 11:33 Tylenol PO Q6H PRN PRN Pain Score 1-3/10 Aspirin 81 mg 09/16/19 08:00 09/16/19 08:34 Ecotrin PO 81 mg DAILY@0800 [facility] Administration Atorvastatin Calcium 10 mg 09/15/19 22:00 09/15/19 21:44 Lipitor PO 10 mg QHS [facility] Administration Bisacodyl 10 mg 09/15/19 21:29 Dulcolax PO DAILY PRN PRN Constipation Cefadroxil 500 mg 09/15/19 18:00 09/16/19 06:14 Duricef PO 09/18/19 18:01 500 mg BID [facility] Administration Hydrochlorothiazide 12.5 mg 09/16/19 06:00 09/16/19 06:15 PO 12.5 mg DAILY [facility] Administration Hydroxychloroquine Sulfate 200 mg 09/16/19 08:00 09/16/19 08:34 [facility] Hydroxychloroquine Sulfate 200 mg 09/19/19 22:00 Plaquenil PO SuSa@2200 [facility] Hydroxyurea 500 mg 09/18/19 10:00 Hydrea PO QODAY [facility] Lisinopril 10 mg 09/16/19 06:00 09/16/19 06:15 Zestril PO 10 mg DAILY [facility] Administration Melatonin 10 mg 09/16/19 22:00 Melatonin PO QHS [facility] Multivitamins 1 tablet 09/16/19 08:00 09/16/19 08:34 [facility]amin [facility] Administration Multivitamins/Minerals 1 capsule 09/15/19 17:00 09/16/19 08:34 Healthy Eyes PO 1 capsule BIDCM [facility] Administration Nifedipine 90 mg 09/16/19 06:00 09/16/19 06:15 Procardia Xl PO 90 mg DAILY [facility] Administration Pantoprazole Sodium 20 mg 09/16/19 06:00 09/16/19 06:15 Protonix PO 20 mg DAILY [facility] Administration Polyethylene Glycol 17 gm 09/16/19 06:00 09/16/19 06:15 Miralax PO Not Given DAILY [facility] Senna/Docusate Sodium 1 tablet 09/15/19 18:00 09/16/19 06:15 Senokot-S, Nola-Colace PO Not Given BID [facility] Tramadol HCl 50 mg 09/15/19 11:33 09/16/19 09:02 Ultram PO 50 mg Q6H PRN PRN Administration Pain Score 4-10/10 Tuberculin PPD 5 tu 09/23/19 10:00 Tubersol, Aplisol, Ppd ID 09/23/19 10:01 X1 ONE Warfarin Sodium 2.5 mg 09/15/19 17:00 09/15/19 16:58 Coumadin (Pbkc) PO 2.5 mg SuTuThSa@1700 [facility] Administration Warfarin Sodium 5 mg 09/16/19 17:00 Coumadin (Pbkc) PO MoWeFr@1700 [facility] Problem List Debility (Acute) UTI due to Klebsiella species (Acute) Osteoarthritis of left knee (Chronic) Osteoarthritis of left hip (Chronic) Peripheral arterial occlusive disease (Chronic) Constipation (Chronic) Hyperlipidemia (Chronic) Chronic kidney disease (Chronic) Transient ischemic attack (Chronic) Carotid artery stenosis (Chronic) CREST (calcinosis, Raynaud's phenomenon, esophageal dysfunction, sclerodactyly, telangiectasia) (Chronic) GERD (gastroesophageal reflux disease) (Chronic) Vital Signs Temp Pulse Resp BP Pulse Ox 98 F 78 16 119/42 L 93 09/15/19 15:30 09/15/19 15:30 09/15/19 15:30 09/15/19 16:24 09/15/19 15:30 Oxygen Delivery Method Room Air Weight: 49.48 kg Body Mass Index (BMI) 16.5 Sodium 138 mmol/L (136-145) 09/16/19 05:05 Potassium 4.2 mmol/L (3.5-5.1) 09/16/19 05:05 Chloride 109 mmol/L (98-107) H 09/16/19 05:05 Carbon Dioxide 21.0 mmol/L (21.0-32.0) 09/16/19 05:05 Anion Gap 8 (5-15) 09/16/19 05:05 BUN 59 mg/dL (7-18) H 09/16/19 05:05 Creatinine 1.33 mg/dL (0.55-1.02) H 09/16/19 05:05 Est GFR (MDRD) Af Amer 49 mL/min (>60) L 09/16/19 05:05 Est GFR (MDRD) Non-Af 41 mL/min (>60) L 09/16/19 05:05 BUN/Creatinine Ratio 44.4 RATIO (10-20) H 09/16/19 05:05 Glucose 74 mg/dL (74-106) 09/16/19 05:05 Assessment/Plan: 1. Pain: acetaminophen 1000mg PO Q6H PRN pain (1-01/11) and tramadol 50mg PO Q6H PRN pain (-08/13). Please continue to monitor for pain and renal function. 2. Klebsiella pneumoniae UTI: cefadroxil 500mg PO BID thru 09/18/19. Please continue to monitor for S/S of infection and diarrhea. 3. Scleroderma: hydroxychloroquine 200mg PO DAILYCM and an additional 200mg PO QHS on Saturdays and Sundays (total 400mg on these days), hydroxyurea 500mg PO QODAY. Please continue to monitor for constipation, diarrhea, and CBC. 4. Raynaud's syndrome: nifedipine 90mg PO daily. Please continue to monitor BP and S/S of Raynaud's. 5. Hypertension: lisinopril 10mg PO daily, hydrochlorothiazide 12.5mg PO daily, nifedipine 90mg PO daily. Please continue to monitor BP, electrolytes, and renal function. 6. Hyperlipidemia: atorvastatin 10mg PO QHS. Recent lipid panel and AST/ALT WNL and appropriate for continued use. Please continue to monitor for muscle pain. 7. TIA/Stroke: aspirin 81mg PO DAILYCM, warfarin 5mg PO MWF and 2.5mg PO all other days. Please continue to monitor INR and for S/S of bleeding. 8. GERD: pantoprazole 20mg PO daily. Please continue to monitor for S/S of GERD. 9. Macular degeneration/Overall Nutrition: Healthy Eyes 1 capsule PO BIDCM and multivitamin 1 tablet PO DAILYCM. Please continue to monitor. Psychotropic Medications: None *Unnecessary Medications: melatonin 10mg PO QHS. I could not find a documented indication in the patient's chart. Please consider stopping if clinically appropriate. Bowel Regimen: Miralax 17gm PO daily, senna/docusate 1T PO BID, and bisacodyl 10mg PO daily PRN constipation. Please continue to monitor for constipation and PRN usage. Date of Note:: 09/16/19 - Provider Comments Provider responsibility: Provider responsible to enter orders to implement recommendations <Aquiles Boone Chi - Last Filed: 09/16/19 17:41> Progress Note - Pharmacy Subjective: [] Objective: Allergies ampicillin Allergy (Verified 09/11/19 04:24) Rash cyclophosphamide [From Cytoxan] Allergy (Verified 09/11/19 04:24) Rash doxycycline Allergy (Verified 09/11/19 04:24) Rash morphine Allergy (Verified 09/11/19 04:24) mental status change sulfamethoxazole [From Bactrim] Allergy (Verified 09/11/19 04:24) Rash trimethoprim [From Bactrim] Allergy (Verified 09/11/19 04:24) Rash Current Medications Generic Name Dose Route Start Last Admin Trade Name Freq PRN Reason Stop Dose Admin Acetaminophen 1,000 mg 09/15/19 11:33 Tylenol PO Q6H PRN PRN Pain Score 1-3/10 Aspirin 81 mg 09/16/19 08:00 09/16/19 08:34 Ecotrin PO 81 mg DAILY@0800 [facility] Administration Atorvastatin Calcium 10 mg 09/15/19 22:00 09/15/19 21:44 Lipitor PO 10 mg QHS [facility] Administration Bisacodyl 10 mg 09/15/19 21:29 Dulcolax PO DAILY PRN PRN Constipation Cefadroxil 500 mg 09/15/19 18:00 09/16/19 17:07 Duricef PO 09/18/19 18:01 500 mg BID [facility] Administration Hydrochlorothiazide 12.5 mg 09/16/19 06:00 09/16/19 06:15 PO 12.5 mg DAILY [facility] Administration Hydroxychloroquine Sulfate 200 mg 09/16/19 08:00 09/16/19 08:34 Plaquenil PO 200 mg DAILYCM [facility] Administration Hydroxychloroquine Sulfate 200 mg 09/19/19 22:00 Plaquenil PO SuSa@2200 [facility] Hydroxyurea 500 mg 09/18/19 10:00 Hydrea PO QODAY [facility] Lisinopril 10 mg 09/16/19 06:00 09/16/19 06:15 Zestril PO 10 mg DAILY [facility] Administration Melatonin 10 mg 09/16/19 22:00 Melatonin PO QHS [facility] Multivitamins 1 tablet 09/16/19 08:00 09/16/19 08:34 [facility] Administration Multivitamins/Minerals 1 capsule 09/15/19 17:00 09/16/19 17:07 [facility] Administration Nifedipine 90 mg 09/16/19 06:00 09/16/19 06:15 Procardia Xl PO 90 mg DAILY [facility] Administration Pantoprazole Sodium 20 mg 09/16/19 06:00 09/16/19 06:15 Protonix PO 20 mg DAILY [facility] Administration Polyethylene Glycol 17 gm 09/16/19 06:00 09/16/19 06:15 Miralax PO Not Given DAILY [facility] Senna/Docusate Sodium 1 tablet 09/15/19 18:00 09/16/19 17:07 Senokot-S, Nola-Colace PO Not Given BID [facility] Tramadol HCl 50 mg 09/15/19 11:33 09/16/19 09:02 Ultram PO 50 mg Q6H PRN PRN Administration Pain Score 4-10/10 Tuberculin PPD 5 tu 09/23/19 10:00 Tubersol, Aplisol, Ppd ID 09/23/19 10:01 X1 ONE Warfarin Sodium 2.5 mg 09/15/19 17:00 09/15/19 16:58 Coumadin (Pbkc) PO 2.5 mg SuTuThSa@1700 [facility] Administration Warfarin Sodium 5 mg 09/16/19 17:00 09/16/19 17:06 Coumadin (Pbkc) PO 5 mg MoWeFr@1700 [facility] Administration Problem List Debility (Acute) UTI due to Klebsiella species (Acute) Osteoarthritis of left knee (Chronic) Osteoarthritis of left hip (Chronic) Peripheral arterial occlusive disease (Chronic) Constipation (Chronic) Hyperlipidemia (Chronic) Chronic kidney disease (Chronic) Transient ischemic attack (Chronic) Carotid artery stenosis (Chronic) CREST (calcinosis, Raynaud's phenomenon, esophageal dysfunction, sclerodactyly, telangiectasia) (Chronic) GERD (gastroesophageal reflux disease) (Chronic) Vital Signs Temp Pulse Resp BP Pulse Ox 98.2 F 81 18 148/60 H 95 09/16/19 15:59 09/16/19 15:59 09/16/19 15:59 09/16/19 15:59 09/16/19 15:59 Oxygen Delivery Method Room Air Weight: 49.48 kg Body Mass Index (BMI) 16.5 Sodium 138 mmol/L (136-145) 09/16/19 05:05 Potassium 4.2 mmol/L (3.5-5.1) 09/16/19 05:05 Chloride 109 mmol/L (98-107) H 09/16/19 05:05 Carbon Dioxide 21.0 mmol/L (21.0-32.0) 09/16/19 05:05 Anion Gap 8 (5-15) 09/16/19 05:05 BUN 59 mg/dL (7-18) H 09/16/19 05:05 Creatinine 1.33 mg/dL (0.55-1.02) H 09/16/19 05:05 Est GFR (MDRD) Af Amer 49 mL/min (>60) L 09/16/19 05:05 Est GFR (MDRD) Non-Af 41 mL/min (>60) L 09/16/19 05:05 BUN/Creatinine Ratio 44.4 RATIO (10-20) H 09/16/19 05:05 Glucose 74 mg/dL (74-106) 09/16/19 05:05 Assessment/Plan: Psychotropic Medications: Unnecessary Medications: Bowel Regimen: - Provider Comments Provider responsibility: Provider responsible to enter orders to implement recommendations Provider Comments to Recommendations by Pharmacy: Agree
[2019-09-16 15:59] VITALS: BP 148/60; PULSE 81; RESP 18; TEMP 36.8; O2SAT 95
--- NOTE | 2019-09-16 16:54 | CHAPLAIN ---
Type of Pastoral Visit _x__ Initial Visit ___ Follow-up Visit ___ On-call Visit ___ General Patient Visit ___ Spiritual Assessment ___ Family Conference ___ Bereavement ___ Rapid Response ___ Code Blue ___ Other (describe below) Pastoral Care Referral From _x__ Patient ___ Family ___ Nurse ___ Physician ___ Telecommunications Manager ___ Hotel Or Motel Receptionist ___ Other (describe below) Sacrament/Intervention _x__ Active listening ___ Anointing ___ Mandaen ___ Bereavement ___ Communion _x__ Shana exploration ___ _x__ Life review _x__ Prayer ___ Reconciliation ___ Sacrament of Sick _x__ Supportive presence ___ Wedding ___ Other (describe below) Pastoral Comments
[2019-09-16] MEDS: Atorvastatin Calcium 10 MG Tablet PO (22:12)
[2019-09-16] MEDS: MELATONIN 10 MG TABLET PO (22:12)
[2019-09-16 22:17] VITALS: PULSE 64
[2019-09-17] MEDS: Cefadroxil 500 MG CAPSULE PO ×2 (06:46→18:04)
[2019-09-17] MEDS: Pantoprazole Sodium 20 MG Tablet PO (06:46)
[2019-09-17] MEDS: NIFEdipine 90 MG Tablet PO (06:47)
[2019-09-17] MEDS: Menthol/Lanolin/Calamine/Znox 113 GM Tube 1 APPLIC TOPICAL ×2 (06:47→20:36)
[2019-09-17] MEDS: Lisinopril 10 MG Tablet PO (06:47)
[2019-09-17] MEDS: hydroCHLOROthiazide 12.5mg 12.5 MG PO (06:47)
[2019-09-17] MEDS: Multivitamins,Therapeutic Tablet 1 TABLET PO (08:09)
[2019-09-17] MEDS: Aspirin E.C. 81 MG Tablet PO (08:09)
[2019-09-17] MEDS: Multivitamin (Healthy Eyes) Capsule 1 CAP PO ×2 (08:10→18:03)
[2019-09-17] MEDS: Hydroxychloroquine 200 MG Tablet PO (08:11)
[2019-09-17 08:18] VITALS: BP 135/51
[2019-09-17 13:13] LABS: International Normalized Ratio 2.2; Prothrombin Time (Protime)PT. 24.7 SECONDS (11.7-14.9)
[2019-09-17 15:18] VITALS: BP 160/63; PULSE 82; RESP 14; TEMP 36.9; O2SAT 94
[2019-09-17] MEDS: traMADol 50 MG Tablet PO (20:35)
[2019-09-17] MEDS: Atorvastatin Calcium 10 MG Tablet PO (20:36)
[2019-09-17] MEDS: MELATONIN 10 MG TABLET PO (20:36)
[2019-09-18] MEDS: hydroCHLOROthiazide 12.5mg 12.5 MG PO (05:13)
[2019-09-18] MEDS: Cefadroxil 500 MG CAPSULE PO ×2 (05:13→18:03)
[2019-09-18] MEDS: Pantoprazole Sodium 20 MG Tablet PO (05:13)
[2019-09-18] MEDS: Menthol/Lanolin/Calamine/Znox 113 GM Tube 1 APPLIC TOPICAL ×2 (05:13→21:09)
[2019-09-18] MEDS: NIFEdipine 90 MG Tablet PO (05:13)
[2019-09-18] MEDS: Lisinopril 10 MG Tablet PO (05:13)
[2019-09-18] MEDS: Aspirin E.C. 81 MG Tablet PO (09:48)
[2019-09-18] MEDS: Multivitamins,Therapeutic Tablet 1 TABLET PO (09:49)
[2019-09-18] MEDS: Hydroxychloroquine 200 MG Tablet PO (09:49)
[2019-09-18] MEDS: Multivitamin (Healthy Eyes) Capsule 1 CAP PO ×2 (09:49→18:03)
[2019-09-18] MEDS: traMADol 50 MG Tablet PO (09:53)
[2019-09-18] MEDS: Hydroxyurea 500 MG Capsule PO (11:53)
[2019-09-18 15:43] VITALS: BP 146/72; PULSE 88; RESP 16; TEMP 36.6; O2SAT 94
[2019-09-18] MEDS: MELATONIN 10 MG TABLET PO (21:06)
[2019-09-18] MEDS: Atorvastatin Calcium 10 MG Tablet PO (21:06)
[2019-09-19] MEDS: Lisinopril 10 MG Tablet PO (04:53)
[2019-09-19] MEDS: NIFEdipine 90 MG Tablet PO (04:53)
[2019-09-19] MEDS: traMADol 50 MG Tablet PO (04:53)
[2019-09-19] MEDS: Pantoprazole Sodium 20 MG Tablet PO (04:53)
[2019-09-19] MEDS: hydroCHLOROthiazide 12.5mg 12.5 MG PO (04:53)
[2019-09-19] MEDS: Menthol/Lanolin/Calamine/Znox 113 GM Tube 1 APPLIC TOPICAL ×2 (04:56→22:06)
[2019-09-19] MEDS: Aspirin E.C. 81 MG Tablet PO (07:54)
[2019-09-19] MEDS: Multivitamins,Therapeutic Tablet 1 TABLET PO (07:54)
[2019-09-19] MEDS: Hydroxychloroquine 200 MG Tablet PO ×2 (07:55→21:59)
[2019-09-19] MEDS: Multivitamin (Healthy Eyes) Capsule 1 CAP PO ×2 (07:58→17:12)
[2019-09-19 08:19] VITALS: PULSE 90; RESP 16; O2SAT 97
--- NOTE | 2019-09-19 14:06 | NURSING ---
Patient states that she is nauseated. Patient given crackers and madie jason and instructed to inform us if that does not help.
[2019-09-19 14:12] VITALS: BP 124/47; PULSE 96; RESP 18; TEMP 38; O2SAT 93
--- NOTE | 2019-09-19 14:16 | NURSING ---
Patient states that the crackers and madie jason improved her nausea, but she has a headache at this time.
[2019-09-19] MEDS: Acetaminophen 500 MG Tablet 1000 MG PO (14:18)
--- NOTE | 2019-09-19 14:32 | RAD_ITS ---
STUDY: X-RAY - ABDOMEN/PELVIS REASON FOR EXAM: Female, 79 years old. Diarrhea TECHNIQUE: AP supine and upright views of the abdomen and pelvis. COMPARISON: None. FINDINGS: Limited views through the lower chest show opacification in the lower left lung. There is an unremarkable bowel gas pattern. There is no demonstrated free abdominal air. The visualized liver, spleen and kidneys are grossly normal in size and morphology. Normal soft tissue structures. Heavily calcified aorta with no aneurysm. There are diffuse degenerative changes of the visualized lumbar spine. RAD/Abdomen Single View (Portable) IMPRESSION: No evidence for obstruction or acute abnormality in the abdomen or pelvis. Dense opacification of the lower left lung. Electronically Signed: Elier Ulloa MD at 16:36 EST , Service support ,
--- NOTE | 2019-09-19 14:32 | NUR.TO.PHY ---
Patient is warm to touch at this time. Vitals taken and patient has a temp of 100.[address] Boone notified via charge nurse. Tylenol given. Will continue to monitor.
[2019-09-19 15:08] LABS: Absolute Lymphocyte Count 1.56 X10^3/uL (0.83-4.51); Absolute Neutrophil Count 14.4 X10^3/uL (2.0-7.7); Basophil# 0.05 X10^3/uL; Basophil% 0.3 % (0-1); Differential Indicated SCAN CRITERIA MET; Eosinophil# 0.07 X10^3/uL; Eosinophils% 0.4 % (0-5); Hematocrit 26.1 % (37-47); Hemoglobin 8.5 g/dL (12.0-15.0); Lymphocyte # 1.56 X10^3/ul (4.0); Lymphocyte % 8.5 % (19-41); Mean Corp Hgb Conc 32.6 g/dL (32-36); Mean Corpuscular Hgb 29.3 pg (27.0-32.0); Mean Platelet Vol. 10.4 fl (6.2-12.0); Monocyte# 2.15 X10^3/uL; Monocyte% 11.7 % (0-10); NRBC Flagged by Analyzer 0 % (0-5); Neutrophil # 14.39 X10^3/uL (2.7-7.7); Neutrophil % 78.3 % (47-70); POSITIVE DIFFERENTIAL YES; Platelet Count 525 K/mm3 (150-450); RBC Distribution Width CV 16.8 % (11.6-14.6); RBC Distribution Width SD 55.2 fl (35.1-43.9); White Blood Count 18.4 K/mm3 (4.4-11.0)
[2019-09-19 15:20] LABS: Anion Gap 9 (5-15); BUN 51 mg/dL (7-18); BUN/Creat Ratio 39.5 RATIO (10-20); Calcium,Total 8.2 mg/dL (8.5-10.1); Chloride 103 mmol/L (98-107); Creatinine, Serum 1.29 mg/dL (0.55-1.02); EST Glomerular Filtration Rate 42 mL/min (>60); Est Glom Filt Rate - Afr Amer 51 mL/min (>60); Estimated Creatinine Clearance 27.17 ml/min; Glucose 112 mg/dL (74-106); Potassium 4.3 mmol/L (3.5-5.1); Sodium Level 135 mmol/L (136-145)
[2019-09-19 15:52] LABS: Anisocytosis RARE; Macrocytosis RARE; Platelet Estimate MOD INC (ADEQ)
[2019-09-19 15:53] LABS: Hypochromasia RARE
[2019-09-19 15:54] LABS: Ovalocyte RARE
[2019-09-19 16:00] VITALS: BP 120/47; PULSE 82; RESP 24; TEMP 37.6; O2SAT 94
[2019-09-19] MEDS: Senna/Docusate Sodium 1 Tablet PO (17:13)
[2019-09-19 17:56] LABS: Bacteria 0 SEEN /hpf (None Seen); Mucous, Urine 0 SEEN /hpf (<or=2+); Red Blood Cells-Urine 0 SEEN /hpf (0-5); Squamous Epithelial Cells - UA 0 SEEN /hpf (5-10)
[2019-09-19] MEDS: Azithromycin 250 MG Tablet 500 MG PO (18:00)
[2019-09-19] MEDS: Cefdinir 300 MG Capsule PO (18:01)
[2019-09-19 18:26] LABS: Color, Urine Yellow (Yellow); Glucose, Dipstick Normal (Normal); Ketone-Dipstick Negative (Negative); Leukocyte Esterase-Dipstick Negative /ul (Negative); Nitrite-Dipstick Negative (Negative); Occult Blood-Urine Negative /ul (Negative); Protein-Dipstick 100 mg/dl (Negative); Urine Bilirubin Dipstick Negative (Negative); Urine Clarity Cloudy (Clear); Urine Urobilinogen Normal (Normal)
[2019-09-19 19:08] LABS: Fine Granular Cast- Urine 0-5 SEEN /lpf (0-5)
[2019-09-19 19:09] LABS: Amorphous Sediment 3+
[2019-09-19 19:10] LABS: Transitional Epithelial - Ur 0-5 SEEN /hpf (0-5)
[2019-09-19 19:11] LABS: White Blood Cells 0-5 SEEN /hpf (0-5)
[2019-09-19] MEDS: Atorvastatin Calcium 10 MG Tablet PO (21:59)
[2019-09-19] MEDS: MELATONIN 10 MG TABLET PO (22:03)
--- NOTE | 2019-09-20 02:00 | NURSING ---
Pt placed call light on, assisted to BSC x2 MAX assist. At end of transfer to BS, pt's LLE noted to be completely in front of her and she was allowing staff to fully carry her. Pt questioned as to why she was not helping staff by using her good leg and she responded I don't know. Pt helped back to bed after voiding, and was attempting to sit on bedside before she was close; pt encouraged to put LLE down and help staff pivot her. Pt became tearful when back in bed, stating that you guys just don't understand how hard it is with just one leg. Pt educated that staff is compassionate towards her situation, but does have certain expectations regarding transfers and assistance in order to best keep her and the staff safe.
[2019-09-20] MEDS: Acetaminophen 500 MG Tablet 1000 MG PO (02:53)
[2019-09-20 06:00] VITALS: BP 166/60; PULSE 84; RESP 18; TEMP 36.9; O2SAT 96
[2019-09-20] MEDS: Menthol/Lanolin/Calamine/Znox 113 GM Tube 1 APPLIC TOPICAL ×2 (06:21→20:05)
[2019-09-20] MEDS: Lisinopril 10 MG Tablet PO (06:26)
[2019-09-20] MEDS: NIFEdipine 90 MG Tablet PO (06:26)
[2019-09-20] MEDS: Cefdinir 300 MG Capsule PO ×2 (06:26→18:05)
[2019-09-20] MEDS: hydroCHLOROthiazide 12.5mg 12.5 MG PO (06:27)
[2019-09-20] MEDS: Pantoprazole Sodium 20 MG Tablet PO (06:27)
[2019-09-20] MEDS: Multivitamins,Therapeutic Tablet 1 TABLET PO (09:09)
[2019-09-20] MEDS: traMADol 50 MG Tablet PO (09:09)
[2019-09-20] MEDS: Aspirin E.C. 81 MG Tablet PO (09:09)
[2019-09-20] MEDS: Multivitamin (Healthy Eyes) Capsule 1 CAP PO ×2 (09:09→18:05)
[2019-09-20] MEDS: Hydroxychloroquine 200 MG Tablet PO ×2 (09:09→20:07)
[2019-09-20] MEDS: Hydroxyurea 500 MG Capsule PO (09:10)
[2019-09-20] MEDS: Azithromycin 250 MG Tablet PO (09:11)
--- NOTE | 2019-09-20 09:13 | NURSING ---
PT COMPLAINING OF HER HEAD HURTING, PT STATED IT FEELS LIKE PRESSURE,AND ITS BEEN HURTING SENSE YESTERDAY. PRN PAIN MED GIVEN AND REPORTED TO DENA GOLDBERG
[2019-09-20 11:09] VITALS: TEMP 36.6
[2019-09-20 15:38] VITALS: BP 105/44; PULSE 80; RESP 19; TEMP 36.8; O2SAT 99
[2019-09-20] MEDS: Atorvastatin Calcium 10 MG Tablet PO (20:07)
[2019-09-20] MEDS: MELATONIN 10 MG TABLET PO (20:10)
[2019-09-21] MEDS: traMADol 50 MG Tablet PO ×3 (03:39→20:37)
[2019-09-21] MEDS: NIFEdipine 90 MG Tablet PO (06:09)
[2019-09-21] MEDS: Cefdinir 300 MG Capsule PO ×2 (06:09→16:55)
[2019-09-21] MEDS: Lisinopril 10 MG Tablet PO (06:10)
[2019-09-21] MEDS: Pantoprazole Sodium 20 MG Tablet PO (06:10)
[2019-09-21 06:16] LABS: International Normalized Ratio 1.7
[2019-09-21] MEDS: Menthol/Lanolin/Calamine/Znox 113 GM Tube 1 APPLIC TOPICAL ×2 (06:16→20:41)
[2019-09-21 06:17] VITALS: BP 175/60; PULSE 82; O2SAT 96
[2019-09-21] MEDS: hydroCHLOROthiazide 12.5mg 12.5 MG PO (06:21)
--- NOTE | 2019-09-21 08:35 | NURSING ---
dr torres reviewed INR, adjusted coumadin
[2019-09-21] MEDS: Azithromycin 250 MG Tablet PO (09:40)
[2019-09-21] MEDS: Multivitamins,Therapeutic Tablet 1 TABLET PO (09:40)
[2019-09-21] MEDS: Hydroxychloroquine 200 MG Tablet PO (09:41)
[2019-09-21] MEDS: Multivitamin (Healthy Eyes) Capsule 1 CAP PO ×2 (09:41→16:53)
[2019-09-21] MEDS: Aspirin E.C. 81 MG Tablet PO (09:41)
--- NOTE | 2019-09-21 09:50 | NURSING ---
functional goals/abilities per therapies.
[2019-09-21 11:03] LABS: Pathologist Review Reviewed
[2019-09-21 14:22] VITALS: BP 105/45; PULSE 80
[2019-09-21 15:58] VITALS: BP 115/53; PULSE 79; RESP 17; TEMP 36.8; O2SAT 95
--- NOTE | 2019-09-21 18:35 | NURSING ---
pt c/o neck pain radiating to occipital area with movement when turning head lt to rt. pt having difficulty describing pain. Dr Boone updated, new order for baclofen, neck xray, & medrol dose robbin.
[2019-09-21] MEDS: Baclofen 10 MG Tablet 5 MG PO (20:38)
[2019-09-21] MEDS: MELATONIN 10 MG TABLET PO (20:38)
[2019-09-21] MEDS: Atorvastatin Calcium 10 MG Tablet PO (20:38)
[2019-09-21] MEDS: MethylPREDNISolone DosePak 4 MG BOX PO (20:38)
--- NOTE | 2019-09-22 05:55 | RAD_ITS ---
STUDY: X-RAY - CERVICAL SPINE REASON FOR EXAM: Female, 79 years old. Neck pain. No known injury. TECHNIQUE: 3 view(s) of the cervical spine were obtained. COMPARISON: None FINDINGS: There are degenerative changes of the anterior atlantoaxial articulation. Normal odontoid process. There is an exaggerated cervical lordosis. Normal vertebral bodies and endplates. Mild degree of disc space narrowing at the C4-C5 and C5-C6 level. Normal visualized intervertebral neuroforamina. There are atherosclerotic vascular calcifications of the carotid arteries. RAD/Cerv Spine 2 or 3 Views IMPRESSION: Exaggerated cervical lordosis. Disc space narrowing at the C4-C5 and C5-C6 levels. Electronically Signed: Cipriano Brandon, at 13:07 EST , Service support ,
[2019-09-22] MEDS: traMADol 50 MG Tablet PO ×2 (06:15→21:30)
[2019-09-22] MEDS: Cefdinir 300 MG Capsule PO ×2 (06:15→18:26)
[2019-09-22] MEDS: NIFEdipine 90 MG Tablet PO (06:15)
[2019-09-22] MEDS: hydroCHLOROthiazide 12.5mg 12.5 MG PO (06:15)
[2019-09-22] MEDS: Pantoprazole Sodium 20 MG Tablet PO (06:15)
[2019-09-22] MEDS: Menthol/Lanolin/Calamine/Znox 113 GM Tube 1 APPLIC TOPICAL ×2 (06:17→21:32)
[2019-09-22] MEDS: Lisinopril 10 MG Tablet PO (06:17)
--- NOTE | 2019-09-22 06:18 | NURSING ---
Addendum entered by Nika Grant 09/22/19 09:23: DR BOONE UPDATED, NEW ORDER FOR NECK XRAY THIS AM Original Note: Numerous times throughout the night pt noted to have head leaning to the left while lying in bed hyper extending Rt side of neck. Pt refusing to reposition or apply kpad to area. Pt complaint of pain this morning /. Ultram given per pt request. Will update Dr. Boone.
[2019-09-22] MEDS: MethylPREDNISolone DosePak 4 MG BOX PO ×4 (08:21→21:30)
[2019-09-22] MEDS: Aspirin E.C. 81 MG Tablet PO (08:22)
[2019-09-22] MEDS: Multivitamin (Healthy Eyes) Capsule 1 CAP PO ×2 (08:22→18:25)
[2019-09-22] MEDS: Multivitamins,Therapeutic Tablet 1 TABLET PO (08:22)
[2019-09-22] MEDS: Hydroxyurea 500 MG Capsule PO (08:23)
[2019-09-22] MEDS: Hydroxychloroquine 200 MG Tablet PO (08:23)
[2019-09-22] MEDS: Azithromycin 250 MG Tablet PO (08:24)
[2019-09-22 15:02] VITALS: BP 135/54; PULSE 95; RESP 16; TEMP 36.8; O2SAT 99
[2019-09-22] MEDS: MELATONIN 10 MG TABLET PO (21:30)
[2019-09-22] MEDS: Baclofen 10 MG Tablet 5 MG PO (21:30)
[2019-09-22] MEDS: Atorvastatin Calcium 10 MG Tablet PO (21:30)
[2019-09-23] MEDS: hydroCHLOROthiazide 12.5mg 12.5 MG PO (05:44)
[2019-09-23] MEDS: Ondansetron ODT 4 MG Tablet PO (05:47)
[2019-09-23 06:04] LABS: Absolute Lymphocyte Count 1.41 X10^3/uL (0.83-4.51); Absolute Neutrophil Count 14.9 X10^3/uL (2.0-7.7); Basophil# 0.07 X10^3/uL; Basophil% 0.4 % (0-1); Eosinophil# 0.02 X10^3/uL; Eosinophils% 0.1 % (0-5); Hematocrit 27.3 % (37-47); Hemoglobin 8.7 g/dL (12.0-15.0); Lymphocyte # 1.41 X10^3/ul (4.0); Mean Corp Hgb Conc 31.9 g/dL (32-36); Mean Corpuscular Hgb 28.9 pg (27.0-32.0); Mean Corpuscular Volume 90.7 fL (81-99); Mean Platelet Vol. 10.6 fl (6.2-12.0); Monocyte# 1.01 X10^3/uL; Monocyte% 5.7 % (0-10); NRBC Flagged by Analyzer 0 % (0-5); Neutrophil # 14.85 X10^3/uL (2.7-7.7); Neutrophil % 84.1 % (47-70); Platelet Count 658 K/mm3 (150-450); RBC Distribution Width SD 52.6 fl (35.1-43.9); Red Blood Count 3.01 M/mm3 (4.2-5.4); White Blood Count 17.7 K/mm3 (4.4-11.0)
[2019-09-23 06:23] LABS: Anion Gap 8 (5-15); BUN 62 mg/dL (7-18); BUN/Creat Ratio 45.9 RATIO (10-20); Calcium,Total 8.6 mg/dL (8.5-10.1); Chloride 105 mmol/L (98-107); Creatinine, Serum 1.35 mg/dL (0.55-1.02); EST Glomerular Filtration Rate 40 mL/min (>60); Est Glom Filt Rate - Afr Amer 49 mL/min (>60); Glucose 98 mg/dL (74-106); Sodium Level 135 mmol/L (136-145)
[2019-09-23] MEDS: Aspirin E.C. 81 MG Tablet PO (09:48)
[2019-09-23] MEDS: Pantoprazole Sodium 20 MG Tablet PO (09:48)
[2019-09-23] MEDS: Cefdinir 300 MG Capsule PO ×2 (09:48→18:07)
[2019-09-23] MEDS: Multivitamins,Therapeutic Tablet 1 TABLET PO (09:48)
[2019-09-23] MEDS: Menthol/Lanolin/Calamine/Znox 113 GM Tube 1 APPLIC TOPICAL ×2 (09:48→21:03)
[2019-09-23] MEDS: MethylPREDNISolone DosePak 4 MG BOX PO ×4 (09:48→21:00)
[2019-09-23] MEDS: Hydroxychloroquine 200 MG Tablet PO (09:50)
[2019-09-23] MEDS: Lisinopril 10 MG Tablet PO (09:50)
[2019-09-23] MEDS: NIFEdipine 90 MG Tablet PO (09:50)
[2019-09-23] MEDS: Tuberculin,Purif.prot.deriv. 50 TU/ML Vial 5 ML ID (10:46)
[2019-09-23] MEDS: Azithromycin 250 MG Tablet PO (10:46)
[2019-09-23] MEDS: Acetaminophen 500 MG Tablet 1000 MG PO (11:29)
[2019-09-23] MEDS: Multivitamin (Healthy Eyes) Capsule 1 CAP PO ×2 (11:29→18:07)
--- NOTE | 2019-09-23 11:40 | CASEMGMT ---
Social Work IDT met with patient and DIL for care plan meeting. Discussed patient's progress in therapy. Pt is SBA for all ADLs, CGA for transfers, walking 110 ft with FWW and completing 3 steps at CGA. Therapy will work on walking with pt on multiple surfaces to ensure safety at home alone, as family is an hour away. Provided home delivered meals resources. Explained Medicare benefit. Pt will continue to work with therapy. Will continue to follow. ARACELY FloresW
[2019-09-23 15:39] VITALS: BP 119/49; PULSE 72; RESP 16; TEMP 36.8; O2SAT 97
[2019-09-23] MEDS: Atorvastatin Calcium 10 MG Tablet PO (21:00)
[2019-09-23] MEDS: Baclofen 10 MG Tablet 5 MG PO (21:00)
[2019-09-23] MEDS: MELATONIN 10 MG TABLET PO (21:00)
[2019-09-23] MEDS: traMADol 50 MG Tablet PO (21:01)
[2019-09-24] MEDS: Cefdinir 300 MG Capsule PO ×2 (05:15→17:02)
[2019-09-24] MEDS: Pantoprazole Sodium 20 MG Tablet PO (05:15)
[2019-09-24] MEDS: Lisinopril 10 MG Tablet PO (05:15)
[2019-09-24] MEDS: NIFEdipine 90 MG Tablet PO (05:15)
[2019-09-24] MEDS: hydroCHLOROthiazide 12.5mg 12.5 MG PO (05:16)
[2019-09-24] MEDS: Menthol/Lanolin/Calamine/Znox 113 GM Tube 1 APPLIC TOPICAL ×2 (05:20→21:39)
[2019-09-24 06:06] LABS: International Normalized Ratio 2.3; Prothrombin Time (Protime)PT. 24.9 SECONDS (11.7-14.9)
[2019-09-24] MEDS: Multivitamins,Therapeutic Tablet 1 TABLET PO (08:59)
[2019-09-24] MEDS: Multivitamin (Healthy Eyes) Capsule 1 CAP PO ×2 (08:59→17:02)
[2019-09-24] MEDS: MethylPREDNISolone DosePak 4 MG BOX PO ×3 (08:59→21:37)
[2019-09-24] MEDS: Aspirin E.C. 81 MG Tablet PO (09:00)
[2019-09-24] MEDS: Hydroxyurea 500 MG Capsule PO (09:00)
[2019-09-24] MEDS: Hydroxychloroquine 200 MG Tablet PO (09:01)
[2019-09-24] MEDS: Azithromycin 250 MG Tablet PO (09:02)
[2019-09-24 13:30] VITALS: PULSE 74; RESP 18; O2SAT 94
--- NOTE | 2019-09-24 13:33 | NURSING ---
pt complained of sore tongue. red spots to bottom lip and tongue. pt also complained of nausea. this nurse offered zofran,pt refused. reported to wanda rouse
[2019-09-24 16:00] VITALS: BP 125/59; PULSE 63; RESP 18; TEMP 36.6; O2SAT 96
[2019-09-24] MEDS: Senna/Docusate Sodium 1 Tablet PO (17:02)
[2019-09-24] MEDS: Atorvastatin Calcium 10 MG Tablet PO (21:37)
[2019-09-24] MEDS: Baclofen 10 MG Tablet 5 MG PO (21:38)
[2019-09-24] MEDS: Acetaminophen 500 MG Tablet 1000 MG PO (21:43)
[2019-09-24] MEDS: MELATONIN 10 MG TABLET PO (21:43)
[2019-09-25] MEDS: hydroCHLOROthiazide 12.5mg 12.5 MG PO (05:40)
[2019-09-25] MEDS: Cefdinir 300 MG Capsule PO ×2 (05:40→17:56)
[2019-09-25] MEDS: Lisinopril 10 MG Tablet PO (05:40)
[2019-09-25] MEDS: Pantoprazole Sodium 20 MG Tablet PO (05:40)
[2019-09-25] MEDS: NIFEdipine 90 MG Tablet PO (05:40)
[2019-09-25] MEDS: Senna/Docusate Sodium 1 Tablet PO ×2 (05:40→17:56)
[2019-09-25] MEDS: Menthol/Lanolin/Calamine/Znox 113 GM Tube 1 APPLIC TOPICAL ×2 (05:41→20:47)
[2019-09-25] MEDS: Polyethylene Glycol 3350 17 GM PACKET PO (05:41)
[2019-09-25] MEDS: Multivitamins,Therapeutic Tablet 1 TABLET PO (08:05)
[2019-09-25] MEDS: Hydroxychloroquine 200 MG Tablet PO (08:06)
[2019-09-25] MEDS: MethylPREDNISolone DosePak 4 MG BOX PO ×2 (08:06→21:01)
[2019-09-25] MEDS: Aspirin E.C. 81 MG Tablet PO (08:06)
[2019-09-25] MEDS: Multivitamin (Healthy Eyes) Capsule 1 CAP PO ×2 (08:06→17:55)
[2019-09-25 15:50] VITALS: BP 138/56; PULSE 75; RESP 16; TEMP 36.8; O2SAT 97
[2019-09-25] MEDS: Baclofen 10 MG Tablet 5 MG PO (21:02)
[2019-09-25] MEDS: MELATONIN 10 MG TABLET PO (21:02)
[2019-09-25] MEDS: Atorvastatin Calcium 10 MG Tablet PO (21:02)
[2019-09-25 21:11] VITALS: BP 157/70; PULSE 73; RESP 18; TEMP 37.3; O2SAT 95
[2019-09-26 05:35] VITALS: BP 165/70; PULSE 76; RESP 16
[2019-09-26] MEDS: Lisinopril 10 MG Tablet PO (05:36)
[2019-09-26] MEDS: Pantoprazole Sodium 20 MG Tablet PO (05:36)
[2019-09-26] MEDS: hydroCHLOROthiazide 12.5mg 12.5 MG PO (05:36)
[2019-09-26] MEDS: Senna/Docusate Sodium 1 Tablet PO (05:36)
[2019-09-26] MEDS: Cefdinir 300 MG Capsule PO ×2 (05:36→17:36)
[2019-09-26] MEDS: NIFEdipine 90 MG Tablet PO (05:36)
[2019-09-26] MEDS: Menthol/Lanolin/Calamine/Znox 113 GM Tube 1 APPLIC TOPICAL ×2 (05:40→20:02)
[2019-09-26] MEDS: Aspirin E.C. 81 MG Tablet PO (08:11)
[2019-09-26] MEDS: Multivitamins,Therapeutic Tablet 1 TABLET PO (08:11)
[2019-09-26] MEDS: Multivitamin (Healthy Eyes) Capsule 1 CAP PO ×2 (08:11→17:36)
[2019-09-26] MEDS: Hydroxychloroquine 200 MG Tablet PO ×2 (08:12→19:54)
[2019-09-26] MEDS: MethylPREDNISolone 4 MG Tablet PO (08:52)
[2019-09-26 09:49] VITALS: PULSE 80; RESP 18; O2SAT 95
[2019-09-26] MEDS: Hydroxyurea 500 MG Capsule PO (10:05)
[2019-09-26] MEDS: Acetaminophen 500 MG Tablet 1000 MG PO (10:44)
--- NOTE | 2019-09-26 15:40 | NURSING ---
Pt had medium incontinent liquid/diarrhea stool. Mepilex soiled with BM. New Mepilex applied to coccyx at this time. Reported to Jamaal FERNANDES.
[2019-09-26 16:00] VITALS: BP 123/49; PULSE 71; RESP 16; TEMP 37; O2SAT 94
[2019-09-26] MEDS: Baclofen 10 MG Tablet 5 MG PO (19:54)
[2019-09-26] MEDS: Atorvastatin Calcium 10 MG Tablet PO (19:55)
[2019-09-26] MEDS: MELATONIN 10 MG TABLET PO (19:59)
[2019-09-27] MEDS: Atorvastatin Calcium 10 MG Tablet PO (04:31)
[2019-09-27] MEDS: hydroCHLOROthiazide 12.5mg 12.5 MG PO (04:31)
[2019-09-27] MEDS: Lisinopril 10 MG Tablet PO (04:31)
[2019-09-27] MEDS: Senna/Docusate Sodium 1 Tablet PO (04:31)
[2019-09-27] MEDS: NIFEdipine 90 MG Tablet PO (04:31)
[2019-09-27] MEDS: Pantoprazole Sodium 20 MG Tablet PO (04:33)
[2019-09-27] MEDS: Menthol/Lanolin/Calamine/Znox 113 GM Tube 1 APPLIC TOPICAL ×2 (04:34→20:23)
[2019-09-27] MEDS: Multivitamins,Therapeutic Tablet 1 TABLET PO (08:06)
[2019-09-27] MEDS: Hydroxychloroquine 200 MG Tablet PO ×2 (08:06→20:16)
[2019-09-27] MEDS: Aspirin E.C. 81 MG Tablet PO (08:06)
[2019-09-27] MEDS: Multivitamin (Healthy Eyes) Capsule 1 CAP PO ×2 (08:06→17:05)
[2019-09-27 10:00] VITALS: PULSE 80; RESP 20; O2SAT 95
[2019-09-27 15:18] VITALS: BP 111/50; PULSE 71; RESP 16; TEMP 37.3; O2SAT 96
[2019-09-27] MEDS: MELATONIN 10 MG TABLET PO (20:23)
[2019-09-28] MEDS: Lisinopril 10 MG Tablet PO (05:33)
[2019-09-28] MEDS: NIFEdipine 90 MG Tablet PO (05:33)
[2019-09-28] MEDS: Senna/Docusate Sodium 1 Tablet PO (05:33)
[2019-09-28] MEDS: Pantoprazole Sodium 20 MG Tablet PO (05:33)
[2019-09-28] MEDS: hydroCHLOROthiazide 12.5mg 12.5 MG PO (05:33)
[2019-09-28] MEDS: Menthol/Lanolin/Calamine/Znox 113 GM Tube 1 APPLIC TOPICAL ×2 (05:34→21:40)
[2019-09-28 06:05] LABS: International Normalized Ratio 2.6; Prothrombin Time (Protime)PT. 27.6 SECONDS (11.7-14.9)
[2019-09-28] MEDS: Hydroxychloroquine 200 MG Tablet PO (08:30)
[2019-09-28] MEDS: Multivitamins,Therapeutic Tablet 1 TABLET PO (08:30)
[2019-09-28] MEDS: Aspirin E.C. 81 MG Tablet PO (08:31)
[2019-09-28] MEDS: Multivitamin (Healthy Eyes) Capsule 1 CAP PO ×2 (08:31→16:46)
[2019-09-28] MEDS: Hydroxyurea 500 MG Capsule PO (09:20)
[2019-09-28 15:13] VITALS: BP 108/51; PULSE 71; RESP 19; TEMP 37.2; O2SAT 97
[2019-09-28 21:20] VITALS: PULSE 67; RESP 16; O2SAT 95
[2019-09-28] MEDS: Atorvastatin Calcium 10 MG Tablet PO (21:36)
[2019-09-28] MEDS: MELATONIN 10 MG TABLET PO (21:39)
[2019-09-29] MEDS: Senna/Docusate Sodium 1 Tablet PO ×2 (06:26→17:06)
[2019-09-29] MEDS: hydroCHLOROthiazide 12.5mg 12.5 MG PO (06:26)
[2019-09-29] MEDS: Lisinopril 10 MG Tablet PO (06:26)
[2019-09-29] MEDS: NIFEdipine 90 MG Tablet PO (06:26)
[2019-09-29] MEDS: Pantoprazole Sodium 20 MG Tablet PO (06:26)
[2019-09-29] MEDS: Menthol/Lanolin/Calamine/Znox 113 GM Tube 1 APPLIC TOPICAL ×2 (06:28→20:24)
[2019-09-29] MEDS: Multivitamins,Therapeutic Tablet 1 TABLET PO (08:13)
[2019-09-29] MEDS: Aspirin E.C. 81 MG Tablet PO (08:13)
[2019-09-29] MEDS: Multivitamin (Healthy Eyes) Capsule 1 CAP PO ×2 (08:13→17:06)
[2019-09-29] MEDS: Hydroxychloroquine 200 MG Tablet PO (08:14)
[2019-09-29] MEDS: traMADol 50 MG Tablet PO (11:02)
[2019-09-29 15:34] VITALS: BP 124/52; PULSE 77; RESP 26; TEMP 36.4; O2SAT 98
--- NOTE | 2019-09-29 16:41 | CASEMGMT ---
Social Work Several attempts to visit pt, per pt request. Pt unavailable each attempt. Will continue until successful. Hilary Morgan, MESS ATTENDANT CREW CERTIFIED PROFESSIONAL CODER
[2019-09-29] MEDS: Atorvastatin Calcium 10 MG Tablet PO (20:20)
[2019-09-29] MEDS: MELATONIN 10 MG TABLET PO (20:21)
[2019-09-29 20:25] VITALS: PULSE 74; RESP 16; O2SAT 97
[2019-09-30 05:52] LABS: Absolute Lymphocyte Count 2.46 X10^3/uL (0.83-4.51); Absolute Neutrophil Count 10.1 X10^3/uL (2.0-7.7); Basophil# 0.04 X10^3/uL; Basophil% 0.3 % (0-1); Eosinophil# 0.29 X10^3/uL; Hematocrit 27.5 % (37-47); Hemoglobin 8.5 g/dL (12.0-15.0); Lymphocyte # 2.46 X10^3/ul (4.0); Lymphocyte % 17.4 % (19-41); Mean Corp Hgb Conc 30.9 g/dL (32-36); Mean Corpuscular Hgb 28.7 pg (27.0-32.0); Mean Corpuscular Volume 92.9 fL (81-99); Mean Platelet Vol. 10.4 fl (6.2-12.0); Monocyte# 1.09 X10^3/uL; Monocyte% 7.7 % (0-10); NRBC Flagged by Analyzer 0 % (0-5); Neutrophil % 71.3 % (47-70); Platelet Count 502 K/mm3 (150-450); RBC Distribution Width CV 16.2 % (11.6-14.6); RBC Distribution Width SD 53.7 fl (35.1-43.9); Red Blood Count 2.96 M/mm3 (4.2-5.4); White Blood Count 14.2 K/mm3 (4.4-11.0)
[2019-09-30] MEDS: hydroCHLOROthiazide 12.5mg 12.5 MG PO (06:04)
[2019-09-30] MEDS: NIFEdipine 90 MG Tablet PO (06:04)
[2019-09-30] MEDS: Lisinopril 10 MG Tablet PO (06:04)
[2019-09-30] MEDS: Pantoprazole Sodium 20 MG Tablet PO (06:05)
[2019-09-30] MEDS: Menthol/Lanolin/Calamine/Znox 113 GM Tube 1 APPLIC TOPICAL ×2 (06:09→20:02)
[2019-09-30 06:23] LABS: Anion Gap 6 (5-15); BUN 49 mg/dL (7-18); Calcium,Total 7.9 mg/dL (8.5-10.1); Chloride 109 mmol/L (98-107); Creatinine, Serum 1.53 mg/dL (0.55-1.02); EST Glomerular Filtration Rate 35 mL/min (>60); Est Glom Filt Rate - Afr Amer 42 mL/min (>60); Estimated Creatinine Clearance 21.88 ml/min; Glucose 79 mg/dL (74-106); Potassium 3.9 mmol/L (3.5-5.1); Sodium Level 139 mmol/L (136-145)
[2019-09-30] MEDS: Hydroxychloroquine 200 MG Tablet PO (08:13)
[2019-09-30] MEDS: Aspirin E.C. 81 MG Tablet PO (08:13)
[2019-09-30] MEDS: Multivitamins,Therapeutic Tablet 1 TABLET PO (08:13)
[2019-09-30] MEDS: Multivitamin (Healthy Eyes) Capsule 1 CAP PO ×2 (08:13→17:02)
[2019-09-30] MEDS: Hydroxyurea 500 MG Capsule PO (10:27)
--- NOTE | 2019-09-30 11:39 | US_ITS ---
STUDY: RENAL ULTRASOUND - COMPLETE REASON FOR EXAM: Female, 79 years old. Chronic kidney disease. TECHNIQUE: Ultrasound evaluation of the kidneys was performed with real-time and static de anda-scale imaging. COMPARISON: Prior abdomen and pelvic CT exam of 08/26/2016 FINDINGS: RIGHT KIDNEY: Normal location of the right kidney, which is normal in size. The right kidney measures 11.1 x 6.5 x 4.6 cm. There is a normal cortex of the right kidney. The renal cortex measures 1.3 cm. 4.2 x 4.0 x 3.3 cm cyst. There are no right renal calculi. There is no right hydronephrosis. DISTAL RIGHT URETER: There is non-visualization of the distal right ureter. There is no demonstrated right ureteral jet. LEFT KIDNEY: Normal location of the left kidney. The left kidney measures 5.7 x 2.1 x 2.7 cm. The renal cortex measures 1.1 cm. 1.2 x 1.3 x 1.1 cm cyst There are no left renal calculi. There is no left hydronephrosis. DISTAL LEFT URETER: There is non-visualization of the distal left ureter. There is no demonstrated left ureteral jet. BLADDER not visualized. Left pleural effusion noted. US/Kidney and Bladder IMPRESSION: Normal size right kidney without hydronephrosis. 4.2 x 4.0 x 3.3 cm simple cyst of the right kidney. Atrophy of the left kidney without hydronephrosis. 1.2 x 1.3 x 1.1 cm cyst. Left pleural effusion. Electronically Signed: Elda Graham MD at 15:49 EST , Service support ,
--- NOTE | 2019-09-30 12:03 | NURSING ---
Addendum entered by Nika Grant 09/30/19 15:46: Renal ultrasound done today per dr Anderson order. Original Note: pt returned from Dr ANDERSON office with orders for labs, urine specimen and f/u appt Oct 29 @ [id number]
--- NOTE | 2019-09-30 13:42 | CASEMGMT ---
Social Work Another attempt made to visit pt - pt is out at appt and nursing to notify SW upon return. Hilary Morgan, ARACELY REYNOSOW
[2019-09-30 14:17] LABS: Protein, Urine (Random) 286.1 mg/dL (<11.9)
[2019-09-30 15:12] VITALS: BP 109/48; PULSE 74; RESP 18; TEMP 36.6; O2SAT 95
--- NOTE | 2019-09-30 15:23 | CASEMGMT ---
Social Work Patient returned from appt but had to complete some testing. Will continue to attempt upon return. Hilary Morgan, DIRECTOR EPIDEMIOLOGY PACKING AND FINAL ASSEMBLY SUPERVISOR
[2019-09-30] MEDS: traMADol 50 MG Tablet PO (19:59)
[2019-09-30] MEDS: Atorvastatin Calcium 10 MG Tablet PO (20:00)
[2019-09-30] MEDS: MELATONIN 10 MG TABLET PO (20:00)
[2019-10-01] MEDS: traMADol 50 MG Tablet PO ×2 (02:14→08:38)
[2019-10-01 05:23] LABS: Albumin, Serum 2.2 g/dL (3.2-5.0); BUN 51 mg/dL (7-18); BUN/Creat Ratio 29.1 RATIO (10-20); Chloride 107 mmol/L (98-107); Creatinine, Serum 1.75 mg/dL (0.55-1.02); EST Glomerular Filtration Rate 30 mL/min (>60); Est Glom Filt Rate - Afr Amer 36 mL/min (>60); Estimated Creatinine Clearance 19.13 ml/min; Ferritin 54 ng/mL (8-252); Glucose 76 mg/dL (74-106); Iron 18 ug/dL (50-170); Phosphorus 2.7 mg/dL (2.5-4.9); Potassium 4.1 mmol/L (3.5-5.1); Sodium Level 137 mmol/L (136-145)
[2019-10-01] MEDS: Pantoprazole Sodium 20 MG Tablet PO (06:49)
[2019-10-01] MEDS: NIFEdipine 90 MG Tablet PO (06:49)
[2019-10-01] MEDS: Menthol/Lanolin/Calamine/Znox 113 GM Tube 1 APPLIC TOPICAL ×2 (06:49→20:21)
[2019-10-01] MEDS: Multivitamins,Therapeutic Tablet 1 TABLET PO (08:35)
[2019-10-01] MEDS: Hydroxychloroquine 200 MG Tablet PO (08:36)
[2019-10-01] MEDS: Aspirin E.C. 81 MG Tablet PO (08:36)
[2019-10-01] MEDS: Multivitamin (Healthy Eyes) Capsule 1 CAP PO ×2 (08:36→17:53)
[2019-10-01 16:00] VITALS: BP 132/67; PULSE 75; RESP 18; TEMP 36.8; O2SAT 97
[2019-10-01] MEDS: MELATONIN 10 MG TABLET PO (20:19)
[2019-10-01] MEDS: Atorvastatin Calcium 10 MG Tablet PO (20:19)
[2019-10-02] MEDS: Menthol/Lanolin/Calamine/Znox 113 GM Tube 1 APPLIC TOPICAL ×2 (06:12→21:34)
[2019-10-02] MEDS: NIFEdipine 90 MG Tablet PO (06:12)
[2019-10-02] MEDS: Pantoprazole Sodium 20 MG Tablet PO (06:12)
[2019-10-02] MEDS: Senna/Docusate Sodium 1 Tablet PO ×2 (06:12→18:06)
[2019-10-02 06:23] LABS: Anion Gap 8 (5-15); BUN 52 mg/dL (7-18); BUN/Creat Ratio 29.7 RATIO (10-20); Chloride 109 mmol/L (98-107); Creatinine, Serum 1.75 mg/dL (0.55-1.02); EST Glomerular Filtration Rate 30 mL/min (>60); Est Glom Filt Rate - Afr Amer 36 mL/min (>60); Estimated Creatinine Clearance 19.13 ml/min; Glucose 75 mg/dL (74-106); Potassium 4.1 mmol/L (3.5-5.1); Sodium Level 139 mmol/L (136-145)
[2019-10-02] MEDS: traMADol 50 MG Tablet PO (08:55)
[2019-10-02] MEDS: Multivitamin (Healthy Eyes) Capsule 1 CAP PO ×2 (08:55→18:06)
[2019-10-02] MEDS: Aspirin E.C. 81 MG Tablet PO (08:55)
[2019-10-02] MEDS: Multivitamins,Therapeutic Tablet 1 TABLET PO (08:55)
[2019-10-02] MEDS: Hydroxychloroquine 200 MG Tablet PO (08:55)
[2019-10-02 10:00] VITALS: PULSE 78; O2SAT 95
[2019-10-02] MEDS: Hydroxyurea 500 MG Capsule PO (10:14)
--- NOTE | 2019-10-02 10:42 | CASEMGMT ---
Social Work Spoke with patient about feeling down and ready to go home. Pt states she feels her mood would improve once she went home. SW will discuss with therapy DC plans. Discussed pt started MOW so she doesn't have to stress about meals. Pt expressed her appreciation for her family spending Thanksgiving with her. Pt would like a few food items to change on her menu - SW notified Dietary. Pt appreciative of visit and conversation. Will follow up with DC plans. Hilary Morgan, ARACELY TECHNICAL SALES REPRESENTATIVES
--- NOTE | 2019-10-02 13:16 | CASEMGMT ---
Social Work Spoke with pt, dtr and IDT agreeable to DC home 10/07. Pt requesting to restart [facility] PT/OT. No DME needs. Plan: DC home 10/07 with [facility] PT/OT ARACELY FloresW
[2019-10-02 13:59] LABS: Vitamin D,25 Hydroxy 41.4 ng/mL (29.95-100.01)
[2019-10-02 15:18] LABS: PTHIN 74.3 pg/mL (18.4-80.1)
[2019-10-02 15:48] VITALS: BP 141/58; PULSE 81; RESP 16; TEMP 37.9; O2SAT 96
--- NOTE | 2019-10-02 18:09 | NURSING ---
Addendum entered by Jazzmine Zamora 10/02/19 19:02: Pt agreeable to taking PRN Dulcolax at this time. Original Note: Pt has no noted BM since 09/29. Pt has refused scheduled Senna X 2 days. Pt offered PRN Dulcolax and stated she would like to take Senna first to see if BM occurs.
[2019-10-02] MEDS: Bisacodyl 5 MG Tablet 10 MG PO (19:04)
[2019-10-02] MEDS: MELATONIN 10 MG TABLET PO (21:34)
[2019-10-02] MEDS: Atorvastatin Calcium 10 MG Tablet PO (21:34)
--- NOTE | 2019-10-02 22:16 | PCA ---
this patient stated IM too sick to get washed up tonight. I just had a shower this morning
[2019-10-03] MEDS: Pantoprazole Sodium 20 MG Tablet PO (04:09)
[2019-10-03] MEDS: Senna/Docusate Sodium 1 Tablet PO ×2 (04:09→17:07)
[2019-10-03] MEDS: NIFEdipine 90 MG Tablet PO (04:09)
[2019-10-03] MEDS: Acetaminophen 500 MG Tablet 1000 MG PO (04:09)
[2019-10-03] MEDS: Menthol/Lanolin/Calamine/Znox 113 GM Tube 1 APPLIC TOPICAL ×2 (04:13→20:12)
[2019-10-03] MEDS: Multivitamin (Healthy Eyes) Capsule 1 CAP PO ×2 (09:07→17:07)
[2019-10-03] MEDS: Aspirin E.C. 81 MG Tablet PO (09:07)
[2019-10-03] MEDS: Hydroxychloroquine 200 MG Tablet PO ×2 (09:07→20:12)
[2019-10-03] MEDS: Multivitamins,Therapeutic Tablet 1 TABLET PO (09:08)
[2019-10-03] MEDS: traMADol 50 MG Tablet PO ×2 (09:09→17:07)
[2019-10-03 15:52] VITALS: BP 122/63; PULSE 70; RESP 16; TEMP 36.8; O2SAT 98
[2019-10-03] MEDS: MELATONIN 10 MG TABLET PO (20:12)
[2019-10-03] MEDS: Atorvastatin Calcium 10 MG Tablet PO (20:12)
[2019-10-04] MEDS: NIFEdipine 90 MG Tablet PO (05:21)
[2019-10-04] MEDS: Menthol/Lanolin/Calamine/Znox 113 GM Tube 1 APPLIC TOPICAL ×2 (05:21→20:01)
[2019-10-04] MEDS: Senna/Docusate Sodium 1 Tablet PO ×2 (05:21→16:58)
[2019-10-04] MEDS: Pantoprazole Sodium 20 MG Tablet PO (05:21)
[2019-10-04] MEDS: Bisacodyl 5 MG Tablet 10 MG PO (05:23)
[2019-10-04] MEDS: Multivitamins,Therapeutic Tablet 1 TABLET PO (08:57)
[2019-10-04] MEDS: Multivitamin (Healthy Eyes) Capsule 1 CAP PO ×2 (08:57→16:58)
[2019-10-04] MEDS: Hydroxychloroquine 200 MG Tablet PO ×2 (08:57→20:01)
[2019-10-04] MEDS: Aspirin E.C. 81 MG Tablet PO (08:57)
[2019-10-04] MEDS: Hydroxyurea 500 MG Capsule PO (08:59)
[2019-10-04 15:36] VITALS: BP 152/62; PULSE 75; RESP 16; TEMP 37.1; O2SAT 96
[2019-10-04] MEDS: Atorvastatin Calcium 10 MG Tablet PO (20:01)
[2019-10-04] MEDS: MELATONIN 10 MG TABLET PO (20:01)
[2019-10-04] MEDS: traMADol 50 MG Tablet PO (20:03)
[2019-10-05] MEDS: Pantoprazole Sodium 20 MG Tablet PO (06:17)
[2019-10-05] MEDS: NIFEdipine 90 MG Tablet PO (06:17)
[2019-10-05] MEDS: Senna/Docusate Sodium 1 Tablet PO ×2 (06:17→17:16)
[2019-10-05] MEDS: Menthol/Lanolin/Calamine/Znox 113 GM Tube 1 APPLIC TOPICAL ×2 (06:18→21:46)
[2019-10-05 06:25] LABS: International Normalized Ratio 2.9; Prothrombin Time (Protime)PT. 30.3 SECONDS (11.7-14.9)
[2019-10-05] MEDS: Multivitamins,Therapeutic Tablet 1 TABLET PO (08:23)
[2019-10-05] MEDS: Aspirin E.C. 81 MG Tablet PO (08:23)
[2019-10-05] MEDS: Multivitamin (Healthy Eyes) Capsule 1 CAP PO ×2 (08:23→17:16)
[2019-10-05] MEDS: Hydroxychloroquine 200 MG Tablet PO (08:23)
[2019-10-05 11:05] VITALS: PULSE 76; O2SAT 95
[2019-10-05] MEDS: Ondansetron ODT 4 MG Tablet PO (11:23)
[2019-10-05 15:47] VITALS: BP 138/74; PULSE 74; RESP 18; TEMP 37.1; O2SAT 97
--- NOTE | 2019-10-05 20:49 | PCM.DC ---
- Discharge Diagnoses Current Active Problems: Current Active and Chronic Problems Debility (Acute) UTI due to Klebsiella species (Acute) Osteoarthritis of left knee (Chronic) Osteoarthritis of left hip (Chronic) Peripheral arterial occlusive disease (Chronic) Constipation (Chronic) Hyperlipidemia (Chronic) Chronic kidney disease (Chronic) Transient ischemic attack (Chronic) Carotid artery stenosis (Chronic) CREST (calcinosis, Raynaud's phenomenon, esophageal dysfunction, sclerodactyly, telangiectasia) (Chronic) GERD (gastroesophageal reflux disease) (Chronic) You will use the following diet at home:: No restrictions, Regular Your food should be the consistency of: Regular Your liquids should be the consistency of: Regular/Thin Discharge Activity: Return to Normal Activity, May Shower, Use Walker Weight Bearing Status: Weight bearing as tolerated Call your doctor if you observe: Fever of 101 or Higher, Inability to urinate, Inability to have a bowel movement, Shortness of breath, Chest pain, Uncontrolled pain Allergies/Adverse Reactions: Allergies ampicillin Allergy (Verified 09/11/19 04:24) Rash cyclophosphamide [From Cytoxan] Allergy (Verified 09/11/19 04:24) Rash doxycycline Allergy (Verified 09/11/19 04:24) Rash morphine Allergy (Verified 09/11/19 04:24) mental status change sulfamethoxazole [From Bactrim] Allergy (Verified 09/11/19 04:24) Rash trimethoprim [From Bactrim] Allergy (Verified 09/11/19 04:24) Rash Medications to take at Discharge Omeprazole [Prilosec] 20 mg PO DAILY 11/05/15 Vit A/Vit C/Vit E/Zinc/Copper [Preservision Areds Softgel] 1 each PO BID 03/09/16 Acetaminophen [Tylenol] 1,000 mg PO Q6H PRN PRN 09/11/19 Hydroxychloroquine Sulfate [Plaquenil] 200 mg PO SUSA 09/11/19 Hydroxyurea 500 mg PO UD 09/11/19 Aspirin E.C. [Ecotrin] 81 mg PO DAILY@0800 09/15/19 Atorvastatin Calcium [Lipitor] 10 mg PO QHS 09/15/19 Hydroxychloroquine [Plaquenil] 200 mg PO DAILYCM 09/15/19 Multivitamins,Therapeutic [Multivitamin] 1 tab PO DAILYCM 09/15/19 NIFEdipine [Procardia XL] 90 mg PO DAILY 09/15/19 Warfarin [Coumadin] 2.5 mg PO SuTuThSa@1700 09/15/19 Warfarin [Coumadin] 5 mg PO MoWeFr@1700 09/15/19 Melatonin 10 mg PO QHS #30 tab 10/05/19 Menthol/Lanolin/Calamine/Znox [Calmoseptine Ointment] 1 applic TOPICAL 0600,2200 tube 10/05/19 Mineral Oil/Petrolatum,White [Eucerin] 1 applic TOPICAL 2200 jar 10/05/19 Ondansetron [Zofran Odt] 4 mg PO Q8H PRN PRN #90 tab 10/05/19 traMADol [Ultram] 50 mg PO Q6H PRN PRN #30 tab 10/05/19 The following prescriptions were given: Melatonin 10 mg PO QHS #30 tab Transmission Status: Pending to [facility] traMADol [Ultram] 50 mg PO Q6H PRN PRN #30 tab PRN Reason: pain 4 or greater Transmission Status: Sent to [facility] Ondansetron [Zofran Odt] 4 mg PO Q8H PRN PRN #90 tab PRN Reason: NAUSEA Transmission Status: Pending to [facility] Orders to be completed after discharge: Prothrombin Time w/INR Time Frame: 1 Day, Facility: [facility], Location: Laboratory Primary Care Physician: Jaya Blackwell III, MD [Primary Care Provider] - Please follow up with your Primary Care Physician in: 1 week. Test Results: Test results from this visit will be discussed in further detail at your follow-up appointment, if applicable. Please Follow Up With: Jaya Blackwell (PCP) When: 1 week Please Follow Up With: Mike Coppola MD When: 2-3 weeks Please Follow Up With: Dereck Ortiz MD When: 2 weeks. Proposed Discharge Date: 10/07/19
--- NOTE | 2019-10-05 20:50 | PCM.DC.SUM ---
Discharge Date and Diagnosis - Problem List Patient Problems: Active and Suspected Problems Debility (Acute) UTI due to Klebsiella species (Acute) Date of Admission: 09/15/19 Date of Discharge: 10/07/19 - Primary Discharge Diagnosis Active and Suspected Problems Debility (Acute) UTI due to Klebsiella species (Acute) - Secondary Discharge Diagnosis Chronic Problems Osteoarthritis of left knee (Chronic) Osteoarthritis of left hip (Chronic) Peripheral arterial occlusive disease (Chronic) Constipation (Chronic) Hyperlipidemia (Chronic) Chronic kidney disease (Chronic) Transient ischemic attack (Chronic) Carotid artery stenosis (Chronic) CREST (calcinosis, Raynaud's phenomenon, esophageal dysfunction, sclerodactyly, telangiectasia) (Chronic) GERD (gastroesophageal reflux disease) (Chronic) Scleroderma (Chronic) Chronic renal failure, stage 3 (moderate) (Chronic) Chronic anticoagulation (Chronic) With warfarin Anemia of chronic disease (Chronic) CAD (coronary artery disease) (Chronic) PAD (peripheral artery disease) (Chronic) History of CEA (carotid endarterectomy) (Chronic) right Thrombocytosis (Chronic) Diarrhea (Chronic) resolves with immodium 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 Dense opacification of the lower left lung. Electronically Signed: Elier Ulloa MD at 16:36 EST , Service support , Cervical Spine X-Ray 09/22/19 05:55 IMPRESSION: Exaggerated cervical lordosis. Disc space narrowing at the C4-C5 and C5-C6 levels. Electronically Signed: Cipriano Brandon, at 13:07 EST , Service support , Renal Ultrasound 09/30/19 11:39 IMPRESSION: Normal size right kidney without hydronephrosis. 4.2 x 4.0 x 3.3 cm simple cyst of the right kidney. Atrophy of the left kidney without hydronephrosis. 1.2 x 1.3 x 1.1 cm cyst. Left pleural effusion. Electronically Signed: Elda Graham MD at 15:49 EST , Service support , Labs (Last 48 Hours) 10/05/19 05:35 PT 30.3 H INR 2.9 Operations: None Procedures: None Summary of Care Provided: The patient is a 79 year old Female with below past medical history significant for peripheral arterial occlusive disease, hospitalized for severe left leg pain, critical ischemia ruled out, complicated by Klebsiella Pneumoniae urinary tract infection, acute on chronic anemia, admitted to TCU with debility, here for rehabilitation, strengthening, prior to discharge home alone. Discharge home alone, [facility] for PT/OT. Patient Problems: Active and Suspected Problems Debility (Acute) UTI due to Klebsiella species (Acute) - Physical Exam Vitals/I&O's: Vital Signs Temp Pulse Resp BP Pulse Ox 98.8 F 74 18 138/74 H 97 10/05/19 15:47 10/05/19 15:47 10/05/19 15:47 10/05/19 15:47 10/05/19 15:47 Oxygen Delivery Method Room Air Weight: 47.259 kg Body Mass Index (BMI) 16.5 Intake and Output for Last 24 Hours 10/03/19 10/04/19 10/05/19 23:59 23:59 23:59 Intake Total 960 / 960 940 / 940 820 / 820 Balance 960 / 960 940 / 940 820 / 820 Laboratory Results 10/05/19 05:35: PT 30.3 H, INR 2.9 Current Medications Acetaminophen (Tylenol) 1,000 mg PO Q6H PRN PRN PRN Reason: Pain Score 1-3/10 Last Admin: 10/03/19 04:09 Dose: 1,000 mg Documented by: Aspirin (Ecotrin) 81 mg PO DAILY@0800 [facility] Last Admin: 10/05/19 08:23 Dose: 81 mg Documented by: Atorvastatin Calcium (Lipitor) 10 mg PO QHS [facility] Last Admin: 10/04/19 20:01 Dose: 10 mg Documented by: Bisacodyl (Dulcolax) 10 mg PO DAILY PRN PRN PRN Reason: Constipation Last Admin: 10/04/19 05:23 Dose: 10 mg Documented by: Calamine/Phenol (Calmoseptine Ointment) 1 applic TOPICAL 0600,2200 [facility]; Protocol Last Admin: 10/05/19 06:18 Dose: 1 applicatio Documented by: Hydroxychloroquine Sulfate (Plaquenil) [facility] Last Admin: 10/05/19 08:23 Dose: 200 mg Documented by: Hydroxychloroquine Sulfate (Plaquenil) 200 mg PO SuSa@2200 [facility] Last Admin: 10/04/19 20:01 Dose: 200 mg Documented by: Hydroxyurea (Hydrea) 500 mg PO QODAY [facility] Last Admin: 10/04/19 08:59 Dose: 500 mg Documented by: Lidocaine/Diphenhydr/Alum/Mg/Simeth () 15 ml PO Q3H PRN PRN PRN Reason: MOUTH IRRITATION Melatonin (Melatonin) 10 mg PO QHS [facility] Last Admin: 10/04/19 20:01 Dose: 10 mg Documented by: Multi-Ingredient Cream (Eucerin) 1 applic TOPICAL 2199 [facility]; Protocol Last Admin: 10/04/19 20:01 Dose: 1 applicatio Documented by: Multivitamins (Multivitamin) 1 tablet [facility] Last Admin: 10/05/19 08:23 Dose: 1 tablet Documented by: Multivitamins/Minerals (Healthy Eyes) 1 capsule [facility] Last Admin: 10/05/19 17:16 Dose: 1 capsule Documented by: Nifedipine (Procardia Xl) 90 mg PO DAILY [facility] Last Admin: 10/05/19 06:17 Dose: 90 mg Documented by: Ondansetron HCl (Zofran Odt) 4 mg PO Q8H PRN PRN PRN Reason: NAUSEA Last Admin: 10/05/19 11:23 Dose: 4 mg Documented by: Pantoprazole Sodium (Protonix) 20 mg PO DAILY [facility] Last Admin: 10/05/19 06:17 Dose: 20 mg Documented by: Senna/Docusate Sodium (Senokot-S, Nola-Colace) 1 tablet PO BID [facility] Last Admin: 10/05/19 17:16 Dose: 1 tablet Documented by: Tramadol HCl (Ultram) 50 mg PO Q6H PRN PRN PRN Reason: Pain Score 4-10/10 Last Admin: 10/04/19 20:03 Dose: 50 mg Documented by: Warfarin Sodium 1 mg/ Warfarin (Sodium 2.5 mg) 3.5 mg PO DAILY@1700 [facility] Last Admin: 10/05/19 17:16 Dose: 3.5 mg Documented by: Discharge Diet: No Restrictions Discharge Activity: Return to Normal Activity, May Shower, Use Walker Weight Bearing Status: Weight bearing as tolerated Call your doctor if you observe: Fever of 101 or Higher, Inability to urinate, Inability to have a bowel movement, Shortness of breath, Chest pain, Uncontrolled pain Home Medications: Medications to take at Discharge Omeprazole [Prilosec] 20 mg PO DAILY 11/05/15 Vit A/Vit C/Vit E/Zinc/Copper [Preservision Areds Softgel] 1 each PO BID 03/09/16 Acetaminophen [Tylenol] 1,000 mg PO Q6H PRN PRN 09/11/19 Hydroxychloroquine Sulfate [Plaquenil] 200 mg PO SUSA 09/11/19 Hydroxyurea 500 mg PO UD 09/11/19 Aspirin E.C. [Ecotrin] 81 mg PO DAILY@0800 09/15/19 Atorvastatin Calcium [Lipitor] 10 mg PO QHS 09/15/19 Hydroxychloroquine [Plaquenil] 200 mg PO DAILYCM 09/15/19 Multivitamins,Therapeutic [Multivitamin] 1 tab PO DAILYCM 09/15/19 NIFEdipine [Procardia XL] 90 mg PO DAILY 09/15/19 Warfarin [Coumadin] 2.5 mg PO SuTuThSa@1700 09/15/19 Warfarin [Coumadin] 5 mg PO MoWeFr@1700 09/15/19 Melatonin 10 mg PO QHS #30 tab 10/05/19 Menthol/Lanolin/Calamine/Znox [Calmoseptine Ointment] 1 applic TOPICAL 0600,2200 tube 10/05/19 Mineral Oil/Petrolatum,White [Eucerin] 1 applic TOPICAL 2200 jar 10/05/19 Ondansetron [Zofran Odt] 4 mg PO Q8H PRN PRN #90 tab 10/05/19 traMADol [Ultram] 50 mg PO Q6H PRN PRN #30 tab 10/05/19 Following Prescrptions Were Given to Patient: Melatonin 10 mg PO QHS #30 tab Transmission Status: Pending to [facility] traMADol [Ultram] 50 mg PO Q6H PRN PRN #30 tab PRN Reason: pain 4 or greater Transmission Status: Sent to [facility] Ondansetron [Zofran Odt] 4 mg PO Q8H PRN PRN #90 tab PRN Reason: NAUSEA Transmission Status: Pending to [facility] Other Amb Orders: Prothrombin Time w/INR Time Frame: 1 Day, Facility: [facility], Location: Laboratory Primary Care Physician: Jaya Blackwell III, MD [Primary Care Provider] - Please follow up with your Primary Care Physician in: 1 week. Please Follow Up With: Jaya Blackwell (PCP) When: 1 week Please Follow Up With: Mike Coppola MD When: 2-3 weeks Please Follow Up With: Dereck Ortiz MD When: 2 weeks. Disposition: Home with Home Health Minutes spent on discharge:: 35 Patient Condition:: Stable Medical Necessity - Tobacco Use Smoking Status: Never smoker Tobacco Use: Non-smoker Meaningful Use Info Meaningful Use Diagnoses (Choose all that apply): None applicable
--- NOTE | 2019-10-05 20:52 | HHNOTE_ITS ---
Home Health Note - Plan Overview of reason of hospitalization: The patient is a 79 year old Female with below past medical history significant for peripheral arterial occlusive disease, hospitalized for severe left leg pain, critical ischemia ruled out, complicated by Klebsiella Pneumoniae urinary tract infection, acute on chronic anemia, admitted to TCU with debility, here for rehabilitation, strengthening, prior to discharge home alone. Discharge home alone, [facility] for PT/OT. Problems: Patient was seen for Debility (Acute) UTI due to Klebsiella species (Acute) Osteoarthritis of left knee (Chronic) Osteoarthritis of left hip (Chronic) Peripheral arterial occlusive disease (Chronic) Constipation (Chronic) Hyperlipidemia (Chronic) Chronic kidney disease (Chronic) Transient ischemic attack (Chronic) Carotid artery stenosis (Chronic) CREST (calcinosis, Raynaud's phenomenon, esophageal dysfunction, sclerodactyly, telangiectasia) (Chronic) GERD (gastroesophageal reflux disease) (Chronic) Complete List of Medical Problems Debility (Acute) UTI due to Klebsiella species (Acute) Osteoarthritis of left knee (Chronic) Osteoarthritis of left hip (Chronic) Peripheral arterial occlusive disease (Chronic) Constipation (Chronic) Hyperlipidemia (Chronic) Chronic kidney disease (Chronic) Transient ischemic attack (Chronic) Carotid artery stenosis (Chronic) CREST (calcinosis, Raynaud's phenomenon, esophageal dysfunction, sclerodactyly, telangiectasia) (Chronic) GERD (gastroesophageal reflux disease) (Chronic) Left leg pain (Acute) Scleroderma (Chronic) Chronic renal failure, stage 3 (moderate) (Chronic) Chronic anticoagulation (Chronic) Anemia of chronic disease (Chronic) CAD (coronary artery disease) (Chronic) PAD (peripheral artery disease) (Chronic) History of CEA (carotid endarterectomy) (Chronic) Thrombocytosis (Chronic) Diarrhea (Chronic) 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) Hypertension (Chronic) - Requirements and Reasons Disciplines Needed/Ordered: Physical Therapy Reason for Disciplines: Disease Specific Monitoring/education, Medication Management/Knowledge Deficit, Gait Training, Stair Training, Fall Prevention, Home Safety/Equipment Instruction, Balance and/or Posture Training, Transfer Training Related To: Change in Medical Treatment Plan, Limited/Poor Endurance, Physical Impairments, Unsteady Gait/Balance, Fall Risk Patient is unable to leave the home: Without Aid of Supportive Devices (crutches, cane, wheelchair, walker), Without the assistance of another person - Additional Disciplines Additional Disciplines Needed/Ordered: Occupational Therapy
[2019-10-05] MEDS: Atorvastatin Calcium 10 MG Tablet PO (21:45)
[2019-10-05] MEDS: MELATONIN 10 MG TABLET PO (21:45)
[2019-10-06] MEDS: Pantoprazole Sodium 20 MG Tablet PO (06:29)
[2019-10-06] MEDS: NIFEdipine 90 MG Tablet PO (06:30)
[2019-10-06] MEDS: Menthol/Lanolin/Calamine/Znox 113 GM Tube 1 APPLIC TOPICAL ×2 (06:31→20:40)
[2019-10-06] MEDS: Multivitamin (Healthy Eyes) Capsule 1 CAP PO ×2 (09:21→16:53)
[2019-10-06] MEDS: Aspirin E.C. 81 MG Tablet PO (09:21)
[2019-10-06] MEDS: Multivitamins,Therapeutic Tablet 1 TABLET PO (09:21)
[2019-10-06] MEDS: Hydroxyurea 500 MG Capsule PO (09:22)
[2019-10-06] MEDS: Hydroxychloroquine 200 MG Tablet PO (09:22)
[2019-10-06] MEDS: traMADol 50 MG Tablet PO (09:28)
--- NOTE | 2019-10-06 11:17 | CASEMGMT ---
Addendum entered by Hilary Morgan 10/06/19 11:39: [facility] can accept and that is patient's choice - notified family and other facilities. Original Note: Social Work Family members contacted SW stating patient does not feel comfortable discharging home and explained pt is not good at advocating for her care. Spoke with pt to discuss feelings and pt confirms. Discussed with family and pt at length other options - AL and private duty HHC and the financial liability. Pt would like AL. Discussed respite stays - pt and family decided on that option if facilities have availability for DC tomorrow. Provided list of ALs to pt and family - referred to [facility] availability - awaiting return call from [facility]. Will continue to follow. ARACELY Flores
[2019-10-06 15:57] VITALS: BP 147/67; PULSE 86; RESP 16; TEMP 38.4; O2SAT 95
[2019-10-06] MEDS: Senna/Docusate Sodium 1 Tablet PO (16:53)
[2019-10-06] MEDS: Acetaminophen 500 MG Tablet 1000 MG PO (16:57)
[2019-10-06 17:01] VITALS: TEMP 37.7
--- NOTE | 2019-10-06 17:02 | NURSING ---
PT COMPLAINED OF GENERALIZED ACHINESS A 7 OUT OF 10. ORAL TEMP 99.9. PRN TYLENOL GIVEN. REPORTED TO [facility] WILL CONTINUE TO MONITOR.
--- NOTE | 2019-10-06 17:29 | TREXTCAR_ITS ---
- Diet 09/15/19 11:23 Diet: Regular Diet Food consistency:: Regular Liquid Consistency:: Regular/Thin Type of Dietary Supplement:: [place] Breakfast Diet Comments: vitamin K restricted diet - Routine Orders/Code Status Suppository Type: Dulcolax 10mg Suppository Frequency: Daily PRN Routine Lab Work: INR Code Status: DNC-A - Wound(s) tip of middle finger R hand Wound Type: Stasis Ulcer tip of middle finger L hand Wound Type: Stasis Ulcer Coccyx Wound Type: reddened Dressing Change: mepilex 10/05 Lower left buttock Wound Type: area of concern Dressing Change: mepilex 10/05 - Therapies Weight Bearing: Weight bearing as tolerated Extremity Affected:: Bilateral Lower Physical Therapy: Eval and Treat Occupational Therapy: Eval and Treat - Problem/Diagnosis (1) Debility Status: Acute Current Visit: Yes (2) UTI due to Klebsiella species Status: Acute Current Visit: Yes (3) Osteoarthritis of left knee Status: Chronic Current Visit: Yes (4) Osteoarthritis of left hip Status: Chronic Current Visit: Yes (5) Peripheral arterial occlusive disease Status: Chronic Current Visit: Yes (6) Constipation Status: Chronic Current Visit: Yes (7) Hyperlipidemia Status: Chronic Current Visit: Yes (8) Chronic kidney disease Status: Chronic Current Visit: Yes (9) Transient ischemic attack Status: Chronic Current Visit: Yes (10) Carotid artery stenosis Status: Chronic Current Visit: Yes (11) CREST (calcinosis, Raynaud's phenomenon, esophageal dysfunction, sclerodactyly, telangiectasia) Status: Chronic Current Visit: Yes (12) GERD (gastroesophageal reflux disease) Status: Chronic Current Visit: Yes (13) Scleroderma Status: Chronic Current Visit: No (14) CAD (coronary artery disease) Status: Chronic Current Visit: No (15) Hypertension Status: Chronic Current Visit: No - Allergies/Procedures Done in Hospital Allergies/Adverse Reactions: Allergies ampicillin Allergy (Verified 09/11/19 04:24) Rash cyclophosphamide [From Cytoxan] Allergy (Verified 09/11/19 04:24) Rash doxycycline Allergy (Verified 09/11/19 04:24) Rash morphine Allergy (Verified 09/11/19 04:24) mental status change sulfamethoxazole [From Bactrim] Allergy (Verified 09/11/19 04:24) Rash trimethoprim [From Bactrim] Allergy (Verified 09/11/19 04:24) Rash - Type of Care/Length of Stay Estimated LOS: Convalescent Care Less Than 30 days Type of Care Needed: Intermediate Rehab Potential: Fair Prognosis: Fair - Additional Orders/Day of Discharge Day of Discharge: 10/07/19 - Dietary and Speech Recommendations Dietitian Recommendations/Changes: Will provide magic cup w/ meals for increased nutrition if consumed. Rec continue CIB w/ meals - Follow Up Care Primary Care Physician: Jaya Blackwell III, MD [Primary Care Provider] - Please follow up with your Primary Care Physician in: 1 week. Please Follow Up With: Jaya Blackwell (PCP) When: 1 week Please Follow Up With: Mike Coppola MD When: 2-3 weeks Please Follow Up With: Dereck Ortiz MD When: 2 weeks.
[2019-10-06 18:32] VITALS: TEMP 37.3
--- NOTE | 2019-10-06 18:54 | NURSING ---
PT TEMP 99.1 ORAL. WILL CONTINUE TO MONITOR.
[2019-10-06 20:30] VITALS: RESP 16; TEMP 37.1
[2019-10-06] MEDS: MELATONIN 10 MG TABLET PO (20:32)
[2019-10-06] MEDS: Atorvastatin Calcium 10 MG Tablet PO (20:32)
[2019-10-07] MEDS: NIFEdipine 90 MG Tablet PO (06:31)
[2019-10-07] MEDS: Pantoprazole Sodium 20 MG Tablet PO (06:31)
[2019-10-07] MEDS: Menthol/Lanolin/Calamine/Znox 113 GM Tube 1 APPLIC TOPICAL (06:33)
[2019-10-07 06:40] LABS: Anion Gap 7 (5-15); BUN 42 mg/dL (7-18); BUN/Creat Ratio 34.7 RATIO (10-20); Calcium,Total 7.9 mg/dL (8.5-10.1); Chloride 108 mmol/L (98-107); Creatinine, Serum 1.21 mg/dL (0.55-1.02); EST Glomerular Filtration Rate 46 mL/min (>60); Est Glom Filt Rate - Afr Amer 55 mL/min (>60); Estimated Creatinine Clearance 27.67 ml/min; Glucose 70 mg/dL (74-106); Potassium 3.9 mmol/L (3.5-5.1); Sodium Level 136 mmol/L (136-145)
[2019-10-07 07:16] LABS: Absolute Lymphocyte Count 3.73 X10^3/uL (0.83-4.51); Absolute Neutrophil Count 15.3 X10^3/uL (2.0-7.7); Basophil# 0.08 X10^3/uL; Basophil% 0.4 % (0-1); Eosinophil# 0.15 X10^3/uL; Eosinophils% 0.7 % (0-5); Hematocrit 29.3 % (37-47); Hemoglobin 9.6 g/dL (12.0-15.0); Lymphocyte # 3.73 X10^3/ul (4.0); Lymphocyte % 17.7 % (19-41); Mean Corp Hgb Conc 32.8 g/dL (32-36); Mean Corpuscular Volume 91.6 fL (81-99); Mean Platelet Vol. 10.3 fl (6.2-12.0); Monocyte% 7.6 % (0-10); NRBC Flagged by Analyzer 0 % (0-5); Neutrophil # 15.25 X10^3/uL (2.7-7.7); Neutrophil % 72.4 % (47-70); POSITIVE DIFFERENTIAL YES; Platelet Count 614 K/mm3 (150-450); RBC Distribution Width CV 16.4 % (11.6-14.6); RBC Distribution Width SD 53.8 fl (35.1-43.9); White Blood Count 21.1 K/mm3 (4.4-11.0)
[2019-10-07 07:18] LABS: Differential Indicated SCAN CRITERIA MET
[2019-10-07] MEDS: Aspirin E.C. 81 MG Tablet PO (08:06)
[2019-10-07] MEDS: Hydroxychloroquine 200 MG Tablet PO (08:06)
[2019-10-07] MEDS: Multivitamins,Therapeutic Tablet 1 TABLET PO (08:06)
[2019-10-07] MEDS: Multivitamin (Healthy Eyes) Capsule 1 CAP PO (08:06)
--- NOTE | 2019-10-07 08:45 | NURSING ---
Dr Boone reviewed labs, no new orders.
[2019-10-07 11:01] VITALS: BP 126/47; PULSE 79; RESP 16; TEMP 36.8; O2SAT 99
[2019-10-07 12:35] LABS: Pathologist Review Reviewed
--- NOTE | 2019-10-07 14:55 | NURSING ---
attempted to call [facility] on lunch, awaiting return call.
== END 2019-10-07 14:30 | disposition home health service (06) | DRG 546 ==
PROVIDERS: Internal Medicine Nephrology; Admitting Provider Family Medicine Geriatric Medicine; Family Provider Family Medicine; PCP Family Medicine; Visit Provider Family Medicine Geriatric Medicine
DX: M34.1 CR(E)ST syndrome (principal); N39.0 Urinary tract infection, site not specified; M16.12 Unilateral primary osteoarthritis, left hip; M17.12 Unilateral primary osteoarthritis, left knee; I25.10 Atherosclerotic heart disease of native coronary artery without angina pectoris; Z23 Encounter for immunization; N18.3 Chronic kidney disease, stage 3 (moderate); I12.9 Hypertensive chronic kidney disease with stage 1 through stage 4 chronic kidney disease, or unspecified chronic kidney disease; E78.5 Hyperlipidemia, unspecified; K21.9 Gastro-esophageal reflux disease without esophagitis; B96.1 Klebsiella pneumoniae [K. pneumoniae] as the cause of diseases classified elsewhere; D63.8 Anemia in other chronic diseases classified elsewhere; Z89.511 Acquired absence of right leg below knee; H35.30 Unspecified macular degeneration
CPT/HCPCS: 36415; 72040; 74018; 76770; 80048; 80069; 81001; 82306; 82570; 82728; 83540; 83970; 84156; 85025; 85610; 87040; 87086; 87506; 87633; 90732; 97110; 97116; 97162; 97166; 97530; 97535; 97802; G0009; 90670

== ENCOUNTER 2019-10-31 13:02 | Inpatient (IN) | payer MEDICARE, OTHER, SELFPAY ==
[2019-10-31] VITALS (16 sets, daily range): BP systolic 162–178; BP diastolic 67–82; PULSE 69–82; RESP 20–32; TEMP 36.2–36.7; O2SAT 85–96; BMI 20.1; BMI 18.2; BMI 18.3
--- NOTE | 2019-10-31 13:23 | EKG12_ITS ---
Test Reason : DYSRHYTHMIA Blood Pressure : / mmHG Vent. Rate : 067 BPM Atrial Rate : 067 BPM P-R Int : 122 ms QRS Dur : 086 ms QT Int : 422 ms P-R-T Axes : 007 041 077 degrees QTc Int : 445 ms Sinus rhythm with Premature atrial complexes Low voltage QRS Septal infarct , age undetermined Abnormal ECG Confirmed by TESSA BAKER, BEA ([id number]), assignment desk editor ALMA FUENTES ([id number]) on 11/03/2019 9:59:12 AM Referred By: Edgar Valencia Confirmed By:BEA ZARATE MD
--- NOTE | 2019-10-31 13:23 | RAD_ITS ---
STUDY: X-RAY CHEST REASON FOR EXAM: Female, 79 years old. SOB, COUGH, WEAK TECHNIQUE: PA and lateral views of the chest. COMPARISON: 06/11/2019 FINDINGS: Surgical clips project over the base of the neck/superior mediastinum. There are vascular calcifications in the proximal right arm. Left larger than right pleural effusions have developed since the prior study. Central vascular congestion and interstitial opacities are identified with superimposed consolidation of the left more than right lung base. There is mild cardiac enlargement. Normal mediastinum and dinesh. There is prominence of the pulmonary hilar arteries and peripheral pulmonary arteries, consistent with congestive heart failure (CHF). There is atherosclerotic calcification of the aortic arch with tortuosity. No acute bony process. There is no demonstrated abnormality of the visualized soft tissue structures of the upper abdomen. RAD/Chest PA and Lateral IMPRESSION: Unfavorable change. Suspect CHF with pulmonary edema and left borders of the right pleural effusions. Given asymmetry, pneumonia cannot be excluded. Electronically Signed: Bhavesh Llanes MD ([place]) at 14:55 EST , Service support ,
--- NOTE | 2019-10-31 13:25 | ED.VIS.GEN ---
History of Present Illness Chief Complaint: Shortness of Breath Informant: Patient, SNF Onset: Yesterday Context: Sudden Onset Timing: Continuous Quality: Shortness of breath, cough and orthopnea Location: Cardiothoracic Current Severity: Mild Maximum Severity: Moderate Worsened by: Lying flat last evening Relieved by: Better upright position Associated Symptoms: Previously documented Narrative: Patient is an elderly woman who presents from care home because of low pulse ox, cough that is nonproductive, orthopnea with onset last evening. She denies chest pain. She denies history of PE or DVT. She denies fever, chills or night sweats. She denies URI symptoms. She denies GI or symptoms. Prior similar symptoms: No Recent Illness/Hospitalization: No - Past Medical History (1) Osteoarthritis of left knee Status: Chronic (2) Peripheral arterial occlusive disease Status: Chronic (3) Chronic kidney disease Status: Chronic (4) Transient ischemic attack Status: Chronic (5) Carotid artery stenosis Status: Chronic (6) CREST (calcinosis, Raynaud's phenomenon, esophageal dysfunction, sclerodactyly, telangiectasia) Status: Chronic (7) GERD (gastroesophageal reflux disease) Status: Chronic (8) Chronic anticoagulation Status: Chronic Comment: With warfarin (9) Anemia of chronic disease Status: Chronic (10) PAD (peripheral artery disease) Status: Chronic (11) History of CEA (carotid endarterectomy) Status: Chronic Comment: right (12) Hypertension Status: Chronic Past Medical History - Allergies and Home Meds Allergies/Adverse Reactions: Allergies ampicillin Allergy (Verified 10/31/19 13:03) Rash cyclophosphamide [From Cytoxan] Allergy (Verified 10/31/19 13:03) Rash doxycycline Allergy (Verified 10/31/19 13:03) Rash morphine Allergy (Verified 10/31/19 13:03) mental status change sulfamethoxazole [From Bactrim] Allergy (Verified 10/31/19 13:03) Rash trimethoprim [From Bactrim] Allergy (Verified 10/31/19 13:03) Rash Primary Care Physician: Jaya Blackwell III, MD [Primary Care Provider] - Prior records reviewed: Yes Surgical History: noncontributory, cataract, - - Right carotid endarterectomy. Right BKA, left great toe amputation. Back surgery, patient can not remember what type. Lives: Group Home Smoking Status: Never smoker Alcohol: None Drugs: None - Family History Paternal Family History: Reports: Stroke, - - Patient's father suffered from Raynaud's disease Maternal Family History: Reports: No pertinent history Review of Systems General: Denies: Chills, Fever, Sweats Eyes: Denies: Visual changes - bilaterally, Blurred Vision - bilaterally ENT: Denies: Rhinorrhea, Sore throat Cardiovascular: Denies: Chest pain, Palpitations, Heart racing Respiratory: Reports: Dyspnea, Cough, Dyspnea on exertion, Orthopnea. Denies: Sputum, Paroxysmal nocturnal dyspnea Gastrointestinal: Denies: Abdominal pain, Nausea, Vomiting, Diarrhea, Melena, Hematochezia Genitourinary: Denies: Dysuria, Hematuria, Frequency Musculoskeletal: Reports: Swelling. Denies: Myalgias, Arthralgias, Neck pain, Back pain, Extremity Pain, -, - Skin: Denies: Rash, Wounds Neurological: Denies: Headache, Weakness, Numbness Hematologic: Denies: Easy bruising, Easy bleeding Physical Exam Vital Signs/Narrative: Vital Signs Temp Pulse Resp BP Pulse Ox 10/31/19 13:04 97.6 F L 69 23 H 172/77 H 94 Inital Vital Signs reviewed: Yes General: Well nourished, Well developed, No Acute Distress Head: Normocephalic, Atraumatic Eyes: Perrl, EOMI, - - There is a violaceous hue/coloration upper eyelids consistent with scleroderma. Negative for: Pale conjunctiva, Scleral icterus ENT: Moist mucous membranes, No rhinorrhea Neck: Supple, Nontender, No lymphadenopathy. Negative for: No JVD Cardiovascular: Regular rate, Regular rhythm, No murmurs, Normal S1, Normal S2 Respiratory: No distress, Chest nontender, Rales. Negative for: CTA bilaterally Abdomen: Soft, Nontender, Nondistended, Normal bowel sounds Extremities: Nontender, Edema, - - Stasis right lower extremity. Negative for: No edema Skin: Normal color, No rash, No Trauma. Negative for: Cyanosis, Diaphoresis, Jaundice Diagnostic/Tx/Re-eval Chest X-Ray - ED: 2 View, Normal, Bony Structures, Cardiomegaly, CHF, Left Effusion 10/31/19 13:23 Chest PA and Lateral [RAD] Stat Laboratory Results 10/31/19 10/31/19 10/31/19 14:05 14:05 14:05 WBC 15.2 H RBC 3.02 L Hgb 9.0 L Hct 28.7 L MCV 95.0 MCH 29.8 MCHC 31.4 L RDW Std Deviation 68.8 H RDW Coeff of Aba 20.6 H Plt Count 503 H MPV 10.4 Immature Gran % (Auto) 0.900 Neut % (Auto) 80.7 H Lymph % (Auto) 11.6 L [place] % (Auto) 6.4 Eos % (Auto) 0.1 Baso % (Auto) 0.3 Absolute Neuts (auto) 12.3 H Absolute Lymphs (auto) 1.77 Nucleated RBC % 0 Diff Path Review May foll Platelet Estimate SLT INC Hypochromasia 2+ Anisocytosis 2+ Ovalocytes 2+ Schistocytes 1+ PT INR Sodium 142 Potassium 3.5 Chloride 112 H Carbon Dioxide 21.0 Anion Gap 9 BUN 46 H Creatinine 1.49 H Estim Creat Clear Calc 26.95 Est GFR (MDRD) Af Amer 43 L Est GFR (MDRD) Non-Af 36 L BUN/Creatinine Ratio 30.9 H Glucose 88 Calcium 8.0 L Troponin I 0.145 H B-Natriuretic Peptide > 5000.0 H 10/31/19 14:05 WBC RBC Hgb Hct MCV MCH MCHC RDW Std Deviation RDW Coeff of Aba Plt Count MPV Immature Gran % (Auto) Neut % (Auto) Lymph % (Auto) [place] % (Auto) Eos % (Auto) Baso % (Auto) Absolute Neuts (auto) Absolute Lymphs (auto) Nucleated RBC % Diff Path Review Platelet Estimate Hypochromasia Anisocytosis Ovalocytes Schistocytes PT 33.1 H INR 3.2 Sodium Potassium Chloride Carbon Dioxide Anion Gap BUN Creatinine Estim Creat Clear Calc Est GFR (MDRD) Af Amer Est GFR (MDRD) Non-Af BUN/Creatinine Ratio Glucose Calcium Troponin I B-Natriuretic Peptide BNP is greater than 5000. Chest x-ray reveals congestive heart failure with pleural effusion. Troponin is elevated most likely secondary to heart failure. Since patient is clinically fluid overloaded will treat with Lasix. White count is elevated. This is nonspecific. This may be secondary to stress. - Medical Decision Making With acute onset of shortness of breath and hypoxia need to rule out pulmonary embolus, pneumonia, congestive heart failure, cardiac ischemia. EKG, chest x-ray and appropriate blood work was obtained. Socks is inaccurate. Waveform is not good this is secondary to cold extremities. When there was a good waveform pulse ox is 96%. ED Disposition - Plan for ED Patient: Disposition: Acute Care Hospital [facility] Diagnosis: Acute congestive heart failure, Elevated troponin I level, Pleural effusion, left, Anemia in chronic illness Referrals: Jaya Blackwell III, MD [Primary Care Provider] -
[2019-10-31 14:09] LABS: Absolute Lymphocyte Count 1.77 X10^3/uL (0.83-4.51); Absolute Neutrophil Count 12.3 X10^3/uL (2.0-7.7); Basophil# 0.04 X10^3/uL; Basophil% 0.3 % (0-1); Differential Indicated SCAN CRITERIA MET; Eosinophil# 0.02 X10^3/uL; Eosinophils% 0.1 % (0-5); Hematocrit 28.7 % (37-47); Lymphocyte # 1.77 X10^3/ul (4.0); Lymphocyte % 11.6 % (19-41); Mean Corp Hgb Conc 31.4 g/dL (32-36); Mean Corpuscular Hgb 29.8 pg (27.0-32.0); Mean Platelet Vol. 10.4 fl (6.2-12.0); Monocyte# 0.97 X10^3/uL; Monocyte% 6.4 % (0-10); NRBC Flagged by Analyzer 0 % (0-5); Neutrophil # 12.26 X10^3/uL (2.7-7.7); Neutrophil % 80.7 % (47-70); POSITIVE MORPHOLOGY YES; Platelet Count 503 K/mm3 (150-450); RBC Distribution Width CV 20.6 % (11.6-14.6); RBC Distribution Width SD 68.8 fl (35.1-43.9); Red Blood Count 3.02 M/mm3 (4.2-5.4); White Blood Count 15.2 K/mm3 (4.4-11.0)
[2019-10-31 14:17] LABS: International Normalized Ratio 3.2; Prothrombin Time (Protime)PT. 33.1 SECONDS (11.7-14.9)
[2019-10-31 14:27] LABS: Anion Gap 9 (5-15); BUN 46 mg/dL (7-18); BUN/Creat Ratio 30.9 RATIO (10-20); Chloride 112 mmol/L (98-107); Creatinine, Serum 1.49 mg/dL (0.55-1.02); EST Glomerular Filtration Rate 36 mL/min (>60); Est Glom Filt Rate - Afr Amer 43 mL/min (>60); Estimated Creatinine Clearance 26.95 ml/min; Glucose 88 mg/dL (74-106); Potassium 3.5 mmol/L (3.5-5.1); Sodium Level 142 mmol/L (136-145)
[2019-10-31 14:29] LABS: Anisocytosis 2+; Hypochromasia 2+; Platelet Estimate SLT INC (ADEQ)
[2019-10-31 14:30] LABS: Ovalocyte 2+; Schistocytes 1+
[2019-10-31 14:38] LABS: BNP,B-Type NATRIURETIC PEPTIDE > 5000.0 pg/mL (0-100)
--- NOTE | 2019-10-31 15:12 | NURSING ---
PCU FARRAH ACUTE NEW ONSET HEART FAILURE, LARGE PLEURAL EFFUSION, ELEVATED TROP
[2019-10-31] MEDS: Furosemide 20 MG/2 ML VIAL IV (15:13)
--- NOTE | 2019-10-31 15:25 | NURSING ---
called [facility] to give update on the pt. spoke with nurse.
--- NOTE | 2019-10-31 15:27 | PCM.HP.STD ---
History of Present Illness Date of Admission: 10/31/19 Chief Complaint: Shortness of breath The patient is a 79 year old F with a PMH as below presents with several days of shortness of breath and an inability to lie flat because of that. She denies any chest pain or lightheadedness. She is also noticed that her left lower extremity has gotten significantly more swollen over this time. Then it has been previously. She says that she has had some swelling in the past but nothing this significant. She is status post amputation of her right lower extremity because of peripheral artery disease likely complicated and secondary to crest syndrome. In the ER she was found to be afebrile however she was hypoxic and required oxygen which she is not on at home. Chest x-ray demonstrated a large left pleural effusion as well as a right pleural effusion. Also of note on 09/14/2019 she was 111 pounds and today on admission she is 125 pounds. Past Medical History Past Medical History (Chronic Problems): Chronic Problems Osteoarthritis of left knee (Chronic) Osteoarthritis of left hip (Chronic) Peripheral arterial occlusive disease (Chronic) Constipation (Chronic) Hyperlipidemia (Chronic) Chronic kidney disease (Chronic) Transient ischemic attack (Chronic) Carotid artery stenosis (Chronic) CREST (calcinosis, Raynaud's phenomenon, esophageal dysfunction, sclerodactyly, telangiectasia) (Chronic) GERD (gastroesophageal reflux disease) (Chronic) Scleroderma (Chronic) Chronic renal failure, stage 3 (moderate) (Chronic) Chronic anticoagulation (Chronic) With warfarin Anemia of chronic disease (Chronic) CAD (coronary artery disease) (Chronic) PAD (peripheral artery disease) (Chronic) History of CEA (carotid endarterectomy) (Chronic) right Thrombocytosis (Chronic) Diarrhea (Chronic) resolves with immodium 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) Hypertension (Chronic) Allergies ampicillin Allergy (Verified 10/31/19 13:03) Rash cyclophosphamide [From Cytoxan] Allergy (Verified 10/31/19 13:03) Rash doxycycline Allergy (Verified 10/31/19 13:03) Rash morphine Allergy (Verified 10/31/19 13:03) mental status change sulfamethoxazole [From Bactrim] Allergy (Verified 10/31/19 13:03) Rash trimethoprim [From Bactrim] Allergy (Verified 10/31/19 13:03) Rash Home Medications: Ambulatory Orders Medication Instructions Recorded Vit A/Vit C/Vit E/Zinc/Copper 1 each PO BID 03/09/16 [Preservision Areds Softgel] Acetaminophen [Tylenol] 1,000 mg PO Q6H PRN PRN 09/11/19 Hydroxyurea 500 mg PO UD 09/11/19 Aspirin E.C. [Ecotrin] 81 mg PO DAILY@0800 09/15/19 Atorvastatin Calcium [Lipitor] 10 mg PO QHS 09/15/19 Hydroxychloroquine [Plaquenil] 200 mg PO DAILYCM 09/15/19 Multivitamins,Therapeutic 1 tab PO DAILYCM 09/15/19 [Multivitamin] NIFEdipine [Procardia XL] 30 mg PO DAILY 09/15/19 Ondansetron [Zofran Odt] 4 mg PO Q8H PRN PRN #90 tab 10/05/19 traMADol [Ultram] 50 mg PO Q6H PRN PRN #30 tab 10/05/19 Ferrous Sulfate 325 mg PO BIDCM 10/31/19 Metoprolol Tartrate 50 mg PO DAILY 10/31/19 Pantoprazole Sodium [Protonix] 20 mg PO DAILY 10/31/19 Warfarin [Coumadin (PBKC)] 3.5 mg PO DAILY 10/31/19 Surgical History: cataract, - - Right carotid endarterectomy. Right BKA, left great toe amputation. Back surgery, patient can not remember what type. 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 Denies: Chest Pain, Palpitations Respiratory: Reports: Shortness of Breath. Denies: Cough, Shortness of breath at rest, Sputum production Gastrointestinal: Denies: Abdominal Pain, Nausea, Vomiting Genitourinary: Denies: Dysuria Musculoskeletal: Denies: Joint Pain, Joint Tenderness Skin: Denies: Rash, Wounds Neurological: Denies: Numbness, Tingling, Focal weakness Psychiatric: Denies: Anxiety, Depression Hematologic/ Lymphatic: Denies: Easy Bruising, Easy Bleeding VTE Information - Inpt Only VTE Present on Admission: No Patient Problems: Active and Suspected Problems Acute congestive heart failure (Acute) Elevated troponin I level (Acute) Pleural effusion, left (Acute) - Physical Exam Vitals/I&O's: Vital Signs Temp Pulse Resp BP Pulse Ox 97.8 F 77 24 H 178/74 H 89 10/31/19 15:17 10/31/19 15:17 10/31/19 15:17 10/31/19 15:17 10/31/19 15:17 Oxygen Flow Rate (L/min) 5 Oxygen Delivery Method Nasal Cannula Weight: 125 lb 0.034 oz Body Mass Index (BMI) 20.1 General: Alert, Oriented x3, Cooperative, No apparent distress HEENT: Atraumatic, PERRLA, EOMI, Normocephalic Oral: Dry Mucosa Neck: Supple Lungs: Clear to auscultation, Normal air movement, No rhonchi, No wheeze, No rales, Diminished - Bilateral bases, - - She does have dullness to percussion two thirds up her left lung Cardiovascular: Regular rate, Regular Rhythm, Normal S1, Normal S2, No murmurs Abdomen: Soft, Non Tender, Non-Distended, No Hepato-splenomegaly Extremities: Capillary Refill Less than 3 Seconds, Edema - 2-3+ pitting edema in the left lower extremity, the right lower extremity is an amputation Skin: No rashes, No breakdown Neurological: Neuro grossly intact, Sensory exam intact to light touch and pain Psych/Mental Status: Normal Affect, Appropriate Laboratory Results 10/31/19 14:05: WBC 15.2 H, RBC 3.02 L, Hgb 9.0 L, Hct 28.7 L, MCV 95.0, MCH 29.8, MCHC 31.4 L, RDW Std Deviation 68.8 H, RDW Coeff of Aba 20.6 H, Plt Count 503 H, MPV 10.4, Immature Gran % (Auto) 0.900, Neut % (Auto) 80.7 H, Lymph % (Auto) 11.6 L, [place] % (Auto) 6.4, Eos % (Auto) 0.1, Baso % (Auto) 0.3, Absolute Neuts (auto) 12.3 H, Absolute Lymphs (auto) 1.77, Nucleated RBC % 0, Diff Path Review May foll, Platelet Estimate SLT INC, Hypochromasia 2+, Anisocytosis 2+, Ovalocytes 2+, Schistocytes 1+ 10/31/19 14:05: Sodium 142, Potassium 3.5, Chloride 112 H, Carbon Dioxide 21.0, Anion Gap 9, BUN 46 H, Creatinine 1.49 H, Estim Creat Clear Calc 26.95, Est GFR (MDRD) Af Amer 43 L, Est GFR (MDRD) Non-Af 36 L, BUN/Creatinine Ratio 30.9 H, Glucose 88, Calcium 8.0 L, Troponin I 0.145 H 10/31/19 14:05: B-Natriuretic Peptide > 5000.0 H 10/31/19 14:05: PT 33.1 H, INR 3.2 Assessment/Plan All Active Problems Debility (Acute) UTI due to Klebsiella species (Acute) Acute congestive heart failure (Acute) Elevated troponin I level (Acute) Pleural effusion, left (Acute) Left leg pain (Acute) 1. Likely new onset CHF causing acute hypoxic respiratory failure/PAD and CAD/HTN/HLD -Given the constellations of symptoms of a pleural effusion as well as increased left lower extremity edema and a 14 pound weight gain in less than 2 months, this is likely a CHF exacerbation which she has never been diagnosed with before -We will place a Mcmahon for accurate GLADYS measurements, and will put her on a fluid restriction of 1200 cc/day -She received 20 mg of IV Lasix in the ER, and will increase her to 40 mg IV twice daily -An echo is pending -Consult to cardiology -Troponins are elevated which is likely secondary to an acute CHF exacerbation, will trend EKG was not ischemic and she denies chest pain -BNP in the ER was greater than 5000 and her creatinine is better than what it was in November at 1.45 -We will continue with her warfarin for her PAD, INR is 3.2 we will continue to monitor -Continue with her blood pressure medications, as well as her statin 2. Crest syndrome/thrombocytosis -Platelets today are 503, they were 464 on 09/15/2019 -We will continue with both her Plaquenil and her hydroxyurea as well as aspirin 3. CKD 3/anemia of chronic disease -Not in acute renal failure, her creatinine is at baseline -We will continue with her iron supplementation, her hemoglobin is 9 today on admission and during her previous discharge was 7.7 4. Leukocytosis -Unsure as to the origin, the chest x-ray is nonconclusive for a pneumonia however will obtain a UA to rule out a urinary source. -At the moment we will hold off on antibiotics as she is afebrile and is not having any symptoms of pneumonia or UTI -If she does spike a temperature during her stay, then would recommend cultures and antibiotics 5. GERD -Stable -Continue with PPI DVT: Coumadin Code Visit Inpatient E&M: 81167 Init Hosp L3
--- NOTE | 2019-10-31 15:41 | ECHOD_ITS ---
Reason For Study: CHF Procedure This was a 2D Doppler, Color Flow transthoracic echocardiogram. Exam performed portable in patient room. Left Ventricle Moderate concentric left ventricular hypertrophy. Mildly dilated left ventricle. The estimated ejection fraction is 25 %. Stage 2 diastolic dysfunction. There is severe global hypokinesis of the left ventricle. Right Ventricle Normal size and thickness. Normal systolic function. Atria The left atrium is moderately enlarged. Normal right atrium. Normal atrial septum. Mitral Valve Moderate diffuse mitral valve thickening. Mild-Moderate (1-2+) mitral valve insufficiency. Tricuspid Valve Normal tricuspid valve. Unable to estimate RV systolic pressure due to insufficient tricuspid regurgitant envelope. Aortic Valve Trisinus/trileaflet aortic valve. Mild diffuse aortic valve thickening. There is no aortic stenosis. Pulmonic Valve Normal pulmonic valve. Great Vessels Calcified aortic root. Mild atherosclerosis of the aortic arch. Normal inferior vena cava. Inferior vena cava collapse with sniff. Pericardium/Pleural Trivial pericardial effusion. Circumferential effusion. There are no echocardiographic indications of cardiac tamponade. Large left pleural effusion. MMode/2D Measurements & Calculations LVIDd: 4.5 cm IVSd: 1.4 cm Ao root diam: 3.6 cm LVIDs: 3.6 cm LVPWd: 1.4 cm LA dimension: 2.9 cm RVDd: 3.1 cm FS: 19.7 % LAV(MOD-bp): 68.2 ml LA A4 area: 22.5 cm2 RA A4 area: 12.9 cm2 LAV(MOD-bp) Indexed: 41.9 ml/m2 LAV(MOD-sp2): 65.7 ml LAV(MOD-sp4): 64.1 ml Time Measurements MV dec time: 0.12 sec Doppler Measurements & Calculations MV E max bryson: 48.5 cm/sec Lat Peak E' Bryson: 2.6 cm/sec Med Peak E' Bryson: 2.3 cm/sec MV A max bryson: 113.8 cm/sec E/E' lat: 18.8 E/E' med: 21.5 MV E/A: 0.43 MV V2 max: 120.0 cm/sec MV P1/2t max bryson: 37.7 cm/sec Ao V2 max: 136.4 cm/sec MV max P.8 mmHg MV P1/2t: 78.4 msec Ao max P.4 mmHg MV V2 mean: 51.6 cm/sec MV dec slope: 141.0 cm/sec2 Ao V2 mean: 84.5 cm/sec MV mean P.5 mmHg MVA(P1/2t): 2.8 cm2 Ao mean P.4 mmHg MV V2 VTI: 21.2 cm Ao V2 VTI: 25.2 cm LV V1 max: 102.4 cm/sec MR max bryson: 584.3 cm/sec PA V2 max: 76.1 cm/sec LV V1 max P.2 mmHg MR max P.6 mmHg LV V1 mean P.8 mmHg MR mean bryson: 435.2 cm/sec LV V1 mean: 61.1 cm/sec MR mean P.6 mmHg LV V1 VTI: 18.7 cm MR VTI: 196.4 cm Interpretation Summary Moderate concentric left ventricular hypertrophy. Mildly dilated left ventricle. The estimated ejection fraction is 25 %. Stage 2 diastolic dysfunction. There is severe global hypokinesis of the left ventricle. The left atrium is moderately enlarged. Mild-Moderate (1-2+) mitral valve insufficiency. Unable to estimate RV systolic pressure due to insufficient tricuspid regurgitant envelope. There is no aortic stenosis. Trivial to small pericardial effusion. Circumferential effusion. There are no echocardiographic indications of cardiac tamponade. Large left pleural effusion. Compared to echo report dated 06/12/2019, LV function has decreased from 55% to 25%, pericardial effusion has remained the same. Ordering Physician: Bal Choi Referring Physician: Edgar Valencia Performed By: Hugo Paris RCS
--- NOTE | 2019-10-31 16:18 | CPS ---
PT PLACED ON 50% VENTI MASK....90% ON 50%
[2019-10-31] MEDS: Furosemide 40 MG/4 ML Vial IV (17:25)
[2019-10-31] MEDS: 0.9% Saline Lock 10 ML Syringe IV (17:27)
[2019-10-31 18:10] LABS: Bacteria 0 SEEN /hpf (None Seen); Mucous, Urine 0 SEEN /hpf (<or=2+); Squamous Epithelial Cells - UA 0 SEEN /hpf (5-10)
[2019-10-31 18:11] LABS: Color, Urine Yellow (Yellow); Glucose, Dipstick Normal (Normal); Ketone-Dipstick Negative (Negative); Leukocyte Esterase-Dipstick Negative /ul (Negative); Nitrite-Dipstick Negative (Negative); Occult Blood-Urine 10 /ul (Negative); Protein-Dipstick 100 mg/dl (Negative); Urine Bilirubin Dipstick Negative (Negative); Urine Clarity Cloudy (Clear); Urine Urobilinogen Normal (Normal)
[2019-10-31 18:35] LABS: Amorphous Sediment 3+
[2019-10-31 18:37] LABS: Red Blood Cells-Urine 0-5 SEEN /hpf (0-5)
[2019-10-31 18:38] LABS: White Blood Cells 0-5 SEEN /hpf (0-5)
[2019-10-31 18:39] LABS: Renal Epithelial Cells 0-5 SEEN /hpf (0-5)
[2019-10-31] MEDS: Ferrous Sulfate 325 MG Tablet PO (18:39)
[2019-10-31] MEDS: Warfarin 3 MG, Warfarin 0.5 MG 3.5 MG PO (18:40)
[2019-10-31] MEDS: Atorvastatin Calcium 10 MG Tablet PO (21:51)
[2019-11-01] VITALS (15 sets, daily range): BP systolic 168–184; BP diastolic 69–90; PULSE 75–91; RESP 20–32; TEMP 36.5–36.8; O2SAT 85–94
[2019-11-01 08:01] LABS: Absolute Neutrophil Count 15.4 X10^3/uL (2.0-7.7); Basophil# 0.06 X10^3/uL; Basophil% 0.3 % (0-1); Eosinophil# 0.02 X10^3/uL; Eosinophils% 0.1 % (0-5); Hematocrit 29.7 % (37-47); Hemoglobin 9.6 g/dL (12.0-15.0); Lymphocyte % 7.7 % (19-41); Mean Corp Hgb Conc 32.3 g/dL (32-36); Mean Corpuscular Hgb 29.9 pg (27.0-32.0); Mean Corpuscular Volume 92.5 fL (81-99); Mean Platelet Vol. 10.4 fl (6.2-12.0); Monocyte# 1.19 X10^3/uL; Monocyte% 6.5 % (0-10); NRBC Flagged by Analyzer 0 % (0-5); Neutrophil # 15.39 X10^3/uL (2.7-7.7); Neutrophil % 84.4 % (47-70); POSITIVE MORPHOLOGY YES; Platelet Count 549 K/mm3 (150-450); RBC Distribution Width CV 20.8 % (11.6-14.6); RBC Distribution Width SD 65.6 fl (35.1-43.9); Red Blood Count 3.21 M/mm3 (4.2-5.4); White Blood Count 18.3 K/mm3 (4.4-11.0)
[2019-11-01 08:05] LABS: Differential Indicated SCAN CRITERIA MET
[2019-11-01 08:10] LABS: International Normalized Ratio 3.3; Prothrombin Time (Protime)PT. 33.9 SECONDS (11.7-14.9)
[2019-11-01 08:19] LABS: Anion Gap 9 (5-15); BUN 48 mg/dL (7-18); BUN/Creat Ratio 30.2 RATIO (10-20); Calcium,Total 7.6 mg/dL (8.5-10.1); Chloride 111 mmol/L (98-107); Creatinine, Serum 1.59 mg/dL (0.55-1.02); EST Glomerular Filtration Rate 33 mL/min (>60); Est Glom Filt Rate - Afr Amer 40 mL/min (>60); Estimated Creatinine Clearance 23.74 ml/min; Glucose 80 mg/dL (74-106); Magnesium 1.1 mg/dL (1.6-2.6); Phosphorus 3.4 mg/dL (2.5-4.9); Potassium 3.3 mmol/L (3.5-5.1); Sodium Level 141 mmol/L (136-145)
[2019-11-01 08:40] LABS: Anisocytosis 2+; Hypochromasia 2+; Microcytosis 1+; Ovalocyte 2+; Platelet Estimate SLT INC (ADEQ); Polychromasia RARE; Schistocytes 1+
--- NOTE | 2019-11-01 08:40 | CPS ---
upon entering pt's room pt complained of difficulty breathing and feeling lightheaded. Pt was increased to 6 lpm. Saturation up to 90%. Pt was also instructed on pursed lip breathing. Pt decreased her RR and improved her saturation from the 85% to 90% along with the increase in FIO2. Pt stated she did feel better. Pt was explained the purpose of the pursed lip breathing technique and was encouraged to use it when needed. Pt's nurse was informed of the above and was asked to encourage the pursed lip breathing technique throughout the day when pt needed it.
[2019-11-01] MEDS: Aspirin E.C. 81 MG Tablet PO (09:30)
[2019-11-01] MEDS: Ferrous Sulfate 325 MG Tablet PO ×2 (09:30→17:25)
[2019-11-01] MEDS: NIFEdipine 30 MG Tablet PO (09:31)
[2019-11-01] MEDS: Pantoprazole Sodium 20 MG Tablet PO (09:31)
[2019-11-01] MEDS: Hydroxychloroquine 200 MG Tablet PO (09:31)
[2019-11-01] MEDS: Metoprolol Tartrate 50 MG Tablet PO (09:31)
[2019-11-01] MEDS: Furosemide 40 MG/4 ML Vial IV (09:31)
[2019-11-01] MEDS: 0.9% Saline Lock 10 ML Syringe IV (09:37)
--- NOTE | 2019-11-01 10:36 | PN_ITS ---
Patient Problems: Active and Suspected Problems Acute congestive heart failure (Acute) Elevated troponin I level (Acute) Pleural effusion, left (Acute) Reason for Visit: CHF Subjective: Breathing stable on oxygen. Vitals/I&O's: Vital Signs Temp Pulse Resp BP Pulse Ox 36.8 C 89 30 H 178/77 H 91 11/01/19 09:06 11/01/19 09:31 11/01/19 09:06 11/01/19 09:06 11/01/19 09:16 Oxygen Flow Rate (L/min) 6 Oxygen Delivery Method Nasal Cannula Weight: 53.3 kg Body Mass Index (BMI) 18.2 Intake and Output for Last 24 Hours 10/30/19 10/31/19 11/01/19 23:59 23:59 23:59 Intake Total 60 / 60 60 / 60 Output Total 800 / 800 200 / 200 Balance -740 / -740 -140 / -140 General: Alert, Cooperative, No apparent distress HEENT: Atraumatic, Normocephalic, - - taut facial features Oral: Moist Mucosa, No Gingival or Mucosal Lesions/ Ulcerations Neck: No Nodes, - - +JVD Lungs: Normal air movement, - - bibasilar crackles Cardiovascular: Regular rate, Regular Rhythm, Normal S1, Normal S2 Abdomen: Bowel Sounds Present, Soft, Non Tender, Non-Distended, No Hepato-s plenomegaly Extremities: Edema - in LLE, - - prosthetic on right Skin: No rashes, No breakdown Musculoskeletal: No Tenderness to Palpation of Joints or Extremities, No Muscle Wasting Neurological: Sensory exam intact to light touch and pain, - - no clonus Psych/Mental Status: Normal Affect, Appropriate Laboratory Results 10/31/19 14:05: WBC 15.2 H, RBC 3.02 L, Hgb 9.0 L, Hct 28.7 L, MCV 95.0, MCH 29.8, MCHC 31.4 L, RDW Std Deviation 68.8 H, RDW Coeff of Aba 20.6 H, Plt Count 503 H, MPV 10.4, Immature Gran % (Auto) 0.900, Neut % (Auto) 80.7 H, Lymph % (Auto) 11.6 L, [place] % (Auto) 6.4, Eos % (Auto) 0.1, Baso % (Auto) 0.3, Absolute Neuts (auto) 12.3 H, Absolute Lymphs (auto) 1.77, Nucleated RBC % 0, Diff Path Review March, Platelet Estimate SLT INC, Hypochromasia 2+, Anisocytosis 2+, Ovalocytes 2+, Schistocytes 1+ 10/31/19 14:05: Sodium 142, Potassium 3.5, Chloride 112 H, Carbon Dioxide 21.0, Anion Gap 9, BUN 46 H, Creatinine 1.49 H, Estim Creat Clear Calc 26.95, Est GFR (MDRD) Af Amer 43 L, Est GFR (MDRD) Non-Af 36 L, BUN/Creatinine Ratio 30.9 H, Glucose 88, Calcium 8.0 L, Troponin I 0.145 H 10/31/19 14:05: B-Natriuretic Peptide > 5000.0 H 10/31/19 14:05: PT 33.1 H, INR 3.2 10/31/19 17:25: Troponin I 0.134 H 10/31/19 18:00: Urine Color Yellow, Urine Clarity Cloudy, Urine pH 6.0, Ur Specific [place] 1.010, Urine Protein 100 H, Urine Glucose (UA) Normal, Urine Ketones Negative, Urine Occult Blood 10 H, Urine Nitrite Negative, Urine Bilirubin Negative, Urine Urobilinogen Normal, Ur Leukocyte Esterase Negative, Urine RBC 0-5 SEEN, Urine WBC 0-5 SEEN, Ur Squamous Epith Cells 0 SEEN, Ur Renal Epithelial Cell 0-5 SEEN, Amorphous Sediment 3+, Urine Bacteria 0 SEEN, Urine Mucus 0 SEEN 10/31/19 19:57: Troponin I 0.117 H 11/01/19 07:50: WBC 18.3 H, RBC 3.21 L, Hgb 9.6 L, Hct 29.7 L, MCV 92.5, MCH 29.9, MCHC 32.3, RDW Std Deviation 65.6 H, RDW Coeff of Aba 20.8 H, Plt Count 549 H, MPV 10.4, Immature Gran % (Auto) 1.000 H, Neut % (Auto) 84.4 H, Lymph % (Auto) 7.7 L, [place] % (Auto) 6.5, Eos % (Auto) 0.1, Baso % (Auto) 0.3, Absolute Neuts (auto) 15.4 H, Absolute Lymphs (auto) 1.40, Nucleated RBC % 0, Platelet Estimate SLT INC, Polychromasia RARE, Hypochromasia 2+, Anisocytosis 2+, Microcytosis 1+, Ovalocytes 2+, Schistocytes 1+ 11/01/19 07:50: Sodium 141, Potassium 3.3 L, Chloride 111 H, Carbon Dioxide 21.0, Anion Gap 9, BUN 48 H, Creatinine 1.59 H, Estim Creat Clear Calc 23.74, Est GFR (MDRD) Af Amer 40 L, Est GFR (MDRD) Non-Af 33 L, BUN/Creatinine Ratio 30.2 H, Glucose 80, Calcium 7.6 L, Phosphorus 3.4, Magnesium 1.1 L 11/01/19 07:50: PT 33.9 H, INR 3.3 Current Medications Aspirin (Ecotrin) 81 mg PO DAILY@0800 [facility] Last Admin: 11/01/19 09:30 Dose: 81 mg Documented by: Atorvastatin Calcium (Lipitor) 10 mg PO QHS [facility] Last Admin: 10/31/19 21:51 Dose: 10 mg Documented by: [facility]ous [facility] Admin: 11/01/19 09:30 Dose: 325 mg Documented by: Furosemide (Lasix) 40 mg IV BID@1000,1800 [facility] Last Admin: 11/01/19 09:31 Dose: 40 mg Documented by: Hydroxychloroquine Sulfate ([facility]aquenil) [facility] Last Admin: 11/01/19 09:31 Dose: 200 mg Documented by: [facility] ([facility]ydrea) [facility] Metoprolol Tartrate (Lopressor (Beta Adrián)) 50 mg PO DAILY [facility] Last Admin: 11/01/19 09:31 Dose: 50 mg Documented by: Nifedipine (Procardia Xl) 30 mg PO DAILY [facility] Last Admin: 11/01/19 09:31 Dose: 30 mg Documented by: Ondansetron HCl (Zofran Odt) 4 mg PO Q8H PRN PRN PRN Reason: NAUSEA Pantoprazole Sodium (Protonix) 20 mg PO DAILY [facility] Last Admin: 11/01/19 09:31 Dose: 20 mg Documented by: Sodium Chloride () 10 - 40 ml IV UD PRN PRN Reason: SALINE FLUSH Last Admin: 11/01/19 09:37 Dose: 10 ml Documented by: Warfarin Sodium 3 mg/ Warfarin (Sodium 0.5 mg) 3.5 mg PO DAILY@1700 [facility] Last Admin: 10/31/19 18:40 Dose: 3.5 mg Documented by: STROKE Vital Signs/Narrative: Vital Signs Temp Pulse Resp BP Pulse Ox 11/01/19 09:31 89 11/01/19 09:16 91 11/01/19 09:06 36.8 C 89 30 H 178/77 H 93 11/01/19 08:00 85 11/01/19 07:17 83 Medical Necessity - Tobacco Use Smoking Status: Never smoker Assessment/Plan All Active Problems Debility (Acute) UTI due to Klebsiella species (Acute) Acute congestive heart failure (Acute) Elevated troponin I level (Acute) Pleural effusion, left (Acute) Left leg pain (Acute) 1. acute HFpEF * EF 55% from echo on 06/12/19 * known pericardial effusion then * likely complicated by scleroderma and pulm HTN (though not noted on echo) * continue diuresis * recheck echo * cardiology following. 2. scleroderma * continue hydroxychloroquine * follow up with Dr. Reinoso in December * complicates picture * personally reviewed Dr. Reinoso's note from 08/25/19 3. Pericardial effusion * large and chronic * currently w/o tamponade * follow up echo * reviewed Dr. Williamson's ([facility] cardiology) note from 08/18: no need for pericardiocentesis unless tamponade * previously normal PAP * per rheumatology, atypical in patients with scleroderma 4. Raynaud's phenomenon * continue procardia * no necrosis at this time * avoid cold 5. pAfib * continue warfarin and metoprolol 6. VTE proph: low risk as already anticoagulated * Code Visit Inpatient E&M: 54860 Subs Hosp L3
--- NOTE | 2019-11-01 11:52 | CON.PCM_ITS ---
Problem List (1) Hyperlipidemia Status: Chronic (2) Carotid artery stenosis Status: Chronic (3) CREST (calcinosis, Raynaud's phenomenon, esophageal dysfunction, sclerodactyly, telangiectasia) Status: Chronic (4) Acute congestive heart failure Status: Acute (5) Elevated troponin I level Status: Acute (6) Pleural effusion, left Status: Acute (7) Chronic anticoagulation Status: Chronic Comment: With warfarin (8) Hypertension Status: Chronic Reason for Consult Date of Consultation: 11/01/19 Reason for Consultation: Acute congestive heart failure, hypertension, peripheral vascular Z status post right BKA, crest syndrome, and apparent pericardial effusion noted in the past at an outside facility, paroxysmal atrial fibrillation and chronic Coumadin therapy History of Present Illness: The patient is a 79 year old F, patient of Dr. 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 She reports that her echocardiogram was last year but she does not know the results. She has never required a pericardiocentesis to her knowledge. Patient states that she has been gradually feeling more poorly over the last week or so with gradually worsening shortness of breath, dyspnea, orthopnea, PND and left lower extremity edema. When her shortness of breath worsened, she reported to [facility] ER where she was found to be in mild respiratory distress requiring supplemental oxygenation. Chest x-ray obtained at bedside showed severe left pleural effusion with compression of her left lung, as well as a moderate size right pleural effusion without as much compression. Patient was admitted for CHF exacerbation. Currently patient is sitting up in a chair at 90 degrees with evidence of JVD, decreased breath sounds bilaterally left greater than right, positive egophony left greater than right, and regular rate and rhythm with a 2/6 holosystolic murmur best heard at the lower left sternal border. Echocardiogram is pending. The patient was treated with IV diuretic therapy and her Coumadin was continued despite her pleural effusions. Of note her echocardiogram from an outside facility suggested that she had an EF around 55%, but I have not had a chance to review those documents. She denied any chest pain, angina, fevers, chills, nausea or vomiting. She also noted that her remaining left lower extremity appeared to have worsening edema over the last several days. Her peak troponin was 0.145, trending downwards, and her BNP was over 5000. [] Past Medical History Allergies/Adverse Reactions: Allergies ampicillin Allergy (Verified 10/31/19 13:03) Rash cyclophosphamide [From Cytoxan] Allergy (Verified 10/31/19 13:03) Rash doxycycline Allergy (Verified 10/31/19 13:03) Rash morphine Allergy (Verified 10/31/19 13:03) mental status change sulfamethoxazole [From Bactrim] Allergy (Verified 10/31/19 13:03) Rash trimethoprim [From Bactrim] Allergy (Verified 10/31/19 13:03) Rash Home Medications: Ambulatory Orders Medication Instructions Recorded Vit A/Vit C/Vit E/Zinc/Copper 1 each PO BID 03/09/16 [Preservision Areds Softgel] Acetaminophen [Tylenol] 1,000 mg PO Q6H PRN PRN 09/11/19 Hydroxyurea 500 mg PO MOTUWETHFR 09/11/19 Aspirin E.C. [Ecotrin] 81 mg PO DAILY@0800 09/15/19 Atorvastatin Calcium [Lipitor] 10 mg PO QHS 09/15/19 Hydroxychloroquine [Plaquenil] 200 mg PO DAILYCM 09/15/19 Multivitamins,Therapeutic 1 tab PO DAILYCM 09/15/19 [Multivitamin] NIFEdipine [Procardia XL] 30 mg PO DAILY 09/15/19 Ondansetron [Zofran Odt] 4 mg PO Q8H PRN PRN #90 tab 10/05/19 traMADol [Ultram] 50 mg PO Q6H PRN PRN #30 tab 10/05/19 Ferrous Sulfate 325 mg PO BIDCM 10/31/19 Metoprolol Tartrate 50 mg PO DAILY 10/31/19 Pantoprazole Sodium [Protonix] 20 mg PO DAILY 10/31/19 Warfarin [Coumadin (PBKC)] 3.5 mg PO DAILY 10/31/19 Past Medical History (Chronic Problems): Chronic Problems Osteoarthritis of left knee (Chronic) Osteoarthritis of left hip (Chronic) Peripheral arterial occlusive disease (Chronic) Constipation (Chronic) Hyperlipidemia (Chronic) Chronic kidney disease (Chronic) Transient ischemic attack (Chronic) Carotid artery stenosis (Chronic) CREST (calcinosis, Raynaud's phenomenon, esophageal dysfunction, sclerodactyly, telangiectasia) (Chronic) GERD (gastroesophageal reflux disease) (Chronic) Scleroderma (Chronic) Chronic renal failure, stage 3 (moderate) (Chronic) Chronic anticoagulation (Chronic) With warfarin Anemia of chronic disease (Chronic) CAD (coronary artery disease) (Chronic) PAD (peripheral artery disease) (Chronic) History of CEA (carotid endarterectomy) (Chronic) right Thrombocytosis (Chronic) Diarrhea (Chronic) resolves with immodium 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 Right BKA, left great toe amputation. Back surgery, patient can not remember what type. Psychiatric History: No pertinent psych hx [employer] History: No pertinent [employer] history - *Family History Maternal History Items: No pertinent history Paternal History Items: Stroke, - - Patient's father suffered from Raynaud's disease Lives: Detention Smoking Status: Never smoker Alcohol: None Drugs: None Review of Systems - Review of Systems General: Denies: Fever, Night Sweats, Fatigue Cardiovascular: Reports: Shortness of Breath, Shortness of Breath at Rest, Shortness of Breath with Exertion, Orthopnea, PND, Peripheral Edema. Denies: Chest Discomfort, Palpitations, Lightheadedness, Dizziness, Near Syncope, Syncope Respiratory: Denies: Cough, Sputum Production, Hemoptysis Gastrointestinal: Denies: Hematemesis, Hematochezia, Melena Genitourinary: Denies: Dysuria, Hematuria Skin: Denies: Rash Subjectve: Patient sitting upright in a chair, JVD noted, mild conversational dyspnea. No acute distress. Objective: Vital Signs Temp Pulse Resp BP Pulse Ox 98.2 F 89 30 H 178/77 H 91 11/01/19 09:06 11/01/19 09:31 11/01/19 09:06 11/01/19 09:06 11/01/19 09:16 Oxygen Flow Rate (L/min) 6 Oxygen Delivery Method Nasal Cannula Weight: 117 lb 8.102 oz Body Mass Index (BMI) 18.2 Intake and Output for Last 24 Hours 10/30/19 10/31/19 11/01/19 23:59 23:59 23:59 Intake Total 60 / 60 60 / 60 Output Total 800 / 800 200 / 200 Balance -740 / -740 -140 / -140 General: Awake, Alert, Oriented x 3 HEENT: PERRL, EOMI, Sclera Non Icteric Neck: Supple, Good ROM, No Lymph Node Enlargement Lungs: Diminished Luis Bases, Rhonchi, Dullness to Percussion-Left, Dullness to Percussion-Right Cardiovascular: Regular Rhythm, Normal S2, No Rubs, No Gallops Murmur Murmur: Grade 2/6, Holosystolic Vascular: No Carotid Bruits, Normal Femoral Pulses, Normal Radial Pulses, Normal Dorsalis Pedal Pulse, Normal Posterior Tibial Pulses Abdomen: Bowel Sounds Present, Soft, Non Tender, No HSM, No Organomegaly Extremities: No Cyanosis, No Clubbing, Mild LLE Edema Neurological: No Focal Motor or Sensory Deficit 10/31/19 14:05: WBC 15.2 H, RBC 3.02 L, Hgb 9.0 L, Hct 28.7 L, MCV 95.0, MCH 29.8, MCHC 31.4 L, Plt Count 503 H, MPV 10.4, Immature Gran % (Auto) 0.900, Neut % (Auto) 80.7 H, Lymph % (Auto) 11.6 L, [place] % (Auto) 6.4, Eos % (Auto) 0.1, Baso % (Auto) 0.3, Absolute Neuts (auto) 12.3 H, Nucleated RBC % 0 10/31/19 14:05: Sodium 142, Potassium 3.5, Chloride 112 H, Carbon Dioxide 21.0, Anion Gap 9, BUN 46 H, Creatinine 1.49 H, Est GFR (MDRD) Af Amer 43 L, Est GFR (MDRD) Non-Af 36 L, BUN/Creatinine Ratio 30.9 H, Glucose 88, Calcium 8.0 L, Troponin I 0.145 H 10/31/19 14:05: B-Natriuretic Peptide > 5000.0 H 10/31/19 14:05: PT 33.1 H, INR 3.2 10/31/19 17:25: Troponin I 0.134 H 10/31/19 18:00: Urine Color Yellow, Urine Clarity Cloudy, Urine pH 6.0, Ur Specific [place] 1.010, Urine Protein 100 H, Urine Glucose (UA) Normal, Urine Ketones Negative, Urine Occult Blood 10 H, Urine Nitrite Negative, Urine Bilirubin Negative, Urine Urobilinogen Normal, Ur Leukocyte Esterase Negative, Urine RBC 0-5 SEEN, Urine WBC 0-5 SEEN 10/31/19 19:57: Troponin I 0.117 H 11/01/19 07:50: WBC 18.3 H, RBC 3.21 L, Hgb 9.6 L, Hct 29.7 L, MCV 92.5, MCH 29.9, MCHC 32.3, Plt Count 549 H, MPV 10.4, Immature Gran % (Auto) 1.000 H, Neut % (Auto) 84.4 H, Lymph % (Auto) 7.7 L, [place] % (Auto) 6.5, Eos % (Auto) 0.1, Baso % (Auto) 0.3, Absolute Neuts (auto) 15.4 H, Nucleated RBC % 0 11/01/19 07:50: Sodium 141, Potassium 3.3 L, Chloride 111 H, Carbon Dioxide 21.0, Anion Gap 9, BUN 48 H, Creatinine 1.59 H, Est GFR (MDRD) Af Amer 40 L, Est GFR (MDRD) Non-Af 33 L, BUN/Creatinine Ratio 30.2 H, Glucose 80, Calcium 7.6 L, Phosphorus 3.4, Magnesium 1.1 L 11/01/19 07:50: PT 33.9 H, INR 3.3 Rhythm: EKG: Normal sinus rhythm with PAC, old anteroseptal wall myocardial infarction, no acute changes. ECHO: Pending Stress Test: Cardiac Cath: PCI: CT Surgery: Holter monitor: EPS: PPM: CXR: Chest CT Scan: Assessment/Plan 1. Congestive heart failure: The patient has evidence on chest x-ray of severe left pleural effusion and moderate right pleural effusion superimposed on shortness of breath, dyspnea, elevated BNP, orthopnea, PND and lower extremity edema. In addition there is some mention of the patient having a pericardial effusion in the past and she has been on Coumadin therapy. I recommended the patient received 5 mg of p.o. vitamin K in anticipation of a therapeutic thoracentesis at least on the left side tomorrow morning. In addition she will undergo a 2D echo with Doppler to assess her LV function and more importantly her degree of pericardial effusion. To that end I would recommend discontinuation of her IV Lasix, and starting her on a Bumex drip at 0.5 mg/h to assist with diuresis given her chronic renal insufficiency. Given her acute heart failure and also recommend reducing her metoprolol to 25 mg p.o. daily. I would not recommend additional metolazone at this time unless we are not able to aggressively diurese the patient. Would recommend a 1500 cc fluid restriction as well. At some point, once the patient's congestive heart failure has resolved, and assuming she can lay down flat, she may require a diagnostic left heart catheterization however this will have to be evaluated with the patient and her family. 2. Pericardial effusion: The patient reportedly has had a previous pericardial effusion the degree to which is uncertain at this time. Repeat echocardiogram is pending. The patient does have elevated JVP but she also has significant bilateral pleural effusions as well. Do not believe she requires pericardiocentesis at this time. If the patient's blood pressure begins to decrease with IV diuretic therapy, I would hold her IV diuresis, and treat with IV fluids as this would suggest she has more significant pericardial effusion than appreciated on physical exam. 3. Paroxysmal atrial fibrillation: The patient has a history of paroxysmal atrial fibrillation, but appears to be in sinus rhythm at this time. Recommend holding her Coumadin so that we can assist her breathing with a therapeutic thoracentesis tomorrow morning, assuming her INR is appropriately reduced for this procedure. 4. 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 If the patient does not have significant pericardial effusion may recommend nitrate-based therapy such as Imdur as well. 5. Discussed with Dr. Ortega. Thank you very much for the opportunity to participate in the cardiac care of your patient. Consultation time took place between 10 AM and 10:30 AM.
[2019-11-01] MEDS: Bumetanide 25 MG in CONTAINER,EMPTY 1 BAG CONT INF (13:03)
[2019-11-01 14:05] LABS: Bedside Glucose 97 mg/dL (70-110)
[2019-11-01] MEDS: Ondansetron ODT 4 MG Tablet PO ×2 (14:07→22:49)
[2019-11-01] MEDS: Phytonadione (Vit K1) 5 MG TABLET PO (15:34)
[2019-11-01] MEDS: Atorvastatin Calcium 10 MG Tablet PO (21:24)
[2019-11-02] VITALS (14 sets, daily range): BP systolic 114–183; BP diastolic 65–88; PULSE 68–98; RESP 16–24; TEMP 36.5–36.9; O2SAT 88–96
--- NOTE | 2019-11-02 | FLU_PTH ---
PATIENT: JEISON VALENZUELA LOC: [facility] U#:[id number] AGE/SX: 79/F ROOM: [facility] RE10/31/[address]: Dr. Remberto Jones DO : 1940 BED: 1 DIS: 11/05/2019 SPEC #: [id number] RECD: 11/03/19 10:45 STATUS: ABRAN REQ #: [id number] ALISON: 11/02/19 00:[address]: Andriy Paiz DEPT: CYTOLOGY RECD BY: Jose Will ENTERED: 11/03/19 10:45 SP TYPE: Fluid OTHR DR: MD Dr. Barrington Storey DO Dr. Frank A Cebul III, MD Dr. Nicholas F Kotsonis, MD Tissues: THORACIC FLUID Procedures: Special Stain Group II Surgery Specimen Level IV Cytospin Fluid Comments: @ Ordering doctor for SSII edited from to @ by SANDRINE at 11/03/19 1230 @ Ordering doctor for SUIV edited from to DR.MWHITA Garcia by BONIOD at 11/03/19 1230 @ Ordering doctor for CYSPIN edited from to DR.MWHITA Garcia by SANDRINE at 11/03/19 1230 @ Submitting doctor edited from to @ by RGOOD at 11/03/19 1230 HEADER OPERATION: Ultrasound-guided thoracentesis PRE-OP DIAGNOSIS: CHF TISSUE SUBMITTED: Thoracentesis fluid for cytology DIAGNOSIS CYTOLOGY Thoracentesis fluid for cytology (cytospin and cell block): Negative for malignant cells. NICOLE:hal 11/05/19 CYTOLOGY STUDY Slides are reviewed. CYTOLOGY GROSS Received is 105 ml of clear yellow fluid labeled with the patient's name and and designated per the requisition as thoracentesis. Submitted for cytology preparation including cell block. / hal 11/03/19 TC:5 CPT: 71356, 26331
[2019-11-02 05:41] LABS: Absolute Lymphocyte Count 1.79 X10^3/uL (0.83-4.51); Absolute Neutrophil Count 16.6 X10^3/uL (2.0-7.7); Basophil# 0.03 X10^3/uL; Basophil% 0.1 % (0-1); Eosinophil# 0.01 X10^3/uL; Hemoglobin 9.7 g/dL (12.0-15.0); Lymphocyte # 1.79 X10^3/ul (4.0); Lymphocyte % 8.8 % (19-41); Mean Corp Hgb Conc 31.3 g/dL (32-36); Mean Corpuscular Hgb 29.4 pg (27.0-32.0); Mean Corpuscular Volume 93.9 fL (81-99); Mean Platelet Vol. 10.7 fl (6.2-12.0); Monocyte# 1.68 X10^3/uL; Monocyte% 8.2 % (0-10); NRBC Flagged by Analyzer 0 % (0-5); Neutrophil # 16.57 X10^3/uL (2.7-7.7); Neutrophil % 81.4 % (47-70); POSITIVE DIFFERENTIAL YES; POSITIVE MORPHOLOGY YES; Platelet Count 522 K/mm3 (150-450); RBC Distribution Width CV 21.2 % (11.6-14.6); White Blood Count 20.4 K/mm3 (4.4-11.0)
[2019-11-02 05:51] LABS: International Normalized Ratio 2.2
[2019-11-02 06:07] LABS: Anion Gap 12 (5-15); BUN 56 mg/dL (7-18); BUN/Creat Ratio 31.3 RATIO (10-20); Calcium,Total 7.8 mg/dL (8.5-10.1); Chloride 110 mmol/L (98-107); Creatinine, Serum 1.79 mg/dL (0.55-1.02); EST Glomerular Filtration Rate 29 mL/min (>60); Est Glom Filt Rate - Afr Amer 35 mL/min (>60); Estimated Creatinine Clearance 21.09 ml/min; Glucose 77 mg/dL (74-106); Potassium 3.5 mmol/L (3.5-5.1); Sodium Level 142 mmol/L (136-145)
[2019-11-02 06:08] LABS: Differential Indicated SCAN CRITERIA MET
[2019-11-02 06:35] LABS: Differential Comment SCANNED; Hypersegmented Neutrophils 1+; Macrocytosis 2+
--- NOTE | 2019-11-02 09:30 | US_ITS ---
Procedure: Ultrasound-guided right thoracentesis. Initially, the order indicated left thoracentesis. However, after initial sonographic evaluation of bilateral lung bases, a larger fluid collection was identified in the right lung base. This was discussed telephonically with Dr. Choi and decision was made to perform right ultrasound-guided thoracentesis. INDICATIONS: Pleural effusion. CONSENT: The entire procedure, risks, benefits and alternatives (including doing nothing) were discussed with the patient preprocedure. Risks presented included (but were not limited to) infection/abscess, bleeding, pain, reaction to medications and collapse of lung with potential need for chest tube placement. All patient questions were answered satisfactorily. Written consent was obtained, witnessed and placed on the patient''s chart. TECHNIQUE: The patient was taken into the ultrasound suite and placed in the upright sitting position. A short timeout was performed. Limited and directed sonographic evaluation of the bilateral lung bases demonstrated a moderate-sized right pleural fluid collection. An intended percutaneous site was identified and marked. The soft tissues overlying and around the intended percutaneous site were then thoroughly prepped and draped in the usual sterile manner. Local and deep anesthesia was obtained utilizing 2.0 cc of 2% lidocaine without epinephrine. A tiny dermatotomy was made. Next, a 5 Frisian single access device with central sharp stylette and outer poly catheter was advanced into the pleural fluid collection and the central stylette removed. From this positioning, 2, 60 cc syringes were filled with the pleural fluid and sent to the laboratory for evaluation. Thereafter, vacuum device was utilized to remove left lung base pleural fluid. Total volume of 1.070 cc of light yellow-colored fluid was removed from the right lung pleural space. All devices were removed, the soft tissues cleansed and a sterile occlusive dressing applied. US/Thoracentesis W US IMPRESSION: Successful, ultrasound-guided, right lung base thoracentesis. Postprocedure chest x-ray is pending. INDICATION: The patient tolerated the procedure well without evident immediate periprocedural complication. Electronically Signed: Andriy Paiz MD at 16:33 EST , Service support ,
[2019-11-02] MEDS: Hydroxyurea 500 MG Capsule PO (09:57)
[2019-11-02] MEDS: NIFEdipine 30 MG Tablet PO (09:57)
[2019-11-02] MEDS: Hydroxychloroquine 200 MG Tablet PO (09:57)
[2019-11-02] MEDS: Pantoprazole Sodium 20 MG Tablet PO (09:57)
[2019-11-02] MEDS: Ferrous Sulfate 325 MG Tablet PO ×2 (09:58→17:25)
[2019-11-02] MEDS: Aspirin E.C. 81 MG Tablet PO (09:58)
--- NOTE | 2019-11-02 11:38 | PCM.PN.CARD ---
Subjectve: Patient reports feeling better with her breathing, but still not able to lay down flat. Echocardiogram in progress at bedside which showed trivial circumferential pericardial effusion without evidence of tamponade, large left pleural effusion, final result pending. Objective: Vital Signs Temp Pulse Resp BP Pulse Ox 97.9 F 89 18 183/88 H 91 11/02/19 08:17 11/02/19 08:17 11/02/19 08:17 11/02/19 08:17 11/02/19 08:17 Oxygen Flow Rate (L/min) 7 Oxygen Delivery Method Nasal Cannula Weight: 115 lb 8.356 oz Body Mass Index (BMI) 18.2 Intake and Output for Last 24 Hours 10/31/19 11/01/19 11/02/19 23:59 23:59 23:59 Intake Total 60 / 60 970.23 / 970.23 60 / 60 Output Total 800 / 800 825 / 825 500 / 500 Balance -740 / -740 145.23 / 145.23 -440 / -440 General: Awake, Alert, Oriented x 3 HEENT: PERRL, EOMI, Sclera Non Icteric Neck: Supple, Good ROM, No Lymph Node Enlargement Lungs: Diminished Luis Bases, Dullness to Percussion-Right Cardiovascular: Regular Rhythm, Normal S2, No Rubs, No Gallops Murmur Murmur: Grade 2/6, Holosystolic Vascular: No Carotid Bruits, Normal Femoral Pulses, Normal Radial Pulses, Normal Dorsalis Pedal Pulse, Normal Posterior Tibial Pulses Abdomen: Bowel Sounds Present, Soft, Non Tender, No HSM, No Organomegaly Extremities: No Cyanosis, No Clubbing, No edema Neurological: No Focal Motor or Sensory Deficit 11/02/19 05:15: PT 24.0 H, INR 2.2 11/02/19 05:15: WBC 20.4 H, RBC 3.30 L, Hgb 9.7 L, Hct 31.0 L, MCV 93.9, MCH 29.4, MCHC 31.3 L, Plt Count 522 H, MPV 10.7, Immature Gran % (Auto) 1.500 H, Neut % (Auto) 81.4 H, Lymph % (Auto) 8.8 L, [place] % (Auto) 8.2, Eos % (Auto) 0.0, Baso % (Auto) 0.1, Absolute Neuts (auto) 16.6 H, Nucleated RBC % 0 11/02/19 05:15: Sodium 142, Potassium 3.5, Chloride 110 H, Carbon Dioxide 20.0 L, Anion Gap 12, BUN 56 H, Creatinine 1.79 H, Est GFR (MDRD) Af Amer 35 L, Est GFR (MDRD) Non-Af 29 L, BUN/Creatinine Ratio 31.3 H, Glucose 77, Calcium 7.8 L Rhythm: EKG: ECHO: Trivial circumferential pericardial effusion, no evidence of tamponade, large left pleural effusion, LV function mild to moderately diminished, final result pending. Stress Test: Cardiac Cath: PCI: CT Surgery: Holter monitor: EPS: PPM: CXR: Chest CT Scan: Medical Necessity - Tobacco Use Smoking Status: Never smoker Assessment/Plan 1. Congestive heart failure: The patient has evidence on chest x-ray of severe left pleural effusion and moderate right pleural effusion superimposed on shortness of breath, dyspnea, elevated BNP, orthopnea, PND and lower extremity edema. In addition there is some mention of the patient having a pericardial effusion in the past and she has been on Coumadin therapy. I recommended the patient received 5 mg of p.o. vitamin K in anticipation of a therapeutic thoracentesis at least on the left side tomorrow morning. In addition she will undergo a 2D echo with Doppler to assess her LV function and more importantly her degree of pericardial effusion. Luminary evaluation demonstrates trivial circumferential pericardial effusion without evidence of tamponade. This is most likely not impacting on overall cardiac performance and was previously noted on previous echocardiograms. To that end I would recommend discontinuation of her IV Lasix, and attenuating her on a Bumex drip at 0.5 mg/h to assist with diuresis given her chronic renal insufficiency. Given her acute heart failure and also recommend reducing her metoprolol to 25 mg p.o. daily. At this point we have had minimal urine output with respect to her IV Bumex drip and would recommend metolazone 2.5 mg x 1 now. Would recommend a 1500 cc fluid restriction as well. At some point, once the patient's congestive heart failure has resolved, and assuming she can lay down flat, she may require a diagnostic left heart catheterization however this will have to be evaluated with the patient and her family. 2. Pericardial effusion: Trivial pericardial effusion on echocardiogram. Final result pending. No evidence of pericardial tamponade. No need for pericardiocentesis at this time. 3. Paroxysmal atrial fibrillation: The patient has a history of paroxysmal atrial fibrillation, but appears to be in sinus rhythm at this time. Recommend holding her Coumadin so that we can assist her breathing with a therapeutic thoracentesis tomorrow morning, assuming her INR is appropriately reduced for this procedure. 4. 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 Now that we know the patient does not have a significant pericardial effusion, recommend starting Imdur 30 mg p.o. daily for both pulmonary and systemic vasodilatation. 5. Discussed with Dr. Ortega. Thank you very much for the opportunity to participate in the cardiac care of your patient. Code Visit Inpatient E&M: 61818 Subs Hosp L2
--- NOTE | 2019-11-02 12:00 | CASEMGMT ---
POA for Healthcare form is scanned into summary tab of echart. Pt does not have a separate LW on file, but the LW provision in the POA document is initialed. Jazzmine Banerjee is listed as pt's healthcare POA. FILIBERTO Greer
[2019-11-02 12:20] LABS: Pathologist Review Reviewed
[2019-11-02 12:25] LABS: Pathologist Review Reviewed
[2019-11-02] MEDS: Metolazone 2.5 MG Tablet PO (13:18)
--- NOTE | 2019-11-02 13:40 | CASEMGMT ---
Patient is from [facility]. SW spoke with patient and she plans on returning to [facility] at d/c. SW spoke with Samantha at [facility] and she said patient is in their assisted living for respite while her family goes on a cruise. She said she spoke with them and if she needs to return skilled to the half-way that is fine. SW to follow for d/c to [facility]. Kacie HERNANDEZ MSW
[2019-11-02] MEDS: 0.9% Saline Lock 10 ML Syringe IV ×2 (14:15→15:52)
--- NOTE | 2019-11-02 15:25 | RAD_ITS ---
STUDY: X-RAY CHEST REASON FOR EXAM: Female, 79 years old. post thora TECHNIQUE: AP portable inspiratory and expiratory exams of the chest status post thoracentesis. COMPARISON: October 31, 2019. FINDINGS: The lung volumes are large. There are bibasilar pleural effusions. There is an air-fluid collection overlying the right lung base. Air extrinsic to the thoracic cavity is seen in the right lateral lung base and right axilla. There is mild prominence of interstitium suggesting fibrosis. Again seen is mild enlargement of the cardiomediastinal silhouette. Normal visualized pulmonary arteries. There is atherosclerotic calcification of the aortic arch with tortuosity. There is no acute osseous abnormality. There is no demonstrated abnormality of the visualized soft tissue structures of the upper abdomen. RAD/Chest Insp/Exp 2 View IMPRESSION: Possible right hydropneumothorax versus air-fluid collection within posterior soft tissues. Comment: Patient status was made immediately after dictation of the study with department nursing. If the patient has been discharged to home, the patient will be recalled for immediate repeat chest x-ray. Electronically Signed: Andriy Paiz MD at 7:10 EST , Service support ,
[2019-11-02 16:56] LABS: Glucose, Body Fluid 109 mg/dL (40-70); LDH,Body Fluid 86 Units/l (Not Establ.); Protein, Body Fluid 1.2 g/dL (Not Establ.)
[2019-11-02 16:59] LABS: Body Fluid Mononuclear WBC # 0.085 10^3/uL; Body Fluid Mononuclear WBC % 58.2 %; Body Fluid Polynuclear WBC # 0.061 10^3/uL; Body Fluid Polynuclear WBC % 41.8 %; Body Fluid Total Cells Counted 0.167 10^3/ul; White Blood Count/Body Fluid 0.146 10^3/uL
--- NOTE | 2019-11-02 17:22 | PN_ITS ---
Patient Problems: Active and Suspected Problems Acute congestive heart failure (Acute) Elevated troponin I level (Acute) Pleural effusion, left (Acute) Reason for Visit: CHF Subjective: Breathing fine. No currently complaints. Vitals/I&O's: Vital Signs Temp Pulse Resp BP Pulse Ox 36.6 C 87 24 H 158/75 H 94 11/02/19 15:58 11/02/19 15:58 11/02/19 15:58 11/02/19 15:58 11/02/19 15:58 Oxygen Flow Rate (L/min) [4] 6 Oxygen Flow Rate (L/min) [3] 6 Oxygen Flow Rate (L/min) [2] 6 Oxygen Flow Rate (L/min) [1 ( 6 Initial Baseline)] Oxygen Flow Rate (L/min) 6 Oxygen Delivery Method [4] Nasal Cannula Oxygen Delivery Method [3] Nasal Cannula Oxygen Delivery Method [2] Nasal Cannula Oxygen Delivery Method [1 ( Nasal Cannula Initial Baseline)] Oxygen Delivery Method Nasal Cannula Weight: 52.4 kg Body Mass Index (BMI) 18.2 Intake and Output for Last 24 Hours 10/31/19 11/01/19 11/02/19 23:59 23:59 23:59 Intake Total 60 / 60 970.23 / 970.23 222.73 / 222.73 Output Total 800 / 800 825 / 825 1150 / 1150 Balance -740 / -740 145.23 / 145.23 -927.27 / -927.27 General: Alert, Cooperative, No apparent distress HEENT: Atraumatic, Normocephalic Oral: Moist Mucosa, No Gingival or Mucosal Lesions/ Ulcerations Neck: No Nodes, Trachea Midline Lungs: Clear to auscultation, No rhonchi, No wheeze, Diminished Cardiovascular: Regular rate, Regular Rhythm, Normal S1, Normal S2 Abdomen: Bowel Sounds Present, Soft, Non Tender, Non-Distended Extremities: No Calf Tenderness, Edema Skin: No rashes, No breakdown Psych/Mental Status: Normal Affect, Appropriate Laboratory Results 10/31/19 14:05: Diff Path Review Reviewed 11/02/19 05:15: PT 24.0 H, INR 2.2 11/02/19 05:15: WBC 20.4 H, RBC 3.30 L, Hgb 9.7 L, Hct 31.0 L, MCV 93.9, MCH 29.4, MCHC 31.3 L, RDW Std Deviation 69.0 H, RDW Coeff of Aba 21.2 H, Plt Count 522 H, MPV 10.7, Immature Gran % (Auto) 1.500 H, Neut % (Auto) 81.4 H, Lymph % (Auto) 8.8 L, [place] % (Auto) 8.2, Eos % (Auto) 0.0, Baso % (Auto) 0.1, Absolute Neuts (auto) 16.6 H, Absolute Lymphs (auto) 1.79, Nucleated RBC % 0, Differential Comment SCANNED, Diff Path Review Reviewed, Hypersegmented Neuts 1+ H, Macrocytosis 2+ 11/02/19 05:15: Sodium 142, Potassium 3.5, Chloride 110 H, Carbon Dioxide 20.0 L , Anion Gap 12, BUN 56 H, Creatinine 1.79 H, Estim Creat Clear Calc 21.09, Est GFR (MDRD) Af Amer 35 L, Est GFR (MDRD) Non-Af 29 L, BUN/Creatinine Ratio 31.3 H , Glucose 77, Calcium 7.8 L 11/02/19 15:00: Fluid Glucose 109 H, Fluid Total Protein 1.2, Fluid LDH 86 11/02/19 15:00: Fluid Source Pending, Fluid Color Pending, Fluid Appearance Pending, Fluid WBC Pending, Fluid RBC Pending, Fluid Tot Cell Count Pending, Fl Pathologist Comment Pending, Fluid Comment 2 Pending Current Medications Aspirin (Ecotrin) 81 mg PO DAILY@0800 [facility] Last Admin: 11/02/19 09:58 Dose: 81 mg Documented by: Atorvastatin Calcium (Lipitor) 10 mg PO QHS [facility] Last Admin: 11/01/19 21:24 Dose: 10 mg Documented by: [facility] Admin: 11/02/19 09:58 Dose: 325 mg Documented by: Hydroxychloroquine [facility] (Plaquenil) [facility] Last Admin: 11/02/19 09:57 Dose: 200 mg Documented by: Hydroxyurea (Hydrea) 500 mg PO MoTuWeThFr [facility] Last Admin: 11/02/19 09:57 Dose: 500 mg Documented by: Bumetanide 25 mg/ (Miscellaneous Information) 100 mls @ 2 mls/hr CONT INF .Q50H [facility] Last Infusion: 11/02/19 15:51 Dose: 0.5 mg/hr, 2 mls/hr Documented by: Isosorbide Mononitrate (Imdur) 30 mg PO DAILY [facility] Nifedipine (Procardia Xl) 30 mg PO DAILY [facility] Last Admin: 11/02/19 09:57 Dose: 30 mg Documented by: Nutritional Formula (Lactose Free) (Ensure Enlive) 60 ml PO 4X/DAY [facility] Last Admin: 11/02/19 14:00 Dose: 60 ml Documented by: Ondansetron HCl (Zofran Odt) 4 mg PO Q8H PRN PRN PRN Reason: NAUSEA Last Admin: 11/01/19 22:49 Dose: 4 mg Documented by: Pantoprazole Sodium (Protonix) 20 mg PO DAILY [facility] Last Admin: 11/02/19 09:57 Dose: 20 mg Documented by: Sodium Chloride () 10 - 40 ml IV UD PRN PRN Reason: SALINE FLUSH Last Admin: 11/02/19 15:52 Dose: 10 ml Documented by: STROKE Vital Signs/Narrative: Vital Signs Temp Pulse Pulse Pulse Pulse Pulse Resp 11/02/19 15:58 36.6 C 87 24 H 11/02/19 15:55 93 87 84 68 11/02/19 15:05 69 Resp Resp Resp Resp BP BP BP 11/02/19 15:58 158/75 H 11/02/19 15:55 16 20 H 18 18 156/81 H 158/74 H 11/02/19 15:05 BP BP Pulse Ox 11/02/19 15:58 94 11/02/19 15:55 114/69 137/68 H 11/02/19 15:05 Medical Necessity - Tobacco Use Smoking Status: Never smoker Assessment/Plan All Active Problems Debility (Acute) UTI due to Klebsiella species (Acute) Acute congestive heart failure (Acute) Elevated troponin I level (Acute) Pleural effusion, left (Acute) Left leg pain (Acute) 1. acute HFrEF * EF 55% from echo on 06/12/19, now down to 25% * chronic pericardial effusion w/o tamponade * likely complicated by scleroderma and pulm HTN (though not noted on echo) * continue diuresis w bumetanide gtt * cardiology following. * No JOANA-/ARB given CKD 2. scleroderma * continue hydroxychloroquine * follow up with Dr. Reinoso in December * complicates picture * personally reviewed Dr. Reinoso's note from 08/25/19 3. Pericardial effusion * large and chronic * currently w/o tamponade * follow up echo * reviewed Dr. Williamson's ([facility] cardiology) note from 08/18: no need for pericardiocentesis unless tamponade * previously normal PAP * per rheumatology, atypical in patients with scleroderma 4. Pleural effusion * removal of 1 liter (written as 1.070 cc--confirmed with US it was 1.07 liters) * transudative due to CHF * tolerated procedure well. 5. Raynaud's phenomenon * continue procardia * no necrosis at this time * avoid cold 5. pAfib * continue warfarin and metoprolol 6. VTE proph: low risk as already anticoagulated Code Visit Inpatient E&M: 13705 Subs Hosp L2
--- NOTE | 2019-11-02 17:55 | RAD_ITS ---
STUDY: X-RAY CHEST REASON FOR EXAM: Female, 79 years old. POST THORA 2 HRS TECHNIQUE: Frontal inspiratory and expiratory films of the chest status post thoracentesis. COMPARISON: November 02, 2019 at 3:25 PM. FINDINGS: Previously noted air-fluid level potentially within the right lung base is not currently appreciated. No evidence of pneumothorax. No shift of central cardiomediastinal structures. Bibasilar pleural effusions. Stable mild cardiomegaly. Normal mediastinum and dinesh. Normal visualized pulmonary arteries. There is atherosclerotic calcification of the aortic arch with tortuosity. No acute osseous abnormality. There is no demonstrated abnormality of the visualized soft tissue structures of the upper abdomen. RAD/Chest Insp/Exp 2 View IMPRESSION: Previously noted air-fluid level potentially within the right lung base is not currently identified. No evidence of pneumothorax. Bibasilar pleural effusions. Stable cardiomegaly. Atherosclerotic peripheral vascular disease. Electronically Signed: Andriy Paiz MD at 7:53 EST , Service support ,
--- NOTE | 2019-11-02 18:39 | NURSING ---
Reviewed and agreed on all charting with Lissa Landin RN
[2019-11-02 19:04] LABS: Appearance/Body Fluid CLEAR; Auto B Fluid Analyzer BKGD Ct COUNTS W/IN LIMITS (W/IN LIMITS); Color/Body Fluid LT YEL; Source- Body Fluid THORACENTESIS
[2019-11-02 19:06] LABS: Red Cell Count/Body Fluid 396 /mm3
[2019-11-02 19:13] LABS: Body Fluid QC Type(s) BF2Q; Lymphocytes 15 %; Monocytes 6 %; Neutrophil (Segs) 49 %; Other Cell Type/BF 9 %
[2019-11-02] MEDS: Acetaminophen 500 MG Tablet 1000 MG PO (20:53)
[2019-11-02] MEDS: Atorvastatin Calcium 10 MG Tablet PO (20:55)
[2019-11-03] VITALS (13 sets, daily range): BP systolic 113–174; BP diastolic 47–79; PULSE 78–93; RESP 16–18; TEMP 36.5–36.8; O2SAT 94–100
[2019-11-03 07:36] LABS: Absolute Lymphocyte Count 1.83 X10^3/uL (0.83-4.51); Absolute Neutrophil Count 14.6 X10^3/uL (2.0-7.7); Basophil# 0.04 X10^3/uL; Basophil% 0.2 % (0-1); Eosinophil# 0.05 X10^3/uL; Eosinophils% 0.3 % (0-5); Hematocrit 29.5 % (37-47); Hemoglobin 9.3 g/dL (12.0-15.0); Lymphocyte # 1.83 X10^3/ul (4.0); Mean Corp Hgb Conc 31.5 g/dL (32-36); Mean Corpuscular Hgb 29.6 pg (27.0-32.0); Mean Corpuscular Volume 93.9 fL (81-99); Mean Platelet Vol. 10.7 fl (6.2-12.0); Monocyte# 1.46 X10^3/uL; NRBC Flagged by Analyzer 0 % (0-5); Neutrophil # 14.63 X10^3/uL (2.7-7.7); Neutrophil % 80.3 % (47-70); POSITIVE MORPHOLOGY YES; Platelet Count 455 K/mm3 (150-450); RBC Distribution Width CV 21.2 % (11.6-14.6); RBC Distribution Width SD 70.1 fl (35.1-43.9); Red Blood Count 3.14 M/mm3 (4.2-5.4); White Blood Count 18.2 K/mm3 (4.4-11.0)
[2019-11-03 07:42] LABS: Differential Indicated SCAN CRITERIA MET
[2019-11-03 07:58] LABS: International Normalized Ratio 1.5
[2019-11-03 08:06] LABS: Anion Gap 6 (5-15); BUN 69 mg/dL (7-18); BUN/Creat Ratio 35.8 RATIO (10-20); Calcium,Total 7.4 mg/dL (8.5-10.1); Chloride 108 mmol/L (98-107); Creatinine, Serum 1.93 mg/dL (0.55-1.02); EST Glomerular Filtration Rate 27 mL/min (>60); Est Glom Filt Rate - Afr Amer 32 mL/min (>60); Estimated Creatinine Clearance 17.91 ml/min; Glucose 88 mg/dL (74-106); Potassium 3.2 mmol/L (3.5-5.1); Sodium Level 142 mmol/L (136-145)
--- NOTE | 2019-11-03 08:42 | PN.CARD_ITS ---
Subjectve: Patient doing much better today, status post right thoracentesis yesterday removal approximately 1 L of fluid, breathing is much improved, and no acute distress. Post thoracentesis chest x-ray suggested possible right small pneumothorax, but patient appears to be stable at this time. No crepitance noted. Telemetry negative. Patient's lower extremity edema has completely resolved. Creatinine is slowly going up. Objective: Vital Signs Temp Pulse Resp BP Pulse Ox 98.2 F 86 18 161/79 H 99 11/03/19 05:38 11/03/19 05:38 11/03/19 05:38 11/03/19 05:38 11/03/19 07:56 Oxygen Flow Rate (L/min) [4] 6 Oxygen Flow Rate (L/min) [3] 6 Oxygen Flow Rate (L/min) [2] 6 Oxygen Flow Rate (L/min) [1 ( 6 Initial Baseline)] Oxygen Flow Rate (L/min) 6 Oxygen Delivery Method [4] Nasal Cannula Oxygen Delivery Method [3] Nasal Cannula Oxygen Delivery Method [2] Nasal Cannula Oxygen Delivery Method [1 ( Nasal Cannula Initial Baseline)] Oxygen Delivery Method Nasal Cannula Weight: 107 lb 9.369 oz Body Mass Index (BMI) 18.2 Intake and Output for Last 24 Hours 11/01/19 11/02/19 11/03/19 23:59 23:59 23:59 Intake Total 970.23 / 970.23 672.73 / 847.73 225 / 225 Output Total 825 / 825 2570 / 2870 300 / 300 Balance 145.23 / 145.23 -1897.27 / -2022.27 -75 / -75 General: Awake, Alert, Oriented x 3 HEENT: PERRL, EOMI, Sclera Non Icteric Neck: Supple, Good ROM, No Lymph Node Enlargement Lungs: Clear to auscultation, Diminished Left Base Cardiovascular: Regular Rhythm, Normal S1, Normal S2, No Murmurs, No Rubs, No Gallops Murmur Murmur: Grade 2/6, Holosystolic Vascular: No Carotid Bruits, Normal Femoral Pulses, Normal Radial Pulses, Normal Dorsalis Pedal Pulse, Normal Posterior Tibial Pulses Abdomen: Bowel Sounds Present, Soft, Non Tender, No HSM, No Organomegaly Extremities: No Cyanosis, No Clubbing, No edema Neurological: No Focal Motor or Sensory Deficit 11/03/19 07:05: PT 18.0 H, INR 1.5 11/03/19 07:05: WBC 18.2 H, RBC 3.14 L, Hgb 9.3 L, Hct 29.5 L, MCV 93.9, MCH 29.6, MCHC 31.5 L, Plt Count 455 H, MPV 10.7, Immature Gran % (Auto) 1.200 H, Neut % (Auto) 80.3 H, Lymph % (Auto) 10.0 L, [place] % (Auto) 8.0, Eos % (Auto) 0.3, Baso % (Auto) 0.2, Absolute Neuts (auto) 14.6 H, Nucleated RBC % 0 11/03/19 07:05: Sodium 142, Potassium 3.2 L, Chloride 108 H, Carbon Dioxide 28.0, Anion Gap 6, BUN 69 H, Creatinine 1.93 H, Est GFR (MDRD) Af Amer 32 L, Est GFR (MDRD) Non-Af 27 L, BUN/Creatinine Ratio 35.8 H, Glucose 88, Calcium 7.4 L Rhythm: EKG: ECHO: Stress Test: Cardiac Cath: PCI: CT Surgery: Holter monitor: EPS: PPM: CXR: Chest CT Scan: Medical Necessity - Tobacco Use Smoking Status: Never smoker Assessment/Plan 1. Congestive heart failure: The patient has evidence on chest x-ray of severe left pleural effusion and moderate right pleural effusion superimposed on shortness of breath, dyspnea, elevated BNP, orthopnea, PND and lower extremity edema. In addition there is some mention of the patient having a pericardial effusion in the past and she has been on Coumadin therapy. Repeat echocardiogram yesterday showed significant decrease in her LV function from 55% to around 25%, with trivial to small pericardial effusion with no evidence of tamponade. Unable to quantitate RVSP. Patient underwent successful right-sided thoracentesis as it was felt the pat ient had more fluid on the right side than the left side despite the chest x-ray to the contrary. Patient had about 1 L of fluid removed, and is doing much better post thoracentesis. I am uncertain whether there are plans for additional thoracentesis on the left side but perhaps we will wait until her small right pneumothorax resolves. At this point her creatinine is slowly increasing, and her lower extremity edema has completely resolved. She is still not quite able to lay down flat although her breathing is improved. Recommended discontinuation of her Bumex drip and switching her to Lasix 40 mg p.o. daily. In addition we will increase her Imdur to 30 mg p.o. twice daily, and add hydralazine 10 mg p.o. twice daily for afterload reduction as she is relatively contraindicated JOANA inhibitors or arms given her chronic renal insufficiency. Patient received metolazone 2.5 mg x 1 yesterday which will last approximately 36 hours to assist with continual diuresis. Would recommend a 1500 cc fluid restriction as well. At some point, once the patient's congestive heart failure has resolved, and assuming she can lay down flat, she may require a diagnostic left and right heart catheterization however this will have to be evaluated with the patient and her family. Patient's daughters are supposed to visit her today, and will discuss with them when they arrive. 2. Pericardial effusion: Trivial pericardial effusion on echocardiogram. Final result pending. No evidence of pericardial tamponade. No need for pericardiocentesis at this time. 3. Paroxysmal atrial fibrillation: The patient has a history of paroxysmal atrial fibrillation, but appears to be in sinus rhythm at this time. Continue Coumadin therapy for both atrial fibrillation and pulmonary hypertension. 4. 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 Now that we know the patient does not have a significant pericardial effusion, recommend increasing Imdur to 30 mg p.o. twice daily and adding hydralazine 10 mg p.o. twice daily and titrating up further for afterload reduction. 5. Discussed with Dr. Ortega. Thank you very much for the opportunity to participate in the cardiac care of your patient. If patient's family or the patient does not wish to pursue catheterization, would recommend pursuing discharge planning. Code Visit Inpatient E&M: 87560 Subs Hosp L2
[2019-11-03 08:51] LABS: Anisocytosis 2+
[2019-11-03 08:52] LABS: Ovalocyte 2+
[2019-11-03] MEDS: Hydroxyurea 500 MG Capsule PO (09:10)
[2019-11-03] MEDS: Furosemide 40 MG Tablet PO (09:10)
[2019-11-03] MEDS: Aspirin E.C. 81 MG Tablet PO (09:11)
[2019-11-03] MEDS: Isosorbide Mononitrate 30 MG Tablet PO ×2 (09:11→22:01)
[2019-11-03] MEDS: Ferrous Sulfate 325 MG Tablet PO ×2 (09:11→17:06)
[2019-11-03] MEDS: NIFEdipine 30 MG Tablet PO (09:11)
[2019-11-03] MEDS: Hydroxychloroquine 200 MG Tablet PO (09:11)
[2019-11-03] MEDS: Pantoprazole Sodium 20 MG Tablet PO (09:11)
[2019-11-03] MEDS: hydrALAZINE 10 MG Tablet PO ×2 (09:11→17:06)
[2019-11-03] MEDS: Acetaminophen 325 MG Tablet 650 MG PO (09:15)
[2019-11-03] MEDS: 0.9% Saline Lock 10 ML Syringe IV (09:22)
[2019-11-03 13:32] LABS: Pathologist Comment/Body Fluid Reviewed
--- NOTE | 2019-11-03 15:09 | PN_ITS ---
Patient Problems: Active and Suspected Problems Acute congestive heart failure (Acute) Elevated troponin I level (Acute) Pleural effusion, left (Acute) Reason for Visit: CHF Subjective: Breathing well. Vitals/I&O's: Vital Signs Temp Pulse Resp BP Pulse Ox 36.5 C L 80 18 113/47 L 95 11/03/19 14:22 11/03/19 14:22 11/03/19 14:22 11/03/19 14:22 11/03/19 14:22 Oxygen Flow Rate (L/min) [4] 6 Oxygen Flow Rate (L/min) [3] 6 Oxygen Flow Rate (L/min) [2] 6 Oxygen Flow Rate (L/min) [1 ( 6 Initial Baseline)] Oxygen Flow Rate (L/min) 4 Oxygen Delivery Method [4] Nasal Cannula Oxygen Delivery Method [3] Nasal Cannula Oxygen Delivery Method [2] Nasal Cannula Oxygen Delivery Method [1 ( Nasal Cannula Initial Baseline)] Oxygen Delivery Method Nasal Cannula Weight: 48.8 kg Body Mass Index (BMI) 18.2 Intake and Output for Last 24 Hours 11/01/19 11/02/19 11/03/19 23:59 23:59 23:59 Intake Total 970.23 / 970.23 672.73 / 847.73 619.03 / 619.03 Output Total 825 / 825 2570 / 2870 600 / 600 Balance 145.23 / 145.23 -1897.27 / -2022.27 19. / 19.03 General: Alert, No apparent distress HEENT: Atraumatic, Normocephalic Oral: Moist Mucosa, No Gingival or Mucosal Lesions/ Ulcerations Neck: No Nodes, Trachea Midline, - - +JVD Lungs: Diminished, - - coarse breath sounds bilaterally Cardiovascular: Regular rate, Regular Rhythm, Normal S1, Normal S2, No murmurs Abdomen: Bowel Sounds Present, Soft, Non Tender, Non-Distended Extremities: Edema - in LLE, - - ambutation Left great toe Skin: No rashes, No breakdown Musculoskeletal: Cachexia, Muscle Wasting Neurological: - Psych/Mental Status: Normal Affect, Appropriate Laboratory Results 11/02/19 15:00: Fluid Glucose 109 H, Fluid Total Protein 1.2, Fluid LDH 86 11/02/19 15:00: Fluid Source THORACENTESIS, Fluid Color LT YEL, Fluid Appearance CLEAR, Fluid WBC 0.146, Fluid RBC 396, Fluid Tot Cell Count 0.167 H, Fld Polynuclear WBCs # 0.061, Fld Polynuclear WBCs % 41.8, Fluid Mononuclear WBCs 0.085, Fld Mononuclear WBCs % 58.2, Fluid Neutrophils 49, Fluid Lymphocytes 15, Fluid Monocytes 6, Fluid Other Cells 9, Fl Pathologist Comment Reviewed, Fluid Comment 2 SEE COMMENT 11/03/19 07:05: PT 18.0 H, INR 1.5 11/03/19 07:05: WBC 18.2 H, RBC 3.14 L, Hgb 9.3 L, Hct 29.5 L, MCV 93.9, MCH 29.6, MCHC 31.5 L, RDW Std Deviation 70.1 H, RDW Coeff of Aba 21.2 H, Plt Count 455 H, MPV 10.7, Immature Gran % (Auto) 1.200 H, Neut % (Auto) 80.3 H, Lymph % (Auto) 10.0 L, [place]oard % (Auto) 8.0, Eos % (Auto) 0.3, Baso % (Auto) 0.2, Absolute Neuts (auto) 14.6 H, Absolute Lymphs (auto) 1.83, Nucleated RBC % 0, Anisocytosis 2+, Ovalocytes 2+ 11/03/19 07:05: Sodium 142, Potassium 3.2 L, Chloride 108 H, Carbon Dioxide 28.0, Anion Gap 6, BUN 69 H, Creatinine 1.93 H, Estim Creat Clear Calc 17.91, Est GFR (MDRD) Af Amer 32 L, Est GFR (MDRD) Non-Af 27 L, BUN/Creatinine Ratio 35.8 H, Glucose 88, Calcium 7.4 L Current Medications Acetaminophen (Tylenol) 650 mg PO Q4H PRN PRN PRN Reason: Pain Score 1-10/10 Last Admin: 11/03/19 09:15 Dose: 650 mg Documented by: Aspirin (Ecotrin) 81 mg PO DAILY@0800 [facility] Last Admin: 11/03/19 09:11 Dose: 81 mg Documented by: Atorvastatin Calcium (Lipitor) 10 mg PO QHS [facility] Last Admin: 11/02/19 20:55 Dose: 10 mg Documented by: [facility] Last Admin: 11/03/19 09:11 Dose: 325 mg Documented by: Furosemide (Lasix) 40 mg PO DAILY [facility] Last Admin: 11/03/19 09:10 Dose: 40 mg Documented by: Hydralazine HCl ([facility]oline) [facility] Last Admin: 11/03/19 09:11 Dose: 10 mg Documented by: Hydroxychloroquine Sulfate (Plaquenil) 200 mg PO DAILYCM [facility] Last Admin: 11/03/19 09:11 Dose: 200 mg Documented by: Hydroxyurea (Hydrea) 500 mg PO MoTuWeThFr [facility] Last Admin: 11/03/19 09:10 Dose: 500 mg Documented by: Isosorbide Mononitrate (Imdur) 30 mg PO BID [facility] Last Admin: 11/03/19 09:11 Dose: 30 mg Documented by: Nifedipine (Procardia Xl) 30 mg PO DAILY [facility] Last Admin: 11/03/19 09:11 Dose: 30 mg Documented by: Nutritional Formula (Lactose Free) (Ensure Enlive) 60 ml PO 4X/DAY [facility] Last Admin: 11/03/19 14:25 Dose: Not Given Documented by: Ondansetron HCl (Zofran Odt) 4 mg PO Q8H PRN PRN PRN Reason: NAUSEA Last Admin: 11/01/19 22:49 Dose: 4 mg Documented by: Pantoprazole Sodium (Protonix) 20 mg PO DAILY [facility] Last Admin: 11/03/19 09:11 Dose: 20 mg Documented by: Sodium Chloride () 10 - 40 ml IV UD PRN PRN Reason: SALINE FLUSH Last Admin: 11/03/19 09:22 Dose: 10 ml Documented by: Warfarin Sodium (Coumadin (Pbkc)) 2.5 mg PO DAILY@1700 [facility] STROKE Vital Signs/Narrative: Vital Signs Temp Pulse Resp BP Pulse Ox 11/03/19 14:22 36.5 C L 80 18 113/47 L 95 Medical Necessity - Tobacco Use Smoking Status: Never smoker Assessment/Plan All Active Problems Debility (Acute) UTI due to Klebsiella species (Acute) Acute congestive heart failure (Acute) Elevated troponin I level (Acute) Pleural effusion, left (Acute) Left leg pain (Acute) 1. acute HFrEF * EF 55% from echo on 06/12/19, now down to 25% * chronic pericardial effusion w/o tamponade * likely complicated by scleroderma and pulm HTN (though not noted on echo) * diuretics held given TAHIR * cardiology following. * No JOANA-/ARB given CKD 2. TAHIR * likely prerenal from overdiuresis * check urine studies * Diuretics held * If continues to worsen, consult her human resources trainee, Dr. Lyman. * Doubt scleroderma renal crisis, but if concerning for it, will need to start JOANA- 3. scleroderma * continue hydroxychloroquine * follow up with Dr. Reinoso in December * complicates picture * personally reviewed Dr. Reinoso's note from 08/25/19 4. Pericardial effusion * large and chronic * currently w/o tamponade * follow up echo * reviewed Dr. Williamson's ([facility]) note from 08/18: no need for pericardiocentesis unless tamponade * previously normal PAP * per rheumatology, atypical in patients with scleroderma 5. Pleural effusion * removal of 1 liter (written as 1.070 cc--confirmed with US it was 1.07 liters) * transudative due to CHF * tolerated procedure well. 6. Raynaud's phenomenon * continue procardia * no necrosis at this time * avoid cold 7. pAfib * continue warfarin and metoprolol 8. VTE proph: low risk as already anticoagulated 9. Debility: to SNF when medically ready for discharge. Advanced care planning: Spent an additional 20 minutes discussing with patient and family about palliative care. The agreed Code Visit Inpatient E&M: 76803 Subs Hosp L3 Procedures: 79241 Advncd Care Plan 30 Min
[2019-11-03 17:42] LABS: Urea Nitrogen, Urine 224 mg/dL (NO RANGE EST.)
--- NOTE | 2019-11-03 18:37 | NURSING ---
Reviewed and agreed on all charting with Lissa Lnadin RN
[2019-11-03] MEDS: Atorvastatin Calcium 10 MG Tablet PO (22:01)
[2019-11-04] VITALS (13 sets, daily range): BP systolic 128–151; BP diastolic 49–85; PULSE 82–89; RESP 16–18; TEMP 36.6–37.3; O2SAT 92–97
[2019-11-04 06:32] LABS: Absolute Lymphocyte Count 2.01 X10^3/uL (0.83-4.51); Absolute Neutrophil Count 12.8 X10^3/uL (2.0-7.7); Basophil# 0.04 X10^3/uL; Basophil% 0.2 % (0-1); Eosinophil# 0.16 X10^3/uL; Hematocrit 26.6 % (37-47); Hemoglobin 8.5 g/dL (12.0-15.0); Lymphocyte # 2.01 X10^3/ul (4.0); Mean Corpuscular Hgb 30.4 pg (27.0-32.0); Mean Platelet Vol. 10.6 fl (6.2-12.0); Monocyte# 1.59 X10^3/uL; Monocyte% 9.5 % (0-10); NRBC Flagged by Analyzer 0 % (0-5); Neutrophil # 12.78 X10^3/uL (2.7-7.7); Neutrophil % 76.5 % (47-70); POSITIVE DIFFERENTIAL YES; POSITIVE MORPHOLOGY YES; Platelet Count 407 K/mm3 (150-450); RBC Distribution Width CV 21.1 % (11.6-14.6); RBC Distribution Width SD 71.3 fl (35.1-43.9); White Blood Count 16.7 K/mm3 (4.4-11.0)
[2019-11-04 06:37] LABS: International Normalized Ratio 1.6; Prothrombin Time (Protime)PT. 19.3 SECONDS (11.7-14.9)
[2019-11-04 06:52] LABS: Differential Indicated SCAN CRITERIA MET
[2019-11-04 07:06] LABS: Anion Gap 6 (5-15); BUN 69 mg/dL (7-18); BUN/Creat Ratio 38.1 RATIO (10-20); Calcium,Total 7.5 mg/dL (8.5-10.1); Chloride 109 mmol/L (98-107); Creatinine, Serum 1.81 mg/dL (0.55-1.02); EST Glomerular Filtration Rate 29 mL/min (>60); Est Glom Filt Rate - Afr Amer 35 mL/min (>60); Estimated Creatinine Clearance 18.98 ml/min; Glucose 88 mg/dL (74-106); Potassium 3.3 mmol/L (3.5-5.1); Sodium Level 144 mmol/L (136-145)
[2019-11-04 08:06] LABS: Differential Comment SCANNED
[2019-11-04 08:07] LABS: Anisocytosis 2+; Hypochromasia 1+; Microcytosis 1+; Ovalocyte 1+; Platelet Estimate ADEQUATE (ADEQ)
--- NOTE | 2019-11-04 08:42 | PCM.PN.CARD ---
Subjectve: Patient continues to slowly improve. Hemoglobin slightly lower today. Telemetry showed normal sinus rhythm with a PAC. No chest pain or angina. Her breathing is much better after thoracentesis. Objective: Vital Signs Temp Pulse Resp BP Pulse Ox 99.2 F H 82 16 146/72 H 95 11/04/19 04:59 11/04/19 06:51 11/04/19 05:00 11/04/19 04:59 11/04/19 05:00 Oxygen Flow Rate (L/min) [4] 6 Oxygen Flow Rate (L/min) [3] 6 Oxygen Flow Rate (L/min) [2] 6 Oxygen Flow Rate (L/min) [1 ( 6 Initial Baseline)] Oxygen Flow Rate (L/min) 3 Oxygen Delivery Method [4] Nasal Cannula Oxygen Delivery Method [3] Nasal Cannula Oxygen Delivery Method [2] Nasal Cannula Oxygen Delivery Method [1 ( Nasal Cannula Initial Baseline)] Oxygen Delivery Method Nasal Cannula Weight: 106 lb 14.787 oz Body Mass Index (BMI) 18.2 Intake and Output for Last 24 Hours 11/02/19 11/03/19 11/04/19 23:59 23:59 23:59 Intake Total 672.73 / 847.73 1329.03 / 1449.03 240 / 240 Output Total 2570 / 2870 1290 / 1290 650 / 650 Balance -1897.27 / -2022.27 39.03 / 159.03 -410 / -410 General: Awake, Alert, Oriented x 3 HEENT: PERRL, EOMI, Sclera Non Icteric Neck: Supple, Good ROM, No Lymph Node Enlargement Lungs: Clear to auscultation, Diminished Left Base, Dullness to Percussion-Left Cardiovascular: Regular Rhythm, Normal S1, Normal S2, No Rubs, No Gallops Murmur Murmur: Grade 2/6, Holosystolic Vascular: No Carotid Bruits, Normal Femoral Pulses, Normal Radial Pulses, Normal Dorsalis Pedal Pulse, Normal Posterior Tibial Pulses Abdomen: Bowel Sounds Present, Soft, Non Tender, No HSM, No Organomegaly Extremities: No Cyanosis, No Clubbing, No edema Neurological: No Focal Motor or Sensory Deficit 11/04/19 06:15: PT 19.3 H, INR 1.6 11/04/19 06:15: WBC 16.7 H, RBC 2.80 L, Hgb 8.5 L, Hct 26.6 L, MCV 95.0, MCH 30.4, MCHC 32.0, Plt Count 407, MPV 10.6, Immature Gran % (Auto) 0.800, Neut % (Auto) 76.5 H, Lymph % (Auto) 12.0 L, [place] % (Auto) 9.5, Eos % (Auto) 1.0, Baso % (Auto) 0.2, Absolute Neuts (auto) 12.8 H, Nucleated RBC % 0 11/04/19 06:15: Sodium 144, Potassium 3.3 L, Chloride 109 H, Carbon Dioxide 29.0, Anion Gap 6, BUN 69 H, Creatinine 1.81 H, Est GFR (MDRD) Af Amer 35 L, Est GFR (MDRD) Non-Af 29 L, BUN/Creatinine Ratio 38.1 H, Glucose 88, Calcium 7.5 L Rhythm: EKG: ECHO: Stress Test: Cardiac Cath: PCI: CT Surgery: Holter monitor: EPS: PPM: CXR: Chest CT Scan: Medical Necessity - Tobacco Use Smoking Status: Never smoker Assessment/Plan 1. Congestive heart failure: The patient has evidence on chest x-ray of severe left pleural effusion and moderate right pleural effusion superimposed on shortness of breath, dyspnea, elevated BNP, orthopnea, PND and lower extremity edema. In addition there is some mention of the patient having a pericardial effusion in the past and she has been on Coumadin therapy. Repeat echocardiogram yesterday showed significant decrease in her LV function from 55% to around 25%, with trivial to small pericardial effusion with no evidence of tamponade. Unable to quantitate RVSP. Patient underwent successful right-sided thoracentesis on 11/02/2019 as it was felt the patient had more fluid on the right side than the left side despite the chest x-ray to the contrary. Patient had about 1 L of fluid removed, and is doing much better post thoracentesis. I am uncertain whether there are plans for additional thoracentesis on the left side but perhaps we will wait until her small right pneumothorax resolves. At this point her creatinine is slowly increasing, and her lower extremity edema has completely resolved. She is still not quite able to lay down flat although she did try last evening and was almost able to lay down flat. Her breathing is markedly improved and has not worsened since her thoracentesis. Recommended discontinuation of her Bumex drip and switching her to Lasix 40 mg p.o. daily. In addition we will increase her Imdur to 30 mg p.o. twice daily, and add hydralazine 10 mg p.o. twice daily for afterload reduction as she is relatively contraindicated JOANA inhibitors or arms given her chronic renal insufficiency. Patient received metolazone 2.5 mg x 1 and would not recommend this on a daily basis as of yet. I would not recommend spironolactone given her chronic renal insufficiency. Would recommend a 1500 cc fluid restriction as well. At some point, once the patient's congestive heart failure has resolved, and assuming she can lay down flat, she may require a diagnostic left and right heart catheterization however this will have to be evaluated with the patient and her family. Patient's daughters are supposed to visit her today, and will discuss with them when they arrive. I would tentatively hold her Coumadin in anticipation of left and right heart catheterization on 11/05/2019. 2. Pericardial effusion: Trivial pericardial effusion on echocardiogram. Final result pending. No evidence of pericardial tamponade. No need for pericardiocentesis at this time. 3. Paroxysmal atrial fibrillation: The patient has a history of paroxysmal atrial fibrillation, but appears to be in sinus rhythm at this time. We will hold Coumadin therapy for now in anticipation of her catheterization. If the patient is found to have severe pulmonary pretension she will recommend lifelong Coumadin therapy. 4. 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 Now that we know the patient does not have a significant pericardial effusion, recommend increasing Imdur to 30 mg p.o. twice daily and adding hydralazine 10 mg p.o. twice daily and titrating up further for afterload reduction. 5. Discussed with Dr. Ortega. Thank you very much for the opportunity to participate in the cardiac care of your patient. If patient's family or the patient does not wish to pursue catheterization, would recommend pursuing discharge planning. Code Visit Inpatient E&M: 15697 [facility] [place] Hosp L2
[2019-11-04] MEDS: Furosemide 40 MG Tablet PO (09:25)
[2019-11-04] MEDS: Aspirin E.C. 81 MG Tablet PO (09:26)
[2019-11-04] MEDS: Hydroxyurea 500 MG Capsule PO (09:26)
[2019-11-04] MEDS: NIFEdipine 30 MG Tablet PO (09:26)
[2019-11-04] MEDS: Ferrous Sulfate 325 MG Tablet PO ×2 (09:26→17:31)
[2019-11-04] MEDS: Pantoprazole Sodium 20 MG Tablet PO (09:26)
[2019-11-04] MEDS: Isosorbide Mononitrate 30 MG Tablet PO ×2 (09:26→21:59)
[2019-11-04] MEDS: hydrALAZINE 10 MG Tablet PO ×2 (09:26→17:31)
[2019-11-04] MEDS: Hydroxychloroquine 200 MG Tablet PO (09:26)
[2019-11-04] MEDS: Ondansetron ODT 4 MG Tablet PO (11:12)
--- NOTE | 2019-11-04 17:28 | PN_ITS ---
Patient Problems: Active and Suspected Problems Acute congestive heart failure (Acute) Elevated troponin I level (Acute) Pleural effusion, left (Acute) Subjective: Patient was seen and examined today, she appeared nauseated when I examined her earlier this morning, she had no complaints of any shortness of breath or chest pain at the time my examination. Reviewed cardiology's note, cardiology is going to attempt a catheterization tomorrow to investigate the coronary arteries, they are not going to do an LV gram. - Physical Exam Vitals/I&O's: Vital Signs Temp Pulse Resp BP Pulse Ox 98.4 F 85 16 144/60 H 96 11/04/19 15:20 11/04/19 15:20 11/04/19 15:20 11/04/19 15:20 11/04/19 15:20 Oxygen Flow Rate (L/min) [4] 6 Oxygen Flow Rate (L/min) [3] 6 Oxygen Flow Rate (L/min) [2] 6 Oxygen Flow Rate (L/min) [1 ( 6 Initial Baseline)] Oxygen Flow Rate (L/min) 1 Oxygen Delivery Method [4] Nasal Cannula Oxygen Delivery Method [3] Nasal Cannula Oxygen Delivery Method [2] Nasal Cannula Oxygen Delivery Method [1 ( Nasal Cannula Initial Baseline)] Oxygen Delivery Method Nasal Cannula Weight: 48.5 kg Body Mass Index (BMI) 18.2 Intake and Output for Last 24 Hours 11/02/19 11/03/19 11/04/19 23:59 23:59 23:59 Intake Total 672.73 / 847.73 1329.03 / 1449.03 480 / 480 Output Total 2570 / 2870 1290 / 1290 1050 / 1050 Balance -1897.27 / -2022.27 39.03 / 159.03 -570 / -570 General: Alert, Oriented x3, Cooperative, No apparent distress, Well developed HEENT: Atraumatic, PERRLA, EOMI, Normocephalic Oral: Moist Mucosa Neck: Supple, Trachea Midline, Thyroid Normal Size and Texture Lungs: Clear to auscultation, No rhonchi, No wheeze, No rales, Diminished Cardiovascular: Regular rate, Regular Rhythm, Normal S1, Normal S2, No murmurs, PMI Normal, No rub noted Abdomen: Bowel Sounds Present, Soft, Non Tender, Non-Distended, No hernias noted Extremities: No clubbing, No cyanosis, Capillary Refill Less than 3 Seconds Skin: No rashes, No breakdown Musculoskeletal: No Tenderness to Palpation of Joints or Extremities Neurological: Cranial nerves II-XII grossly intact, Neuro grossly intact, Sensory exam intact to light touch and pain Psych/Mental Status: Normal Affect, Appropriate, Alert and oriented to time, place, person, mood and affect Laboratory Results 11/03/19 17:17: Eos Smear Total Cells Cancelled 11/03/19 17:17: Urine Creatinine 19.50 11/03/19 17:17: Urine Urea Nitrogen 224 11/04/19 06:15: PT 19.3 H, INR 1.6 11/04/19 06:15: WBC 16.7 H, RBC 2.80 L, Hgb 8.5 L, Hct 26.6 L, MCV 95.0, MCH 30.4, MCHC 32.0, RDW Std Deviation 71.3 H, RDW Coeff of Aba 21.1 H, Plt Count 407, MPV 10.6, Immature Gran % (Auto) 0.800, Neut % (Auto) 76.5 H, Lymph % (Auto) 12.0 L, [place]ett[place] % (Auto) 9.5, Eos % (Auto) 1.0, Baso % (Auto) 0.2, Absolute Neuts (auto) 12.8 H, Absolute Lymphs (auto) 2.01, Nucleated RBC % 0, Differential Comment SCANNED, Diff Path Review May foll, Platelet Estimate ADEQUATE, Hypochromasia 1+, Anisocytosis 2+, Microcytosis 1+, Ovalocytes 1+ 11/04/19 06:15: Sodium 144, Potassium 3.3 L, Chloride 109 H, Carbon Dioxide 29.0, Anion Gap 6, BUN 69 H, Creatinine 1.81 H, Estim Creat Clear Calc 18.98, Est GFR (MDRD) Af Amer 35 L, Est GFR (MDRD) Non-Af 29 L, BUN/Creatinine Ratio 38.1 H, Glucose 88, Calcium 7.5 L 11/04/19 15:50: Eos Smear Total Cells Pending Current Medications Acetaminophen (Tylenol) 650 mg PO Q4H PRN PRN PRN Reason: Pain Score 1-10/10 Last Admin: 11/03/19 09:15 Dose: 650 mg Documented by: Aspirin (Ecotrin) 81 mg PO DAILY@0800 [facility] Last Admin: 11/04/19 09:26 Dose: 81 mg Documented by: Atorvastatin Calcium (Lipitor) 10 mg PO QHS [facility] Last Admin: 11/03/19 22:01 Dose: 10 mg Documented by: Diphenhydramine HCl (Benadryl) 50 mg PO X1 ONE Stop: 11/05/19 05:01 Ferrous Sulf[facility] ([facility]) [facility] Last Admin: 11/04/19 09:26 Dose: 325 mg Documented by: Furosemide (Lasix) 40 mg PO DAILY [facility] Last Admin: 11/04/19 09:25 Dose: 40 mg Documented by: Hydralazine [facility] ([facility]oline) [facility] Last Admin: 11/04/19 09:26 Dose: 10 mg Documented by: Hydroxychloroquine Sulfate (Plaquenil) [facility] Last Admin: 11/04/19 09:26 Dose: 200 mg Documented by: Hydroxyurea (Hydrea) 500 mg PO MoTuWeThFr [facility] Last Admin: 11/04/19 09:26 Dose: 500 mg Documented by: Sodium Chloride () 1,000 mls @ 0 mls/hr IV .Q0M [facility] Isosorbide Mononitrate (Imdur) 30 mg PO BID [facility] Last Admin: 11/04/19 09:26 Dose: 30 mg Documented by: Nifedipine (Procardia Xl) 30 mg PO DAILY [facility] Last Admin: 11/04/19 09:26 Dose: 30 mg Documented by: Nutritional Formula (Lactose Free) (Ensure Enlive) 60 ml PO 4X/DAY [facility] Last Admin: 11/04/19 17:19 Dose: Not Given Documented by: Ondansetron HCl (Zofran Odt) 4 mg PO Q8H PRN PRN PRN Reason: NAUSEA Last Admin: 11/04/19 11:12 Dose: 4 mg Documented by: Pantoprazole Sodium (Protonix) 20 mg PO DAILY [facility] Last Admin: 11/04/19 09:26 Dose: 20 mg Documented by: Potassium Chloride (K-Dur) [facility] Sodium Chloride () 10 - 40 ml IV UD PRN PRN Reason: SALINE FLUSH Last Admin: 11/03/19 09:22 Dose: 10 ml Documented by: Medical Necessity - Tobacco Use Smoking Status: Never smoker Assessment/Plan All Active Problems Debility (Acute) UTI due to Klebsiella species (Acute) Acute congestive heart failure (Acute) Elevated troponin I level (Acute) Pleural effusion, left (Acute) Left leg pain (Acute) #1 acute systolic congestive heart failure-medication adjustment per cardiology #2 chronic kidney disease stage IV #3 hypokalemia-potassium replacement given #4 bibasilar pleural effusion secondary to acute congestive heart failure #5 anemia-probably secondary to chronic kidney disease-CBC will be repeated tomorrow #6 coronary artery disease-I talked with cardiology, they will try to catheterize the patient tomorrow #7 leukocytosis-etiology unclear-this appears to be chronic in nature #8 paroxysmal atrial fibrillation #9 generalized debility Code Visit Inpatient E&M: 18183 Subs Hosp L2
[2019-11-04] MEDS: Atorvastatin Calcium 10 MG Tablet PO (21:58)
[2019-11-04] MEDS: 0.9% Saline Lock 10 ML Syringe IV (21:59)
[2019-11-05] VITALS (21 sets, daily range): BP systolic 131–177; BP diastolic 58–84; PULSE 80–87; RESP 16–18; TEMP 36.4–36.6; O2SAT 92–98
[2019-11-05] MEDS: Magnesium Sulfate 4gm/100mL 4 GM/100 ML IV.SOLN. IV (02:56)
[2019-11-05] MEDS: 0.9% Saline Lock 10 ML Syringe IV ×2 (02:56→06:30)
[2019-11-05 05:48] LABS: International Normalized Ratio 1.6; Prothrombin Time (Protime)PT. 18.7 SECONDS (11.7-14.9)
[2019-11-05 06:01] LABS: Anion Gap 7 (5-15); BUN 72 mg/dL (7-18); BUN/Creat Ratio 43.9 RATIO (10-20); Calcium,Total 7.4 mg/dL (8.5-10.1); Chloride 106 mmol/L (98-107); Creatinine, Serum 1.64 mg/dL (0.55-1.02); EST Glomerular Filtration Rate 32 mL/min (>60); Est Glom Filt Rate - Afr Amer 39 mL/min (>60); Estimated Creatinine Clearance 20.95 ml/min; Glucose 79 mg/dL (74-106); Potassium 3.6 mmol/L (3.5-5.1); Sodium Level 142 mmol/L (136-145)
[2019-11-05] MEDS: Acetaminophen 325 MG Tablet 650 MG PO (06:29)
[2019-11-05] MEDS: Aspirin E.C. 81 MG Tablet PO (06:29)
[2019-11-05] MEDS: NIFEdipine 30 MG Tablet PO (06:29)
[2019-11-05] MEDS: hydrALAZINE 10 MG Tablet PO (06:30)
[2019-11-05] MEDS: Isosorbide Mononitrate 30 MG Tablet PO (06:30)
--- NOTE | 2019-11-05 07:27 | NURSING ---
REPORT CALLED TO PAPER MAKER.
[2019-11-05] MEDS: DiphenhydrAMINE 25 MG Capsule 50 MG PO (07:29)
--- NOTE | 2019-11-05 09:33 | CL.D_ITS ---
Patient Name: JEISON VALENZUELA Study Date: 11/05/2019 Performing: Bal Choi MD Ht: 68.11 inches 173 cm : 1940 Wt: 101.41 lbs 46 kg Age: 79 Gender: female BSA: 1.53 PROCEDURE(S) PERFORMED EI48-MWI/LHC/COR CLINICAL PROFILE AND INDICATIONS Patient presents with NSTEMI for urgent cardiac cath Indications: Suspected CAD, LV Dysfunction Heart Failure: NYHA Class: 3, Newly Diagnosed: Yes, Heart Failure Type: Systolic Stress/Imaging Stress/Image Study Performed: No Angina Classification Anginal Classification w/in 2 Weeks: No symptoms CAD Presentations: Other: Pleural effusion, CHF, LV dysfunction by echo Comorbidities/Risk Factors: Hypertension Dyslipidemia CONCLUSIONS Non obstructive coronary arteries Normal Left Ventricular End Diastolic Pressure The patient has normal pulmonary hemodynamics. RECOMMENDATIONS Management as per referring Security Flex Officer Manual sheath removal D/w Dr Jones,. No LV gram done due to CRI. Increase Imdur to 60mg po bid and increase hydralazine to 25mg po bid. F/u with Dr Choi DESCRIPTION OF PROCEDURE The patient arrived to the procedure lab. The risks and benefits of the procedure as well as a full d escription of our services here and current unavailability of surgical backup were fully explained to the patient and/or their significant other prior to the catheterization. The Timeout was completed, verifying the correct patient and procedure. The patient's procedural site was prepped and draped in the usual fashion. Local anesthetic was given subcutaneously to right groin region with Lidocaine 2%. Using a modified Seldinger technique, arterial access was obtained via the right femoral artery, a 4 Fr sheath was inserted Venous access was obtained via the right femoral vein, a 7Fr sheath was insert ed. A 7Fr thermal dilution catheter was inserted and right heart pressures were recorded, it was then advanced to PA position for cardiac outputs. Thermal dilution cardiac outputs were then recorded. O2 saturations were then obtained. The Thermal dilution catheter was then removed. LV to AO pullback pressures were then recorded. Left Coronary Artery selective angiography was performed in mu ltiple views using a 4 Fr. JL5 catheter. Right Coronary Artery selective angiography was then perform ed in multiple views using a 4 Fr. 3DRC catheter. Left Coronary Artery selective angiography was perf ormed in multiple views using a 4 Fr. JL4 catheter.The venous sheath was then pulled and manual compr ession applied until hemostasis achieved CORONARY ANGIOGRAPHY DOMINANCE: Right Dominant LEFT HEART ASSESSMENT Left Ventricular Ejection Fraction: Not assessed Normal Left Ventricular End Diastolic Pressure LVEDP: 5 mmHg RIGHT HEART ASSESSMENT Thermal CO: 4.62 Thermal CI: 3.02 Alma CO: 6.77 Alma CI: 4.42 PW: /9 8 PA: 31/10 18 RV: 30/-1 2 RA: 03/04 1 PVR: 173 SVR: 1645 Right Heart pressures - normal LEFT MAIN: Angiographically normal LEFT ANTERIOR DESCENDING ARTERY: Mild luminal irregularities less than 30% PROX LAD: Moderate calcification CIRCUMFLEX ARTERY: Non-obstructive RIGHT CORONARY ARTERY: PROX RCA: Mild luminal irregularities less than 30% MID RCA: Mild luminal irregularities less than 30% COMPLICATIONS No Complications PROCEDURE MEDICATIONS Oxygen: 3 L/min via nasal cannula Oxygen: Discontinued SUMMARY OF HEMODYNAMIC DATA Time AIR REST ECG 08:41:13 RV 30/-1, 2 09:03:49 RA 03/04 (1) SV 09:04:06 PW 09/12 (8) PV 09:06:03 PA 31/10 (18) PA 09:06:13 LV 165/3, 6 09:10:33 PA 33/11 (20) 09:10:33 LV 166/3, 6 09:10:39 PA 32/12 (19) 09:10:39 LV 163/-13, 9 09:10:57 LV 166/-13, 5 09:11:03 LV 167/-13, 5 09:11:21 PW 6/6 (5) 09:11:21 LV 164/-14, 4 09:11:29 PW 7/6 (5) 09:11:29 LV 159/-10, 5 09:11:48 RV 31/0, 4 09:11:48 LVp 169/-14, 5 09:12:25 AOp 174/58 (102) 09:12:30 AO 140/63 (96) SA 09:14:59 Type SV CO (l/m) CI (l/m/ HR Time AIR REST Thermal 52.50 4.62 3.02 88 08:41:13 Alma 76.90 6.77 4.42 88 08:41:13 Label % O2 Pres/Loc Time AIR REST PA 65 PA 09:22:12 AO 91 PV 09:23:58 Signed By Bal Choi MD On 11/05/2019 9:32:02 AM Bal Choi MD
[2019-11-05] MEDS: Nitroglycerin (INPATIENT USE) 0.4 MG TAB.SUBL SUBLINGUAL (10:38)
[2019-11-05] MEDS: Hydroxychloroquine 200 MG Tablet PO (11:07)
[2019-11-05] MEDS: Ferrous Sulfate 325 MG Tablet PO ×2 (11:07→15:56)
[2019-11-05] MEDS: Hydroxyurea 500 MG Capsule PO (11:08)
[2019-11-05] MEDS: Furosemide 40 MG Tablet PO (11:08)
[2019-11-05] MEDS: Pantoprazole Sodium 20 MG Tablet PO (11:08)
[2019-11-05] MEDS: hydrALAZINE 25 MG Tablet PO (11:11)
[2019-11-05] MEDS: Isosorbide Mononitrate 60 MG Tablet PO (11:11)
--- NOTE | 2019-11-05 12:37 | CASEMGMT ---
Physician spoke with family about Palliative Care and they agreed to referral. SW called [facility] and made a referral. SW also faxed information. Kacie HERNANDEZ MSW
--- NOTE | 2019-11-05 13:14 | TREXTCAR_ITS ---
- Diet 11/05/19 11:02 Diet: Cardiac/Low Cholesterol Type of Dietary Supplement:: [place] Breakfast Is pt able to select menu?: No - Routine Orders/Code Status O2 Liters per Minute: 2 O2 Frequency: Continuous Routine Lab Work: BMP - in 3 days, INR - daily for 5 days starting on 11/07/19 - Wound(s) coccyx Wound Type: Pressure Injury Dressing Change: Mepilex Right flank Wound Type: Surgical Incision Right Femoral Wound Type: Puncture - Therapies Weight Bearing: Weight bearing as tolerated Physical Therapy: Eval and Treat Occupational Therapy: Eval and Treat - Problem/Diagnosis (1) Systolic CHF Status: Acute Current Visit: Yes (2) Pleural effusion, right Status: Acute Comment: due to CHF Current Visit: Yes (3) Chronic renal failure, stage 3 (moderate) Status: Chronic Current Visit: No (4) CAD (coronary artery disease) Status: Chronic Comment: non occlusive Current Visit: No (5) PAD (peripheral artery disease) Status: Chronic Current Visit: No (6) Hypertensive cardiopathy Status: Acute Comment: EF 25% Current Visit: Yes (7) CREST (calcinosis, Raynaud's phenomenon, esophageal dysfunction, sclerodactyly, telangiectasia) Status: Chronic Current Visit: No (8) Paroxysmal A-fib Status: Chronic Comment: currently in sinus Current Visit: Yes (9) Chronic anticoagulation Status: Chronic Comment: With warfarin-due to paroxysmal a-fib Current Visit: No - Allergies/Procedures Done in Hospital Allergies/Adverse Reactions: Allergies ampicillin Allergy (Verified 10/31/19 13:03) Rash cyclophosphamide [From Cytoxan] Allergy (Verified 10/31/19 13:03) Rash doxycycline Allergy (Verified 10/31/19 13:03) Rash morphine Allergy (Verified 10/31/19 13:03) mental status change sulfamethoxazole [From Bactrim] Allergy (Verified 10/31/19 13:03) Rash trimethoprim [From Bactrim] Allergy (Verified 10/31/19 13:03) Rash Procedures: 2-D Echocardiogram, Thoracentesis - Type of Care/Length of Stay Estimated LOS: Convalescent Care Less Than 30 days Type of Care Needed: Skilled Rehab Potential: Good Prognosis: Good - Additional Orders/Day of Discharge Additional Orders: chest x-ray in one week H&P will serve as current which was dated: 10/31/19 Day of Discharge: 11/05/19 - Dietary and Speech Recommendations Dietitian Recommendations/Changes: Recommend regular, low sodium diet w/ fluid restriction as indicated. Will continue carnation instant breakfast w/ meals. - Follow Up Care Primary Care Physician: Jaya Blackwell III, MD [Primary Care Provider] -
[2019-11-05 14:01] LABS: Blood Gas Specimen Type VEN; VBG BASE EXCESS 6 mmol/L (-1.0-3.5); VBG Bicarbonate 30 mmol/L (22-26); VBG Oxygen Content 31 mmol/L (23-33); VBG PO2 35 mmHg (25-40); VBG SO2 72 % (50-70); VBG pCO2 38.5 mmHg (41-51); VBG pH 7.49 (7.32-7.42)
[2019-11-05 14:01] LABS: Base Excess 5 mmol/L (-2 to +2); Blood Gas Specimen Type ART; PO2 54 mmHG (75-100); SO2 91 % (95-99); Total Carbon Dioxide 29 mmol/L; pCO2 35.9 mmHg (35-45)
[2019-11-05 14:01] LABS: Blood Gas Specimen Type VEN; VBG BASE EXCESS 3 mmol/L (-1.0-3.5); VBG Bicarbonate 27 mmol/L (22-26); VBG Oxygen Content 28 mmol/L (23-33); VBG PO2 32 mmHg (25-40); VBG SO2 65 % (50-70); VBG pCO2 37.9 mmHg (41-51); VBG pH 7.46 (7.32-7.42)
--- NOTE | 2019-11-05 15:35 | NURSING ---
pt ambulated post heart cath. tolerated well. Site C/D/I. Soft to touch.
--- NOTE | 2019-11-05 15:46 | NURSING ---
Report called to [facility] given to nurse Brent.
[2019-11-05 15:47] LABS: Pathologist Review Reviewed
[2019-11-07 13:05] LABS: Eosinophil Ct. Urine 6 % (.)
--- NOTE | 2019-11-09 15:04 | PCM.DC.SUM ---
Discharge Date and Diagnosis Date of Admission: 10/31/19 Date of Discharge: 11/05/19 - Primary Discharge Diagnosis #1 acute systolic congestive heart failure #2 chronic kidney disease stage IV #3 hypokalemia-potassium replacement given #4 bibasilar pleural effusion secondary to acute congestive heart failure #5 anemia-probably secondary to chronic kidney disease #6 coronary artery disease #7 leukocytosis-etiology unclear #8 paroxysmal atrial fibrillation #9 generalized debility #10 nonischemic cardiomyopathy-probably secondary to hypertension - Secondary Discharge Diagnosis Chronic Problems (Last Updated 11/05/19 @ 15:49 by Tyesha Canchola) History of right and left heart catheterization (Chronic 11/05/19) Non obstructive coronary arteries Normal Left Ventricular End Diastolic Pressure The patient has normal pulmonary hemodynamics. Paroxysmal A-fib (Chronic) currently in sinus History of thoracentesis (Chronic 11/02/19) Total volume of 1.070 cc of light yellow-colored fluid was removed from the right lung pleural space.11/02/2019 Osteoarthritis of left knee (Chronic) Osteoarthritis of left hip (Chronic) Peripheral arterial occlusive disease (Chronic) Constipation (Chronic) Hyperlipidemia (Chronic) Chronic kidney disease (Chronic) Transient ischemic attack (Chronic) Carotid artery stenosis (Chronic) CREST (calcinosis, Raynaud's phenomenon, esophageal dysfunction, sclerodactyly, telangiectasia) (Chronic) GERD (gastroesophageal reflux disease) (Chronic) Scleroderma (Chronic) Chronic renal failure, stage 3 (moderate) (Chronic) Chronic anticoagulation (Chronic) With warfarin-due to paroxysmal a-fib Anemia of chronic disease (Chronic) CAD (coronary artery disease) (Chronic) non occlusive PAD (peripheral artery disease) (Chronic) History of CEA (carotid endarterectomy) (Chronic) right Thrombocytosis (Chronic) Diarrhea (Chronic) resolves with immodium 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) Hypertension (Chronic) Hospital Course and Treatment Consultations 11/01/19 16:31 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 Routine Comment: Operations: None Procedures: 2-D Echocardiogram, Cardiac catheterization, Thoracentesis Summary of Care Provided: The patient is a 79 year old F was seen in the emergency room at [facility] with a chief complaint of shortness of breath, work-up in the emergency room included labs which showed a beta natruretic peptide greater than 5000, chest x-ray revealed congestive heart failure with pleural effusion bilaterally, troponin was slightly elevated at 0.145, patient was admitted to PCU for acute congestive heart failure, she was placed on IV diuresis and seen in consultation by cardiology. Patient underwent a thoracentesis to remove fluid from her right hemithorax. Patient was seen by PT and OT and her blood pressure medications were adjusted by cardiology. Echocardiogram was obtained which showed a severely reduced ejection fraction of 25% patient underwent a cardiac catheterization, it showed nonobstructive coronary artery disease, it was felt that her cardiomyopathy was probably secondary to hypertension. On 11/05/2019, patient was seen and examined and felt to be in stable condition for discharge to a retirement facility: On examination she appeared in good health and spirits. Vital signs as documented. Skin warm and dry and without overt rashes. Neck without JVD. Lungs clear. Heart exam notable for regular rhythm, normal sounds and absence of murmurs, rubs or gallops. Abdomen unremarkable and without evidence of organomegaly, masses, or abdominal aortic enlargement. Extremities nonedematous, right below the knee amputation noted which is remote. Neuro: Cranial nerves II through XII are grossly intact, no focal motor deficits were noted, sensation to light touch and pinprick is intact. Psych: Patient is alert and oriented x3, she does not appear anxious or depressed On 11/05/2019, patient was discharged to a retirement care facility in stable condition. - Physical Exam Vitals/I&O's: Vital Signs Temp Pulse Resp BP Pulse Ox 97.8 F 85 16 131/58 H 92 11/05/19 14:00 11/05/19 14:59 11/05/19 14:00 11/05/19 14:00 11/05/19 15:58 Oxygen Flow Rate (L/min) [4] 6 Oxygen Flow Rate (L/min) [3] 6 Oxygen Flow Rate (L/min) [2] 6 Oxygen Flow Rate (L/min) [1 ( 6 Initial Baseline)] Oxygen Flow Rate (L/min) 2 Oxygen Delivery Method [4] Nasal Cannula Oxygen Delivery Method [3] Nasal Cannula Oxygen Delivery Method [2] Nasal Cannula Oxygen Delivery Method [1 ( Nasal Cannula Initial Baseline)] Oxygen Delivery Method Room Air Weight: 45.7 kg Body Mass Index (BMI) 18.2 Home Medications: Medications to take at Discharge Vit A/Vit C/Vit E/Zinc/Copper [Preservision Areds Softgel] 1 each PO BID 03/09/16 Acetaminophen [Tylenol] 1,000 mg PO Q6H PRN PRN 09/11/19 Hydroxyurea 500 mg PO MOTUWETHFR 09/11/19 Aspirin E.C. [Ecotrin] 81 mg PO DAILY@0800 09/15/19 Atorvastatin Calcium [Lipitor] 10 mg PO QHS 09/15/19 Hydroxychloroquine [Plaquenil] 200 mg PO DAILYCM 09/15/19 Multivitamins,Therapeutic [Multivitamin] 1 tab PO DAILYCM 09/15/19 NIFEdipine [Procardia XL] 30 mg PO DAILY 09/15/19 Ondansetron [Zofran Odt] 4 mg PO Q8H PRN PRN #90 tab 10/05/19 Ferrous Sulfate 325 mg PO BIDCM 10/31/19 Metoprolol Tartrate 50 mg PO DAILY 10/31/19 Pantoprazole Sodium [Protonix] 20 mg PO DAILY 10/31/19 Warfarin [Coumadin] 3.5 mg PO DAILY 10/31/19 Acetaminophen [Tylenol Tablet] 650 mg PO Q4H PRN PRN tab 11/05/19 Furosemide [Lasix] 40 mg PO DAILY tab 11/05/19 Isosorbide Mononitrate [Imdur] 60 mg PO BID tab 11/05/19 Lisinopril 5 mg PO DAILY #1 tab 11/05/19 Potassium Chloride [K-Dur] 20 meq PO DAILYCM tab 11/05/19 hydrALAZINE [Apresoline] 25 mg PO TID #1 tab 11/05/19 traMADol [Ultram] 50 mg PO Q6H PRN PRN #20 tab 11/05/19 Following Prescrptions Were Given to Patient: hydrALAZINE [Apresoline] 25 mg PO TID #1 tab Lisinopril 5 mg PO DAILY #1 tab traMADol [Ultram] 50 mg PO Q6H PRN PRN #20 tab PRN Reason: pain 4 or greater Prescription Printed Primary Care Physician: Jaya Blackwell III, MD [Primary Care Provider] - Disposition: [facility] facility Minutes spent on discharge:: 35 Patient Condition:: Stable Medical Necessity - Tobacco Use Smoking Status: Never smoker Meaningful Use Info Meaningful Use Diagnoses (Choose all that apply): CHF - CHF JOANA/ARB ordered at discharge?: Yes Documented LVEF (%): 25 Code Visit Inpatient E&M: 09940 Disch Hosp
== END 2019-11-05 17:10 | disposition skilled nursing facility (03) | DRG 286 ==
LOC: ED 14:56 → PCU 15:34
PROVIDERS: Hospitalist; Internal Medicine Cardiovascular Disease; Admitting Provider Family Medicine; Emergency Provider Emergency Medicine; Family Provider Family Medicine; PCP Family Medicine; Referring Provider Family Medicine; Visit Provider Internal Medicine
DX: I13.0 Hypertensive heart and chronic kidney disease with heart failure and stage 1 through stage 4 chronic kidney disease, or unspecified chronic kidney disease (principal); I50.21 Acute systolic (congestive) heart failure; J96.01 Acute respiratory failure with hypoxia; N17.9 Acute kidney failure, unspecified; J91.8 Pleural effusion in other conditions classified elsewhere; I31.3 Pericardial effusion (noninflammatory); J95.811 Postprocedural pneumothorax; R64 Cachexia; Z68.1 Body mass index [BMI] 19.9 or less, adult; N18.4 Chronic kidney disease, stage 4 (severe); I42.8 Other cardiomyopathies; E78.5 Hyperlipidemia, unspecified; M34.1 CR(E)ST syndrome; I25.10 Atherosclerotic heart disease of native coronary artery without angina pectoris; I48.0 Paroxysmal atrial fibrillation; Y84.4 Aspiration of fluid as the cause of abnormal reaction of the patient, or of later complication, without mention of misadventure at the time of the procedure; E87.6 Hypokalemia; D63.1 Anemia in chronic kidney disease; K21.9 Gastro-esophageal reflux disease without esophagitis; R53.81 Other malaise; Z89.511 Acquired absence of right leg below knee; Z89.412 Acquired absence of left great toe; Z79.01 Long term (current) use of anticoagulants
CPT/HCPCS: 32555; 36415; 71046; 80048; 81001; 82570; 82803; 82945; 82962; 83615; 83735; 83880; 84100; 84157; 84484; 84540; 85025; 85610; 87205; 88108; 88305; 88313; 89050; 93005; 93306; 93456; 97110; 97162; 97165; 97530; 97802; 99251; 99285; Q9957; Q9967; A4216; C1751; C1769; C1894; G0463; J1940

== ENCOUNTER → 2019-11-08 07:31 | Outpatient (CLI) | payer MEDICARE, OTHER, SELFPAY ==
[2019-10-31 16:00] VITALS: BMI 18.2
[2019-11-08 07:46] LABS: Prothrombin Time (Protime)PT. 22.4 SECONDS (11.7-14.9)
== END ==
PROVIDERS: Family Provider Family Medicine; PCP Family Medicine; Visit Provider Family Medicine
DX: Z79.01 Long term (current) use of anticoagulants (principal)
CPT/HCPCS: 85610